=== PATIENT | male | born 1965 | race Caucasian/White ===

== ENCOUNTER 2017-02-11 07:54 | Inpatient (IN) | payer OTHER ==
[2017-02-11] VITALS (10 sets, daily range): BP systolic 112–165; BP diastolic 60–98; PULSE 94–133; RESP 18–38; TEMP 96.7–98.7; O2SAT 91–96
[~2017-02-11] VITALS: Ht 160 cm; Wt 66.0 kg
--- NOTE | 2017-02-11 08:07 | PD ---
HPI . shortness of breath at rest, fever, chills, body aches, Chief Complaint: Cold / Flu Symptoms Time Seen by Provider: 08:07 Travel History International Travel<30 days: No Contact w/Intl Traveler<30days: No Traveled to known affect area: No History of Present Illness HPI 51 yr old male with no significant PMH here with c/o shortness of breath at rest , fever, chills, body aches that started on Sunday of this past week. He has been trying to fight through the symptoms and not getting better. He tells me he has had difficulty breathing to where he is sitting up in a chair at home. He denies any chest pain, but admits to body aches mainly in his shoulder and ribs. He says that he thinks he may have had a fever because he was cold, but no one else was. He never checked his temperature. He says he has been feeling really "run down." He is accompanied by his family. PFSH Past Medical History Medical History: Denies Significant Hx Social History Tobacco Use: Yes Allergies-Medications (Allergen,Severity, Reaction): Coded Allergies: No Known Allergies (Unverified , 02/11/17) Reported Meds & Prescriptions Reported Meds & Active Scripts Active No Active Prescriptions or Reported Medications Review of Systems General / Constitutional: Positive: Fever, Chills Eyes: No: Visual changes HENT: No: Headaches Cardiovascular: No: Chest Pain or Discomfort Respiratory: Positive: Cough, Shortness of Breath Gastrointestinal: No: Abdominal Pain Genitourinary: No: Dysuria Musculoskeletal: No: Pain Skin: No Rash Neurologic: No: Weakness Psychiatric: No: Depression Endocrine: No: Polydipsia Hematologic/Lymphatic: No: Easy Bruising Physical Exam Narrative GENERAL: AAO x 3, no acute distress, Well-nourished, well-developed patient. SKIN: Warm and dry. No visible rashes or bruising. HEAD: Normocephalic and atraumatic. EYES: No scleral icterus. No injection or drainage. EOM intact, PERRLA ENT: No nasal drainage noted. Mucous membranes pink. Airway patent. mild posterior pharynx erythema NECK: Supple, trachea midline. No JVD. CARDIOVASCULAR: Regular rate and rhythm without murmurs, gallops, or rubs. RESPIRATORY: Breath sounds diminished R>L Short of breath while talking. No audible wheezing, rhonchi. GASTROINTESTINAL: Abdomen nondistended, some discomfort with deep palpation. EXTREMITIES: No cyanosis or edema. BACK: Nontender without obvious deformity. No CVA tenderness. PSYCH: AAO x 3, normal affect. Data Data Last Documented VS Vital Signs Date Time Temp Pulse Resp B/P Pulse Ox O2 Delivery O2 Flow Rate FiO2 02/11/17 09:51 114 28 135/71 93 Nasal Cannula 2 02/11/17 07:56 98.7 Orders Influenzae A/B Antigen (02/11/17 08:17) Complete Blood Count With Diff (02/11/17 08:19) Comprehensive Metabolic Panel (02/11/17 08:19) Sodium Chlor 0.9% 1000 Ml Inj (Ns 1000 M (02/11/17 08:30) Iv Access Insert/Monitor (02/11/17 08:20) Chest, Pa & Lat (02/11/17 08:17) Lactic Acid Sepsis Protocol (02/11/17 09:30) Blood Culture (02/11/17 09:30) Labs Laboratory Tests Test 02/11/17 02/11/17 08:45 08:50 Sodium Level 137 MEQ/L Potassium Level 4.4 MEQ/L Chloride Level 105 MEQ/L Carbon Dioxide Level 23.2 MEQ/L Anion Gap 9 MEQ/L Blood Urea Nitrogen 27 MG/DL Creatinine 1.29 MG/DL Estimat Glomerular Filtration 58 ML/MIN Rate Random Glucose 109 MG/DL Calcium Level 9.4 MG/DL Total Bilirubin 0.9 MG/DL Aspartate Amino Transf 15 U/L (AST/SGOT) Alanine Aminotransferase 27 U/L (ALT/SGPT) Alkaline Phosphatase 149 U/L Total Protein 7.4 GM/DL Albumin 2.5 GM/DL White Blood Count 21.9 TH/MM3 Red Blood Count 4.47 MIL/MM3 Hemoglobin 14.2 GM/DL Hematocrit 41.4 % Mean Corpuscular Volume 92.7 FL Mean Corpuscular Hemoglobin 31.7 PG Mean Corpuscular Hemoglobin 34.2 % Concent Red Cell Distribution Width 13.3 % Platelet Count 357 TH/MM3 Mean Platelet Volume 8.0 FL Neutrophils (%) (Auto) 80.6 % Lymphocytes (%) (Auto) 6.8 % Monocytes (%) (Auto) 12.1 % Eosinophils (%) (Auto) 0.2 % Basophils (%) (Auto) 0.3 % Neutrophils # (Auto) 17.6 TH/MM3 Lymphocytes # (Auto) 1.5 TH/MM3 Monocytes # (Auto) 2.6 TH/MM3 Eosinophils # (Auto) 0.0 TH/MM3 Basophils # (Auto) 0.1 TH/MM3 CBC Comment AUTO DIFF MDM Medical Decision Making Medical Screen Exam Complete: Yes Emergency Medical Condition: Yes Medical Record Reviewed: Yes Differential Diagnosis pneumonia, influenza, bronchitis, Narrative Course 51 yr old male with no significant PMH here with c/o shortness of breath at rest , fever, chills, body aches that started on Sunday of this past week. He has been trying to fight through the symptoms and not getting better. He tells me he has had difficulty breathing to where he is sitting up in a chair at home. He denies any chest pain, but admits to body aches mainly in his shoulder and ribs. He says that he thinks he may have had a fever because he was cold, but no one else was. He never checked his temperature. He says he has been feeling really "run down." He is accompanied by his family. Patient seen and examined. He does have some intermittent shortness of breath while talking to me and diminished breath sounds R>L. He is breathing normally. O2 sat is normal. His vital signs are stable. Workup initiated in [facility] pod with shortness of breath and diminished breath sounds , concerns for PNA. Laboratory Tests Test 02/11/17 02/11/17 08:45 08:50 Sodium Level 137 MEQ/L Potassium Level 4.4 MEQ/L Chloride Level 105 MEQ/L Carbon Dioxide Level 23.2 MEQ/L Anion Gap 9 MEQ/L Blood Urea Nitrogen 27 MG/DL Creatinine 1.29 MG/DL Estimat Glomerular Filtration 58 ML/MIN Rate Random Glucose 109 MG/DL Calcium Level 9.4 MG/DL Aspartate Amino Transf 15 U/L (AST/SGOT) Albumin 2.5 GM/DL White Blood Count 21.9 TH/MM3 Red Blood Count 4.47 MIL/MM3 Hemoglobin 14.2 GM/DL Hematocrit 41.4 % Mean Corpuscular Volume 92.7 FL Mean Corpuscular Hemoglobin 31.7 PG Mean Corpuscular Hemoglobin 34.2 % Concent Red Cell Distribution Width 13.3 % Platelet Count 357 TH/MM3 Mean Platelet Volume 8.0 FL Neutrophils (%) (Auto) 80.6 % Lymphocytes (%) (Auto) 6.8 % Monocytes (%) (Auto) 12.1 % Eosinophils (%) (Auto) 0.2 % Basophils (%) (Auto) 0.3 % Neutrophils # (Auto) 17.6 TH/MM3 Lymphocytes # (Auto) 1.5 TH/MM3 Monocytes # (Auto) 2.6 TH/MM3 Eosinophils # (Auto) 0.0 TH/MM3 Basophils # (Auto) 0.1 TH/MM3 CBC Comment AUTO DIFF Labs are back: Recommend transfer to medical bed. Discussed with Dr. Bower. He will determine patient's disposition. Scripts No Active Prescriptions or Reported Meds Condition: Ninfa Ingram Feb 11, 2017 08:07
[2017-02-11] MEDS ORDERED: SODIUM CHLOR 0.9% 1000 ML INJ 1,000 ML IV ONE (08:30)
[2017-02-11 09:17] LABS: AUTOMATED NEUTROPHIL # 17.6 TH/MM3 (1.8-7.7); BASOPHIL # 0.1 TH/MM3 (0-0.2); BASOPHIL % 0.3 % (0.0-2.0); EOSINOPHIL % 0.2 % (0.0-4.0); HEMATOCRIT 41.4 % (39.0-51.0); LYMPH % 6.8 % (9.0-44.0); LYMPHOCYTE # 1.5 TH/MM3 (1.0-4.8); MEAN CELL VOLUME 92.7 FL (80.0-100.0); MEAN CORPUSCULAR HEMOGLOBIN 31.7 PG (27.0-34.0); MEAN CORPUSCULAR HGB CONC 34.2 % (32.0-36.0); MONO % 12.1 % (0.0-8.0); NEUT % 80.6 % (16.0-70.0); PLATELET COUNT 357 TH/MM3 (150-450); RED BLOOD COUNT 4.47 MIL/MM3 (4.50-5.90); RED CELL DISTRIBUTION WIDTH 13.3 % (11.6-17.2); WHITE BLOOD COUNT 21.9 TH/MM3 (4.0-11.0)
[2017-02-11 09:21] LABS: HEMO FLAGS AUTO DIFF
[2017-02-11 09:34] LABS: ANION GAP 9 MEQ/L (5-15); AST (GOT) 15 U/L (15-37); BICARBONATE 23.2 MEQ/L (21.0-32.0); BLOOD UREA NITROGEN 27 MG/DL (7-18); CHLORIDE 105 MEQ/L (98-107); GLOMERULAR FILTRATION RATE 58 ML/MIN (>89); POTASSIUM 4.4 MEQ/L (3.5-5.1); SODIUM (NA) 137 MEQ/L (136-145)
[2017-02-11 09:37] LABS: ALKALINE PHOSPHATASE 149 U/L (45-117); ALT (GPT) 27 U/L (12-78); TOTAL BILIRUBIN ADULT 0.9 MG/DL (0.2-1.0)
--- NOTE | 2017-02-11 09:52 | RADRPT ---
EXAM DATE/TIME: 02/11/2017 09:04 [facility] COMPARISON: No previous studies available for comparison. INDICATIONS : Shortness of breath. MEDICAL HISTORY : None. SURGICAL HISTORY : None. ENCOUNTER: Initial ACUITY: 1 day PAIN SCORE: 0/10 LOCATION: Bilateral chest FINDINGS: PA and lateral views of the chest. Severe confluent opacity of the right lung with sparing of midlung parenchyma. Possible cavitation at the right lung base. Right pleural effusion with possible loculat ion at the upper lung zone. Left lung clear. No evidence of pneumothorax. Cardiomediastinal silhouett e grossly within normal limits. CONCLUSION: Extensive opacification of the right hemithorax likely representing a combination of parenchymal opac ity and pleural effusion. Possible cavitation at the right lung base. Possible loculation of pleural effusion. Cipriano Moore MD on February 11, 2017 at 9:48 Board Certified Radiologist. This report was verified electronically.
[2017-02-11 10:04] LABS: BANDS 23 % (0-6); NEUTROPHIL # MANUAL DIFF 18.4 TH/MM3 (1.8-7.7); PLATELET ESTIMATE SMEAR NORMAL (NORMAL); PLATELET MORPHOLOGY CLUMPED (NORMAL); POLYS (SEG NEUTROPHILS) 61 % (16-70); SCAN/DIFF FINAL DIFF MANUAL; WBC DIFF SAMPLE 100
[2017-02-11] MEDS ORDERED: NALOXONE HCL 0.4 MG/ML AMP IV PRN (11:15)
[2017-02-11] MEDS ORDERED: SODIUM CHLORIDE 0.9% FLUSH 10 ML FLUSH IV FLUSH PRN (11:15)
[2017-02-11] MEDS ORDERED: MAGNESIUM HYDROXIDE SUSP 30 ML CUP PO PRN (11:15)
[2017-02-11] MEDS ORDERED: PIPERACIL-TAZO 3.375 GM PREMIX 50 ML IV ONE (11:15)
[2017-02-11] MEDS ORDERED: ONDANSETRON HCL 4 MG/2 ML VIAL IVP PRN (11:15)
[2017-02-11] MEDS: NS + KCL 20 MEQ INJ 1,000 ML IV SCH ×2 (11:19→23:38)
[2017-02-11] MEDS: RESP: ALBUTEROL 2.5 MG/IPRATROPIUM 0.5 MG NEB (SCH) NEB ×2 (11:28→15:48)
--- NOTE | 2017-02-11 11:37 | PD ---
Data Data Last Documented VS Vital Signs Date Time Temp Pulse Resp B/P Pulse Ox O2 Delivery O2 Flow Rate FiO2 02/11/17 11:28 93 Nasal Cannula 2.00 02/11/17 10:15 97.9 111 20 134/60 Orders Influenzae A/B Antigen (02/11/17 08:17) Complete Blood Count With Diff (02/11/17 08:19) Comprehensive Metabolic Panel (02/11/17 08:19) Sodium Chlor 0.9% 1000 Ml Inj (Ns 1000 M (02/11/17 08:30) Iv Access Insert/Monitor (02/11/17 08:20) Chest, Pa & Lat (02/11/17 08:17) Lactic Acid Sepsis Protocol (02/11/17 09:30) Blood Culture (02/11/17 09:30) Admit To Inpatient (02/11/17 ) Code Status (02/11/17 11:03) Vital Signs (Adult) Q4H (02/11/17 11:03) Activity Oob With Assistance (02/11/17 11:03) Diet Regular Basic (02/11/17 Lunch) Sodium Chloride 0.9% Flush (Ns Flush) (02/11/17 11:15) Sodium Chloride 0.9% Flush (Ns Flush) (02/11/17 21:00) Acetaminophen (Tylenol) (02/11/17 11:15) Ondansetron Inj (Zofran Inj) (02/11/17 11:15) Magnesium Hydroxide Liq (Milk Of Magnesi (02/11/17 11:15) Temazepam (Restoril) (02/11/17 11:15) Basic Metabolic Panel (Bmp) (02/12/17 06:00) Complete Blood Count With Diff (02/12/17 06:00) Electrocardiogram (02/11/17 11:03) Resp Oxygen Henok C Titrat 1-4 L (02/11/17 ) Pt Request For Service (02/11/17 11:03) Scd Bilateral/Knee High MAXIMINO.BID (02/11/17 11:03) Naloxone Inj (Narcan Inj) (02/11/17 11:15) Inpatient Certification (02/11/17 ) Piperacil-Tazo 3.375 Gm Premix (Zosyn 3. (02/11/17 11:15) Sputum Culture And Gram Stain (02/11/17 11:05) Pneumococcal Urinary Antigen (02/11/17 11:05) Legionella Urinary Antigen (02/11/17 11:05) Vancomycin Inj (Vancomycin Inj) (02/11/17 13:00) Piperacil-Tazo 3.375 Gm Premix (Zosyn 3. (02/11/17 16:00) Magnesium (Mg) (02/12/17 06:00) Ns + Kcl 20 Meq Inj (Ns + Kcl 20 Meq Inj (02/11/17 11:15) Ct Thorax/ Chest W Iv Contrast (02/11/17 ) Albuterol-Ipratropium Neb (Duoneb Neb) (02/11/17 11:15) Albuterol-Ipratropium Neb (Duoneb Neb) (02/11/17 11:15) Consult Pulmonology (02/11/17 11:12) Admit Order (Ed Use Only) (02/11/17 11:31) Labs Laboratory Tests Test 02/11/17 02/11/17 02/11/17 08:45 08:50 09:45 Sodium Level 137 MEQ/L Potassium Level 4.4 MEQ/L Chloride Level 105 MEQ/L Carbon Dioxide Level 23.2 MEQ/L Anion Gap 9 MEQ/L Blood Urea Nitrogen 27 MG/DL Creatinine 1.29 MG/DL Estimat Glomerular Filtration 58 ML/MIN Rate Random Glucose 109 MG/DL Calcium Level 9.4 MG/DL Total Bilirubin 0.9 MG/DL Aspartate Amino Transf 15 U/L (AST/SGOT) Alanine Aminotransferase 27 U/L (ALT/SGPT) Alkaline Phosphatase 149 U/L Total Protein 7.4 GM/DL Albumin 2.5 GM/DL White Blood Count 21.9 TH/MM3 Red Blood Count 4.47 MIL/MM3 Hemoglobin 14.2 GM/DL Hematocrit 41.4 % Mean Corpuscular Volume 92.7 FL Mean Corpuscular Hemoglobin 31.7 PG Mean Corpuscular Hemoglobin 34.2 % Concent Red Cell Distribution Width 13.3 % Platelet Count 357 TH/MM3 Mean Platelet Volume 8.0 FL Neutrophils (%) (Auto) 80.6 % Lymphocytes (%) (Auto) 6.8 % Monocytes (%) (Auto) 12.1 % Eosinophils (%) (Auto) 0.2 % Basophils (%) (Auto) 0.3 % Neutrophils # (Auto) 17.6 TH/MM3 Lymphocytes # (Auto) 1.5 TH/MM3 Monocytes # (Auto) 2.6 TH/MM3 Eosinophils # (Auto) 0.0 TH/MM3 Basophils # (Auto) 0.1 TH/MM3 CBC Comment AUTO DIFF Differential Total Cells 100 Counted Neutrophils % (Manual) 61 % Band Neutrophils % 23 % Lymphocytes % 9 % Monocytes % 7 % Neutrophils # (Manual) 18.4 TH/MM3 Differential Comment FINAL DIFF MANUAL Platelet Estimate NORMAL Platelet Morphology Comment CLUMPED Red Cell Morphology Comment NORMAL Lactic Acid Level 1.5 mmol/L MDM Supervised Visit with CAMILO: No Narrative Course This patient was started in fast track and the PA there realizes patient was far too sick to be a faster patient was transferred to the medical pod where I took over care to provide disposition. I reviewed the entirety of the workup. 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 Valentin who will admit this patient He is consulted pulmonary and ordered chest CT Diagnosis Primary Impression: Pneumonia Qualified Code: J18.9 - Pneumonia of right lung due to infectious organism, unspecified part of lung Additional Impression: Pleural effusion associated with pulmonary infection Admitting Information Admitting Physician Requests: Admit Scripts No Active Prescriptions or Reported Meds Condition: Stable Gregg Bower MD Feb 11, 2017 11:37
[2017-02-11] MEDS ORDERED: IOHEXOL 350 MG/ML 10 ML VIAL (for RAD DIAG) IV ONE (11:49)
--- NOTE | 2017-02-11 12:47 | RADRPT ---
EXAM DATE/TIME: 02/11/2017 11:40 [facility] COMPARISON: No previous studies available for comparison. INDICATIONS : Shortness of breath for one week. IV CONTRAST: 100 cc Omnipaque 350 (iohexol) IV RADIATION DOSE: 5.2 CTDIvol (mGy) MEDICAL HISTORY : None SURGICAL HISTORY : None. ENCOUNTER: Initial ACUITY: 1 day PAIN SCALE: 4/10 LOCATION: Bilateral chest TECHNIQUE: Volumetric scanning of the chest was performed. Using automated exposure control and adjustment of t he mA and/or kV according to patient size, radiation dose was kept as low as reasonably achievable to obtain optimal diagnostic quality images. FINDINGS: LUNGS: Patchy areas of pulmonary consolidation with air bronchograms in the right middle lobe and right lowe r lobe. Mild atelectasis at the left lower lobe. Calcified granuloma in the medial left lower lobe. PLEURA: Multiloculated right pleural effusion. Multiple gas bubbles are identified within the components of t he pleural effusion at the level of the lower lung and midlung. Air-fluid level at the superior etta n of the lateral loculation of the pleural fluid collection at the level of the midlung. MEDIASTINUM: The heart and great vessels demonstrate no acute abnormality. There is no mediastinal or hilar lymph adenopathy. AXILLAE: Within normal limits. No lymphadenopathy. SKELETAL: Within normal limits for patient age. MISCELLANEOUS: The visualized upper abdominal organs demonstrate no acute abnormality. CONCLUSION: 1. Prominent multiloculated pleural effusion on the right containing multiple foci of gas. Difficult diagnosis includes bronchopleural fistula, infection with gas producing organisms, and iatrogenic if recent procedure has been performed. 2. Patchy right lung consolidation. Cipriano Moore MD on February 11, 2017 at 12:37 Board Certified Radiologist. This report was verified electronically.
[2017-02-11] MEDS: VANCOMYCIN INJ 1,000 MG in SODIUM CHLOR 0.9% 250 ML INJ 250 ML IV SCH (13:15)
[2017-02-11] MEDS: ACETAMINOPHEN 325 MG TAB PO PRN (15:19)
--- NOTE | 2017-02-11 15:47 | MB ---
cc: OmkarTEVINBINA DATE OF CONSULTATION 02/11/17 REASON FOR CONSULTATION Pneumonia and fever. PRESENT ILLNESS This is a 51-year-old white male who has been experiencing fever, chills pains in his shoulder and both sides of his chest and rib cage, came to the emergency room with malaise and shortness of breath. The patient apparently has been running temperatures of over 100 degrees. He was working at the [employer] facility but became his quite weak and unable to complete his job and thus was brought to the ER by his family. Upon arrival a chest CT was done which showed some atelectasis at the lung bases and loculated effusion with air and his white count was elevated to over 20,000. Influenza test was negative. The patient was placed on oxygen since his sats were low. He is now coughing but does not bring up much sputum. Denies any hemoptysis but still is febrile PAST HISTORY Past history is not significant for any have hypertension or diabetes or other illnesses. No surgery. HABITS The patient smokes under one-pack per day and has done so for 30+ years. No alcohol use since the past 14 years. FAMILY HISTORY There is a history of diabetes in the family, in his father. ALLERGIES None listed. REVIEW OF SYSTEMS The patient has lost weight. His appetite is down. He has hoarseness. He has chest and shoulder pains and back pain and he has some nausea. No urinary symptoms. No leg or calf muscle pains. He denies any skin rash. He has no anxiety. No depression. PHYSICAL EXAMINATION GENERAL: This averagely built middle-aged white male who is anxious, pale, is slightly dyspneic. VITAL SIGNS: Blood pressure 140/70, pulse is 112, respirations 28, temperature 99. HEENT: Head normocephalic. Pupils reactive. Throat is injected. Nasal mucosae masses. NEC: Supple. No bruits or thyroid enlargement or lymphadenopathy. CHEST: Equal movements with some tenderness of the chest wall bilaterally. Occasional wheezes in the upper chest with no crackles on either side. HEART: Heart sounds are regular, S1-S2. No murmur. No S3. ABDOMEN: Abdomen is soft, protuberant with tenderness in the upper abdomen. Bowel sounds are active. No organomegaly. EXTREMITIES: No lesions. No edema. No calf tenderness. Reflexes are 1+ with no gross motor deficits. NEURO: Cranial nerves grossly intact. SKIN: No lesions. IMPRESSION 1. Basal pneumonia with loculated Effusion . 2. Probable empyema 3. Probable underlying COPD. PLAN The patient was counseled about quitting cigarette smoking. We will continue broad-spectrum antibiotic coverage and I have also added Zithromax 500 milligrams p.o. daily for atypicals. Sputum was sent for Gram stain and culture. Urine sent for Legionella and pneumococcal antigens.Will need a thoracentesis and possible chest tube and Bronchoscopy later. Repeat chest x- ray in the a.m. and CBC and a PFT when he is clinically stable. Thank you Dr. Valentin for this consultation. Bina Sabillon MD JSOPHIA/KYMBERLY /3:05 PM /3:38 PM SUZY
[2017-02-11 16:26] LABS: BLOOD GAS BASE EXCESS -5.2 mmol/L (-2-2); BLOOD GAS CARBOXYHEMOGLOBIN 1.2 % (0-4); BLOOD GAS HCO3 18 mmol/L (22-26); BLOOD GAS METHEMOGLOBIN 0.9 % (0-2); BLOOD GAS O2 HGB SATURATION 89 % (90-100); BLOOD GAS PCO2 27 mmHg (38-42); BLOOD GAS PO2 58 mmHg (61-120); BLOOD GAS TOTAL HGB 14.4 G/DL (12.0-16.0); CRITICAL VALUE YES; LITER FLOW 2 L/M; OXYGEN DEVICE NASAL CANNULA; TEMP CORR TO 98.6
[2017-02-11 16:27] LABS: DRAW SITE LT BRACHIAL; NUMBER OF ARTERIAL PUNCTURES 1; STAT YES; ULNAR PULSE PRESENT
[2017-02-11] MEDS: PIPERACIL-TAZO 3.375 GM PREMIX 50 ML IV SCH ×2 (17:18→20:22)
[2017-02-11] MEDS ORDERED: ENALAPRILAT 1.25 MG/ML VIAL IV PRN (18:00)
[2017-02-11] MEDS ORDERED: cloNIDine HCL 0.2 MG TAB PO PRN (18:00)
[2017-02-11] MEDS ORDERED: DILTIAZEM HCL 30 MG TAB PO SCH (18:15)
--- NOTE | 2017-02-11 18:21 | HHI.HP ---
HPI Service [facility] Hospitalists Primary Care Physician Triston Ty MD Admission Diagnosis pneumonia,pleural effusion Chief Complaint: sob Travel History International Travel<30 Days: No Contact w/Intl Traveler <30 Da: No Traveled to Known Affected Are: No Sepsis Criteria SIRS Criteria (2 or more): Heart rate over 90 Sepsis Criteria (SIRS+source): Infect source susp/known Criteria Outcome: Meets SIRS criteria History of Present Illness Pt is a 51 y/o M with negative PMH who presented to the ER with c/o fever, chills, cough, and SOB. Pt states that these symptoms have worsened over the course of the last week. Pt c/o generalized muscle aches. Pt had to sit upright in a chair to sleep and could not lye down d/t SOB. 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 Pt states that some of his coworkers have c/o similar symptoms. Review of Systems Constitutional: COMPLAINS OF: Fever, Chills, DENIES: Diaphoretic episodes, Fatigue, Weight gain, Weight loss, Dizziness, Change in appetite, Night Sweats Endocrine: DENIES: Heat/cold intolerance, Polydipsia, Polyuria, Polyphagia Eyes: DENIES: Blurred vision, Diplopia, Eye inflammation, Eye pain, Vision loss , Photosensitivity, Double Vision Ears, nose, mouth, throat: DENIES: Tinnitus, Hearing loss, Vertigo, Nasal discharge, Oral lesions, Throat pain, Hoarseness, Ear Pain, Running Nose, Epistaxis, Sinus Pain, Toothache, Odynophagia Respiratory: COMPLAINS OF: Shortness of breath, DENIES: Apneas, Cough, Snoring , Wheezing, Hemoptysis, Sputum production Cardiovascular: DENIES: Chest pain, Palpitations, Syncope, Dyspnea on Exertion , PND, Lower Extremity Edema, Orthopnea, Claudication Gastrointestinal: DENIES: Abdominal pain, Black stools, Bloody stools, BRB per rectum, Constipation, Diarrhea, GERD, Nausea, Reflux, Vomiting, Difficulty Swallowing, Anorexia, See HPI Genitourinary: COMPLAINS OF: Testicular Pain, DENIES: Urinary frequency, Urinary incontinence, Urgency, Hematuria, Dysuria, Nocturia Musculoskeletal: DENIES: Joint pain, Muscle aches, Stiffness, Joint Swelling, Back pain, Neck pain Integumentary: DENIES: Abnormal pigmentation, Nail changes, Pruritus, Rash Hematologic/lymphatic: DENIES: Bruising, Lymphadenopathy Immunologic/allergic: DENIES: Eczema, Urticaria Neurologic: DENIES: Abnormal gait, Headache, Localized weakness, Paresthesias, Seizures, Speech Problems, Tremor, Poor Balance Psychiatric: DENIES: Anxiety, Confusion, Mood changes, Depression, Hallucinations, Agitation, Suicidal Ideation, Homicidal Ideation, Delusions, History of Bipolar, History of Schizophrenia Past Family Social History Past Medical History none Past Surgical History none Reported Medications Reported Meds & Active Scripts Active No Active Prescriptions or Reported Medications Allergies: Coded Allergies: No Known Allergies (Unverified , 02/11/17) Family History noncontributory Social History tobacco: 1ppd for last 30 years etoh: drinks daily NO illicit street drugs Physical Exam Vital Signs Vital Signs Date Time Temp Pulse Resp B/P Pulse Ox O2 Delivery O2 Flow Rate FiO2 02/11/17 16:39 93 Nasal Cannula 4.00 02/11/17 16:00 97.6 133 20 152/82 92 02/11/17 13:30 97.1 125 19 159/67 92 02/11/17 13:24 22 97 3 02/11/17 12:01 92 Nasal Cannula 4 02/11/17 11:28 93 Nasal Cannula 2.00 02/11/17 10:15 97.9 111 20 134/60 95 Nasal Cannula 2 02/11/17 09:51 114 28 135/71 93 Nasal Cannula 2 02/11/17 08:40 20 02/11/17 07:56 98.7 94 18 165/78 96 Physical Exam GENERAL: This is a well-nourished, well-developed patient, in no apparent distress. SKIN: No rashes, ecchymoses or lesions. Cool and dry. HEAD: Atraumatic. Normocephalic. No temporal or scalp tenderness. EYES: Pupils equal round and reactive. Extraocular motions intact. No scleral icterus. No injection or drainage. ENT: Nose without bleeding, purulent drainage or septal hematoma. Throat without erythema, tonsillar hypertrophy or exudate. Uvula midline. Airway patent. NECK: Trachea midline. No JVD or lymphadenopathy. Supple, nontender, no meningeal signs. CARDIOVASCULAR: Regular rate and rhythm without murmurs, gallops, or rubs. RESPIRATORY: Clear to auscultation. Breath sounds equal bilaterally. No wheezes , rales, or rhonchi. GASTROINTESTINAL: Abdomen soft, non-tender, nondistended. No hepato-splenomegaly , or palpable masses. No guarding. MUSCULOSKELETAL: Extremities without clubbing, cyanosis, or edema. No joint tenderness, effusion, or edema noted. No calf tenderness. Negative Homans sign bilaterally. NEUROLOGICAL: Awake and alert. Cranial nerves II through XII intact. Motor and sensory grossly within normal limits. Five out of 5 muscle strength in all muscle groups. Normal speech. Laboratory Laboratory Tests Test 02/11/17 02/11/17 02/11/17 02/11/17 08:45 08:50 09:45 16:11 Sodium Level 137 Potassium Level 4.4 Chloride Level 105 Carbon Dioxide Level 23.2 Anion Gap 9 Blood Urea Nitrogen 27 Creatinine 1.29 Estimat Glomerular Filtration 58 Rate Random Glucose 109 Calcium Level 9.4 Total Bilirubin 0.9 Aspartate Amino Transf 15 (AST/SGOT) Alanine Aminotransferase 27 (ALT/SGPT) Alkaline Phosphatase 149 Total Protein 7.4 Albumin 2.5 White Blood Count 21.9 Red Blood Count 4.47 Hemoglobin 14.2 Hematocrit 41.4 Mean Corpuscular Volume 92.7 Mean Corpuscular Hemoglobin 31.7 Mean Corpuscular Hemoglobin 34.2 Concent Red Cell Distribution Width 13.3 Platelet Count 357 Mean Platelet Volume 8.0 Neutrophils (%) (Auto) 80.6 Lymphocytes (%) (Auto) 6.8 Monocytes (%) (Auto) 12.1 Eosinophils (%) (Auto) 0.2 Basophils (%) (Auto) 0.3 Neutrophils # (Auto) 17.6 Lymphocytes # (Auto) 1.5 Monocytes # (Auto) 2.6 Eosinophils # (Auto) 0.0 Basophils # (Auto) 0.1 CBC Comment AUTO DIFF Differential Total Cells 100 Counted Neutrophils % (Manual) 61 Band Neutrophils % 23 Lymphocytes % 9 Monocytes % 7 Neutrophils # (Manual) 18.4 Differential Comment FINAL DIFF MANUAL Platelet Estimate NORMAL Platelet Morphology Comment CLUMPED Red Cell Morphology Comment NORMAL Lactic Acid Level 1.5 Blood Gas Puncture Site LT BRACHIAL Blood Gas Patient Temperature 98.6 Blood Gas HCO3 18 Blood Gas Base Excess -5.2 Blood Gas Oxygen Saturation 89 Arterial Blood pH 7.45 Arterial Blood Partial 27 Pressure CO2 Arterial Blood Partial 58 Pressure O2 Arterial Blood Oxygen Content 18.0 Arterial Blood 1.2 Carboxyhemoglobin Arterial Blood Methemoglobin 0.9 Blood Gas Hemoglobin 14.4 Oxygen Delivery Device NASAL CANNULA Blood Gas Liter Flow 2 Date/Time Procedure Status Source Growth 02/11/17 15:33 Gram Stain Received Sputum Expectorated Sputum Pending 02/11/17 15:33 Sputum Culture Received Sputum Expectorated Sputum Pending 02/11/17 09:50 Aerobic Blood Culture Received Blood Peripheral Pending 02/11/17 09:50 Anaerobic Blood Culture Received Blood Peripheral Pending 02/11/17 08:45 Influenza Types A,B Antigen (LUKAS) - Final Complete Nasal Washing NEGATIVE FOR FLU A AND B ANTIGEN.... Result Diagram: 02/11/17 0850 02/11/17 0845 Imaging Last Impressions Chest X-Ray 02/11/17 0817 Signed Impressions: Service Date/Time: Saturday, February 11, 2017 09:04 - CONCLUSION: Extensive opacification of the right hemithorax likely representing a combination of parenchymal opacity and pleural effusion. Possible cavitation at the right lung base. Possible loculation of pleural effusion. Cipriano Moore MD Chest CT 02/11/17 0000 Signed Impressions: Service Date/Time: Saturday, February 11, 2017 11:40 - CONCLUSION: 1. Prominent multiloculated pleural effusion on the right containing multiple foci of gas. Difficult diagnosis includes bronchopleural fistula, infection with gas producing organisms, and iatrogenic if recent procedure has been performed. 2. Patchy right lung consolidation. Cipriano Moore MD Septic Shock Reassessment Heart: Regular rate and rhythm Lungs: Clear Skin: Warm Peripheral Pulses: Bounding Right Radial Bounding Left Radial Bounding Right Popliteal Bounding Left Popliteal Bounding Right Dorsalis Pedis Bounding Left Dorsalis Pedis Bounding Right Posterior Tibial Bounding Left Posterior Tibial Capillary Refill: Brisk Assessment and Plan Problem List: (1) Pneumonia Status: Acute Plan: CT chest (02/11/17) 1. Prominent multiloculated pleural effusion on the right containing multiple foci of gas. Difficult diagnosis includes bronchopleural fistula, infection with gas producing organisms, and iatrogenic if recent procedure has been performed. 2. Patchy right lung consolidation - appreciate input from Pulm Med - Case d/w thoracic surgery, Dr. Hafsa Anderson. He will consult - sputum studies pending - blood culture pending - legionella antigen pending - pneumococcal antigen pending - influenza negative - Vancomycin, zosyn (2) Pleural effusion associated with pulmonary infection Status: Acute Plan: - see above Physician Certification 2 Midnight Certification Type: Admission for Inpatient Services Order for Inpatient Services The services are ordered in accordance with Medicare regulations or non- Medicare payer requirements, as applicable. In the case of services not specified as inpatient-only, they are appropriately provided as inpatient services in accordance with the 2-midnight benchmark. Estimated LOS (days): 3 3 days is the estimated time the patient will need to remain in the hospital, assuming treatment plan goals are met and no additional complications. Post-Hospital Plan: Home Problem Qualifiers (1) Pneumonia: Qualified Code: J18.9 - Pneumonia of right lung due to infectious organism, unspecified part of lung Juan Carlos Valentin DO Feb 11, 2017 18:21 unspecified part of lung Juan Carlos Valentin DO Feb 11, 2017 18:21
[2017-02-11] MEDS ORDERED: DILTIAZEM INJ 125 MG in SODIUM CHLORIDE 0.9% INJ 100 ML IV SCH (19:00)
[2017-02-11] MEDS: ACETAMINOPHEN/HYDROcodone 325 MG/5 MG TAB PO PRN (20:23)
[2017-02-11] MEDS: SODIUM CHLORIDE 0.9% FLUSH 10 ML FLUSH IV FLUSH SCH (20:23)
[2017-02-11] MEDS: MORPHINE SULFATE 4 MG/ML INJ IV PUSH PRN (23:38)
[2017-02-12] VITALS (18 sets, daily range): BP systolic 91–133; BP diastolic 58–77; PULSE 104–138; RESP 18–34; TEMP 98.2–100.5; O2SAT 93–100
[2017-02-12] MEDS: ALPRAZolam 1 MG TAB PO PRN (00:43)
[2017-02-12] MEDS: VANCOMYCIN INJ 1,000 MG in SODIUM CHLOR 0.9% 250 ML INJ 250 ML IV SCH ×2 (00:43→12:16)
[2017-02-12] MEDS ORDERED: MIDAZOLAM HCL 5 MG/ML VIAL (1 ML) ONE ×2 (01:28→16:51)
[2017-02-12] MEDS ORDERED: ROCURONIUM INJ 50 MG/5 ML VIAL ONE (01:29)
[2017-02-12] MEDS ORDERED: PROPOFOL 1000 MG/100 ML INJ 100 ML ONE (01:32)
[2017-02-12] MEDS ORDERED: CLINDAMYCIN INJ 900 MG in SODIUM CHLORIDE 0.9% INJ 100 ML IV ONE (02:45)
--- NOTE | 2017-02-12 02:50 | PD.CONS ---
HPI Service Note for 02/11/2017: Critical Care Medicine Consult Requested By CP Reason for Consult Deteriorating respiratory status. 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 He was moved by Dr. Valentin to the [facility] for worsening SOB, general decline. I reviewed Dr. Bey's consultation from earlier today and clearly this man has deteriorated since that time. His work of breathing has increased considerably and is not sustainable at this point. Further, he appears quite septic with flushed, clammy skin and sustained tachycardia. His pleuritic pain is so severe that he is incapable of breathing deeply and I sense he is getting confused. I spoke with the patient and his was informed. I felt intubation and ventilation was indicated by about midnight tonight, and drainage of the effusion was indicated to cement our diagnosis and guide therapy. A right chest tube placed above the diaphragm drained 1,100 mls of foul smelling, putrid, yellow material; sent for culture. Pleural fluid studies were also sent. As Dr. Bey predicted this is clearly an empyema. Review of Systems ROS Severe right side pleuritic pain. SOB at rest. Past Family Social History Allergies: Coded Allergies: No Known Allergies (Unverified , 02/11/17) Physical Exam Vital Signs Vital Signs Date Time Temp Pulse Resp B/P Pulse Ox O2 Delivery O2 Flow Rate FiO2 02/12/17 00:00 111 02/12/17 00:00 98.2 111 34 133/77 93 02/11/17 22:00 98.1 120 38 123/98 92 02/11/17 22:00 112 02/11/17 21:08 91 High Flow Nasal Cannula 4.00 02/11/17 20:00 96.7 115 24 112/75 94 02/11/17 19:00 Nasal Cannula 3.00 02/11/17 16:39 93 Nasal Cannula 4.00 02/11/17 16:00 97.6 133 20 152/82 92 02/11/17 13:30 97.1 125 19 159/67 92 02/11/17 13:24 22 97 3 02/11/17 12:01 92 Nasal Cannula 4 02/11/17 11:28 93 Nasal Cannula 2.00 02/11/17 10:15 97.9 111 20 134/60 95 Nasal Cannula 2 02/11/17 09:51 114 28 135/71 93 Nasal Cannula 2 02/11/17 08:40 20 02/11/17 07:56 98.7 94 18 165/78 96 Physical Exam Gen: Ill-appearing. Head: Normal. Neck: Supple, orally intubated. Lungs: Absent sounds right base, diminished left. Labored and tachypneic at 35. Heart: NL S1S2, tachycardia. No JVD, reg rhythm. Abdomen: Soft, no guarding. BS few. Extremities: Clammy, damp, well perfused. Neuro: Talking fast, somewhat confused but oriented to self and hospital. Moves 4 limbs spontaneously. Distressed. Laboratory Laboratory Tests Test 02/11/17 02/11/17 02/11/17 02/11/17 08:45 08:50 09:45 16:11 Sodium Level 137 Potassium Level 4.4 Chloride Level 105 Carbon Dioxide Level 23.2 Anion Gap 9 Blood Urea Nitrogen 27 Creatinine 1.29 Estimat Glomerular Filtration 58 Rate Random Glucose 109 Calcium Level 9.4 Total Bilirubin 0.9 Aspartate Amino Transf 15 (AST/SGOT) Alanine Aminotransferase 27 (ALT/SGPT) Alkaline Phosphatase 149 Total Protein 7.4 Albumin 2.5 White Blood Count 21.9 Red Blood Count 4.47 Hemoglobin 14.2 Hematocrit 41.4 Mean Corpuscular Volume 92.7 Mean Corpuscular Hemoglobin 31.7 Mean Corpuscular Hemoglobin 34.2 Concent Red Cell Distribution Width 13.3 Platelet Count 357 Mean Platelet Volume 8.0 Neutrophils (%) (Auto) 80.6 Lymphocytes (%) (Auto) 6.8 Monocytes (%) (Auto) 12.1 Eosinophils (%) (Auto) 0.2 Basophils (%) (Auto) 0.3 Neutrophils # (Auto) 17.6 Lymphocytes # (Auto) 1.5 Monocytes # (Auto) 2.6 Eosinophils # (Auto) 0.0 Basophils # (Auto) 0.1 CBC Comment AUTO DIFF Differential Total Cells 100 Counted Neutrophils % (Manual) 61 Band Neutrophils % 23 Lymphocytes % 9 Monocytes % 7 Neutrophils # (Manual) 18.4 Differential Comment FINAL DIFF MANUAL Platelet Estimate NORMAL Platelet Morphology Comment CLUMPED Red Cell Morphology Comment NORMAL Lactic Acid Level 1.5 Blood Gas Puncture Site LT BRACHIAL Blood Gas Patient Temperature 98.6 Blood Gas HCO3 18 Blood Gas Base Excess -5.2 Blood Gas Oxygen Saturation 89 Arterial Blood pH 7.45 Arterial Blood Partial 27 Pressure CO2 Arterial Blood Partial 58 Pressure O2 Arterial Blood Oxygen Content 18.0 Arterial Blood 1.2 Carboxyhemoglobin Arterial Blood Methemoglobin 0.9 Blood Gas Hemoglobin 14.4 Oxygen Delivery Device NASAL CANNULA Blood Gas Liter Flow 2 Date/Time Procedure Status Source Growth 02/11/17 15:33 Gram Stain Received Sputum Expectorated Sputum Pending 02/11/17 15:33 Sputum Culture Received Sputum Expectorated Sputum Pending 02/11/17 09:50 Aerobic Blood Culture Received Blood Peripheral Pending 02/11/17 09:50 Anaerobic Blood Culture Received Blood Peripheral Pending 02/11/17 08:45 Influenza Types A,B Antigen (LUKAS) - Final Complete Nasal Washing NEGATIVE FOR FLU A AND B ANTIGEN.... Result Diagram: 02/11/17 0850 02/11/17 0845 Assessment and Plan Assessment and Plan Assessment: 1. Right pneumonia and parapneumonic effusion. 2. Right empyema, bacterial suspected. 3. Hypoxemic respiratory failure. 4. Severe sepsis. Plan: 1. PRVC vent mode. 2. Discuss further therapy with Dr. Bey. 3. Add clindamycin for one dose. 4. Continue PIP/SILVIO, Vanc. 5. Sputum culture. 6. Pleural fluid studies. 7. Pleural fluid culture. 8. Start TFs. 9. IR drain loculation right upper lateral chest wall is does not drain dependently. 10. Protonix. 11. Chemical DVT Px. Overall impression: Patient is critically ill with severe sepsis from right pneumonia and empyema. He requires mechanical ventilation and will require additional drainage procedures. Critical care 50 mins aside from procedures. Dario Wheeler MD February 12, 2017 02:50
[2017-02-12 03:06] LABS: PLEURAL FLUID PH 7.5; PLEURAL FLUID SPECIFIC GRAVITY 1.029
[2017-02-12] MEDS ORDERED: POTASSIUM PHOSPHATE MONOBASIC 500 MG TAB PO/TUBE PRN (03:15)
[2017-02-12] MEDS ORDERED: MAGNESIUM SULFATE INJ 2 GM in SODIUM CHLORIDE 0.9% INJ 96 ML IV PRN (03:15)
[2017-02-12] MEDS ORDERED: SODIUM PHOSPHATE INJ 30 MMOL in SODIUM CHLOR 0.9% 250 ML INJ 240 ML IV PRN (03:15)
[2017-02-12] MEDS ORDERED: POTASSIUM CHLOR 40 MEQ PREMIX 100 ML IV PRN (03:15)
[2017-02-12] MEDS ORDERED: MAGNESIUM SULFATE INJ 4 GM in SODIUM CHLORIDE 0.9% INJ 92 ML IV PRN (03:15)
[2017-02-12] MEDS ORDERED: POTASSIUM CHLOR 20 MEQ PREMIX 100 ML IV PRN (03:15)
[2017-02-12] MEDS ORDERED: POTASSIUM PHOSPHATE MONOBASIC 500 MG TAB PO PRN (03:15)
[2017-02-12] MEDS ORDERED: POTASSIUM CHLORIDE 25 MEQ EFFERVESCENT TAB PO PRN (03:15)
[2017-02-12] MEDS ORDERED: MAGNESIUM OXIDE 400 MG TAB PO PRN (03:15)
--- NOTE | 2017-02-12 03:18 | RADRPT ---
EXAM DATE/TIME: 02/12/2017 02:29 [place] COMPARISON: CHEST PA & LAT, February 11, 2017, 9:04. CT THORAX W CONTRAST, February 11, 2017, 11:40. INDICATIONS : E-T tube and right sided chest tube placement. MEDICAL HISTORY : None. SURGICAL HISTORY : None. ENCOUNTER: Subsequent ACUITY: 2 days PAIN SCORE: Non-responsive. LOCATION: Bilateral chest FINDINGS: The cardiac silhouette is enlarged in transverse diameter. Support lines and tubes are in satisfactor y position. There is diffuse right-sided atelectasis versus pneumonia with right effusion. The left l alcides is free of acute parenchymal opacity. A right chest tube is in place. There is no evidence of pne umothorax. CONCLUSION: 1. Diffuse right-sided pneumonia. There is no evidence of pneumothorax. 2. Satisfactory position of endotracheal tube as above. 3. There has been no significant change when compared to the prior exam. Arthur Jane MD on February 12, 2017 at 3:15 Board Certified Radiologist. This report was verified electronically.
[2017-02-12] MEDS: fentaNYL DRIP 250 ML IV SCH (03:30)
[2017-02-12 03:31] LABS: PLEURAL FLUID LYMPHS 12 %
[2017-02-12] MEDS: PROPOFOL 1000 MG/100 ML INJ 100 ML IV SCH ×4 (03:31→17:05)
--- NOTE | 2017-02-12 03:32 | PD.PROCEDR ---
Procedure Note Procedure DX: Severe sepsis (A41.9), Hypoxemic Respiratory Failure (J96.01), Parapneumonic Effusion. OP: 1. Orotracheal Intubation (43626) 2. Insertion Right Chest Tube (31353) Procedure: Gentle bag assisted ventilation. Versed 10 mg and rocuronium 100 mg iv. Intubated orally with 8.0 tube. Position confirmed with CO2 detection , breath sounds, sats 100%. Right chest prepped and draped. A 2 cm horizontal incision was made on the anterior axillary line over the 7th rib. A tunnel was developed with blunt dissection over the top of the 7th rib and foul fluid was obtained. A 28 Fr chest tube was delivered through this space using a Crile clamp and immediate drainage of 1,000 mls of putrid, foul smelling fluid was drained. Cultures and studies sent. Chest tube sewn to skin with O-silk suture, dressing applied. CXR with tracheal and chest tubes in good position. Dario Wheeler MD February 12, 2017 03:32
[2017-02-12 03:45] LABS: TOTAL PROTEIN,PLEURAL FLUID 3.7 GM/DL
[2017-02-12] MEDS: RESP: ALBUTEROL 2.5 MG/IPRATROPIUM 0.5 MG NEB (SCH) NEB ×4 (04:30→19:37)
[2017-02-12 05:43] LABS: BLOOD GAS BASE EXCESS -5.9 mmol/L (-2-2); BLOOD GAS CARBOXYHEMOGLOBIN 0.5 % (0-4); BLOOD GAS HCO3 20 mmol/L (22-26); BLOOD GAS O2 HGB SATURATION 98 % (90-100); BLOOD GAS OXYGEN CONTENT 18.4 Vol % (12.0-20.0); BLOOD GAS PCO2 42 mmHg (38-42); BLOOD GAS PO2 308 mmHg (61-120); BLOOD GAS TOTAL HGB 12.8 G/DL (12.0-16.0); TEMP CORR TO 98.6
[2017-02-12] MEDS: METOCLOPRAMIDE HCL SYRUP 10 MG/10 ML UDC PO SCH ×4 (05:43→19:57)
[2017-02-12] MEDS: PIPERACIL-TAZO 3.375 GM PREMIX 50 ML IV SCH (05:43)
[2017-02-12 05:45] LABS: CRITICAL VALUE YES; DRAW SITE RT RADIAL; FIO2 100 %; NUMBER OF ARTERIAL PUNCTURES 1; OXYGEN DEVICE VENTILATOR; STAT NO; ULNAR PULSE PRESENT; VENT SETTINGS PRVC/AC
[2017-02-12] MEDS: PIPERACIL-TAZO 4.5 GM PREMIX 100 ML IV SCH ×3 (07:57→19:56)
[2017-02-12] MEDS: LEVOFLOXACIN 750 MG PREMIX INJ 150 ML IV SCH (08:00)
[2017-02-12] MEDS: SODIUM CHLORIDE 0.9% FLUSH 10 ML FLUSH IV FLUSH SCH ×2 (08:01→19:57)
[2017-02-12] MEDS: NS + KCL 20 MEQ INJ 1,000 ML IV SCH ×2 (08:02→13:52)
[2017-02-12] MEDS: CHLORHEXIDINE 0.12% (ORAL KIT) 15 ML CUP MT SCH ×2 (08:02→19:57)
[2017-02-12] MEDS: BENEPROTEIN POWDER 1 PACK G-TUBE SCH ×3 (08:05→15:39)
[2017-02-12] MEDS ORDERED: PNEUMOCOCCAL POLYVALENT INJ 25 MCG/0.5 ML SYR IM ONE (09:00)
[2017-02-12] MEDS ORDERED: AZITHROMYCIN 250 MG TAB PO SCH (09:00)
[2017-02-12 09:42] LABS: HEMATOCRIT 40.9 % (39.0-51.0); MEAN CELL VOLUME 94.3 FL (80.0-100.0); MEAN CORPUSCULAR HEMOGLOBIN 31.8 PG (27.0-34.0); MEAN CORPUSCULAR HGB CONC 33.7 % (32.0-36.0); PLATELET COUNT 347 TH/MM3 (150-450); RED BLOOD COUNT 4.34 MIL/MM3 (4.50-5.90); RED CELL DISTRIBUTION WIDTH 13.7 % (11.6-17.2); WHITE BLOOD COUNT 25.1 TH/MM3 (4.0-11.0)
[2017-02-12] MEDS ORDERED: INFLUENZA VIRUS VACCINE (QUADRIVALENT) 0.5 ML SYR IM ONE (10:00)
[2017-02-12 10:06] LABS: ALKALINE PHOSPHATASE 124 U/L (45-117); AST (GOT) 17 U/L (15-37); BLOOD UREA NITROGEN 19 MG/DL (7-18); GLOMERULAR FILTRATION RATE 73 ML/MIN (>89); MAGNESIUM 2.7 MG/DL (1.5-2.5)
[2017-02-12 10:07] LABS: ALT (GPT) 18 U/L (12-78); ANION GAP 11 MEQ/L (5-15); BICARBONATE 17.3 MEQ/L (21.0-32.0); CHLORIDE 109 MEQ/L (98-107); HEMO FLAGS AUTO DIFF; POTASSIUM 4.6 MEQ/L (3.5-5.1); SODIUM (NA) 137 MEQ/L (136-145); TOTAL BILIRUBIN ADULT 0.9 MG/DL (0.2-1.0)
[2017-02-12 10:09] LABS: BANDS 12 % (0-6); EOSINOPHILS 1 % (0-4); NEUTROPHIL # MANUAL DIFF 19.3 TH/MM3 (1.8-7.7); PLATELET ESTIMATE SMEAR NORMAL (NORMAL); PLATELET MORPHOLOGY NORMAL (NORMAL); POLYS (SEG NEUTROPHILS) 65 % (16-70); SCAN/DIFF FINAL DIFF MANUAL; WBC DIFF SAMPLE 100
[2017-02-12 10:10] LABS: DOHLE BODIES PRESENT (NONE SEEN)
[2017-02-12 10:11] LABS: TOXIC VACUOLATION PRESENT (NONE SEEN)
--- NOTE | 2017-02-12 10:50 | PD.ID.CON ---
History of Present Illness Service ID Consult Requested By / Reason for Consult Evaluation and Mment of Empyema Primary Care Physician Triston Ty MD Diagnoses: History of Present Illness Most of the history was obtained from review of medical records. is a 51 y/o CM with PMHx of Alcoholism. 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 He presented with acute onset of SOB, intermittent fevers, leukocytosis, and large right sided effusion with air concerning for aspiration or anaerobic infection. He was moved by Dr. Valentin to the [facility] for worsening SOB and general decline from earlier in the day. Patient was intubated as he appeared encephalopathic and had increased work of breathing due to severe pleuritic chest pain. A right side chest tube was placed with drainage of 1100 ml of foul smelling, putrid yellow fluid. Dr.Dsouza morales is following patient and CTS eval is pending at time of my evaluation. At the time of my evaluation, patient was seen in the ICU intubated, sedated, not on pressors, UO good. CT in place with yellow putrid fluid foul smelling. ID consulted for evaluation and Mment of empyema. Review of Systems ROS Limitations: Intubated Past Family Social History Allergies: Coded Allergies: No Known Allergies (Unverified , 02/11/17) Past Medical History Alcoholism. Rest none Past Surgical History None Reported Medications Reported Meds & Active Scripts Active No Active Prescriptions or Reported Medications Active Ordered Medications Current Medications Medications (Trade) Dose Ordered Sig/Devorah Route Start Time Stop Time Status Last Admin (Tylenol) 650 mg Q4H PRN PO 02/11/17 11:15 02/11/17 15:19 (Zofran Inj) 4 mg Q6H PRN IVP 02/11/17 11:15 (Milk Of Magnesia Liq) 30 ml Q12H PRN PO 02/11/17 11:15 (Restoril) 15 mg HS PRN PO 02/11/17 11:15 Naloxone HCl 0.4 mg 0.4 mg UNSCH PRN IV 02/11/17 11:15 (Vancomycin Inj/ NS 250 ml Inj) 250 ml @ 250 mls/hr Q12H IV 02/11/17 13:00 02/12/17 12:16 (Adams 5-325 Mg) 1 tab Q6H PRN PO 02/11/17 16:00 02/11/17 20:23 (Catapres) 0.2 mg Q6H PRN PO 02/11/17 18:00 (Vasotec Inj) 1.25 mg Q6H PRN IV 02/11/17 18:00 (Morphine Inj) 4 mg Q2H PRN IV PUSH 02/11/17 23:30 02/11/17 23:38 (Xanax) 1 mg Q8HR PRN PO 02/11/17 23:30 02/12/17 00:43 Chlorhexidine Gluconate 15 ml 15 ml BID@08,20 MT 02/12/17 08:00 02/12/17 08:02 Fentanyl Citrate 250 ml @ 0 mls/hr TITRATE IV 02/12/17 02:45 02/12/17 03:30 Propofol 100 ml @ 0 mls/hr TITRATE IV 02/12/17 02:45 02/12/17 17:05 Potassium Chloride 100 ml @ 50 mls/hr Q2H PRN IV 02/12/17 03:15 (KCl 20 Meq Premix Inj) 100 ml @ 50 mls/hr Q2H PRN IV 02/12/17 03:15 Potassium Bicarb/ Potassium Chloride 50 meq 50 meq UNSCH PRN PO 02/12/17 03:15 Potassium Chloride 100 ml @ 25 mls/hr UNSCH PRN IV 02/12/17 03:15 Potassium Chloride 100 ml @ 50 mls/hr Q2H PRN IV 02/12/17 03:15 (Magnesium Sulfate Inj/NS Inj) 100 ml @ 50 mls/hr UNSCH PRN IV 02/12/17 03:15 Magnesium Oxide 800 mg 800 mg UNSCH PRN PO 02/12/17 03:15 (Magnesium Sulfate Inj/NS Inj) 100 ml @ 50 mls/hr UNSCH PRN IV 02/12/17 03:15 Potassium Phosphate 2000 mg 2,000 mg Q4H PRN PO 02/12/17 03:15 (Sodium Phosphate Inj/NS 250 ml Inj) 250 ml @ 42 mls/hr UNSCH PRN IV 02/12/17 03:15 (K-Phos) 2,000 mg UNSCH PRN PO/TUBE 02/12/17 03:15 (Beneprotein Powder) 2 pack TID G-TUBE 02/12/17 09:00 02/12/17 15:39 Metoclopramide HCl 10 mg 10 mg Q6H PO 02/12/17 04:00 02/12/17 15:38 Levofloxacin/ Dextrose 150 ml @ 100 mls/hr Q24H IV 02/12/17 09:00 02/12/17 08:00 Piperacillin Sod/ Tazobactam Sod 100 ml @ 200 mls/hr Q6H IV 02/12/17 08:00 02/12/17 13:51 (Vancomycin Consult Pharmacy) 0 ml @ 0 mls/hr UNSCH OTHER 02/12/17 11:00 Miscellaneous Information SPECIFIC LAB TO BE DRAWN:VANCO TROUGH DATE... ONCE ONCE .XX 02/13/17 00:45 02/13/17 00:46 (NS 1000 ml Inj) 1,000 ml @ 125 mls/hr Q8H IV 02/12/17 14:00 02/12/17 12:30 (NS Flush) 2 ml BID IV FLUSH 02/12/17 21:00 (NS Flush) 2 ml UNSCH PRN IV FLUSH 02/12/17 15:00 Family History could not be obtained. Social History alcohol intake daily. smokes 1 ppd for 30 yrs No illicit drug use. Physical Exam Vital Signs Vital Signs Date Time Temp Pulse Resp B/P Pulse Ox O2 Delivery O2 Flow Rate FiO2 02/12/17 08:38 99 40 02/12/17 06:00 118 02/12/17 04:31 100 100 02/12/17 04:00 99.5 122 19 103/58 99 02/12/17 04:00 122 02/12/17 04:00 100 02/12/17 02:00 138 02/12/17 01:50 100 100 02/12/17 00:00 111 02/12/17 00:00 98.2 111 34 133/77 93 02/11/17 22:00 98.1 120 38 123/98 92 02/11/17 22:00 112 02/11/17 21:08 91 High Flow Nasal Cannula 4.00 02/11/17 20:00 96.7 115 24 112/75 94 02/11/17 19:00 Nasal Cannula 3.00 02/11/17 16:39 93 Nasal Cannula 4.00 02/11/17 16:00 97.6 133 20 152/82 92 02/11/17 13:30 97.1 125 19 159/67 92 02/11/17 13:24 22 97 3 02/11/17 12:01 92 Nasal Cannula 4 02/11/17 11:28 93 Nasal Cannula 2.00 Physical Exam GENERAL: This is a well-nourished, well-developed patient, in no apparent distress. SKIN: No rashes, ecchymoses or lesions. Cool and dry. HEAD: Atraumatic. Normocephalic. No temporal or scalp tenderness. EYES: Pupils equal round and reactive. Extraocular motions intact. No scleral icterus. No injection or drainage. ENT: Intubated. NECK: Trachea midline. Supple, nontender, no meningeal signs. CARDIOVASCULAR: RRR. No murmur appreciated. RESPIRATORY: AE decreased right side. CT with yellow thick fluid in CT. GASTROINTESTINAL: Abdomen soft, non-tender, nondistended. MUSCULOSKELETAL: Extremities without clubbing, cyanosis, or edema. NEUROLOGICAL: Sedated. Psych: could not be assessed. IV line sites with no e/o infection. Laboratory Laboratory Tests Test 02/11/17 02/11/17 02/12/17 02/12/17 16:11 22:10 02:15 05:30 Blood Gas Puncture Site LT BRACHIAL RT RADIAL Blood Gas Patient Temperature 98.6 98.6 Blood Gas HCO3 18 20 Blood Gas Base Excess -5.2 -5.9 Blood Gas Oxygen Saturation 89 98 Arterial Blood pH 7.45 7.29 Arterial Blood Partial 27 42 Pressure CO2 Arterial Blood Partial 58 308 Pressure O2 Arterial Blood Oxygen Content 18.0 18.4 Arterial Blood 1.2 0.5 Carboxyhemoglobin Arterial Blood Methemoglobin 0.9 1.0 Blood Gas Hemoglobin 14.4 12.8 Oxygen Delivery Device NASAL CANNULA VENTILATOR Blood Gas Liter Flow 2 Nasal Screen MRSA (PCR) MRSA NOT DETECTED Pleural Fluid pH 7.5 Pleural Fluid Specific [place] 1.029 Pleural Fluid WBC 11994 Pleural Fluid RBC 00847 Pleural Fluid Neutrophils 87 Pleural Fluid Lymphocytes 12 Pleural Fluid Eosinophils 1 Pleural Fluid Total Protein 3.7 Pleural Fluid Albumin 1.8 Pleural Fluid LDH 9819 Pleural Fluid Glucose 2 Pleural Fluid Lipase 109 Blood Gas Ventilator Setting PRVC/AC Blood Gas Inspired Oxygen 100 Test 02/12/17 09:07 White Blood Count 25.1 Red Blood Count 4.34 Hemoglobin 13.8 Hematocrit 40.9 Mean Corpuscular Volume 94.3 Mean Corpuscular Hemoglobin 31.8 Mean Corpuscular Hemoglobin 33.7 Concent Red Cell Distribution Width 13.7 Platelet Count 347 Mean Platelet Volume 8.1 Neutrophils (%) (Auto) Lymphocytes (%) (Auto) Monocytes (%) (Auto) Eosinophils (%) (Auto) Basophils (%) (Auto) Neutrophils # (Auto) Lymphocytes # (Auto) Monocytes # (Auto) Eosinophils # (Auto) Basophils # (Auto) CBC Comment AUTO DIFF Differential Total Cells 100 Counted Neutrophils % (Manual) 65 Band Neutrophils % 12 Lymphocytes % 15 Monocytes % 7 Eosinophils % 1 Neutrophils # (Manual) 19.3 Differential Comment FINAL DIFF MANUAL Toxic Vacuolation PRESENT Dohle Bodies PRESENT Platelet Estimate NORMAL Platelet Morphology Comment NORMAL Red Cell Morphology Comment NORMAL Sodium Level 137 Potassium Level 4.6 Chloride Level 109 Carbon Dioxide Level 17.3 Anion Gap 11 Blood Urea Nitrogen 19 Creatinine 1.06 Estimat Glomerular Filtration 73 Rate Random Glucose 94 Calcium Level 8.5 Phosphorus Level 3.9 Magnesium Level 2.7 Total Bilirubin 0.9 Aspartate Amino Transf 17 (AST/SGOT) Alanine Aminotransferase 18 (ALT/SGPT) Alkaline Phosphatase 124 Total Protein 6.4 Albumin 1.6 Date/Time Procedure Status Source Growth 02/12/17 04:23 Gram Stain - Final Resulted Sputum Endotracheal 02/12/17 04:23 Sputum Culture Resulted Sputum Endotracheal Pending 02/12/17 03:30 Legionella Antigen - Final Complete Urine Random Urine PRESUMPTIVE NEGATIVE FOR LEGIONELLA P... 02/12/17 03:30 Streptococcus pneumoniae Antigen (M - Final Complete Urine Random Urine PRESUMPTIVE NEGATIVE FOR STREPTOCOCCU... 02/11/17 09:50 Aerobic Blood Culture Received Blood Peripheral Pending 02/11/17 09:50 Anaerobic Blood Culture Received Blood Peripheral Pending 02/11/17 08:45 Influenza Types A,B Antigen (LUKAS) - Final Complete Nasal Washing NEGATIVE FOR FLU A AND B ANTIGEN.... Result Diagram: 02/12/17 0907 02/12/17 0907 Imaging Last Impressions Chest X-Ray 02/12/17 0000 Signed Impressions: Service Date/Time: Sunday, February 12, 2017 02:29 - CONCLUSION: 1. Diffuse right-sided pneumonia. There is no evidence of pneumothorax. 2. Satisfactory position of endotracheal tube as above. 3. There has been no significant change when compared to the prior exam. Arthur Jane MD Chest CT 02/11/17 0000 Signed Impressions: Service Date/Time: Saturday, February 11, 2017 11:40 - CONCLUSION: 1. Prominent multiloculated pleural effusion on the right containing multiple foci of gas. Difficult diagnosis includes bronchopleural fistula, infection with gas producing organisms, and iatrogenic if recent procedure has been performed. 2. Patchy right lung consolidation. Cipriano Moore MD Assessment and Plan Assessment and Plan Severe Sepsis Empyema: likely secondary to aspiration pneumonia secondary to alcoholism, ? atypical PNA, partially treated PNA. Rule out endocarditis. Acute metabolic encephalopathy: sepsis related, metabolic. Hypoalbuminemia: nutritional, alcoholism, r/o chronic infections like HIV, hepatitis. Recs: Continue Levaquin IV (for atypicals pending cultures, will likely stop at 5 days ) Continue Zosyn IV (aspiration PNA, if no PSAE will deescalate after reviewing intraop cultures) Continue Vanco IV (target 15-20 for possible MRSA or other resistant Pneumonia) d/w and : recommend bronchoscopy and VATS with all relevant cultures and path. I would recommend bronch to make sure no foreign body during aspiration as it will affect clinical response to treatment. Check Hepatitis panel. Check HIV antibody screen Check 2D ECHO r/o endocarditis related septic emboli and EF in general given SOB , orthopnea [employer] although likely from large volume empyema. d.w and RN. Neela Saxena MD February 12, 2017 10:50
[2017-02-12] MEDS ORDERED: Vancomycin Consult Pharmacy 1 EA OTHER SCH (11:00)
[2017-02-12] MEDS: SODIUM CHLOR 0.9% 1000 ML INJ 1,000 ML IV SCH (12:30)
--- NOTE | 2017-02-12 12:57 | HHI.PR ---
Subjective Remarks Intubated for progressive resp failure. Had chest tube placed Objective Vital Signs Date Time Temp Pulse Resp B/P Pulse Ox O2 Delivery O2 Flow Rate FiO2 02/12/17 11:36 98 40 02/12/17 10:00 113 02/12/17 08:38 99 40 02/12/17 08:00 40 02/12/17 08:00 98 Mechanical Ventilator 40 02/12/17 08:00 99.7 107 18 91/61 98 02/12/17 08:00 107 02/12/17 06:00 118 02/12/17 04:31 100 100 02/12/17 04:00 99.5 122 19 103/58 99 02/12/17 04:00 122 02/12/17 04:00 100 02/12/17 02:00 138 02/12/17 01:50 100 100 02/12/17 00:00 111 02/12/17 00:00 98.2 111 34 133/77 93 02/11/17 22:00 98.1 120 38 123/98 92 02/11/17 22:00 112 02/11/17 21:08 91 High Flow Nasal Cannula 4.00 02/11/17 20:00 96.7 115 24 112/75 94 02/11/17 19:00 Nasal Cannula 3.00 02/11/17 16:39 93 Nasal Cannula 4.00 02/11/17 16:00 97.6 133 20 152/82 92 02/11/17 13:30 97.1 125 19 159/67 92 02/11/17 13:24 22 97 3 I/O 02/11/17 02/11/17 02/11/17 02/12/17 02/12/17 02/12/17 07:00 15:00 23:00 07:00 15:00 23:00 Intake Total 308 ml 966 ml Output Total 200 ml 2000 ml 0 ml Balance 108 ml -1034 ml 0 ml Intake Oral 120 ml IV Total 188 ml 906 ml Other 60 ml Output Urine Total 200 ml 750 ml Tube Feeding Residual Discard 0 ml Chest Tube Drainage Total 1250 ml # Voids 1 # Bowel Movements 0 Result Diagram: 02/12/17 0907 02/12/17906 Objective Remarks GENERAL:Intubated and sedated . HEENT: Head normocephalic. Pupils reactive. Throat is injected. Nasal mucosae masses. NEC: Supple. No bruits or thyroid enlargement or lymphadenopathy. CHEST: Equal movements with some tenderness of the chest wall bilaterally. Occasional wheezes in the upper chest with Right basal crackles HEART: Heart sounds are regular, S1-S2. No murmur. No S3. ABDOMEN: Abdomen is soft, protuberant with tenderness in the upper abdomen. Bowel sounds are active. No organomegaly. EXTREMITIES: No lesions. No edema. No calf tenderness. Reflexes are 1+ with no gross motor deficits. NEURO: Sedated. SKIN: No lesions. Assessment and Plan Assessment and Plan IMPRESSION 1. Right lung Pneumonia with empyema. 2. Respiratory failure 3. Probable underlying COPD. Plan : 1. Antibiotic coverage as ordered. 2. Nebs qid , duoneb. 3. Vent support and wean FIO2 , 4. CXR in am 5. Chest tube to Drainage. 6. Await culture from trach and pleural fluid. Diana Sabillon MD February 12, 2017 12:57
[2017-02-12] MEDS ORDERED: PAPAVERINE INJ 60 MG, NITROGLYCERIN INJ 100 MCG, DILTIAZEM INJ 100 MG in SODIUM CHLORID... IRRIGATION SCH (15:00)
[2017-02-12] MEDS ORDERED: ceFAZolin 2 GM PREMIX 50 ML IV SCH (15:00)
[2017-02-12] MEDS ORDERED: CHLORHEXIDINE GLUCONATE 4% SOLN 120 ML BTL TOPICAL SCH (15:00)
[2017-02-12] MEDS ORDERED: CEFAZOLIN INJ 500 MG in SODIUM CHLORIDE 0.9% IRR BTL 500 ML IRRIGATION SCH (15:00)
[2017-02-12] MEDS ORDERED: SODIUM CHLORIDE 0.9% FLUSH 10 ML FLUSH IV FLUSH PRN (15:00)
[2017-02-12] MEDS ORDERED: MIDAZOLAM HCL 2 MG/2 ML VIAL IV PUSH ONE (18:00)
--- NOTE | 2017-02-12 23:03 | EKG ---
Date Performed: 02/11/2017 Time Performed: 16:29:01 PTAGE: 51 years EKG: SINUS TACHYCARDIA EARLY REPOLARIZATION ABNORMAL RHYTHM ECG NO PREVIOUS TRACING DOCTOR: Ranijt Mcdowell Interpretating Date/Time 02/12/2017 23:01:25
[2017-02-13] VITALS (19 sets, daily range): BP systolic 100–111; BP diastolic 58–66; PULSE 92–109; RESP 18; TEMP 99.2–100.5; O2SAT 93–98
[2017-02-13] MEDS ORDERED: PHARMACY ORDERED LAB ONE (00:45)
[2017-02-13] MEDS: PROPOFOL 1000 MG/100 ML INJ 100 ML IV SCH ×5 (01:07→20:02)
[2017-02-13] MEDS: VANCOMYCIN INJ 1,000 MG in SODIUM CHLOR 0.9% 250 ML INJ 250 ML IV SCH ×3 (01:07→18:11)
[2017-02-13] MEDS: SODIUM CHLOR 0.9% 1000 ML INJ 1,000 ML IV SCH ×4 (01:08→23:38)
[2017-02-13] MEDS: PIPERACIL-TAZO 4.5 GM PREMIX 100 ML IV SCH ×4 (02:46→21:21)
[2017-02-13] MEDS: fentaNYL DRIP 250 ML IV SCH (02:46)
[2017-02-13] MEDS: RESP: ALBUTEROL 2.5 MG/IPRATROPIUM 0.5 MG NEB (SCH) NEB ×4 (03:09→22:00)
[2017-02-13 03:51] LABS: PROTHROMBIN TIME - PATIENT 11.1 SEC (9.8-11.6)
[2017-02-13] MEDS: METOCLOPRAMIDE HCL SYRUP 10 MG/10 ML UDC PO SCH ×4 (05:25→21:21)
--- NOTE | 2017-02-13 07:28 | HHI.CCPN ---
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 He was moved by Dr. Valentin to the [facility] for worsening SOB, general decline. I reviewed Dr. Sabillon's consultation from earlier today and clearly this man has deteriorated since that time. His work of breathing has increased considerably and is not sustainable at this point. Further, he appears quite septic with flushed, clammy skin and sustained tachycardia. His pleuritic pain is so severe that he is incapable of breathing deeply and I sense he is getting confused. I spoke with the patient and his was informed. I felt intubation and ventilation was indicated by about midnight tonight, and drainage of the effusion was indicated to cement our diagnosis and guide therapy. A right chest tube placed above the diaphragm drained 1,100 mls of foul smelling, putrid, yellow material; sent for culture. Pleural fluid studies were also sent. As Dr. Sabillon predicted this is clearly an empyema. 02/13: Oxygenation improved. Cultures pending. Ventilator dependent. Suspect he' ll benefit from diagnostic bronch and decortication. Tentatively planned for tomorrow. Objective Vital Signs Date Time Temp Pulse Resp B/P Pulse Ox O2 Delivery O2 Flow Rate FiO2 02/13/17 06:00 96 02/13/17 04:00 100.3 18 101/60 95 02/13/17 04:00 40 02/12/17 08:00 Mechanical Ventilator 02/11/17 21:08 4.00 Intake and Output 02/12/17 02/12/17 02/13/17 08:00 16:00 00:00 Intake Total 966 ml 1363 ml 1949 ml Output Total 2000.0 ml 630 ml 800 ml Balance -1034.0 ml 733 ml 1149 ml Result Diagram: 02/12/17 0907 02/12/17 0907 Other Results Microbiology Date/Time Procedure Status Source Growth 02/11/17 08:45 Influenza Types A,B Antigen (LUKAS) - Final Complete Nasal Washing NEGATIVE FOR FLU A AND B ANTIGEN.... 02/12/17 03:30 Legionella Antigen - Final Complete Urine Random Urine PRESUMPTIVE NEGATIVE FOR LEGIONELLA P... 02/12/17 03:30 Streptococcus pneumoniae Antigen (M - Final Complete Urine Random Urine PRESUMPTIVE NEGATIVE FOR STREPTOCOCCU... Objective Remarks Gen: Ill-appearing. Head: Normal. Neck: Supple, orally intubated. Lungs: Improved sounds right base, present left. Heart: NL S1S2, tachycardia. No JVD, reg rhythm. Abdomen: Soft, no guarding. BS few. Extremities: Warm, well perfused. Neuro: Talking fast, somewhat confused but oriented to self and hospital. Moves 4 limbs spontaneously. A/P Assessment and Plan Assessment: 1. Right pneumonia and parapneumonic effusion. 2. Right empyema, bacterial suspected. 3. Hypoxemic respiratory failure. 4. Severe sepsis. Plan: 1. PRVC vent mode. 2. Discuss further therapy with Dr. Sabillon. 3. ID consulted. 4. Continue PIP/SILVIO, Vanc. 5. Sputum culture. 6. Pleural fluid studies. 7. Pleural fluid culture. 8. Start TFs. 9. IR drain loculation right upper lateral chest wall is does not drain dependently. 10. Protonix. 11. Chemical DVT Px. Overall impression: Patient remains critically ill with sepsis from right pneumonia and empyema. He requires mechanical ventilation and will require additional drainage procedures. Critical care 38 mins aside from procedures. Dario Wheeler MD February 13, 2017 07:27
[2017-02-13] MEDS: CHLORHEXIDINE 0.12% (ORAL KIT) 15 ML CUP MT SCH ×2 (08:00→21:22)
--- NOTE | 2017-02-13 08:03 | RADRPT ---
EXAM DATE/TIME: 02/13/2017 07:41 [place] COMPARISON: CHEST SINGLE AP, February 12, 2017, 2:29. INDICATIONS : Empyema. Hypoxemia. MEDICAL HISTORY : None. SURGICAL HISTORY : None. ENCOUNTER: Subsequent ACUITY: 2 days PAIN SCORE: Non-responsive. LOCATION: Bilateral chest FINDINGS: A single view of the chest demonstrates the lungs to be symmetrically aerated with persistent, extens rachel consolidation in the right hemithorax which appears to represent empyema on the prior CT. Large b ore chest tube is seen at the right lung base. Endotracheal and nasogastric tubes are unchanged in po sition. Left lung remains clear. Heart size is normal. Degenerative spurring of the dorsal spine. Oss eous structures are otherwise intact. CONCLUSION: 1. Stable appearance of the chest with predominantly peripheral consolidation in the right hemithorax which appears most characteristic of an empyema on the prior CT. 2. Stable position of life support tubes including a right-sided thoracostomy tube as detailed above. 3. Left lung remains clear. Jorge Boyer MD on February 13, 2017 at 7:59 Board Certified Radiologist. This report was verified electronically.
--- NOTE | 2017-02-13 08:38 | MB ---
cc: BRANDON CALZADA MD DATE OF CONSULTATION 02/12/2017 DATE OF 11/02/1955 HISTORY OF THE PRESENT ILLNESS A 51-year-old male, per the emergency note experiencing fevers, chills and pain in his right shoulder, both sides of his chest and running a fever over 100. Works at the [employer], became very weak. Was brought in to the emergency room by his family. They did a CT scan of the chest which showed some atelectasis of the lung bases but his white count was elevated over 20,000. Influenza test was negative. He was then transferred to the ICU for worsening shortness of breath, general decline. Was evaluated by Dr. Grossman. His pain was so severe he was incapable of taking a deep breath and was somewhat confused. The patient was then immediately intubated, placed on the ventilator. Also a #28-Khmer chest tube was placed draining about 1100 mL of foul-smelling yellowish drainage that was clearly noted as an empyema. We were consulted to evaluate for drainage of this empyema, right sided parapneumonic effusion. PAST MEDICAL HISTORY No past medical history. SURGERIES No surgery. ALLERGIES No known allergies. Some history of diabetes. SOCIAL HISTORY Positive for tobacco use one pack per day for the last 30 years. No alcohol. REVIEW OF SYSTEMS Unobtainable. PHYSICAL EXAMINATION VITAL SIGNS: Blood pressure 100/60, heart rate of 107, temperature max 99.2. FIO2 is 40% and saturation is running at 98% at this time. GENERAL: Somewhat ill appearing male. The patient was again intubated during the night. He is orally intubated, sedated on a ventilator. Somewhat ill appearing. HEENT: Head is normocephalic, atraumatic. Pupils approximately 2 mm midline. Sluggish. Orally intubated. NECK: Supple. CARDIOVASCULAR: Heart sounds S1-S2. No audible rubs, murmurs or gallops. LUNGS: With some coarse breath sounds mainly on the right. He has a right-sided chest tube to Pleur-Evac with approximately 1500 cc of very thick, tenacious drainage, yellowish in color. ABDOMEN: Soft, with an nasogastric tube in place. Slightly distended. Positive bowel sounds. EXTREMITIES: Reveal no cyanosis, clubbing or edema. No [place] lesions. LABORATORY FINDINGS Shows the last blood gas early this morning with a pH 7.29, CO2 42, pO2 of 308. Chemistry shows sodium 137, potassium 4.6, BUN 19, creatinine 1.06, lactic acid 1.5, mag level 2.7, AST 17, ALT 18. Pleural fluid showed greater than 30,000 wbc's. The pleural glucose was 2. Hepatitis B, HIV pending. Hepatitis C pending. Micro blood cultures showing no growth in 24 hours thus far. Urine negative for Legionella or Streptococcus. influenza A, B negative. Sputum is pending. IMAGING Chest x-ray this morning showed no evidence of pneumothorax, diffuse right-sided pneumonia, ET tube in proper position. IMPRESSION 1. This is a 51-year-old male with a right-sided pneumonia, parapneumonic effusion, probable empyema, suspect bacterial, status post chest tube placement with very thick, tenacious drainage. The patient has been evaluated by Dr. Brandon Calzada. Planning will be for right video-assisted thoracoscopy, possible thoracotomy and decortication on Sunday the . 2. Hypoxic respiratory failure with severe sepsis, followed by critical care. Currently on antibiotics to include Levaquin, Zosyn and vancomycin. Await further cultures. Further plan per Dr. Brandon Calzada. DICTATED BY: OLIVER Gates Brandon RICCIKK /3:13 PM /8:36 AM
[2017-02-13] MEDS ORDERED: VANCOMYCIN INJ 1,000 MG in SODIUM CHLOR 0.9% 250 ML INJ 250 ML IV SCH (09:00)
[2017-02-13 09:22] LABS: BICARBONATE 23.7 MEQ/L (21.0-32.0); POTASSIUM 3.6 MEQ/L (3.5-5.1)
[2017-02-13] MEDS: LEVOFLOXACIN 750 MG PREMIX INJ 150 ML IV SCH (09:46)
[2017-02-13] MEDS: SODIUM CHLORIDE 0.9% FLUSH 10 ML FLUSH IV FLUSH SCH ×2 (09:47→21:21)
[2017-02-13] MEDS: BENEPROTEIN POWDER 1 PACK G-TUBE SCH ×3 (09:47→18:00)
[2017-02-13 10:30] LABS: HEMATOCRIT 31.2 % (39.0-51.0); MEAN CELL VOLUME 92.5 FL (80.0-100.0); MEAN CORPUSCULAR HEMOGLOBIN 30.6 PG (27.0-34.0); MEAN CORPUSCULAR HGB CONC 33.1 % (32.0-36.0); PLATELET COUNT 285 TH/MM3 (150-450); RED BLOOD COUNT 3.38 MIL/MM3 (4.50-5.90); RED CELL DISTRIBUTION WIDTH 13.7 % (11.6-17.2); WHITE BLOOD COUNT 13.6 TH/MM3 (4.0-11.0)
[2017-02-13 10:31] LABS: REVIEW FLAG FINAL
--- NOTE | 2017-02-13 13:13 | HHI.PR ---
Subjective Remarks Intubated for progressive resp failure.On IV antibiotics . Had chest tube placed. Still febrile. Chest tube draining yellow fluid. Objective Vital Signs Date Time Temp Pulse Resp B/P Pulse Ox O2 Delivery O2 Flow Rate FiO2 02/13/17 12:00 100.2 93 18 100/61 93 02/13/17 12:00 92 02/13/17 12:00 40 02/13/17 11:20 97 40 02/13/17 10:00 95 02/13/17 08:03 97 40 02/13/17 08:00 95 02/13/17 08:00 40 02/13/17 08:00 100.0 95 18 111/66 97 02/13/17 06:00 96 02/13/17 04:00 100.3 100 18 101/60 95 02/13/17 04:00 100 02/13/17 04:00 40 02/13/17 03:11 95 40 02/13/17 02:00 100 02/13/17 00:03 96 40 02/13/17 00:00 102 02/13/17 00:00 100.5 102 18 105/64 96 02/13/17 00:00 40 02/12/17 22:00 104 02/12/17 20:00 40 02/12/17 20:00 111 02/12/17 20:00 100.5 112 18 115/75 98 02/12/17 19:52 95 40 02/12/17 18:00 111 02/12/17 16:00 112 02/12/17 16:00 98.4 112 18 115/72 94 02/12/17 16:00 40 02/12/17 15:45 97 40 02/12/17 14:00 111 I/O 02/12/17 02/12/17 02/12/17 02/13/17 02/13/17 02/13/17 07:00 15:00 23:00 07:00 15:00 23:00 Intake Total 966 ml 1363 ml 1949 ml 1361 ml Output Total 2000 ml 630 ml 800 ml 700 ml Balance -1034 ml 733 ml 1149 ml 661 ml IV Total 906 ml 1103 ml 1487 ml 1041 ml Tube Feeding 30 ml 302 ml 260 ml Other 60 ml 230 ml 160 ml 60 ml Output Urine Total 750 ml 380 ml 600 ml 450 ml Tube Feeding Residual Discard 0 ml Chest Tube Drainage Total 1250 ml 250 ml 200 ml 250 ml # Bowel Movements 0 0 0 0 Result Diagram: 02/13/17 1010 02/13/17 0742 Objective Remarks GENERAL:Intubated and sedated . HEENT: Head normocephalic. Pupils reactive. . Nasal mucosae clear. NEC: Supple. No bruits or thyroid enlargement or lymphadenopathy. CHEST: Equal movements with Occ crackles right base Occasional wheezes in the upper chest . HEART: Heart sounds are regular, S1-S2. No murmur. No S3. ABDOMEN: Abdomen is soft, protuberant with tenderness in the upper abdomen. Bowel sounds are active. No organomegaly. EXTREMITIES: No lesions. No edema. No calf tenderness. Reflexes are 1+ with no gross motor deficits. NEURO: Sedated. SKIN: No lesions. Assessment and Plan Assessment and Plan IMPRESSION 1. Right lung Pneumonia with empyema. 2. Respiratory failure 3. Probable underlying COPD. Plan : 1. Antibiotic coverage as ordered. 2. Nebs qid , duoneb. 3. Vent support and wean FIO2 , 4. Vats thoracotomy per Dr Anderson 5. Chest tube to Drainage. 6. CBC,BMP in am. Diana Sabillon MD February 13, 2017 13:13
--- NOTE | 2017-02-13 14:06 | PD.CAR.PN ---
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 He was moved by Dr. Valentin to the [facility] for worsening SOB, general decline. Pt deteriorated , and became tachycardic confused , , he was then intubated and placed on mechanical ventilation, a # 28 [address] lucian chest tube was on the right chest and 1100cc/ foul smelling yellow fluid was drained pleural fluid cultures are pending, BC neg to date, on gram positive and gram neg coverage , tentatively scheduled for Right VATS, possible thoracotomy , decortication in am, await consent from the Objective: GENERAL: orally intubated , awake follows commands SKIN: Warm and dry. HEAD: Normocephalic. EYES: No scleral icterus. No injection or drainage. NECK: Supple, trachea midline. No JVD or lymphadenopathy. CARDIOVASCULAR: Regular rate and rhythm without murmurs, gallops, or rubs. RESPIRATORY: orally intubated , on 40% Fi02 coarse and diminished breath sounds on right, chest tube to wall suction , draining yellowish color fluid / drained 450cc/ 12 hrs no air leak GASTROINTESTINAL: Abdomen soft, non-tender, mildly distended, on tube feeding MUSCULOSKELETAL: No cyanosis, or edema. BACK: Nontender without obvious deformity. No CVA tenderness. Vital Signs Date Time Temp Pulse Resp B/P Pulse Ox O2 Delivery O2 Flow Rate FiO2 02/13/17 12:00 100.2 93 18 100/61 93 02/13/17 12:00 92 02/13/17 12:00 40 02/13/17 11:20 97 40 02/13/17 10:00 95 02/13/17 08:03 97 40 02/13/17 08:00 95 02/13/17 08:00 40 02/13/17 08:00 100.0 95 18 111/66 97 02/13/17 06:00 96 02/13/17 04:00 100.3 100 18 101/60 95 02/13/17 04:00 100 02/13/17 04:00 40 02/13/17 03:11 95 40 02/13/17 02:00 100 02/13/17 00:03 96 40 02/13/17 00:00 102 02/13/17 00:00 100.5 102 18 105/64 96 02/13/17 00:00 40 02/12/17 22:00 104 02/12/17 20:00 40 02/12/17 20:00 111 02/12/17 20:00 100.5 112 18 115/75 98 02/12/17 19:52 95 40 02/12/17 18:00 111 02/12/17 16:00 112 02/12/17 16:00 98.4 112 18 115/72 94 02/12/17 16:00 40 02/12/17 15:45 97 40 02/12/17 14:00 111 Labs: Laboratory Tests Test 02/13/17 02/13/17 02/13/17 03:24 07:42 10:10 Prothrombin Time 11.1 SEC (9.8-11.6) Prothromb Time International 1.0 RATIO Ratio Blood Type AB POSITIVE Antibody Screen NEGATIVE Blood Bank Comment Sodium Level 144 MEQ/L (136-145) Potassium Level 3.6 MEQ/L (3.5-5.1) Chloride Level 109 MEQ/L (98-107) Carbon Dioxide Level 23.7 MEQ/L (21.0-32.0) Anion Gap 11 MEQ/L (5-15) Blood Urea Nitrogen 17 MG/DL (7-18) Creatinine 0.81 MG/DL (0.60-1.30) Estimat Glomerular Filtration 100 ML/MIN Rate (>89) Random Glucose 115 MG/DL (74-106) Calcium Level 7.9 MG/DL (8.5-10.1) White Blood Count 13.6 TH/MM3 (4.0-11.0) Red Blood Count 3.38 MIL/MM3 (4.50-5.90) Hemoglobin 10.3 GM/DL (13.0-17.0) Hematocrit 31.2 % (39.0-51.0) Mean Corpuscular Volume 92.5 FL (80.0-100.0) Mean Corpuscular Hemoglobin 30.6 PG (27.0-34.0) Mean Corpuscular Hemoglobin 33.1 % Concent (32.0-36.0) Red Cell Distribution Width 13.7 % (11.6-17.2) Platelet Count 285 TH/MM3 (150-450) Mean Platelet Volume 7.7 FL (7.0-11.0) Result Diagram: 5/2/17 1010 02/13/17 0742 Telemetry: NSR (1) Pleural effusion associated with pulmonary infection Plan: eval for right VATS , possible thoracotomy , decortication in am (2) Pneumonia (3) Atrial fibrillation with rapid ventricular response (4) ventilator dependent respiratory failure (5) Sepsis Problem Qualifiers (1) Pneumonia: Qualified Code: J18.9 - Pneumonia of right lung due to infectious organism, unspecified part of lung Evelin Reed February 13, 2017 14:06
--- NOTE | 2017-02-13 15:04 | HHI.IDPN ---
Subjective Subjective Remarks is a 51 y/o CM with PMHx of Alcoholism. 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 He presented with acute onset of SOB, intermittent fevers, leukocytosis, and large right sided effusion with air concerning for aspiration or anaerobic infection. He was moved by Dr. Valentin to the [facility] for worsening SOB and general decline from earlier in the day. Patient was intubated as he appeared encephalopathic and had increased work of breathing due to severe pleuritic chest pain. A right side chest tube was placed with drainage of 1100 ml of foul smelling, putrid yellow fluid. Dr.Dsouza morales is following patient and CTS eval is pending at time of my evaluation. ID following for evaluation and Mment of empyema. Overnight events reviewed. Persistent fevers WBC down trending. No rash No diarrhea CT with yellow fluid. Sedated but moves all 4 off sedation. UO ok. Antibiotics Zosyn IV Vanco IV Levaquin IV Lines Line sites with no e.o infection. Past Medical History reviewed. Allergies: Coded Allergies: No Known Allergies (Unverified , 02/11/17) Objective . Vital Signs Date Time Temp Pulse Resp B/P Pulse Ox O2 Delivery O2 Flow Rate FiO2 02/13/17 14:00 92 02/13/17 12:00 100.2 93 18 100/61 93 02/13/17 12:00 92 02/13/17 12:00 40 02/13/17 11:20 97 40 02/13/17 10:00 95 02/13/17 08:03 97 40 02/13/17 08:00 95 02/13/17 08:00 40 02/13/17 08:00 100.0 95 18 111/66 97 02/13/17 06:00 96 02/13/17 04:00 100.3 100 18 101/60 95 02/13/17 04:00 100 02/13/17 04:00 40 02/13/17 03:11 95 40 02/13/17 02:00 100 02/13/17 00:03 96 40 02/13/17 00:00 102 02/13/17 00:00 100.5 102 18 105/64 96 02/13/17 00:00 40 02/12/17 22:00 104 02/12/17 20:00 40 02/12/17 20:00 111 02/12/17 20:00 100.5 112 18 115/75 98 02/12/17 19:52 95 40 02/12/17 18:00 111 02/12/17 16:00 112 02/12/17 16:00 98.4 112 18 115/72 94 02/12/17 16:00 40 02/12/17 15:45 97 40 02/12/17 02/12/17 02/13/17 15:00 23:00 07:00 Intake Total 1363 ml 1949 ml 1361 ml Output Total 630 ml 800 ml 700 ml Balance 733 ml 1149 ml 661 ml IV Total 1103 ml 1487 ml 1041 ml Tube Feeding 30 ml 302 ml 260 ml Other 230 ml 160 ml 60 ml Output Urine Total 380 ml 600 ml 450 ml Tube Feeding Residual Discard 0 ml Chest Tube Drainage Total 250 ml 200 ml 250 ml # Bowel Movements 0 0 0 . Laboratory Tests Test 02/12/17 02/13/17 09:07 10:10 White Blood Count 25.1 TH/MM3 13.6 TH/MM3 Red Blood Count 4.34 MIL/MM3 3.38 MIL/MM3 Hemoglobin 13.8 GM/DL 10.3 GM/DL Hematocrit 40.9 % 31.2 % Mean Corpuscular Volume 94.3 FL 92.5 FL Mean Corpuscular Hemoglobin 31.8 PG 30.6 PG Mean Corpuscular Hemoglobin 33.7 % 33.1 % Concent Red Cell Distribution Width 13.7 % 13.7 % Platelet Count 347 TH/MM3 285 TH/MM3 Mean Platelet Volume 8.1 FL 7.7 FL Neutrophils (%) (Auto) % Lymphocytes (%) (Auto) % Monocytes (%) (Auto) % Eosinophils (%) (Auto) % Basophils (%) (Auto) % Neutrophils # (Auto) TH/MM3 Lymphocytes # (Auto) TH/MM3 Monocytes # (Auto) TH/MM3 Eosinophils # (Auto) TH/MM3 Basophils # (Auto) TH/MM3 CBC Comment AUTO DIFF Differential Total Cells 100 Counted Neutrophils % (Manual) 65 % Band Neutrophils % 12 % Lymphocytes % 15 % Monocytes % 7 % Eosinophils % 1 % Neutrophils # (Manual) 19.3 TH/MM3 Differential Comment FINAL DIFF MANUAL Toxic Vacuolation PRESENT Dohle Bodies PRESENT Platelet Estimate NORMAL Platelet Morphology Comment NORMAL Red Cell Morphology Comment NORMAL Laboratory Tests Test 02/12/17 02/13/17 09:07 07:42 Sodium Level 137 MEQ/L 144 MEQ/L Potassium Level 4.6 MEQ/L 3.6 MEQ/L Chloride Level 109 MEQ/L 109 MEQ/L Carbon Dioxide Level 17.3 MEQ/L 23.7 MEQ/L Anion Gap 11 MEQ/L 11 MEQ/L Blood Urea Nitrogen 19 MG/DL 17 MG/DL Creatinine 1.06 MG/DL 0.81 MG/DL Estimat Glomerular Filtration 73 ML/MIN 100 ML/MIN Rate Random Glucose 94 MG/DL 115 MG/DL Calcium Level 8.5 MG/DL 7.9 MG/DL Phosphorus Level 3.9 MG/DL Magnesium Level 2.7 MG/DL Total Bilirubin 0.9 MG/DL Aspartate Amino Transf 17 U/L (AST/SGOT) Alanine Aminotransferase 18 U/L (ALT/SGPT) Alkaline Phosphatase 124 U/L Total Protein 6.4 GM/DL Albumin 1.6 GM/DL Microbiology Date/Time Procedure Status Source Growth 02/11/17 08:45 Influenza Types A,B Antigen (LUKAS) - Final Complete Nasal Washing NEGATIVE FOR FLU A AND B ANTIGEN.... 02/11/17 09:45 Aerobic Blood Culture - Preliminary Resulted Blood Peripheral NO GROWTH IN 2 DAYS 02/11/17 09:45 Anaerobic Blood Culture - Preliminary Resulted Blood Peripheral NO GROWTH IN 2 DAYS 02/11/17 09:50 Aerobic Blood Culture - Preliminary Resulted Blood Peripheral NO GROWTH IN 2 DAYS 02/11/17 09:50 Anaerobic Blood Culture - Preliminary Resulted Blood Peripheral NO GROWTH IN 2 DAYS 02/11/17 15:33 Gram Stain - Final Complete Sputum Expectorated Sputum 02/11/17 15:33 Sputum Culture - Final Complete Sputum Expectorated Sputum HEAVY GROWTH NORMAL RESPIRATORY EVGENY 02/12/17 02:15 Gram Stain - Final Resulted Fluid Pleural Fluid 02/12/17 02:15 Body Fluid Culture - Preliminary Resulted Viridans Streptococcus Grp 02/12/17 03:30 Legionella Antigen - Final Complete Urine Random Urine PRESUMPTIVE NEGATIVE FOR LEGIONELLA P... 02/12/17 03:30 Streptococcus pneumoniae Antigen (M - Final Complete Urine Random Urine PRESUMPTIVE NEGATIVE FOR STREPTOCOCCU... 02/12/17 04:23 Gram Stain - Final Resulted Sputum Endotracheal 02/12/17 04:23 Sputum Culture - Preliminary Resulted Sputum Endotracheal NO GROWTH IN 24 HOURS. Imaging Last Impressions Chest X-Ray 02/13/17 0000 Signed Impressions: Service Date/Time: Monday, February 13, 2017 07:41 - CONCLUSION: 1. Stable appearance of the chest with predominantly peripheral consolidation in the right hemithorax which appears most characteristic of an empyema on the prior CT. 2. Stable position of life support tubes including a right-sided thoracostomy tube as detailed above. 3. Left lung remains clear. Jorge Boyer MD Chest CT 02/11/17 0000 Signed Impressions: Service Date/Time: Saturday, February 11, 2017 11:40 - CONCLUSION: 1. Prominent multiloculated pleural effusion on the right containing multiple foci of gas. Difficult diagnosis includes bronchopleural fistula, infection with gas producing organisms, and iatrogenic if recent procedure has been performed. 2. Patchy right lung consolidation. Cipriano Moore MD Physical Exam GENERAL: This is a well-nourished, well-developed patient, in no apparent distress. SKIN: No rashes, ecchymoses or lesions. Cool and dry. HEAD: Atraumatic. Normocephalic. No temporal or scalp tenderness. EYES: Pupils equal round and reactive. Extraocular motions intact. No scleral icterus. No injection or drainage. ENT: Intubated. NECK: Trachea midline. Supple, nontender, no meningeal signs. CARDIOVASCULAR: RRR. No murmur appreciated. RESPIRATORY: AE decreased right side. CT with yellow thick fluid in CT. GASTROINTESTINAL: Abdomen soft, non-tender, nondistended. MUSCULOSKELETAL: Extremities without clubbing, cyanosis, or edema. NEUROLOGICAL: Sedated. Psych: could not be assessed. IV line sites with no e/o infection. Assessment & Plan Remarks Severe Sepsis Strep Viridans empyema: likely secondary to chronic aspiration. Empyema: likely secondary to aspiration pneumonia secondary to alcoholism. Acute resp failure: empyema, sepsis. Acute metabolic encephalopathy: sepsis related, metabolic. Hypoalbuminemia: nutritional, alcoholism, r/o chronic infections like HIV, hepatitis. Recs: DC Levaquin IV (clinical picture fits into aspiration pneumonia due to chronic high intake alcoholism history) Continue Zosyn IV (aspiration PNA, if no PSAE will deescalate after reviewing intraop cultures) Continue Vanco IV (target 15-20 for possible resistant Strep) d/w and : recommend bronchoscopy and VATS with all relevant cultures and path. I would recommend bronch to make sure no foreign body during aspiration as it will affect clinical response to treatment. Negative Hepatitis panel. Negative HIV antibody screen Negative 2D ECHO. d.w and RN. Neela Saxena MD February 13, 2017 15:04
[2017-02-13] MEDS: LACTULOSE SYRUP 20 GM/30 ML CUP PO SCH ×2 (16:01→21:21)
[2017-02-13] MEDS: DOCUSATE SODIUM 100 MG CAP PO SCH ×2 (16:02→21:21)
--- NOTE | 2017-02-13 17:51 | EC ---
Study Study Date:02/13/2017 STUDY CONCLUSIONS SUMMARY - Procedure narrative: Image quality was fair. The study was technically limited due to poor acoustic window availability. - Left ventricle: The cavity size was normal. Systolic function was normal. The estimated ejection fraction was in the range of 55% to 60%. Although no diagnostic regional wall motion abnormality was identified, this possibility cannot be completely excluded on the basis of this study. The study is not technically sufficient to allow evaluation of LV diastolic function. Impressions: No evidence of endocarditis. If LV function is below 40, please consider prescribing an ACEI or ARB or document rationale for non-use. PROCEDURE DATA STUDY STATUS: Elective. Procedure: Transthoracic echocardiography. Image quality was fair. The study was technically limited due to poor acoustic window availability. Scanning was performed from the parasternal, apical, and subcostal acoustic windows. Study completion: The patient tolerated the procedure well. Transthoracic echocardiography. M-mode, complete 2D, complete spectral Doppler, and color Doppler. Height: Height: 63in. Weight: Weight: 159.7lb. Body mass index: BMI: 28.3kg/m^2. Body surface area: BSA: 1.76m^2. Patient status: Inpatient. CARDIAC ANATOMY LEFT VENTRICLE: The cavity size was normal. Systolic function was normal. The estimated ejection fraction was in the range of 55% to 60%. Although no diagnostic regional wall motion abnormality was identified, this possibility cannot be completely excluded on the basis of this study. The study is not technically sufficient to allow evaluation of LV diastolic function. AORTIC VALVE: The valve appears to be grossly normal. Doppler: There was no stenosis. No significant regurgitation. Peak gradient: 14mm Hg (S). MITRAL VALVE: The valve appears to be grossly normal. Doppler: There was no evidence for stenosis. Trace regurgitation. Valve area by pressure half-time: 6.47cm^2. Indexed valve area by pressure half-time: 3.68cm^2/m^2. Peak gradient: 5mm Hg (D). RIGHT VENTRICLE: The cavity size was normal. PULMONIC VALVE: Not well visualized. Doppler: There was no evidence for stenosis. No significant regurgitation. TRICUSPID VALVE: The valve appears to be grossly normal. Doppler: There was no evidence for stenosis. Trace regurgitation. Peak gradient: 11mm Hg (D). PERICARDIUM: There was no pericardial effusion. Patient weight: 159.7lb _Ejection fraction:_ 65-75% _Fractional shortening:_ 32% up to 5Kg 5-11.5Kg 11.6-22.9Kg 23-45Kg 45-57Kg Aortic Root 7-13 <17 13-22 17-27 17-27 LA diam 6-13 <23 24-38 33-47 37-40 RVID 10-17 7-15 7-15 7-18 8-17 LVIDd 12-22 <32 24-38 33-47 37-40 LVPW 2-4 3-6 5-7 6-8 7-8 IVS 2-4 3-6 5-7 6-8 7-8 BASIC MEASUREMENTS ADULT NORMAL Left ventricle LV internal dimension, ED, chordal *40.5 mm 43-52 level, PLAX LV internal dimension, ES, chordal 27.2 mm 23-38 level, PLAX Fractional shortening, chordal level, 33 % >29 PLAX LV posterior wall thickness, ED 10.2 mm IVS/LVPW ratio, ED 1.01 <1.3 Ventricular septum Septal thickness, ED 10.3 mm Aortic valve Leaflet separation 15 mm 15-26 BASIC MEASUREMENTS ADULT NORMAL Aortic valve Leaflet separation 15 mm 15-26 Aorta Root diameter, ED 24 mm 20-37 DOPPLER MEASUREMENTS ADULT NORMAL Aortic valve Peak velocity, S 188 cm/s Peak gradient, S 14 mm Hg Mitral valve Peak E-wave velocity 112 cm/s Peak A-wave velocity 78 cm/s Pressure half-time 34 ms Peak gradient, D 5 mm Hg Peak E/A ratio 1.4 Valve area, pressure half-time 6.47 cm^2 Valve area index, pressure half-time 3.68 cm^2/m^2 Tricuspid valve Peak gradient, D 11 mm Hg Maximal inflow velocity 163 cm/s Systemic veins Estimated CVP 10 mm Hg Pulmonic valve Peak velocity, S 114 cm/s LEGEND: Mean values are shown as u=mean value. Asterisk (*) nascimento values outside specified normal range. Prepared and signed by Armaan Healy [id number]
[2017-02-14] VITALS (15 sets, daily range): BP systolic 102–131; BP diastolic 56–80; PULSE 88–112; RESP 18–22; TEMP 98.2–100.1; O2SAT 93–98
[2017-02-14] MEDS: PROPOFOL 1000 MG/100 ML INJ 100 ML IV SCH ×3 (00:25→13:37)
[2017-02-14] MEDS: PIPERACIL-TAZO 4.5 GM PREMIX 100 ML IV SCH ×4 (00:25→20:34)
[2017-02-14] MEDS: VANCOMYCIN INJ 1,000 MG in SODIUM CHLOR 0.9% 250 ML INJ 250 ML IV SCH ×2 (02:29→09:17)
[2017-02-14] MEDS: RESP: ALBUTEROL 2.5 MG/IPRATROPIUM 0.5 MG NEB (SCH) NEB ×4 (03:05→21:20)
[2017-02-14] MEDS: METOCLOPRAMIDE HCL SYRUP 10 MG/10 ML UDC PO SCH ×4 (04:03→22:47)
[2017-02-14] MEDS: fentaNYL DRIP 250 ML IV SCH ×2 (04:03→17:26)
[2017-02-14 04:37] LABS: AUTOMATED NEUTROPHIL # 12.4 TH/MM3 (1.8-7.7); BASOPHIL # 0.1 TH/MM3 (0-0.2); BASOPHIL % 0.3 % (0.0-2.0); EOSINOPHIL # 0.3 TH/MM3 (0-0.4); EOSINOPHIL % 1.5 % (0.0-4.0); HEMATOCRIT 35.5 % (39.0-51.0); LYMPH % 13.1 % (9.0-44.0); LYMPHOCYTE # 2.3 TH/MM3 (1.0-4.8); MEAN CELL VOLUME 92.3 FL (80.0-100.0); MEAN CORPUSCULAR HEMOGLOBIN 31.2 PG (27.0-34.0); MEAN CORPUSCULAR HGB CONC 33.8 % (32.0-36.0); MONO % 13.5 % (0.0-8.0); NEUT % 71.6 % (16.0-70.0); PLATELET COUNT 317 TH/MM3 (150-450); RED BLOOD COUNT 3.84 MIL/MM3 (4.50-5.90); RED CELL DISTRIBUTION WIDTH 13.8 % (11.6-17.2); WHITE BLOOD COUNT 17.4 TH/MM3 (4.0-11.0)
[2017-02-14 04:38] LABS: HEMO FLAGS AUTO DIFF
[2017-02-14 04:50] LABS: BICARBONATE 23.5 MEQ/L (21.0-32.0)
[2017-02-14 05:25] LABS: BANDS 14 % (0-6); BASOPHILS 1 % (0-2); METAMYELOCYTES 3 % (0-1); NEUTROPHIL # MANUAL DIFF 12.5 TH/MM3 (1.8-7.7); PLATELET ESTIMATE SMEAR NORMAL (NORMAL); PLATELET MORPHOLOGY NORMAL (NORMAL); POLYS (SEG NEUTROPHILS) 55 % (16-70); SCAN/DIFF FINAL DIFF MANUAL; WBC DIFF SAMPLE 100
[2017-02-14 05:26] LABS: DOHLE BODIES PRESENT (NONE SEEN)
[2017-02-14] MEDS: SODIUM CHLOR 0.9% 1000 ML INJ 1,000 ML IV SCH ×3 (06:28→22:48)
--- NOTE | 2017-02-14 07:27 | HHI.CCPN ---
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 He was moved by Dr. Valentin to the [facility] for worsening SOB, general decline. I reviewed Dr. Sabillon's consultation from earlier today and clearly this man has deteriorated since that time. His work of breathing has increased considerably and is not sustainable at this point. Further, he appears quite septic with flushed, clammy skin and sustained tachycardia. His pleuritic pain is so severe that he is incapable of breathing deeply and I sense he is getting confused. I spoke with the patient and his was informed. I felt intubation and ventilation was indicated by about midnight tonight, and drainage of the effusion was indicated to cement our diagnosis and guide therapy. A right chest tube placed above the diaphragm drained 1,100 mls of foul smelling, putrid, yellow material; sent for culture. Pleural fluid studies were also sent. As Dr. Sabillon predicted this is clearly an empyema. 02/13: Oxygenation improved. Cultures pending. Ventilator dependent. Suspect he' ll benefit from diagnostic bronch and decortication. Tentatively planned for tomorrow. 02/14: Organism identified, coverage should be adequate. Agree with formal decortication. Objective Vital Signs Date Time Temp Pulse Resp B/P Pulse Ox O2 Delivery O2 Flow Rate FiO2 02/14/17 06:00 99 02/14/17 04:00 40 02/14/17 04:00 100.1 18 131/80 95 02/12/17 08:00 Mechanical Ventilator 02/11/17 21:08 4.00 Intake and Output 02/13/17 02/13/17 02/14/17 08:00 16:00 00:00 Intake Total 1361 ml 1885 ml 1207 ml Output Total 700 ml 545 ml 150 ml Balance 661 ml 1340 ml 1057 ml Result Diagram: 02/14/17 0402 02/14/17 0402 Other Results Microbiology Date/Time Procedure Status Source Growth 02/11/17 08:45 Influenza Types A,B Antigen (LUKAS) - Final Complete Nasal Washing NEGATIVE FOR FLU A AND B ANTIGEN.... 02/11/17 15:33 Gram Stain - Final Complete Sputum Expectorated Sputum 02/11/17 15:33 Sputum Culture - Final Complete Sputum Expectorated Sputum HEAVY GROWTH NORMAL RESPIRATORY EVGENY 02/12/17 03:30 Legionella Antigen - Final Complete Urine Random Urine PRESUMPTIVE NEGATIVE FOR LEGIONELLA P... 02/12/17 03:30 Streptococcus pneumoniae Antigen (M - Final Complete Urine Random Urine PRESUMPTIVE NEGATIVE FOR STREPTOCOCCU... Objective Remarks Gen: Ill-appearing. Head: Normal. Neck: Supple, orally intubated. Lungs: Improved sounds right base, present left. Scattered rhonchi. Heart: NL S1S2, tachycardia. No JVD, reg rhythm. Abdomen: Soft, no guarding. BS few. Extremities: Warm, well perfused. Neuro: Sedated. Moves 4 limbs to stimulation. A/P Assessment and Plan Assessment: 1. Right pneumonia and parapneumonic effusion. 2. Right empyema, bacterial suspected. 3. Hypoxemic respiratory failure. 4. Severe sepsis. Plan: 1. PRVC vent mode. 2. Discuss further therapy with Dr. Sabillon. 3. ID consulted. 4. Continue PIP/SILVIO, Vanc. 5. Sputum culture. 6. Pleural fluid studies. 7. Pleural fluid culture. 8. Start TFs. 9. Formal decortication. 10. Protonix. 11. Chemical DVT Px. Overall impression: Patient remains critically ill with sepsis from right pneumonia and empyema. He requires mechanical ventilation and will require a formal additional drainage procedures. Critical care 34 mins aside from procedures. Dario Wheeler MD February 14, 2017 07:27
[2017-02-14] MEDS: CHLORHEXIDINE 0.12% (ORAL KIT) 15 ML CUP MT SCH ×2 (08:00→20:43)
[2017-02-14] MEDS: DOCUSATE SODIUM 100 MG CAP PO SCH ×2 (08:59→20:43)
[2017-02-14] MEDS: LACTULOSE SYRUP 20 GM/30 ML CUP PO SCH ×2 (08:59→20:44)
[2017-02-14] MEDS: SODIUM CHLORIDE 0.9% FLUSH 10 ML FLUSH IV FLUSH SCH ×2 (09:00→20:43)
[2017-02-14] MEDS: BENEPROTEIN POWDER 1 PACK G-TUBE SCH ×3 (09:00→17:50)
[2017-02-14] MEDS ORDERED: PHARMACY ORDERED LAB ONE (09:45)
--- NOTE | 2017-02-14 11:59 | HHI.IDPN ---
Subjective Subjective Remarks is a 51 y/o CM with PMHx of Alcoholism. 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 He presented with acute onset of SOB, intermittent fevers, leukocytosis, and large right sided effusion with air concerning for aspiration or anaerobic infection. He was moved by Dr. Valentin to the [facility] for worsening SOB and general decline from earlier in the day. Patient was intubated as he appeared encephalopathic and had increased work of breathing due to severe pleuritic chest pain. A right side chest tube was placed with drainage of 1100 ml of foul smelling, putrid yellow fluid. Dr.Dsouza morales is following patient and CTS eval is pending at time of my evaluation. ID following for evaluation and Mment of empyema. Overnight events reviewed. Persistent fevers WBC down trending. No rash No diarrhea CT with yellow fluid. Sedated but moves all 4 off sedation. UO ok. Antibiotics Zosyn IV Vanco IV Levaquin IV Lines Line sites with no e.o infection. Past Medical History reviewed. Allergies: Coded Allergies: No Known Allergies (Unverified , 02/11/17) Objective . Vital Signs Date Time Temp Pulse Resp B/P Pulse Ox O2 Delivery O2 Flow Rate FiO2 02/14/17 11:30 94 40 02/14/17 10:00 97 02/14/17 08:24 96 40 02/14/17 08:00 93 02/14/17 08:00 40 02/14/17 08:00 99.6 93 18 107/66 96 02/14/17 06:00 99 02/14/17 04:00 105 02/14/17 04:00 40 02/14/17 04:00 100.1 105 18 131/80 95 02/14/17 03:07 97 40 02/14/17 02:00 88 02/14/17 00:00 100.0 95 18 109/67 98 02/14/17 00:00 95 02/14/17 00:00 40 02/13/17 23:52 98 40 02/13/17 22:00 102 02/13/17 20:12 98 40 02/13/17 20:00 102 02/13/17 20:00 99.2 94 18 105/62 98 02/13/17 20:00 40 02/13/17 18:00 109 02/13/17 16:32 95 40 02/13/17 16:00 96 02/13/17 16:00 40 02/13/17 16:00 99.9 96 18 105/58 96 02/13/17 14:00 92 02/13/17 12:00 100.2 93 18 100/61 93 02/13/17 12:00 92 02/13/17 12:00 40 02/13/17 02/13/17 02/14/17 15:00 23:00 07:00 Intake Total 1885 ml 1207 ml 1804 ml Output Total 545 ml 150 ml 500 ml Balance 1340 ml 1057 ml 1304 ml IV Total 1508 ml 943 ml 1611 ml Tube Feeding 317 ml 204 ml 93 ml Other 60 ml 60 ml 100 ml Output Urine Total 425 ml 400 ml Chest Tube Drainage Total 120 ml 150 ml 100 ml # Bowel Movements 0 0 . Laboratory Tests Test 02/13/17 02/14/17 10:10 04:02 White Blood Count 13.6 TH/MM3 17.4 TH/MM3 Red Blood Count 3.38 MIL/MM3 3.84 MIL/MM3 Hemoglobin 10.3 GM/DL 12.0 GM/DL Hematocrit 31.2 % 35.5 % Mean Corpuscular Volume 92.5 FL 92.3 FL Mean Corpuscular Hemoglobin 30.6 PG 31.2 PG Mean Corpuscular Hemoglobin 33.1 % 33.8 % Concent Red Cell Distribution Width 13.7 % 13.8 % Platelet Count 285 TH/MM3 317 TH/MM3 Mean Platelet Volume 7.7 FL 8.1 FL Neutrophils (%) (Auto) 71.6 % Lymphocytes (%) (Auto) 13.1 % Monocytes (%) (Auto) 13.5 % Eosinophils (%) (Auto) 1.5 % Basophils (%) (Auto) 0.3 % Neutrophils # (Auto) 12.4 TH/MM3 Lymphocytes # (Auto) 2.3 TH/MM3 Monocytes # (Auto) 2.4 TH/MM3 Eosinophils # (Auto) 0.3 TH/MM3 Basophils # (Auto) 0.1 TH/MM3 CBC Comment AUTO DIFF Differential Total Cells 100 Counted Neutrophils % (Manual) 55 % Band Neutrophils % 14 % Lymphocytes % 21 % Monocytes % 6 % Basophils % 1 % Neutrophils # (Manual) 12.5 TH/MM3 Metamyelocytes 3 % Differential Comment FINAL DIFF MANUAL Dohle Bodies PRESENT Platelet Estimate NORMAL Platelet Morphology Comment NORMAL Hematology Comments Laboratory Tests Test 02/13/17 02/14/17 07:42 04:02 Sodium Level 144 MEQ/L 143 MEQ/L Potassium Level 3.6 MEQ/L 4.0 MEQ/L Chloride Level 109 MEQ/L 110 MEQ/L Carbon Dioxide Level 23.7 MEQ/L 23.5 MEQ/L Anion Gap 11 MEQ/L 10 MEQ/L Blood Urea Nitrogen 17 MG/DL 14 MG/DL Creatinine 0.81 MG/DL 0.83 MG/DL Estimat Glomerular Filtration 100 ML/MIN 97 ML/MIN Rate Random Glucose 115 MG/DL 114 MG/DL Calcium Level 7.9 MG/DL 8.0 MG/DL Microbiology Date/Time Procedure Status Source Growth 02/11/17 15:33 Gram Stain - Final Complete Sputum Expectorated Sputum 02/11/17 15:33 Sputum Culture - Final Complete Sputum Expectorated Sputum HEAVY GROWTH NORMAL RESPIRATORY EVGENY 02/12/17 02:15 Gram Stain - Final Resulted Fluid Pleural Fluid 02/12/17 02:15 Body Fluid Culture - Preliminary Resulted Viridans Streptococcus Grp Mixed Anaerobes Gram Negative Miguel Angel Fusobacterium Species 02/12/17 03:30 Legionella Antigen - Final Complete Urine Random Urine PRESUMPTIVE NEGATIVE FOR LEGIONELLA P... 02/12/17 03:30 Streptococcus pneumoniae Antigen (M - Final Complete Urine Random Urine PRESUMPTIVE NEGATIVE FOR STREPTOCOCCU... 02/12/17 04:23 Gram Stain - Final Complete Sputum Endotracheal 02/12/17 04:23 Sputum Culture - Final Complete Sputum Endotracheal NO GROWTH IN 48 HOURS. Imaging Last Impressions Chest X-Ray 02/13/17 0000 Signed Impressions: Service Date/Time: Monday, February 13, 2017 07:41 - CONCLUSION: 1. Stable appearance of the chest with predominantly peripheral consolidation in the right hemithorax which appears most characteristic of an empyema on the prior CT. 2. Stable position of life support tubes including a right-sided thoracostomy tube as detailed above. 3. Left lung remains clear. Jorge Boyer MD Chest CT 02/11/17 0000 Signed Impressions: Service Date/Time: Saturday, February 11, 2017 11:40 - CONCLUSION: 1. Prominent multiloculated pleural effusion on the right containing multiple foci of gas. Difficult diagnosis includes bronchopleural fistula, infection with gas producing organisms, and iatrogenic if recent procedure has been performed. 2. Patchy right lung consolidation. Cipriano Moore MD Physical Exam GENERAL: This is a well-nourished, well-developed patient, in no apparent distress. SKIN: No rashes, ecchymoses or lesions. Cool and dry. HEAD: Atraumatic. Normocephalic. No temporal or scalp tenderness. EYES: Pupils equal round and reactive. Extraocular motions intact. No scleral icterus. No injection or drainage. ENT: Intubated. NECK: Trachea midline. Supple, nontender, no meningeal signs. CARDIOVASCULAR: RRR. No murmur appreciated. RESPIRATORY: AE decreased right side. CT with yellow thick fluid in CT. GASTROINTESTINAL: Abdomen soft, non-tender, nondistended. MUSCULOSKELETAL: Extremities without clubbing, cyanosis, or edema. NEUROLOGICAL: Sedated. Psych: could not be assessed. IV line sites with no e/o infection. 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 Empyema: likely secondary to aspiration pneumonia secondary to alcoholism. Acute resp failure: empyema, sepsis. Acute metabolic encephalopathy: sepsis related, metabolic. Hypoalbuminemia: nutritional, alcoholism, r/o chronic infections like HIV, hepatitis. Recs: Continue Zosyn IV (aspiration PNA, if no PSAE will deescalate after reviewing intraop cultures) Continue Vanco IV (target 15-20 for possible resistant Strep) d/w and : recommend bronchoscopy and VATS with all relevant cultures and path. I would recommend bronch to make sure no foreign body during aspiration as it will affect clinical response to treatment. d/w Micro: cannot speciate anaerobes. Negative 2D ECHO. d.w and RN. Neela Saxena MD February 14, 2017 11:59
[2017-02-14] MEDS ORDERED: ceFAZolin 2 GM PREMIX 50 ML ONE (14:08)
[2017-02-14] MEDS ORDERED: BUPIVACAINE/EPINEPHRINE 0.5% 50 ML VIAL ONE (14:08)
[2017-02-14] MEDS ORDERED: LACTATED RINGER'S 1000 ML INJ 1,000 ML IV ONE (14:23)
[2017-02-14] MEDS ORDERED: PROPOFOL 200 MG/20 ML AMP IV ONE (14:23)
[2017-02-14] MEDS ORDERED: RESP: ALBUTEROL 2.5 MG/3 ML NEB (SCH) ONE (15:00)
[2017-02-14] MEDS ORDERED: RESP: ALBUTEROL 2.5 MG/3 ML NEB (PRN) ONE (15:00)
[2017-02-14] MEDS ORDERED: methylPREDNISolone SOD SUCC 125 MG/2 ML VIAL ONE (15:12)
[2017-02-14] MEDS ORDERED: MAGNESIUM SULFATE 1 GM PREMIX 100 ML ONE (15:55)
[2017-02-14] MEDS ORDERED: fentaNYL CITRATE 250 MCG/5 ML AMP ONE ×2 (16:02→16:03)
[2017-02-14] MEDS ORDERED: MIDAZOLAM HCL 2 MG/2 ML VIAL ONE (16:02)
[2017-02-14] MEDS: RESP: ALBUTEROL 2.5 MG/IPRATROPIUM 0.5 MG NEB (PRN) NEB ×3 (16:06→16:42)
[2017-02-14] MEDS ORDERED: hydrALAZINE HCL 20 MG/ML VIAL ONE (16:19)
[2017-02-14] MEDS ORDERED: LABETALOL HCL 100 MG/20 ML VIAL ONE (16:29)
[2017-02-14] MEDS ORDERED: hydrALAZINE HCL 20 MG/ML VIAL IV PUSH PRN (16:45)
--- NOTE | 2017-02-14 16:48 | PD.OP ---
Operative Report Date of Surgery: February 14, 2017 Preoperative Diagnosis: Postoperative Diagnosis: Procedure: 1. Fiberoptic Bronchoscopy 2. Bronchoalveolar Lavage . Surgeon: Hafsa Anderson Stone Breaker(s): None Operation and Findings: PREOPERATIVE DIAGNOSES 1. Right Loculated Pleural Effusion. 2. Empyema s/p CT Placement 3. Bronchospasm 4. Severe Pulmonary Insufficiency POSTOPERATIVE DIAGNOSES Same SURGICAL PROCEDURE 1. Fiberoptic Bronchoscopy 2. Bronchoalveolar Lavage SURGEON Hafsa Anderson MD BED MACHINE OPERATOR None ANESTHESIA General double lumen endotracheal. MATH INSTRUCTOR YESENIA Castillo MD Alex Greene, MD PREPARATION None COUNTS Needle, sponge, and instrument counts are correct. DRAINS None COMPLICATIONS None. INDICATIONS The patient is a 51 YO gentleman status post previous right CT placement for multi-loculated pleural effusion and empyema. The patient is being brought to the operating room for drainage procedure. DESCRIPTION OF PROCEDURE The patient was brought to the operating room and placed supine on the OR table. Following the induction of adequate general double lumen endotracheal anesthesia and placement of appropriate monitoring devices, it was noted that the patient was persistently hpoxic with both lungs ventilated. Attempt to isolate the right lung resulted in further hypoxia and intolerance on the patient's part. Dr. Kaur was consulted intraoperatively. Anti-bronchospastic therapy was initiated with some improvement in the oxygenation, however, he was not stable enough to tolerate a surgical procedure. At this point, it was decided to switch him back to a single lumen ETT and perform a bronchoscopy with BAL. The ETT was changed over a exchanger. Fiberoptic bronchoscopy revealed copious mucinous secretions in the entire tracheobronchial tree with significant swelling of the right sided airway. BAL was performed and specimen sent for cultures. The patient was then transferred back to the ICU in stable condition. Hafsa Anderson MD February 14, 2017 16:48
[2017-02-14] MEDS ORDERED: LABETALOL HCL 100 MG/20 ML VIAL IV PUSH PRN (17:00)
--- NOTE | 2017-02-14 17:12 | RADRPT ---
EXAM DATE/TIME: 02/14/2017 16:41 [facility] COMPARISON: CHEST SINGLE AP, February 13, 2017, 7:41. INDICATIONS : Evaluate for pneumothorax. MEDICAL HISTORY : None. SURGICAL HISTORY : None. ENCOUNTER: Subsequent ACUITY: 4 - 6 days PAIN SCORE: Non-responsive. LOCATION: chest FINDINGS: Endotracheal tube is present with tip just above the ke. Right base thoracostomy tube is again no paramjit. There is complete opacification of right hemithorax. Diffuse parenchymal opacity in the contrala teral left lung. CONCLUSION: Complete collapse of the right lung. No pneumothorax. Worsening parenchymal opacity in the left lung. Keagan Martins MD on February 14, 2017 at 17:09 Board Certified Radiologist. This report was verified electronically.
[2017-02-14] MEDS: VANCOMYCIN INJ 1,250 MG in SODIUM CHLOR 0.9% 250 ML INJ 250 ML IV SCH (17:18)
[2017-02-14 18:03] LABS: BLOOD GAS BASE EXCESS -3.3 mmol/L (-2-2); BLOOD GAS CARBOXYHEMOGLOBIN 0.8 % (0-4); BLOOD GAS HCO3 22 mmol/L (22-26); BLOOD GAS METHEMOGLOBIN 1.1 % (0-2); BLOOD GAS O2 HGB SATURATION 97 % (90-100); BLOOD GAS OXYGEN CONTENT 15.8 Vol % (12.0-20.0); BLOOD GAS PCO2 41 mmHg (38-42); BLOOD GAS PO2 141 mmHg (61-120); BLOOD GAS TOTAL HGB 11.5 G/DL (12.0-16.0); CRITICAL VALUE NO; OXYGEN DEVICE VENTILATOR; TEMP CORR TO 98.6
[2017-02-14 18:04] LABS: DRAW SITE ART LINE; FIO2 100 %; STAT YES
--- NOTE | 2017-02-14 18:10 | HHI.PR ---
Subjective Remarks Awake and on vent support. FIO2 at 40 %.On IV antibiotics . Had chest tube placed. Still febrile. Chest tube draining yellow fluid. Will go for thoracotomy and decortication. Objective Vital Signs Date Time Temp Pulse Resp B/P Pulse Ox O2 Delivery O2 Flow Rate FiO2 02/14/17 16:00 100 02/14/17 16:00 98.2 103 18 108/56 94 02/14/17 16:00 102 02/14/17 14:00 100 02/14/17 12:00 40 02/14/17 12:00 92 02/14/17 12:00 99.8 92 18 102/67 96 02/14/17 11:30 94 40 02/14/17 10:00 97 02/14/17 08:24 96 40 02/14/17 08:00 93 02/14/17 08:00 40 02/14/17 08:00 99.6 93 18 107/66 96 02/14/17 06:00 99 02/14/17 04:00 105 02/14/17 04:00 40 02/14/17 04:00 100.1 105 18 131/80 95 02/14/17 03:07 97 40 02/14/17 02:00 88 02/14/17 00:00 100.0 95 18 109/67 98 02/14/17 00:00 95 02/14/17 00:00 40 02/13/17 23:52 98 40 02/13/17 22:00 102 02/13/17 20:12 98 40 02/13/17 20:00 102 02/13/17 20:00 99.2 94 18 105/62 98 02/13/17 20:00 40 I/O 02/13/17 02/13/17 02/13/17 02/14/17 02/14/17 02/14/17 07:00 15:00 23:00 07:00 15:00 23:00 Intake Total 1361 ml 1885 ml 1207 ml 1804 ml 1362 ml Output Total 700 ml 545 ml 150 ml 500 ml 350 ml Balance 661 ml 1340 ml 1057 ml 1304 ml 1012 ml IV Total 1041 ml 1508 ml 943 ml 1611 ml 1302 ml Tube Feeding 260 ml 317 ml 204 ml 93 ml 60 ml Other 60 ml 60 ml 60 ml 100 ml Output Urine Total 450 ml 425 ml 400 ml 300 ml Chest Tube Drainage Total 250 ml 120 ml 150 ml 100 ml 50 ml # Bowel Movements 0 0 0 0 Result Diagram: 02/14/1740102/14/17401 Objective Remarks GENERAL:Intubated and sedated . HEENT: Head normocephalic. Pupils reactive. . Nasal mucosae clear. NEC: Supple. No bruits or thyroid enlargement or lymphadenopathy. CHEST: Equal movements with crackles right base and Occasional wheezes in the upper chest . HEART: Heart sounds are regular, S1-S2. No murmur. No S3. ABDOMEN: Abdomen is soft, protuberant with tenderness in the upper abdomen. Bowel sounds are active. No organomegaly. EXTREMITIES: No lesions. No edema. No calf tenderness. Reflexes are 1+ with no gross motor deficits. NEURO: Sedated. SKIN: No lesions. Assessment and Plan Assessment and Plan IMPRESSION 1. Right lung Pneumonia with empyema. 2. Respiratory failure 3. Probable underlying COPD. Plan : 1. Antibiotic coverage as ordered. 2. Nebs qid , duoneb. 3. Vent support and wean FIO2 , 4. Vats thoracotomy , Decortication per Dr Anderson 5. Chest tube to Drainage. 6. CBC,BMP, CXR in am. Diana Sabillon MD February 14, 2017 18:10
[2017-02-14 18:14] LABS: BLOOD GAS HCO3 22 mmol/L (22-26); BLOOD GAS METHEMOGLOBIN 1.3 % (0-2); BLOOD GAS O2 HGB SATURATION 89 % (90-100); BLOOD GAS OXYGEN CONTENT 14.2 Vol % (12.0-20.0); BLOOD GAS PCO2 42 mmHg (38-42); BLOOD GAS PO2 61 mmHg (61-120); BLOOD GAS TOTAL HGB 11.3 G/DL (12.0-16.0); TEMP CORR TO 98.6
[2017-02-14 18:15] LABS: CRITICAL VALUE YES; DRAW SITE ART LINE; FIO2 80 %; NUMBER OF ARTERIAL PUNCTURES 0; OXYGEN DEVICE VENTILATOR; STAT YES; ULNAR PULSE PRESENT; VENT SETTINGS AC18/500/PEEP8
[2017-02-14] MEDS ORDERED: niCARdipine 25 MG/250 ML IVPB IV SCH ×2 (18:30)
[2017-02-14] MEDS ORDERED: NOREPINEPHRINE-DEXTROSE DRIP 250 ML IV ONE (22:57)
[2017-02-14] MEDS ORDERED: TERBUTALINE INJ 1 MG/ML AMP SQ PRN (23:30)
[2017-02-15] VITALS (18 sets, daily range): BP systolic 98–123; BP diastolic 55–68; PULSE 64–101; RESP 18; TEMP 97.9–99.1; O2SAT 93–99
[2017-02-15] MEDS: VANCOMYCIN INJ 1,250 MG in SODIUM CHLOR 0.9% 250 ML INJ 250 ML IV SCH ×3 (01:32→18:37)
[2017-02-15] MEDS: fentaNYL DRIP 250 ML IV SCH ×2 (01:33→15:56)
[2017-02-15] MEDS: NOREPINEPHRINE 4 MG/D5W 250 ML IV SCH (01:33)
[2017-02-15] MEDS: PIPERACIL-TAZO 4.5 GM PREMIX 100 ML IV SCH ×4 (02:46→20:48)
[2017-02-15] MEDS: METOCLOPRAMIDE HCL SYRUP 10 MG/10 ML UDC PO SCH ×4 (04:00→22:26)
[2017-02-15] MEDS: RESP: ALBUTEROL 2.5 MG/IPRATROPIUM 0.5 MG NEB (SCH) NEB ×4 (04:26→21:23)
[2017-02-15 04:31] LABS: AUTOMATED NEUTROPHIL # 21.7 TH/MM3 (1.8-7.7); BASOPHIL # 0.1 TH/MM3 (0-0.2); BASOPHIL % 0.3 % (0.0-2.0); HEMATOCRIT 30.5 % (39.0-51.0); LYMPH % 6.1 % (9.0-44.0); LYMPHOCYTE # 1.5 TH/MM3 (1.0-4.8); MEAN CELL VOLUME 92.3 FL (80.0-100.0); MEAN CORPUSCULAR HEMOGLOBIN 30.5 PG (27.0-34.0); MONO % 3.6 % (0.0-8.0); PLATELET COUNT 342 TH/MM3 (150-450); RED BLOOD COUNT 3.31 MIL/MM3 (4.50-5.90); RED CELL DISTRIBUTION WIDTH 13.6 % (11.6-17.2); WHITE BLOOD COUNT 24.1 TH/MM3 (4.0-11.0)
[2017-02-15 04:41] LABS: HEMO FLAGS AUTO DIFF
[2017-02-15 04:49] LABS: POTASSIUM 3.9 MEQ/L (3.5-5.1)
--- NOTE | 2017-02-15 05:05 | RADRPT ---
EXAM DATE/TIME: 02/15/2017 04:08 [facility] COMPARISON: CHEST SINGLE AP, February 14, 2017, 16:41. INDICATIONS : Short of breath. MEDICAL HISTORY : None. SURGICAL HISTORY : None. ENCOUNTER: Subsequent ACUITY: 4 - 6 days PAIN SCORE: Non-responsive. LOCATION: Bilateral chest FINDINGS: The cardiac silhouette is enlarged in transverse diameter. Endotracheal tube is at the ke and cou ld be pulled back 2 cm. There is patchy alveolar disease on the right compatible with edema or pneumo osvaldo. The left lung is free of acute parenchymal opacity. There is improving aeration the right lung w hen compared with the prior study. CONCLUSION: 1. Improving aeration in the right lung. 2. Endotracheal tube at the ke. This could be pulled back 2 cm. Arthur Jane MD on February 15, 2017 at 5:02 Board Certified Radiologist. This report was verified electronically.
[2017-02-15] MEDS: SODIUM CHLOR 0.9% 1000 ML INJ 1,000 ML IV SCH ×3 (05:25→22:26)
[2017-02-15 06:53] LABS: BLOOD GAS BASE EXCESS -0.9 mmol/L (-2-2); BLOOD GAS CARBOXYHEMOGLOBIN 0.8 % (0-4); BLOOD GAS HCO3 23 mmol/L (22-26); BLOOD GAS METHEMOGLOBIN 0.9 % (0-2); BLOOD GAS O2 HGB SATURATION 97 % (90-100); BLOOD GAS OXYGEN CONTENT 14.1 Vol % (12.0-20.0); BLOOD GAS PCO2 39 mmHg (38-42); BLOOD GAS PO2 169 mmHg (61-120); CRITICAL VALUE NO; OXYGEN DEVICE VENTILATOR; TEMP CORR TO 98.6
[2017-02-15 06:54] LABS: DRAW SITE ART LINE; FIO2 80 %; STAT NO; VENT SETTINGS PRVC/AC
--- NOTE | 2017-02-15 06:56 | HHI.CCPN ---
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 He was moved by Dr. Valentin to the [facility] for worsening SOB, general decline. I reviewed Dr. Sabillon's consultation from earlier today and clearly this man has deteriorated since that time. His work of breathing has increased considerably and is not sustainable at this point. Further, he appears quite septic with flushed, clammy skin and sustained tachycardia. His pleuritic pain is so severe that he is incapable of breathing deeply and I sense he is getting confused. I spoke with the patient and his was informed. I felt intubation and ventilation was indicated by about midnight tonight, and drainage of the effusion was indicated to cement our diagnosis and guide therapy. A right chest tube placed above the diaphragm drained 1,100 mls of foul smelling, putrid, yellow material; sent for culture. Pleural fluid studies were also sent. As Dr. Sabillon predicted this is clearly an empyema. 02/13: Oxygenation improved. Cultures pending. Ventilator dependent. Suspect he' ll benefit from diagnostic bronch and decortication. Tentatively planned for tomorrow. 02/14: Organism identified, coverage should be adequate. Agree with formal decortication. 02/15: Decortication cancelled after severe bronchospasm in OR. Requiring 80% FiO2 this morning. Objective Vital Signs Date Time Temp Pulse Resp B/P Pulse Ox O2 Delivery O2 Flow Rate FiO2 02/15/17 06:00 85 02/15/17 04:26 98 80 02/15/17 04:00 98.1 18 117/68 02/12/17 08:00 Mechanical Ventilator 02/11/17 21:08 4.00 Intake and Output 02/14/17 02/14/17 02/15/17 08:00 16:00 00:00 Intake Total 1804 ml 1362 ml 1056 ml Output Total 500 ml 350 ml 825 ml Balance 1304 ml 1012 ml 231 ml Result Diagram: 02/15/17 0340 02/15/17 0333 Other Results Laboratory Tests Test 02/14/17 02/14/17 16:20 17:51 Blood Gas Puncture Site ART LINE ART LINE Blood Gas Patient Temperature 98.6 98.6 Blood Gas HCO3 22 mmol/L 22 mmol/L (22-26) (22-26) Blood Gas Base Excess -3.0 mmol/L -3.3 mmol/L (-2-2) (-2-2) Blood Gas Oxygen Saturation 89 % (90-100) 97 % (90-100) Arterial Blood pH 7.34 7.34 (7.380-7.420) (7.380-7.420) Arterial Blood Partial 42 mmHg (38-42) 41 mmHg (38-42) Pressure CO2 Arterial Blood Partial 61 mmHg 141 mmHg Pressure O2 (61-120) (61-120) Arterial Blood Oxygen Content 14.2 Vol % 15.8 Vol % (12.0-20.0) (12.0-20.0) Arterial Blood 1.0 % (0-4) 0.8 % (0-4) Carboxyhemoglobin Arterial Blood Methemoglobin 1.3 % (0-2) 1.1 % (0-2) Blood Gas Hemoglobin 11.3 G/DL 11.5 G/DL (12.0-16.0) (12.0-16.0) Oxygen Delivery Device VENTILATOR VENTILATOR Blood Gas Ventilator Setting AC18/500/PEEP8 Blood Gas Inspired Oxygen 80 % 100 % Objective Remarks Gen: Ill-appearing. Head: Normal. Neck: Supple, orally intubated. Lungs: Marginal sounds right base, present left. Scattered rhonchi. Heart: NL S1S2, tachycardia. No JVD, reg rhythm. Abdomen: Soft, no guarding. BS few. Extremities: Warm, well perfused. Neuro: Sedated. Moves 4 limbs to stimulation. A/P Assessment and Plan Assessment: 1. Right pneumonia and parapneumonic effusion. 2. Right empyema, bacterial, mixed organisms. 3. Hypoxemic respiratory failure. 4. Severe sepsis. 5. Bronchospasm. Plan: 1. PRVC vent mode. PEEP 8. 2. Discuss ongoing therapy with Dr. Sabillon. 3. ID consulted. 4. Continue PIP/SILVIO, Vanc. Adjust per ID. 5. Sputum culture. 6. Pleural fluid studies. 7. Pleural fluid culture. 8. Start TFs. 9. Formal decortication. 10. Protonix. 11. Chemical DVT Px. Overall impression: Patient remains critically ill with sepsis from right pneumonia and empyema. Oxygenation worse and he requires mechanical ventilation. Critical care 37 mins aside from procedures. Dario Wheeler MD February 15, 2017 06:56
[2017-02-15 07:04] LABS: BANDS 17 % (0-6); METAMYELOCYTES 1 % (0-1); NEUTROPHIL # MANUAL DIFF 22.9 TH/MM3 (1.8-7.7); PLATELET ESTIMATE SMEAR NORMAL (NORMAL); PLATELET MORPHOLOGY NORMAL (NORMAL); POLYS (SEG NEUTROPHILS) 77 % (16-70); SCAN/DIFF FINAL DIFF MANUAL; WBC DIFF SAMPLE 100
[2017-02-15] MEDS: CHLORHEXIDINE 0.12% (ORAL KIT) 15 ML CUP MT SCH ×2 (08:00→20:48)
[2017-02-15] MEDS: BENEPROTEIN POWDER 1 PACK G-TUBE SCH ×3 (08:32→18:00)
[2017-02-15] MEDS: DOCUSATE SODIUM 100 MG CAP PO SCH ×2 (08:32→21:00)
[2017-02-15] MEDS: LACTULOSE SYRUP 20 GM/30 ML CUP PO SCH ×2 (08:32→21:00)
[2017-02-15] MEDS: SODIUM CHLORIDE 0.9% FLUSH 10 ML FLUSH IV FLUSH SCH ×2 (09:00→21:00)
[2017-02-15] MEDS ORDERED: AMIODARONE INJ 150 MG in DEXTROSE 5% IN WATER 100ML INJ 97 ML IV ONE ×2 (10:15)
[2017-02-15] MEDS: AMIODARONE INJ 450 MG in DEXTROSE 5% IN WATE(EXCEL) INJ 250 ML IV SCH ×2 (10:42)
--- NOTE | 2017-02-15 13:10 | HHI.PR ---
Subjective Remarks Remains on vent support. FIO2 at 40 %.On IV antibiotics . Still febrile. Chest tube draining yellow fluid. Decortication cancelled Objective Vital Signs Date Time Temp Pulse Resp B/P Pulse Ox O2 Delivery O2 Flow Rate FiO2 02/15/17 12:00 99.1 64 18 98/57 97 02/15/17 11:37 97 60 02/15/17 10:00 101 02/15/17 08:34 97 70 02/15/17 08:00 98.1 88 18 123/59 96 02/15/17 08:00 88 02/15/17 08:00 70 02/15/17 06:50 99 70 02/15/17 06:00 85 02/15/17 04:26 98 80 02/15/17 04:00 98.1 83 18 117/68 98 02/15/17 04:00 83 02/15/17 04:00 100 02/15/17 02:00 77 02/15/17 01:40 98 90 02/15/17 00:00 98.2 86 18 107/55 93 02/15/17 00:00 100 02/15/17 00:00 86 02/14/17 22:00 100 02/14/17 20:00 104 02/14/17 20:00 100 02/14/17 20:00 98.2 104 22 120/59 93 02/14/17 20:00 95 100 02/14/17 18:00 112 02/14/17 16:00 100 02/14/17 16:00 98.2 103 18 108/56 94 02/14/17 16:00 102 02/14/17 14:00 100 I/O 02/14/17 02/14/17 02/14/17 02/15/17 02/15/17 02/15/17 07:00 15:00 23:00 07:00 15:00 23:00 Intake Total 1804 ml 1362 ml 1056 ml 771 ml Output Total 500 ml 350 ml 825 ml 350 ml Balance 1304 ml 1012 ml 231 ml 421 ml IV Total 1611 ml 1302 ml 1056 ml 771 ml Tube Feeding 93 ml 60 ml Other 100 ml Output Urine Total 400 ml 300 ml 675 ml 350 ml Chest Tube Drainage Total 100 ml 50 ml 150 ml # Bowel Movements 0 0 1 3 Result Diagram: 02/15/17 0340 02/15/17 0333 Objective Remarks GENERAL:Intubated and sedated . HEENT: Head normocephalic. Pupils reactive. . Nasal mucosae clear. NEC: Supple. No bruits or thyroid enlargement or lymphadenopathy. CHEST: Equal movements with Occasional wheezes in the upper chest . Decreased breath sounds at bases HEART: Heart sounds are regular, S1-S2. No murmur. No S3. ABDOMEN: Abdomen is soft, protuberant with tenderness in the upper abdomen. Bowel sounds are active. No organomegaly. EXTREMITIES: No lesions. No edema. No calf tenderness. Reflexes are 1+ . NEURO: Sedated. SKIN: No lesions. Assessment and Plan Assessment and Plan IMPRESSION 1. Right lung Pneumonia with empyema. 2. Respiratory failure 3. Probable underlying COPD. Plan : 1. Antibiotic coverage as ordered. 2. Nebs qid , duoneb. 3. Cont Vent support and wean FIO2 , 4. Vats thoracotomy , Decortication per Dr Anderson 5. Chest tube to Drainage. 6. CBC,BMP, CXR in am. 7. Reduce sedation Diana Sabillon MD February 15, 2017 13:10
[2017-02-15] MEDS: PROPOFOL 1000 MG/100 ML INJ 100 ML IV SCH ×3 (13:40→23:00)
--- NOTE | 2017-02-15 14:18 | EKG ---
Date Performed: 02/15/2017 Time Performed: 09:53:38 PTAGE: 51 years EKG: Atrial fibrillation with rapid ventricular response Extensive ST-T changes may be due to my ocardial ischemia Compared to the previous tracing atrial fibrillation has replaced sinus tachycardia Abnormal ECG PREVIOUS TRACING : 02/11/2017 16.29 DOCTOR: Arthur Rutherford Interpretating Date/Time 02/15/2017 14:18:00
[2017-02-15] MEDS ORDERED: PHARMACY ORDERED LAB ONE (16:45)
--- NOTE | 2017-02-15 16:55 | HHI.IDPN ---
Subjective Subjective Remarks is a 51 y/o CM with PMHx of Alcoholism. 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 He presented with acute onset of SOB, intermittent fevers, leukocytosis, and large right sided effusion with air concerning for aspiration or anaerobic infection. He was moved by Dr. Valentin to the [facility] for worsening SOB and general decline from earlier in the day. Patient was intubated as he appeared encephalopathic and had increased work of breathing due to severe pleuritic chest pain. A right side chest tube was placed with drainage of 1100 ml of foul smelling, putrid yellow fluid. Dr.Dsouza morales is following patient and CTS eval is pending at time of my evaluation. ID following for evaluation and Mment of empyema. Overnight events reviewed: pt had bronchospasm in OR. Underwent bronch but VATS postponed. Afebrile WBC increased No rash No diarrhea CT with yellow fluid. Sedated. UO ok. Antibiotics Zosyn IV Vanco IV Lines Line sites with no e.o infection. Past Medical History reviewed. Allergies: Coded Allergies: No Known Allergies (Unverified , 02/11/17) Objective . Vital Signs Date Time Temp Pulse Resp B/P Pulse Ox O2 Delivery O2 Flow Rate FiO2 02/15/17 16:33 99 60 02/15/17 16:00 76 02/15/17 16:00 97.9 76 18 101/64 97 02/15/17 14:00 84 02/15/17 12:00 81 02/15/17 12:00 99.1 64 18 98/57 97 02/15/17 11:37 60 02/15/17 11:37 97 60 02/15/17 10:00 101 02/15/17 08:34 97 70 02/15/17 08:00 98.1 88 18 123/59 96 02/15/17 08:00 88 02/15/17 08:00 70 02/15/17 06:50 99 70 02/15/17 06:00 85 02/15/17 04:26 98 80 02/15/17 04:00 98.1 83 18 117/68 98 02/15/17 04:00 83 02/15/17 04:00 100 02/15/17 02:00 77 02/15/17 01:40 98 90 02/15/17 00:00 98.2 86 18 107/55 93 02/15/17 00:00 100 02/15/17 00:00 86 02/14/17 22:00 100 02/14/17 20:00 104 02/14/17 20:00 100 02/14/17 20:00 98.2 104 22 120/59 93 02/14/17 20:00 95 100 02/14/17 18:00 112 02/14/17 02/14/17 02/15/17 15:00 23:00 07:00 Intake Total 1362 ml 1056 ml 771 ml Output Total 350 ml 825 ml 350 ml Balance 1012 ml 231 ml 421 ml IV Total 1302 ml 1056 ml 771 ml Tube Feeding 60 ml Output Urine Total 300 ml 675 ml 350 ml Chest Tube Drainage Total 50 ml 150 ml # Bowel Movements 0 1 3 . Laboratory Tests Test 02/14/17 02/15/17 04:02 03:40 White Blood Count 17.4 TH/MM3 24.1 TH/MM3 Red Blood Count 3.84 MIL/MM3 3.31 MIL/MM3 Hemoglobin 12.0 GM/DL 10.1 GM/DL Hematocrit 35.5 % 30.5 % Mean Corpuscular Volume 92.3 FL 92.3 FL Mean Corpuscular Hemoglobin 31.2 PG 30.5 PG Mean Corpuscular Hemoglobin 33.8 % 33.0 % Concent Red Cell Distribution Width 13.8 % 13.6 % Platelet Count 317 TH/MM3 342 TH/MM3 Mean Platelet Volume 8.1 FL 7.8 FL Neutrophils (%) (Auto) 71.6 % 90.0 % Lymphocytes (%) (Auto) 13.1 % 6.1 % Monocytes (%) (Auto) 13.5 % 3.6 % Eosinophils (%) (Auto) 1.5 % 0.0 % Basophils (%) (Auto) 0.3 % 0.3 % Neutrophils # (Auto) 12.4 TH/MM3 21.7 TH/MM3 Lymphocytes # (Auto) 2.3 TH/MM3 1.5 TH/MM3 Monocytes # (Auto) 2.4 TH/MM3 0.9 TH/MM3 Eosinophils # (Auto) 0.3 TH/MM3 0.0 TH/MM3 Basophils # (Auto) 0.1 TH/MM3 0.1 TH/MM3 CBC Comment AUTO DIFF AUTO DIFF Differential Total Cells 100 100 Counted Neutrophils % (Manual) 55 % 77 % Band Neutrophils % 14 % 17 % Lymphocytes % 21 % 1 % Monocytes % 6 % 4 % Basophils % 1 % Neutrophils # (Manual) 12.5 TH/MM3 22.9 TH/MM3 Metamyelocytes 3 % 1 % Differential Comment FINAL DIFF FINAL DIFF MANUAL MANUAL Dohle Bodies PRESENT Platelet Estimate NORMAL NORMAL Platelet Morphology Comment NORMAL NORMAL Hematology Comments Laboratory Tests Test 02/14/17 02/15/17 04:02 03:33 Sodium Level 143 MEQ/L 143 MEQ/L Potassium Level 4.0 MEQ/L 3.9 MEQ/L Chloride Level 110 MEQ/L 110 MEQ/L Carbon Dioxide Level 23.5 MEQ/L 24.0 MEQ/L Anion Gap 10 MEQ/L 9 MEQ/L Blood Urea Nitrogen 14 MG/DL 19 MG/DL Creatinine 0.83 MG/DL 0.71 MG/DL Estimat Glomerular Filtration 97 ML/MIN 117 ML/MIN Rate Random Glucose 114 MG/DL 147 MG/DL Calcium Level 8.0 MG/DL 7.9 MG/DL Microbiology Date/Time Procedure Status Source Growth 02/14/17 15:30 Gram Stain - Final Resulted Bronchial Washings Other 02/14/17 15:30 Bronchial Culture - Preliminary Resulted Bronchial Washings Other NO GROWTH IN 24 HOURS. 02/14/17 15:30 Acid Fast Stain Received Bronchial Washings Other Pending 02/14/17 15:30 Mycobacterial Culture Received Bronchial Washings Other Pending 02/14/17 15:30 Fungal Smear - Final Resulted Bronchial Washings Other NO FUNGAL ELEMENTS SEEN. 02/14/17 15:30 Fungal Culture Resulted Bronchial Washings Other Pending Imaging Last Impressions Chest X-Ray 02/13/17 0000 Signed Impressions: Service Date/Time: Monday, February 13, 2017 07:41 - CONCLUSION: 1. Stable appearance of the chest with predominantly peripheral consolidation in the right hemithorax which appears most characteristic of an empyema on the prior CT. 2. Stable position of life support tubes including a right-sided thoracostomy tube as detailed above. 3. Left lung remains clear. Jorge Boyer MD Chest CT 02/11/17 0000 Signed Impressions: Service Date/Time: Saturday, February 11, 2017 11:40 - CONCLUSION: 1. Prominent multiloculated pleural effusion on the right containing multiple foci of gas. Difficult diagnosis includes bronchopleural fistula, infection with gas producing organisms, and iatrogenic if recent procedure has been performed. 2. Patchy right lung consolidation. Cipriano Moore MD Physical Exam GENERAL: This is a well-nourished, well-developed patient, in no apparent distress. SKIN: No rashes, ecchymoses or lesions. Cool and dry. HEAD: Atraumatic. Normocephalic. No temporal or scalp tenderness. EYES: Pupils equal round and reactive. Extraocular motions intact. No scleral icterus. No injection or drainage. ENT: Intubated. NECK: Trachea midline. Supple, nontender, no meningeal signs. CARDIOVASCULAR: RRR. No murmur appreciated. RESPIRATORY: AE decreased right side. CT with yellow thick fluid in CT. GASTROINTESTINAL: Abdomen soft, non-tender, nondistended. MUSCULOSKELETAL: Extremities without clubbing, cyanosis, or edema. NEUROLOGICAL: Sedated. Psych: could not be assessed. IV line sites with no e/o infection. 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 Empyema: likely secondary to aspiration pneumonia secondary to alcoholism. Acute resp failure: empyema, sepsis. Acute metabolic encephalopathy: sepsis related, metabolic. Hypoalbuminemia: nutritional, alcoholism, r/o chronic infections like HIV, hepatitis. Recs: Continue Zosyn IV (aspiration PNA, if no PSAE will deescalate after reviewing intraop cultures) Continue Vanco IV (target 15-20 for possible resistant Strep await susceptibilities) d/w Micro: cannot speciate anaerobes. Negative 2D ECHO. d.w and RN. Neela Saxena MD February 15, 2017 16:55
[2017-02-16] VITALS (18 sets, daily range): BP systolic 106–141; BP diastolic 54–68; PULSE 7–90; RESP 18–19; TEMP 98.1–101.2; O2SAT 91–97
[2017-02-16] MEDS: VANCOMYCIN INJ 1,250 MG in SODIUM CHLOR 0.9% 250 ML INJ 250 ML IV SCH ×3 (00:25→15:46)
[2017-02-16] MEDS: PROPOFOL 1000 MG/100 ML INJ 100 ML IV SCH ×5 (00:28→16:47)
--- NOTE | 2017-02-16 00:45 | RADRPT ---
EXAM DATE/TIME: 02/16/2017 00:25 [facility] COMPARISON: CHEST SINGLE AP, February 15, 2017, 4:08. INDICATIONS : Evaluate for central line placement. MEDICAL HISTORY : None. SURGICAL HISTORY : None. ENCOUNTER: Subsequent ACUITY: 1 day PAIN SCORE: Non-responsive. LOCATION: chest FINDINGS: A single view of the chest demonstrates right pleural-parenchymal density. Endotracheal tube seen wit h tip 5 cm above the ke. Right subclavian central line with tip in the right atrium. No pneumotho rax.. Osseous structures are intact. CONCLUSION: Stable chest. Adequate placement of right subclavian central line. Erick Bruner MD on February 16, 2017 at 0:42 Board Certified Radiologist. This report was verified electronically.
[2017-02-16] MEDS: fentaNYL DRIP 250 ML IV SCH ×2 (02:04→11:51)
[2017-02-16] MEDS: PIPERACIL-TAZO 4.5 GM PREMIX 100 ML IV SCH ×4 (02:04→21:04)
[2017-02-16] MEDS: RESP: ALBUTEROL 2.5 MG/IPRATROPIUM 0.5 MG NEB (SCH) NEB ×4 (03:44→20:53)
--- NOTE | 2017-02-16 04:04 | PD.PROCEDR ---
Procedure Note Procedure Right subclavian central line placement A time-out was completed verifying correct patient, procedure, site, positioning , and special equipment if applicable. The patient was placed in a dependent position appropriate for central line placement based on the vein to be cannulated. The patients right shoulder was prepped and draped in sterile fashion. 1% Lidocaine was used to anesthetize the surrounding skin area. A triple lumen 9-Greek Cordis catheter was introduced into the the right subclavian vein using the Seldinger technique. The catheter was threaded smoothly over the guide wire and appropriate blood return was obtained. Each lumen of the catheter was evacuated of air and flushed with sterile saline. The catheter was then sutured in place to the skin and a sterile dressing applied. Perfusion to the extremity distal to the point of catheter insertion was checked and found to be adequate. Estimated Blood Loss: 1ml The patient tolerated the procedure well and there were no complications. Anurag Lujan MD February 16, 2017 04:04
[2017-02-16 04:40] LABS: AUTOMATED NEUTROPHIL # 15.8 TH/MM3 (1.8-7.7); BASOPHIL # 0.1 TH/MM3 (0-0.2); BASOPHIL % 0.3 % (0.0-2.0); EOSINOPHIL % 0.1 % (0.0-4.0); HEMATOCRIT 28.5 % (39.0-51.0); LYMPH % 12.5 % (9.0-44.0); LYMPHOCYTE # 2.4 TH/MM3 (1.0-4.8); MEAN CELL VOLUME 91.9 FL (80.0-100.0); MEAN CORPUSCULAR HEMOGLOBIN 30.9 PG (27.0-34.0); MEAN CORPUSCULAR HGB CONC 33.6 % (32.0-36.0); MONO % 5.5 % (0.0-8.0); NEUT % 81.6 % (16.0-70.0); PLATELET COUNT 404 TH/MM3 (150-450); RED CELL DISTRIBUTION WIDTH 13.7 % (11.6-17.2); WHITE BLOOD COUNT 19.4 TH/MM3 (4.0-11.0)
[2017-02-16 04:43] LABS: HEMO FLAGS AUTO DIFF
[2017-02-16 04:55] LABS: ALT (GPT) 169 U/L (12-78); ANION GAP 7 MEQ/L (5-15); AST (GOT) 279 U/L (15-37); BICARBONATE 25.8 MEQ/L (21.0-32.0); BLOOD UREA NITROGEN 21 MG/DL (7-18); CHLORIDE 112 MEQ/L (98-107); GLOMERULAR FILTRATION RATE 139 ML/MIN (>89); POTASSIUM 3.6 MEQ/L (3.5-5.1); SODIUM (NA) 145 MEQ/L (136-145)
[2017-02-16 04:57] LABS: ALKALINE PHOSPHATASE 255 U/L (45-117); TOTAL BILIRUBIN ADULT 1.5 MG/DL (0.2-1.0)
[2017-02-16] MEDS: METOCLOPRAMIDE HCL SYRUP 10 MG/10 ML UDC PO SCH ×4 (05:51→21:04)
[2017-02-16] MEDS: NOREPINEPHRINE 4 MG/D5W 250 ML IV SCH (05:51)
[2017-02-16] MEDS: SODIUM CHLOR 0.9% 1000 ML INJ 1,000 ML IV SCH ×2 (05:52→09:15)
[2017-02-16 06:45] LABS: EOSINOPHILS 1 % (0-4); MYELOCYTES 1 % (0-0); NEUTROPHIL # MANUAL DIFF 17.1 TH/MM3 (1.8-7.7); PLATELET ESTIMATE SMEAR NORMAL (NORMAL); POLYS (SEG NEUTROPHILS) 87 % (16-70); WBC DIFF SAMPLE 100
[2017-02-16 06:46] LABS: PLATELET MORPHOLOGY NORMAL (NORMAL); SCAN/DIFF FINAL DIFF MANUAL
[2017-02-16] MEDS: BENEPROTEIN POWDER 1 PACK G-TUBE SCH ×3 (09:00→17:20)
[2017-02-16] MEDS: SODIUM CHLORIDE 0.9% FLUSH 10 ML FLUSH IV FLUSH SCH ×2 (09:05→21:04)
[2017-02-16] MEDS: CHLORHEXIDINE 0.12% (ORAL KIT) 15 ML CUP MT SCH ×2 (09:05→20:17)
[2017-02-16] MEDS: LACTULOSE SYRUP 20 GM/30 ML CUP PO SCH ×2 (09:05→21:04)
[2017-02-16] MEDS: DOCUSATE SODIUM 100 MG CAP PO SCH ×2 (09:05→21:04)
--- NOTE | 2017-02-16 10:03 | HHI.CCPN ---
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 He was moved by Dr. Valentin to the [facility] for worsening SOB, general decline. I reviewed Dr. Sabillon's consultation from earlier today and clearly this man has deteriorated since that time. His work of breathing has increased considerably and is not sustainable at this point. Further, he appears quite septic with flushed, clammy skin and sustained tachycardia. His pleuritic pain is so severe that he is incapable of breathing deeply and I sense he is getting confused. I spoke with the patient and his was informed. I felt intubation and ventilation was indicated by about midnight tonight, and drainage of the effusion was indicated to cement our diagnosis and guide therapy. A right chest tube placed above the diaphragm drained 1,100 mls of foul smelling, putrid, yellow material; sent for culture. Pleural fluid studies were also sent. As Dr. Sabillon predicted this is clearly an empyema. 02/13: Oxygenation improved. Cultures pending. Ventilator dependent. Suspect he' ll benefit from diagnostic bronch and decortication. Tentatively planned for tomorrow. 02/14: Organism identified, coverage should be adequate. Agree with formal decortication. 02/15: Decortication cancelled after severe bronchospasm in OR. Requiring 80% FiO2 this morning. 02/16: Large amount of recurrent right effusion withe lung volume loss. Will need second chest tube or decortication. In viww of recent problems I may try to place a second tube. Objective Vital Signs Date Time Temp Pulse Resp B/P Pulse Ox O2 Delivery O2 Flow Rate FiO2 02/16/17 09:45 91 50 02/16/17 06:00 64 02/16/17 04:00 98.1 18 109/67 02/12/17 08:00 Mechanical Ventilator Intake and Output 02/15/17 02/15/17 02/16/17 08:00 16:00 00:00 Intake Total 771 ml 584 ml 2715 ml Output Total 350 ml 510 ml 410 ml Balance 421 ml 74 ml 2305 ml Result Diagram: 02/16/17 0415 02/16/17 0415 Objective Remarks Gen: Ill-appearing. Head: Normal. Neck: Supple, orally intubated. Lungs: Marginal sounds right base, present left. Scattered rhonchi. Heart: NL S1S2, tachycardia. No JVD, reg rhythm. Abdomen: Soft, no guarding. BS few. Extremities: Warm, well perfused. Neuro: Sedated. Moves 4 limbs to stimulation. A/P Assessment and Plan Assessment: 1. Right pneumonia and parapneumonic effusion. 2. Right empyema, bacterial, mixed organisms. 3. Hypoxemic respiratory failure. 4. Severe sepsis. 5. Bronchospasm. Plan: 1. PRVC vent mode. PEEP 8. 2. Discuss ongoing therapy with Dr. Sabillon. 3. ID consulted. 4. Continue PIP/SILVIO, Vanc. Adjust per ID. 5. Sputum culture. 6. Pleural fluid studies. 7. Pleural fluid culture. 8. Start TFs. 9. Formal decortication. 10. Protonix. 11. Chemical DVT Px. 12. CT scan chest. Overall impression: Patient remains critically ill with sepsis from right pneumonia and empyema. Oxygenation worse and he requires mechanical ventilation. Attempt chest CT. Critical care 38 mins aside from procedures. Dario Wheeler MD February 16, 2017 10:03
[2017-02-16] MEDS ORDERED: IOHEXOL 350 MG/ML 10 ML VIAL (for RAD DIAG) IV ONE (11:21)
--- NOTE | 2017-02-16 11:36 | RADRPT ---
EXAM DATE/TIME: 02/16/2017 11:15 [facility] COMPARISON: CT THORAX W CONTRAST, February 11, 2017, 11:40. INDICATIONS : Pneumonia, Pleural effusion IV CONTRAST: 75 cc Omnipaque 350 (iohexol) IV RADIATION DOSE: 9.43 CTDIvol (mGy) MEDICAL HISTORY : Empyema SURGICAL HISTORY : None. ENCOUNTER: Subsequent ACUITY: 3 days PAIN SCALE: Non-responsive LOCATION: chest TECHNIQUE: Volumetric scanning of the chest was performed. Using automated exposure control and adjustment of t he mA and/or kV according to patient size, radiation dose was kept as low as reasonably achievable to obtain optimal diagnostic quality images. FINDINGS: The examination demonstrates a large bore chest tube at the right lung base. This has drained the eff usion and around the right lower chest. There is however still a considerable amount of fluid which i s loculated in the right upper chest. There are patchy areas of infiltrate and atelectasis throughout both lungs. The right lung is relativ robson stable compared to prior. The patchy areas of infiltrate seen on the left are new. There is a sma ll left basilar effusion as well. The heart is normal in size. No significant hilar or mediastinal adenopathy is seen. The ET tube and nasogastric tube are in good position. The visualized bony structures demonstrate degenerative changes but are otherwise intact. CONCLUSION: 1. Chest tube at the right lung base has drained the empyematous appearing fluid within the right mau g base. There is however an area of loculated effusion seen in the right upper chest. 2. Interval development of a small area of atelectasis and a small effusion at the left base with pat harshad areas of infiltrate now seen on the left. 3. ET tube, central line and gastric tube all appear in satisfactory position. Jacky Hawthorne MD on February 16, 2017 at 11:31 Board Certified Radiologist. This report was verified electronically.
[2017-02-16] MEDS: AMIODARONE INJ 450 MG in DEXTROSE 5% IN WATE(EXCEL) INJ 250 ML IV SCH ×2 (11:52)
[2017-02-16] MEDS: ACETAMINOPHEN 325 MG TAB PO PRN (15:47)
[2017-02-16] MEDS ORDERED: MIDAZOLAM HCL 5 MG/ML VIAL (1 ML) ONE (15:50)
[2017-02-16] MEDS ORDERED: MIDAZOLAM HCL 10 MG/10 ML VIAL IV ONE (16:45)
--- NOTE | 2017-02-16 17:42 | RADRPT ---
EXAM DATE/TIME: 02/16/2017 16:57 [facility] COMPARISON: CHEST SINGLE AP, February 16, 2017, 0:25. INDICATIONS : Chest tube placement. MEDICAL HISTORY : None. SURGICAL HISTORY : None. ENCOUNTER: Initial ACUITY: 1 day PAIN SCORE: Non-responsive. LOCATION: Bilateral chest FINDINGS: There is a second chest tube placed in the right upper lung field. There has been removal of a consid erable portion of the fluid at the right apex. There is still a small amount of fluid which remains. There are consolidative changes throughout the right lung. There is some increased inflation of the r ight lung with removal of the fluid. The heart is enlarged. There are patchy areas of infiltrate seen within the left lung. The ET tube and gastric tube are in good position. CONCLUSION: 1. New right upper chest tube placed. There has been reduction in the amount of loculated fluid in th e right apex. 2. The ET tube right basilar chest tube and gastric tube are in good position. Right central lines in good position. 3. No pneumothorax. 4. Patchy areas of infiltrate in the left lung stable compared to previous timed at 2521 hours. Jacky Hawthorne MD on February 16, 2017 at 17:38 Board Certified Radiologist. This report was verified electronically.
--- NOTE | 2017-02-16 17:46 | HHI.PR ---
Subjective Remarks Remains on vent support. FIO2 at 60 %.On IV antibiotics . Still febrile. Chest tube draining yellow fluid. Decortication cancelled due to severe hypoxia, and Bronchospasm. Objective Vital Signs Date Time Temp Pulse Resp B/P Pulse Ox O2 Delivery O2 Flow Rate FiO2 02/16/17 16:58 94 60 02/16/17 14:00 83 02/16/17 12:00 82 02/16/17 12:00 99.0 82 18 141/68 93 02/16/17 12:00 60 02/16/17 11:00 97 100 02/16/17 10:00 78 02/16/17 09:45 91 50 02/16/17 08:00 100 02/16/17 08:00 98.8 66 19 107/55 94 02/16/17 08:00 66 02/16/17 06:00 64 02/16/17 04:00 100 02/16/17 04:00 98.1 74 18 109/67 96 02/16/17 04:00 74 02/16/17 03:45 95 40 02/16/17 02:00 76 02/16/17 01:15 97 40 02/16/17 00:00 100 02/16/17 00:00 98.2 76 18 117/67 96 02/16/17 00:00 76 02/15/17 22:00 75 02/15/17 21:17 99 40 02/15/17 20:00 100 02/15/17 20:00 73 02/15/17 20:00 98.2 78 18 106/65 97 I/O 02/15/17 02/15/17 02/15/17 02/16/17 02/16/17 02/16/17 07:00 15:00 23:00 07:00 15:00 23:00 Intake Total 771 ml 584 ml 2715 ml 1732 ml 1943 ml Output Total 350 ml 510 ml 410 ml 475 ml 560 ml Balance 421 ml 74 ml 2305 ml 1257 ml 1383 ml IV Total 771 ml 584 ml 2715 ml 1732 ml 1843 ml Other 100 ml Output Urine Total 350 ml 450 ml 400 ml 475 ml 450 ml Gastric Drainage Total 0 ml 0 ml Chest Tube Drainage Total 60 ml 10 ml 0 ml 110 ml # Bowel Movements 3 0 0 0 0 Result Diagram: 02/16/17 0415 02/16/17 0415 Objective Remarks GENERAL:Intubated and sedated . HEENT: Head normocephalic. Pupils reactive. Nasal mucosae clear. NEC: Supple. No bruits or thyroid enlargement or lymphadenopathy. CHEST: Equal movements with Occasional wheezes in the upper chest . Decreased breath sounds at bases. Chest tubes in. HEART: Heart sounds are regular, S1-S2. No murmur. No S3. ABDOMEN: Abdomen is soft, protuberant with tenderness in the upper abdomen. Bowel sounds are active. No organomegaly. EXTREMITIES: No lesions. No edema. Reflexes are 1 + . NEURO: Sedated. SKIN: No lesions. Assessment and Plan Assessment and Plan IMPRESSION 1. Right lung Pneumonia with empyema. 2. Respiratory failure 3. Probable underlying COPD. Plan : 1. Antibiotic coverage as ordered. 2. Nebs qid , duoneb. 3. Cont Vent support and wean FIO2 , 4. second chest tube for pleural fluid pocket 5. Chest tube to Drainage. 6. CBC,BMP, CXR in am. 7. Tube feeds at 60 CC Diana Sabillon MD February 16, 2017 17:46
[2017-02-16] MEDS: METOPROLOL TARTRATE 25 MG TAB PO SCH (18:19)
[2017-02-17] VITALS (18 sets, daily range): BP systolic 112–155; BP diastolic 51–70; PULSE 79–94; RESP 18–24; TEMP 98.8–99.6; O2SAT 93–96
[2017-02-17] MEDS: VANCOMYCIN INJ 1,250 MG in SODIUM CHLOR 0.9% 250 ML INJ 250 ML IV SCH ×2 (00:34→09:22)
[2017-02-17] MEDS: PROPOFOL 1000 MG/100 ML INJ 100 ML IV SCH ×4 (00:34→16:52)
[2017-02-17] MEDS: SODIUM CHLOR 0.9% 1000 ML INJ 1,000 ML IV SCH ×2 (01:02→13:47)
[2017-02-17] MEDS: AMIODARONE INJ 450 MG in DEXTROSE 5% IN WATE(EXCEL) INJ 250 ML IV SCH ×4 (02:43→14:10)
[2017-02-17] MEDS: fentaNYL DRIP 250 ML IV SCH ×2 (02:43→18:03)
[2017-02-17] MEDS: PIPERACIL-TAZO 4.5 GM PREMIX 100 ML IV SCH ×4 (02:43→20:00)
[2017-02-17] MEDS: RESP: ALBUTEROL 2.5 MG/IPRATROPIUM 0.5 MG NEB (SCH) NEB ×2 (03:44→15:32)
[2017-02-17 04:30] LABS: HEMATOCRIT 28.7 % (39.0-51.0); MEAN CELL VOLUME 91.6 FL (80.0-100.0); MEAN CORPUSCULAR HEMOGLOBIN 31.3 PG (27.0-34.0); MEAN CORPUSCULAR HGB CONC 34.2 % (32.0-36.0); PLATELET COUNT 484 TH/MM3 (150-450); RED BLOOD COUNT 3.13 MIL/MM3 (4.50-5.90); RED CELL DISTRIBUTION WIDTH 13.8 % (11.6-17.2); REVIEW FLAG FINAL
[2017-02-17] MEDS: METOPROLOL TARTRATE 25 MG TAB PO SCH ×4 (04:31→18:03)
[2017-02-17] MEDS: METOCLOPRAMIDE HCL SYRUP 10 MG/10 ML UDC PO SCH ×4 (04:31→22:00)
--- NOTE | 2017-02-17 07:11 | HHI.CCPN ---
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 He was moved by Dr. Valentin to the [facility] for worsening SOB, general decline. I reviewed Dr. Sabillon's consultation from earlier today and clearly this man has deteriorated since that time. His work of breathing has increased considerably and is not sustainable at this point. Further, he appears quite septic with flushed, clammy skin and sustained tachycardia. His pleuritic pain is so severe that he is incapable of breathing deeply and I sense he is getting confused. I spoke with the patient and his was informed. I felt intubation and ventilation was indicated by about midnight tonight, and drainage of the effusion was indicated to cement our diagnosis and guide therapy. A right chest tube placed above the diaphragm drained 1,100 mls of foul smelling, putrid, yellow material; sent for culture. Pleural fluid studies were also sent. As Dr. Sabillon predicted this is clearly an empyema. 02/13: Oxygenation improved. Cultures pending. Ventilator dependent. Suspect he' ll benefit from diagnostic bronch and decortication. Tentatively planned for tomorrow. 02/14: Organism identified, coverage should be adequate. Agree with formal decortication. 02/15: Decortication cancelled after severe bronchospasm in OR. Requiring 80% FiO2 this morning. 02/16: Large amount of recurrent right effusion withe lung volume loss. Will need second chest tube or decortication. In viww of recent problems I may try to place a second tube. 02/16: Second chest tube placed in loculation upper thorax right side. Purulent material drained but CXR reveals a thick residual empyema rim. He will definitely need a formal decortication. We can pretreat him with steroids and bronchodilators, hopefully preventing bronchospasm for procedure. Objective Vital Signs Date Time Temp Pulse Resp B/P Pulse Ox O2 Delivery O2 Flow Rate FiO2 02/17/17 06:00 79 02/17/17 04:00 55 02/17/17 04:00 99.4 20 124/55 94 Intake and Output 02/16/17 02/16/17 02/17/17 08:00 16:00 00:00 Intake Total 1732 ml 1943 ml 1477 ml Output Total 475 ml 560 ml 1030 ml Balance 1257 ml 1383 ml 447 ml Result Diagram: 02/17/1740402/17/17404 Objective Remarks Gen: Sedated. Head: Normal. Neck: Supple, orally intubated. Lungs: Marginal sounds right side, present left. Scattered rhonchi persist Heart: NL S1S2, tachycardia. No JVD, reg rhythm. Abdomen: Soft, no guarding. BS present. Extremities: Warm, well perfused. Trace edema. Neuro: Sedated. Moves 4 limbs to stimulation. A/P Assessment and Plan Assessment: 1. Right pneumonia and parapneumonic effusion. 2. Right empyema, bacterial, mixed organisms. 3. Hypoxemic respiratory failure. 4. Severe sepsis. 5. Bronchospasm. Plan: 1. PRVC vent mode. PEEP 8. 2. Discuss ongoing therapy with Dr. Sabillon. 3. ID consulted, advising. 4. Continue PIP/SILVIO, Vanc. Adjust per ID. 5. Sputum culture. 6. Pleural fluid studies. 7. Pleural fluid culture. 8. Start TFs. 9. Formal decortication. 10. Protonix. 11. Chemical DVT Px. 12. CT scan chest this weekend. Overall impression: Patient remains critically ill with sepsis from right pneumonia and empyema. Oxygenation impaired and he requires mechanical ventilation. Second chest tube placed and large residual peel observed. This is a chronic process and he will need a formal decortication. The procedure will be difficult, tedious, bloody. I recommend pre-treatment with steroids and bronchodilators. I welcome recommendations from Dr. Sabillon about how to prevent recurrent bronchospasm during the operation. Critical care 42 mins aside from procedures. Dario Wheeler MD February 17, 2017 07:11
[2017-02-17] MEDS: CHLORHEXIDINE 0.12% (ORAL KIT) 15 ML CUP MT SCH ×2 (07:45→20:00)
[2017-02-17] MEDS: BENEPROTEIN POWDER 1 PACK G-TUBE SCH ×3 (07:54→16:52)
[2017-02-17] MEDS: DOCUSATE SODIUM 100 MG CAP PO SCH ×2 (07:54→21:00)
[2017-02-17] MEDS: LACTULOSE SYRUP 20 GM/30 ML CUP PO SCH ×2 (07:55→21:00)
[2017-02-17] MEDS: SODIUM CHLORIDE 0.9% FLUSH 10 ML FLUSH IV FLUSH SCH ×2 (07:55→21:00)
[2017-02-17] MEDS ORDERED: PHARMACY ORDERED LAB ONE (08:45)
[2017-02-17] MEDS ORDERED: VANCOMYCIN 1,000 MG/NS 250 ML IV SCH ×2 (09:00)
--- NOTE | 2017-02-17 12:24 | PD.PROCEDR ---
Procedure Note Procedure Note for 02/16/2017 DX: Empyema Right Chest OP: Insertion Right Chest Tube Upper Thorax ([id number]) Procedure: While supine in ICU bed on mechanical ventilation the right lateral chest wall was prepped and draped. Skin overlying the 3rd rib was infiltrated with 1% xylocaine. 2 cm horizontal incision made over the 3rd rib and carried over the top of the rib in the mid-axillary line. The chest was tap with a 20 gauge needle and purulent material was aspirated. Using digital dissection a thick capsule was encountered contiguous with the parietal pleural. I entered this capsule and drained about 200 mls of cesar put. Cultures sent. A 28 Fr chest tube was inserted into the cavity and placed to suction. A formal decortication will be required probably when the patient is more stable. Dario Wheeler MD February 17, 2017 12:24
--- NOTE | 2017-02-17 13:49 | HHI.PR ---
Subjective Remarks 5/6 No acute events overnight. Sedated with Diprivan and Fentanyl infusion. On PCV and Amio drip. Objective Vital Signs Vital Signs Date Time Temp Pulse Resp B/P Pulse Ox O2 Delivery O2 Flow Rate FiO2 02/17/17 12:04 95 55 02/17/17 10:00 85 02/17/17 08:54 93 55 02/17/17 08:00 99.0 82 24 155/66 95 132/64 02/17/17 08:00 82 02/17/17 08:00 55 02/17/17 06:00 79 02/17/17 04:00 55 02/17/17 04:00 99.4 90 20 124/55 94 02/17/17 04:00 80 02/17/17 03:41 94 55 02/17/17 02:00 89 02/17/17 01:03 94 55 02/17/17 00:00 99.6 92 21 132/58 94 02/17/17 00:00 55 02/17/17 00:00 92 02/16/17 22:00 90 02/16/17 20:51 94 55 02/16/17 20:00 55 02/16/17 20:00 99.7 85 19 126/59 95 Automatic Cuff 02/16/17 20:00 85 02/16/17 18:00 88 02/16/17 16:58 94 60 02/16/17 16:00 101.2 88 18 106/54 94 02/16/17 16:00 88 02/16/17 16:00 60 02/16/17 14:00 83 I/O 02/16/17 02/16/17 02/16/17 02/17/17 02/17/17 02/17/17 07:00 15:00 23:00 07:00 15:00 23:00 Intake Total 1732 ml 1943 ml 1477 ml 1080 ml Output Total 475 ml 560 ml 1030 ml 740 ml Balance 1257 ml 1383 ml 447 ml 340 ml IV Total 1732 ml 1843 ml 1348 ml 826 ml Tube Feeding 129 ml 254 ml Other 100 ml Output Urine Total 475 ml 450 ml 550 ml 650 ml Chest Tube Drainage Total 0 ml 110 ml 480 ml 90 ml # Bowel Movements 0 0 0 0 Result Diagram: 5/6/17 0405 5/6/17 0405 Other Results Last Impressions Chest X-Ray 02/16/17 0000 Signed Impressions: Service Date/Time: Thursday, February 16, 2017 16:57 - CONCLUSION: 1. New right upper chest tube placed. There has been reduction in the amount of loculated fluid in the right apex. 2. The ET tube right basilar chest tube and gastric tube are in good position. Right central lines in good position. 3. No pneumothorax. 4. Patchy areas of infiltrate in the left lung stable compared to previous timed at 2521 hours. Jacky Hawthorne MD Chest CT 02/16/17 0000 Signed Impressions: Service Date/Time: Thursday, February 16, 2017 11:15 - CONCLUSION: 1. Chest tube at the right lung base has drained the empyematous appearing fluid within the right lung base. There is however an area of loculated effusion seen in the right upper chest. 2. Interval development of a small area of atelectasis and a small effusion at the left base with patchy areas of infiltrate now seen on the left. 3. ET tube, central line and gastric tube all appear in satisfactory position. Jacky Hawthorne MD Laboratory Tests Test 02/17/17 02/17/17 04:05 08:00 White Blood Count 19.0 TH/MM3 Red Blood Count 3.13 MIL/MM3 Hemoglobin 9.8 GM/DL Hematocrit 28.7 % Mean Corpuscular Volume 91.6 FL Mean Corpuscular Hemoglobin 31.3 PG Mean Corpuscular Hemoglobin 34.2 % Concent Red Cell Distribution Width 13.8 % Platelet Count 484 TH/MM3 Mean Platelet Volume 7.9 FL Creatinine 0.67 MG/DL Estimat Glomerular Filtration 125 ML/MIN Rate Vancomycin Level Trough 19.5 MCG/ML Objective Remarks GENERAL: Patient is 51yo critically ill intubated and sedated. SKIN: Warm and dry. HEAD: Normocephalic. EYES: No scleral icterus. No injection or drainage. NECK: Supple, trachea midline. No JVD or lymphadenopathy. CARDIOVASCULAR: Regular rate and rhythm without murmurs, gallops, or rubs. RESPIRATORY: Breath sounds equal bilaterally. No accessory muscle use. GASTROINTESTINAL: Abdomen soft, non-tender, nondistended. MUSCULOSKELETAL: No cyanosis, or edema. Neuro: sedated, intubated A/P Assessment and Plan 1)VDRF 2)Right lung Pneumonia with empyema. 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 3)Probable underlying COPD. 4)Leukocytosis 5)Anemia 6)Elevated LFT's Plan : Continue with vent support keep sat >92% On PCV with PEEP:8 and FIO2 55%. Decrease FIO2 45% as [place] CT chest from 02/16 reviewed-Reduction in the amount of loculated fluid in the right apex. Patchy areas of infiltrate in the left lung stable. Monitor CT drainage. Check CXR in am Continue with abx per ID ( Vanco, Zosyn) monitor for signs of infections ( Fever , WBC) Monitor HR and BP on Amio drip and Lopressor 25mg Q6 d/c IVF Continue with tube feeds. GI/DVT prophylaxis Continue treatment plan. Cassie Miranda MD February 17, 2017 13:49
--- NOTE | 2017-02-17 14:31 | HHI.IDPN ---
Subjective Subjective Remarks is a 51 y/o CM with PMHx of Alcoholism. 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 He presented with acute onset of SOB, intermittent fevers, leukocytosis, and large right sided effusion with air concerning for aspiration or anaerobic infection. He was moved by Dr. Valentin to the [facility] for worsening SOB and general decline from earlier in the day. Patient was intubated as he appeared encephalopathic and had increased work of breathing due to severe pleuritic chest pain. A right side chest tube was placed with drainage of 1100 ml of foul smelling, putrid yellow fluid. Dr.Dsouza morales is following patient and CTS eval is pending at time of my evaluation. ID following for evaluation and Mment of empyema. Overnight events reviewed: pt had bronchospasm in OR. Underwent placement of 2nd CT with yellow purulent looking discharge. Tmax 101.2 F WBC trending down but still elevated. No rash No diarrhea Sedated. UO ok. Antibiotics Zosyn IV Vanco IV Lines Line sites with no e.o infection. Past Medical History reviewed. Allergies: Coded Allergies: No Known Allergies (Unverified , 02/11/17) Objective . Vital Signs Date Time Temp Pulse Resp B/P Pulse Ox O2 Delivery O2 Flow Rate FiO2 02/17/17 12:04 95 55 02/17/17 10:00 85 02/17/17 08:54 93 55 02/17/17 08:00 99.0 82 24 155/66 95 132/64 02/17/17 08:00 82 02/17/17 08:00 55 02/17/17 06:00 79 02/17/17 04:00 55 02/17/17 04:00 99.4 90 20 124/55 94 02/17/17 04:00 80 02/17/17 03:41 94 55 02/17/17 02:00 89 02/17/17 01:03 94 55 02/17/17 00:00 99.6 92 21 132/58 94 02/17/17 00:00 55 02/17/17 00:00 92 02/16/17 22:00 90 02/16/17 20:51 94 55 02/16/17 20:00 55 02/16/17 20:00 99.7 85 19 126/59 95 Automatic Cuff 02/16/17 20:00 85 02/16/17 18:00 88 02/16/17 16:58 94 60 02/16/17 16:00 101.2 88 18 106/54 94 02/16/17 16:00 88 02/16/17 16:00 60 02/16/17 02/16/17 02/17/17 15:00 23:00 07:00 Intake Total 1943 ml 1477 ml 1080 ml Output Total 560 ml 1030 ml 740 ml Balance 1383 ml 447 ml 340 ml IV Total 1843 ml 1348 ml 826 ml Tube Feeding 129 ml 254 ml Other 100 ml Output Urine Total 450 ml 550 ml 650 ml Chest Tube Drainage Total 110 ml 480 ml 90 ml # Bowel Movements 0 0 0 . Laboratory Tests Test 02/16/17 02/17/17 04:15 04:05 White Blood Count 19.4 TH/MM3 19.0 TH/MM3 Red Blood Count 3.10 MIL/MM3 3.13 MIL/MM3 Hemoglobin 9.6 GM/DL 9.8 GM/DL Hematocrit 28.5 % 28.7 % Mean Corpuscular Volume 91.9 FL 91.6 FL Mean Corpuscular Hemoglobin 30.9 PG 31.3 PG Mean Corpuscular Hemoglobin 33.6 % 34.2 % Concent Red Cell Distribution Width 13.7 % 13.8 % Platelet Count 404 TH/MM3 484 TH/MM3 Mean Platelet Volume 8.0 FL 7.9 FL Neutrophils (%) (Auto) 81.6 % Lymphocytes (%) (Auto) 12.5 % Monocytes (%) (Auto) 5.5 % Eosinophils (%) (Auto) 0.1 % Basophils (%) (Auto) 0.3 % Neutrophils # (Auto) 15.8 TH/MM3 Lymphocytes # (Auto) 2.4 TH/MM3 Monocytes # (Auto) 1.1 TH/MM3 Eosinophils # (Auto) 0.0 TH/MM3 Basophils # (Auto) 0.1 TH/MM3 CBC Comment AUTO DIFF Differential Total Cells 100 Counted Neutrophils % (Manual) 87 % Lymphocytes % 7 % Monocytes % 4 % Eosinophils % 1 % Neutrophils # (Manual) 17.1 TH/MM3 Myelocytes 1 % Differential Comment FINAL DIFF MANUAL Platelet Estimate NORMAL Platelet Morphology Comment NORMAL Red Cell Morphology Comment NORMAL Laboratory Tests Test 02/16/17 02/17/17 04:15 04:05 Sodium Level 145 MEQ/L Potassium Level 3.6 MEQ/L Chloride Level 112 MEQ/L Carbon Dioxide Level 25.8 MEQ/L Anion Gap 7 MEQ/L Blood Urea Nitrogen 21 MG/DL Creatinine 0.61 MG/DL 0.67 MG/DL Estimat Glomerular Filtration 139 ML/MIN 125 ML/MIN Rate Random Glucose 124 MG/DL Calcium Level 7.9 MG/DL Total Bilirubin 1.5 MG/DL Aspartate Amino Transf 279 U/L (AST/SGOT) Alanine Aminotransferase 169 U/L (ALT/SGPT) Alkaline Phosphatase 255 U/L Total Protein 5.3 GM/DL Albumin 1.2 GM/DL Microbiology Date/Time Procedure Status Source Growth 02/14/17 15:30 Gram Stain - Final Complete Bronchial Washings Other 02/14/17 15:30 Bronchial Culture - Final Complete Bronchial Washings Other LIGHT GROWTH NORMAL RESPIRATORY EVGENY 02/14/17 15:30 Acid Fast Stain - Final Resulted Bronchial Washings Other NO ACID FAST BACILLI SEEN 02/14/17 15:30 Mycobacterial Culture Resulted Bronchial Washings Other Pending 02/14/17 15:30 Fungal Smear - Final Resulted Bronchial Washings Other NO FUNGAL ELEMENTS SEEN. 02/14/17 15:30 Fungal Culture Resulted Bronchial Washings Other Pending 02/16/17 16:30 Gram Stain - Final Resulted Fluid Pleural Fluid 02/16/17 16:30 Body Fluid Culture - Preliminary Resulted Fluid Pleural Fluid NO GROWTH IN 24 HOURS. 02/16/17 16:30 Cancelled Abscess Chest Imaging Last Impressions Chest X-Ray 02/13/17 0000 Signed Impressions: Service Date/Time: Monday, February 13, 2017 07:41 - CONCLUSION: 1. Stable appearance of the chest with predominantly peripheral consolidation in the right hemithorax which appears most characteristic of an empyema on the prior CT. 2. Stable position of life support tubes including a right-sided thoracostomy tube as detailed above. 3. Left lung remains clear. Jorge Boyer MD Chest CT 02/11/17 0000 Signed Impressions: Service Date/Time: Saturday, February 11, 2017 11:40 - CONCLUSION: 1. Prominent multiloculated pleural effusion on the right containing multiple foci of gas. Difficult diagnosis includes bronchopleural fistula, infection with gas producing organisms, and iatrogenic if recent procedure has been performed. 2. Patchy right lung consolidation. Cipriano Moore MD Physical Exam GENERAL: This is a well-nourished, well-developed patient, in no apparent distress. SKIN: No rashes, ecchymoses or lesions. Cool and dry. HEAD: Atraumatic. Normocephalic. No temporal or scalp tenderness. EYES: Pupils equal round and reactive. Extraocular motions intact. No scleral icterus. No injection or drainage. ENT: Intubated. NECK: Trachea midline. Supple, nontender, no meningeal signs. CARDIOVASCULAR: RRR. No murmur appreciated. RESPIRATORY: AE decreased right side. CT with yellow thick fluid in CT. GASTROINTESTINAL: Abdomen soft, non-tender, nondistended. MUSCULOSKELETAL: Extremities without clubbing, cyanosis, or edema. NEUROLOGICAL: Sedated. Psych: could not be assessed. IV line sites with no e/o infection. 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 Empyema: likely secondary to aspiration pneumonia secondary to alcoholism. Acute resp failure: empyema, sepsis. Acute metabolic encephalopathy: sepsis related, metabolic. Hypoalbuminemia: nutritional, alcoholism, r/o chronic infections like HIV, hepatitis. Acute transaminitis: ? medication induced (Vanco IV or Zosyn IV or Amiodarone) Recs: Continue Zosyn IV (aspiration PNA, if no PSAE will deescalate after reviewing intraop cultures) DC Vanco IV (d/w Micro: Strep could not be plated further for susceptibilities) Follow LFTs: if continues to up trend will change Zosyn IV. D.w CCM and get GI involved. d/w Micro: cannot speciate anaerobes. Negative 2D ECHO. d.w and RN. Neela Saxena MD February 17, 2017 14:31
[2017-02-17] MEDS: RESP: ALBUTEROL 2.5 MG/IPRATROPIUM 0.5 MG NEB (PRN) NEB (22:27)
[2017-02-18] VITALS (17 sets, daily range): BP systolic 106–152; BP diastolic 50–72; PULSE 58–88; RESP 18–27; TEMP 97–100.9; O2SAT 94–98
[2017-02-18] MEDS: PIPERACIL-TAZO 4.5 GM PREMIX 100 ML IV SCH ×4 (02:00→20:53)
[2017-02-18] MEDS: METOCLOPRAMIDE HCL SYRUP 10 MG/10 ML UDC PO SCH ×4 (04:00→21:35)
[2017-02-18] MEDS: METOPROLOL TARTRATE 25 MG TAB PO SCH ×4 (06:00→16:39)
--- NOTE | 2017-02-18 06:02 | RADRPT ---
EXAM DATE/TIME: 02/18/2017 04:57 [place] COMPARISON: CHEST SINGLE AP, February 16, 2017, 16:57. INDICATIONS : Pneumonia. Pleural effusion. MEDICAL HISTORY : None. SURGICAL HISTORY : None. ENCOUNTER: Subsequent ACUITY: 3 days PAIN SCORE: Non-responsive. LOCATION: Bilateral chest FINDINGS: A single view of the chest demonstrates pleural-parenchymal density throughout the right lung. Patchy densities remain throughout the left lung. 2 right-sided chest tubes. No pneumothorax. Heart enlarge d. There is some interstitial edema. Endotracheal tube, nasogastric tube and right subclavian central line are stable position.. Osseous structures are intact. CONCLUSION: 1. 2 right-sided chest tubes without pneumothorax. 2. Stable pleural-parenchymal density throughout the right hemithorax. 3. Patchy densities throughout the left lung. 4. Cardiomegaly. Erick Bruner MD on February 18, 2017 at 5:58 Board Certified Radiologist. This report was verified electronically.
[2017-02-18 06:06] LABS: AUTOMATED NEUTROPHIL # 15.7 TH/MM3 (1.8-7.7); BASOPHIL # 0.1 TH/MM3 (0-0.2); BASOPHIL % 0.7 % (0.0-2.0); EOSINOPHIL # 0.5 TH/MM3 (0-0.4); EOSINOPHIL % 2.7 % (0.0-4.0); HEMATOCRIT 27.1 % (39.0-51.0); HEMO FLAGS DIFF FINAL; LYMPH % 12.5 % (9.0-44.0); LYMPHOCYTE # 2.5 TH/MM3 (1.0-4.8); MEAN CELL VOLUME 92.3 FL (80.0-100.0); MEAN CORPUSCULAR HEMOGLOBIN 30.7 PG (27.0-34.0); MEAN CORPUSCULAR HGB CONC 33.3 % (32.0-36.0); MONO % 5.9 % (0.0-8.0); NEUT % 78.2 % (16.0-70.0); PLATELET COUNT 496 TH/MM3 (150-450); RED BLOOD COUNT 2.93 MIL/MM3 (4.50-5.90); WHITE BLOOD COUNT 20.1 TH/MM3 (4.0-11.0)
[2017-02-18 06:13] LABS: BLOOD GAS BASE EXCESS 2.2 mmol/L (-2-2); BLOOD GAS CARBOXYHEMOGLOBIN 1.2 % (0-4); BLOOD GAS HCO3 27 mmol/L (22-26); BLOOD GAS O2 HGB SATURATION 96 % (90-100); BLOOD GAS OXYGEN CONTENT 12.6 Vol % (12.0-20.0); BLOOD GAS PCO2 44 mmHg (38-42); BLOOD GAS PO2 113 mmHg (61-120); BLOOD GAS TOTAL HGB 9.2 G/DL (12.0-16.0); CRITICAL VALUE NO; FIO2 55 %; OXYGEN DEVICE VENTILATOR; TEMP CORR TO 98.6
[2017-02-18 06:14] LABS: DRAW SITE ART LINE; STAT NO; VENT SETTINGS PRVC
[2017-02-18 06:36] LABS: ALKALINE PHOSPHATASE 309 U/L (45-117); ALT (GPT) 120 U/L (12-78); ANION GAP 8 MEQ/L (5-15); AST (GOT) 86 U/L (15-37); BICARBONATE 29.1 MEQ/L (21.0-32.0); BLOOD UREA NITROGEN 18 MG/DL (7-18); CHLORIDE 108 MEQ/L (98-107); GLOMERULAR FILTRATION RATE 122 ML/MIN (>89); MAGNESIUM 2.5 MG/DL (1.5-2.5); POTASSIUM 3.3 MEQ/L (3.5-5.1); SODIUM (NA) 145 MEQ/L (136-145); TOTAL BILIRUBIN ADULT 1.6 MG/DL (0.2-1.0)
[2017-02-18] MEDS: CHLORHEXIDINE 0.12% (ORAL KIT) 15 ML CUP MT SCH ×2 (07:58→20:53)
[2017-02-18] MEDS: LACTULOSE SYRUP 20 GM/30 ML CUP PO SCH ×2 (07:59→20:53)
[2017-02-18] MEDS: DOCUSATE SODIUM 100 MG CAP PO SCH ×2 (07:59→20:53)
[2017-02-18] MEDS: AMIODARONE INJ 450 MG in DEXTROSE 5% IN WATE(EXCEL) INJ 250 ML IV SCH ×2 (08:14)
[2017-02-18] MEDS: SODIUM CHLORIDE 0.9% FLUSH 10 ML FLUSH IV FLUSH SCH ×2 (08:15→20:54)
[2017-02-18] MEDS: BENEPROTEIN POWDER 1 PACK G-TUBE SCH ×3 (08:15→16:31)
[2017-02-18] MEDS ORDERED: PHARMACY ORDERED LAB ONE (08:45)
[2017-02-18] MEDS: PROPOFOL 1000 MG/100 ML INJ 100 ML IV SCH ×4 (09:37→23:37)
--- NOTE | 2017-02-18 09:39 | PD.CAR.PN ---
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 He was moved by Dr. Valentin to the [facility] for worsening SOB, general decline. Pt deteriorated , and became tachycardic confused , , he was then intubated and placed on mechanical ventilation, a # 28 egyptian chest tube was on the right chest and 1100cc/ foul smelling yellow fluid was drained pleural fluid cultures are pending, BC neg to date, on gram positive and gram neg coverage , tentatively scheduled for Right VATS, possible thoracotomy , decortication in am, await consent from the 02/18 Clinically stable Remains intubated and mechanically ventilated Will reattempt right thoracotomy with decortication tomorrow Continue antibiotics Objective: Vital Signs Date Time Temp Pulse Resp B/P Pulse Ox O2 Delivery O2 Flow Rate FiO2 02/18/17 08:51 95 55 02/18/17 06:00 58 02/18/17 04:10 96 55 02/18/17 04:00 97.0 70 18 138/50 97 02/18/17 04:00 55 02/18/17 04:00 77 02/18/17 02:00 77 02/18/17 00:10 95 55 02/18/17 00:00 55 02/18/17 00:00 99.2 77 18 106/53 97 02/18/17 00:00 77 02/17/17 22:15 95 55 02/17/17 22:00 85 02/17/17 20:00 85 02/17/17 20:00 55 02/17/17 20:00 99.4 85 18 120/56 96 02/17/17 18:00 89 02/17/17 16:00 81 02/17/17 16:00 99.5 81 22 120/63 95 112/51 02/17/17 16:00 55 02/17/17 15:26 96 55 02/17/17 14:00 87 02/17/17 12:04 95 55 02/17/17 12:00 98.8 94 19 150/70 94 142/59 02/17/17 12:00 55 02/17/17 12:00 94 02/17/17 10:00 85 Labs: Laboratory Tests Test 02/18/17 02/18/17 05:45 05:59 White Blood Count 20.1 TH/MM3 (4.0-11.0) Red Blood Count 2.93 MIL/MM3 (4.50-5.90) Hemoglobin 9.0 GM/DL (13.0-17.0) Hematocrit 27.1 % (39.0-51.0) Mean Corpuscular Volume 92.3 FL (80.0-100.0) Mean Corpuscular Hemoglobin 30.7 PG (27.0-34.0) Mean Corpuscular Hemoglobin 33.3 % Concent (32.0-36.0) Red Cell Distribution Width 14.0 % (11.6-17.2) Platelet Count 496 TH/MM3 (150-450) Mean Platelet Volume 8.1 FL (7.0-11.0) Neutrophils (%) (Auto) 78.2 % (16.0-70.0) Lymphocytes (%) (Auto) 12.5 % (9.0-44.0) Monocytes (%) (Auto) 5.9 % (0.0-8.0) Eosinophils (%) (Auto) 2.7 % (0.0-4.0) Basophils (%) (Auto) 0.7 % (0.0-2.0) Neutrophils # (Auto) 15.7 TH/MM3 (1.8-7.7) Lymphocytes # (Auto) 2.5 TH/MM3 (1.0-4.8) Monocytes # (Auto) 1.2 TH/MM3 (0-0.9) Eosinophils # (Auto) 0.5 TH/MM3 (0-0.4) Basophils # (Auto) 0.1 TH/MM3 (0-0.2) CBC Comment DIFF FINAL Differential Comment Sodium Level 145 MEQ/L (136-145) Potassium Level 3.3 MEQ/L (3.5-5.1) Chloride Level 108 MEQ/L (98-107) Carbon Dioxide Level 29.1 MEQ/L (21.0-32.0) Anion Gap 8 MEQ/L (5-15) Blood Urea Nitrogen 18 MG/DL (7-18) Creatinine 0.68 MG/DL (0.60-1.30) Estimat Glomerular Filtration 122 ML/MIN Rate (>89) Random Glucose 115 MG/DL (74-106) Calcium Level 7.9 MG/DL (8.5-10.1) Phosphorus Level 3.4 MG/DL (2.5-4.9) Magnesium Level 2.5 MG/DL (1.5-2.5) Total Bilirubin 1.6 MG/DL (0.2-1.0) Aspartate Amino Transf 86 U/L (15-37) (AST/SGOT) Alanine Aminotransferase 120 U/L (12-78) (ALT/SGPT) Alkaline Phosphatase 309 U/L (45-117) Total Protein 5.1 GM/DL (6.4-8.2) Albumin 1.1 GM/DL (3.4-5.0) Blood Gas Puncture Site ART LINE Blood Gas Patient Temperature 98.6 Blood Gas HCO3 27 mmol/L (22-26) Blood Gas Base Excess 2.2 mmol/L (-2-2) Blood Gas Oxygen Saturation 96 % (90-100) Arterial Blood pH 7.40 (7.380-7.420) Arterial Blood Partial 44 mmHg (38-42) Pressure CO2 Arterial Blood Partial 113 mmHg Pressure O2 (61-120) Arterial Blood Oxygen Content 12.6 Vol % (12.0-20.0) Arterial Blood 1.2 % (0-4) Carboxyhemoglobin Arterial Blood Methemoglobin 1.0 % (0-2) Blood Gas Hemoglobin 9.2 G/DL (12.0-16.0) Oxygen Delivery Device VENTILATOR Blood Gas Ventilator Setting PRVC Blood Gas Inspired Oxygen 55 % Result Diagram: 02/18/17 0545 02/18/17 0545 (1) Pleural effusion associated with pulmonary infection Plan: eval for right VATS , possible thoracotomy , decortication in am (2) Pneumonia (3) Atrial fibrillation with rapid ventricular response (4) ventilator dependent respiratory failure (5) Sepsis Problem Qualifiers (1) Pneumonia: Qualified Code: J18.9 - Pneumonia of right lung due to infectious organism, unspecified part of lung Hafsa Anderson MD February 18, 2017 09:39
[2017-02-18] MEDS: fentaNYL DRIP 250 ML IV SCH (09:58)
[2017-02-18] MEDS: ACETAMINOPHEN 325 MG TAB PO PRN (11:54)
--- NOTE | 2017-02-18 12:51 | HHI.PR ---
Subjective Remarks 5/6 No acute events overnight. Sedated with Diprivan, Fentanyl and intubated. On PCV and Amio drip. For possible right thoracotomy and decortication tomorrow. Objective Vital Signs Vital Signs Date Time Temp Pulse Resp B/P Pulse Ox O2 Delivery O2 Flow Rate FiO2 02/18/17 08:51 95 55 02/18/17 06:00 58 02/18/17 04:10 96 55 02/18/17 04:00 97.0 70 18 138/50 97 02/18/17 04:00 55 02/18/17 04:00 77 02/18/17 02:00 77 02/18/17 00:10 95 55 02/18/17 00:00 55 02/18/17 00:00 99.2 77 18 106/53 97 02/18/17 00:00 77 02/17/17 22:15 95 55 02/17/17 22:00 85 02/17/17 20:00 85 02/17/17 20:00 55 02/17/17 20:00 99.4 85 18 120/56 96 02/17/17 18:00 89 02/17/17 16:00 81 02/17/17 16:00 99.5 81 22 120/63 95 112/51 02/17/17 16:00 55 02/17/17 15:26 96 55 02/17/17 14:00 87 I/O 02/17/17 02/17/17 02/17/17 02/18/17 02/18/17 02/18/17 07:00 15:00 23:00 07:00 15:00 23:00 Intake Total 1080 ml 1380 ml 1216 ml 804 ml Output Total 740 ml 695 ml 490 ml 330 ml Balance 340 ml 685 ml 726 ml 474 ml IV Total 826 ml 877 ml 517 ml 364 ml Tube Feeding 254 ml 303 ml 272 ml 178 ml Lipid 177 ml 142 ml Other 200 ml 250 ml 120 ml Output Urine Total 650 ml 675 ml 400 ml 300 ml Chest Tube Drainage Total 90 ml 20 ml 90 ml 30 ml # Bowel Movements 0 0 0 1 Result Diagram: 02/18/17 0545 02/18/17 0545 Other Results Last Impressions Chest X-Ray 02/18/17 0400 Signed Impressions: Service Date/Time: Saturday, February 18, 2017 04:57 - CONCLUSION: 1. 2 right-sided chest tubes without pneumothorax. 2. Stable pleural-parenchymal density throughout the right hemithorax. 3. Patchy densities throughout the left lung. 4. Cardiomegaly. Erick Bruner MD Chest CT 02/16/17 0000 Signed Impressions: Service Date/Time: Thursday, February 16, 2017 11:15 - CONCLUSION: 1. Chest tube at the right lung base has drained the empyematous appearing fluid within the right lung base. There is however an area of loculated effusion seen in the right upper chest. 2. Interval development of a small area of atelectasis and a small effusion at the left base with patchy areas of infiltrate now seen on the left. 3. ET tube, central line and gastric tube all appear in satisfactory position. Jacky Hawthorne MD Laboratory Tests Test 02/18/17 02/18/17 05:45 05:59 White Blood Count 20.1 TH/MM3 Red Blood Count 2.93 MIL/MM3 Hemoglobin 9.0 GM/DL Hematocrit 27.1 % Mean Corpuscular Volume 92.3 FL Mean Corpuscular Hemoglobin 30.7 PG Mean Corpuscular Hemoglobin 33.3 % Concent Red Cell Distribution Width 14.0 % Platelet Count 496 TH/MM3 Mean Platelet Volume 8.1 FL Neutrophils (%) (Auto) 78.2 % Lymphocytes (%) (Auto) 12.5 % Monocytes (%) (Auto) 5.9 % Eosinophils (%) (Auto) 2.7 % Basophils (%) (Auto) 0.7 % Neutrophils # (Auto) 15.7 TH/MM3 Lymphocytes # (Auto) 2.5 TH/MM3 Monocytes # (Auto) 1.2 TH/MM3 Eosinophils # (Auto) 0.5 TH/MM3 Basophils # (Auto) 0.1 TH/MM3 CBC Comment DIFF FINAL Differential Comment Sodium Level 145 MEQ/L Potassium Level 3.3 MEQ/L Chloride Level 108 MEQ/L Carbon Dioxide Level 29.1 MEQ/L Anion Gap 8 MEQ/L Blood Urea Nitrogen 18 MG/DL Creatinine 0.68 MG/DL Estimat Glomerular Filtration 122 ML/MIN Rate Random Glucose 115 MG/DL Calcium Level 7.9 MG/DL Phosphorus Level 3.4 MG/DL Magnesium Level 2.5 MG/DL Total Bilirubin 1.6 MG/DL Aspartate Amino Transf 86 U/L (AST/SGOT) Alanine Aminotransferase 120 U/L (ALT/SGPT) Alkaline Phosphatase 309 U/L Total Protein 5.1 GM/DL Albumin 1.1 GM/DL Blood Gas Puncture Site ART LINE Blood Gas Patient Temperature 98.6 Blood Gas HCO3 27 mmol/L Blood Gas Base Excess 2.2 mmol/L Blood Gas Oxygen Saturation 96 % Arterial Blood pH 7.40 Arterial Blood Partial 44 mmHg Pressure CO2 Arterial Blood Partial 113 mmHg Pressure O2 Arterial Blood Oxygen Content 12.6 Vol % Arterial Blood 1.2 % Carboxyhemoglobin Arterial Blood Methemoglobin 1.0 % Blood Gas Hemoglobin 9.2 G/DL Oxygen Delivery Device VENTILATOR Blood Gas Ventilator Setting PRVC Blood Gas Inspired Oxygen 55 % Objective Remarks GENERAL: Patient is 51yo critically ill intubated and sedated. SKIN: Warm and dry. HEAD: Normocephalic. EYES: No scleral icterus. No injection or drainage. NECK: Supple, trachea midline. No JVD or lymphadenopathy. CARDIOVASCULAR: Regular rate and rhythm without murmurs, gallops, or rubs. RESPIRATORY: Breath sounds equal bilaterally. No accessory muscle use. GASTROINTESTINAL: Abdomen soft, non-tender, nondistended. MUSCULOSKELETAL: No cyanosis, or edema. Neuro: sedated, intubated A/P Assessment and Plan 1)VDRF 2)Right lung Pneumonia with empyema. 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 3)Probable underlying COPD. 4)Leukocytosis 5)Anemia 6)Elevated LFT's Plan : Continue with vent support keep sat >92% On PCV with PEEP:8 and FIO2 55%. Decrease FIO2 45% as [place] For possible right thoracotomy and decortication tomorrow. CXR [id number] chest tubes without pneumothorax. Stable pleural- parenchymal density throughout the right hemithorax. Patchy densities throughout the left lung. CT chest from 02/16 reviewed-Reduction in the amount of loculated fluid in the right apex. Patchy areas of infiltrate in the left lung stable. Monitor CT drainage. Continue with abx per ID (Zosyn) monitor for signs of infections ( Fever, WBC) Monitor HR and BP on Amio drip and Lopressor 25mg Q6 Continue with tube feeds. GI/DVT prophylaxis Continue treatment plan. Cassie Miranda MD February 18, 2017 12:51
--- NOTE | 2017-02-18 14:16 | HHI.CCPN ---
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 He was moved by Dr. Valentin to the [facility] for worsening SOB, general decline. I reviewed Dr. Sabillon's consultation from earlier today and clearly this man has deteriorated since that time. His work of breathing has increased considerably and is not sustainable at this point. Further, he appears quite septic with flushed, clammy skin and sustained tachycardia. His pleuritic pain is so severe that he is incapable of breathing deeply and I sense he is getting confused. I spoke with the patient and his was informed. I felt intubation and ventilation was indicated by about midnight tonight, and drainage of the effusion was indicated to cement our diagnosis and guide therapy. A right chest tube placed above the diaphragm drained 1,100 mls of foul smelling, putrid, yellow material; sent for culture. Pleural fluid studies were also sent. As Dr. Sabillon predicted this is clearly an empyema. 02/13: Oxygenation improved. Cultures pending. Ventilator dependent. Suspect he' ll benefit from diagnostic bronch and decortication. Tentatively planned for tomorrow. 02/14: Organism identified, coverage should be adequate. Agree with formal decortication. 02/15: Decortication cancelled after severe bronchospasm in OR. Requiring 80% FiO2 this morning. 02/16: Large amount of recurrent right effusion with lung volume loss. Will need second chest tube or decortication. In viww of recent problems I may try to place a second tube. 02/17: Second chest tube placed in loculation upper thorax right side. Purulent material drained but CXR reveals a thick residual empyema rim. He will definitely need a formal decortication. We can pretreat him with steroids and bronchodilators, hopefully preventing bronchospasm for procedure. 02/18: Plan for decort in a.m. CXR today demonstrates large rind which will benefit from decortication. Will pretreat with solumedrol. Objective Vital Signs Date Time Temp Pulse Resp B/P Pulse Ox O2 Delivery O2 Flow Rate FiO2 02/18/17 08:51 95 55 02/18/17 06:00 58 02/18/17 04:00 97.0 18 138/50 Intake and Output 02/17/17 02/17/17 02/18/17 08:00 16:00 00:00 Intake Total 1080 ml 1380 ml 1216 ml Output Total 740 ml 695 ml 490 ml Balance 340 ml 685 ml 726 ml Result Diagram: 02/18/17 0545 02/18/17 0545 Other Results Laboratory Tests Test 02/18/17 05:59 Blood Gas Puncture Site ART LINE Blood Gas Patient Temperature 98.6 Blood Gas HCO3 27 mmol/L (22-26) Blood Gas Base Excess 2.2 mmol/L (-2-2) Blood Gas Oxygen Saturation 96 % (90-100) Arterial Blood pH 7.40 (7.380-7.420) Arterial Blood Partial 44 mmHg (38-42) Pressure CO2 Arterial Blood Partial 113 mmHg Pressure O2 (61-120) Arterial Blood Oxygen Content 12.6 Vol % (12.0-20.0) Arterial Blood 1.2 % (0-4) Carboxyhemoglobin Arterial Blood Methemoglobin 1.0 % (0-2) Blood Gas Hemoglobin 9.2 G/DL (12.0-16.0) Oxygen Delivery Device VENTILATOR Blood Gas Ventilator Setting PRVC Blood Gas Inspired Oxygen 55 % Objective Remarks Gen: Sedated. Head: Normal. Neck: Supple, orally intubated. Lungs: Marginal sounds right side, present left. Scattered rhonchi persist. Heart: NL S1S2, tachycardia. No JVD, reg rhythm. Abdomen: Soft, no guarding. BS present. Extremities: Warm, well perfused. Trace edema. Neuro: Sedated. Moves 4 limbs to stimulation. A/P Assessment and Plan Assessment: 1. Right pneumonia and parapneumonic effusion. 2. Right empyema, bacterial, mixed organisms. 3. Hypoxemic respiratory failure. 4. Severe sepsis. 5. Bronchospasm. Plan: 1. PRVC vent mode. PEEP 8. 2. Discuss ongoing therapy with Dr. Sabillon. 3. ID consulted, advising. 4. Continue PIP/SILVIO, Vanc. Adjust per ID. 5. Sputum culture. 6. Pleural fluid studies. 7. Pleural fluid culture. 8. Start TFs. 9. Formal decortication. 10. Protonix. 11. Chemical DVT Px. 12. CT scan chest this weekend. Overall impression: Patient remains critically ill with sepsis from right pneumonia and empyema. Oxygenation impaired and he requires mechanical ventilation. Second chest tube placed and large residual peel observed. This is a chronic process and he will need a formal decortication. The procedure will be difficult, tedious, bloody. I recommend pre-treatment with steroids and bronchodilators. I welcome recommendations from Dr. Sabillon about how to prevent recurrent bronchospasm during the operation. Will pretreat with steroids for tomorrows procedure - hopefully avoid bronchospasm. Critical care 38 mins aside from procedures. Dario Wheeler MD February 18, 2017 14:16
--- NOTE | 2017-02-18 14:43 | HHI.IDPN ---
Subjective Subjective Remarks is a 51 y/o CM with PMHx of Alcoholism. 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 He presented with acute onset of SOB, intermittent fevers, leukocytosis, and large right sided effusion with air concerning for aspiration or anaerobic infection. He was moved by Dr. Valentin to the [facility] for worsening SOB and general decline from earlier in the day. Patient was intubated as he appeared encephalopathic and had increased work of breathing due to severe pleuritic chest pain. A right side chest tube was placed with drainage of 1100 ml of foul smelling, putrid yellow fluid. Dr.Dsouza morales is following patient and CTS eval is pending at time of my evaluation. ID following for evaluation and Mment of empyema. Overnight events reviewed. Fevers defervesced. WBC persistently elevated. Needs source control. No rash No diarrhea Sedated. UO ok. 1 CT not putting out much. 2 CT with serosang murky fluid. Plan to OR in am. Being pretreated with steroids to prevent bronchospasm like last OR visit. D/w patients : She reports she is pretty certain patient does not drink alcohol and that he quit 14 plus yrs back. On further questioning, patients reports he has had dry heaves lately and has been consuming lot of tums. No h/o seizures, JEN or sleep medication use as other causes for aspiration PNA risk. The other major risk factor is esophageal hernia, or other GI pathology that could have lead to aspiration PNA/Empyema picture. I d.w her to search her home and financial records to see if she can find any evidence of secretive alcohol use. She will get back with me about this info in next 24 hours. Antibiotics Zosyn IV Vanco IV Lines Line sites with no e.o infection. Past Medical History reviewed. Allergies: Coded Allergies: No Known Allergies (Unverified , 02/11/17) Objective . Vital Signs Date Time Temp Pulse Resp B/P Pulse Ox O2 Delivery O2 Flow Rate FiO2 02/18/17 08:51 95 55 02/18/17 06:00 58 02/18/17 04:10 96 55 02/18/17 04:00 97.0 70 18 138/50 97 02/18/17 04:00 55 02/18/17 04:00 77 02/18/17 02:00 77 02/18/17 00:10 95 55 02/18/17 00:00 55 02/18/17 00:00 99.2 77 18 106/53 97 02/18/17 00:00 77 02/17/17 22:15 95 55 02/17/17 22:00 85 02/17/17 20:00 85 02/17/17 20:00 55 02/17/17 20:00 99.4 85 18 120/56 96 02/17/17 18:00 89 02/17/17 16:00 81 02/17/17 16:00 99.5 81 22 120/63 95 112/51 02/17/17 16:00 55 02/17/17 15:26 96 55 02/17/17 02/17/17 02/18/17 15:00 23:00 07:00 Intake Total 1380 ml 1216 ml 804 ml Output Total 695 ml 490 ml 330 ml Balance 685 ml 726 ml 474 ml IV Total 877 ml 517 ml 364 ml Tube Feeding 303 ml 272 ml 178 ml Lipid 177 ml 142 ml Other 200 ml 250 ml 120 ml Output Urine Total 675 ml 400 ml 300 ml Chest Tube Drainage Total 20 ml 90 ml 30 ml # Bowel Movements 0 0 1 . Laboratory Tests Test 02/17/17 02/18/17 04:05 05:45 White Blood Count 19.0 TH/MM3 20.1 TH/MM3 Red Blood Count 3.13 MIL/MM3 2.93 MIL/MM3 Hemoglobin 9.8 GM/DL 9.0 GM/DL Hematocrit 28.7 % 27.1 % Mean Corpuscular Volume 91.6 FL 92.3 FL Mean Corpuscular Hemoglobin 31.3 PG 30.7 PG Mean Corpuscular Hemoglobin 34.2 % 33.3 % Concent Red Cell Distribution Width 13.8 % 14.0 % Platelet Count 484 TH/MM3 496 TH/MM3 Mean Platelet Volume 7.9 FL 8.1 FL Neutrophils (%) (Auto) 78.2 % Lymphocytes (%) (Auto) 12.5 % Monocytes (%) (Auto) 5.9 % Eosinophils (%) (Auto) 2.7 % Basophils (%) (Auto) 0.7 % Neutrophils # (Auto) 15.7 TH/MM3 Lymphocytes # (Auto) 2.5 TH/MM3 Monocytes # (Auto) 1.2 TH/MM3 Eosinophils # (Auto) 0.5 TH/MM3 Basophils # (Auto) 0.1 TH/MM3 CBC Comment DIFF FINAL Differential Comment Laboratory Tests Test 02/17/17 02/18/17 04:05 05:45 Creatinine 0.67 MG/DL 0.68 MG/DL Estimat Glomerular Filtration 125 ML/MIN 122 ML/MIN Rate Sodium Level 145 MEQ/L Potassium Level 3.3 MEQ/L Chloride Level 108 MEQ/L Carbon Dioxide Level 29.1 MEQ/L Anion Gap 8 MEQ/L Blood Urea Nitrogen 18 MG/DL Random Glucose 115 MG/DL Calcium Level 7.9 MG/DL Phosphorus Level 3.4 MG/DL Magnesium Level 2.5 MG/DL Total Bilirubin 1.6 MG/DL Aspartate Amino Transf 86 U/L (AST/SGOT) Alanine Aminotransferase 120 U/L (ALT/SGPT) Alkaline Phosphatase 309 U/L Total Protein 5.1 GM/DL Albumin 1.1 GM/DL Microbiology Date/Time Procedure Status Source Growth 02/16/17 16:30 Gram Stain - Final Resulted Fluid Pleural Fluid 02/16/17 16:30 Body Fluid Culture - Preliminary Resulted Fluid Pleural Fluid NO GROWTH IN 48 HOURS. 02/16/17 16:30 Cancelled Abscess Chest Imaging Last Impressions Chest X-Ray 02/13/17 0000 Signed Impressions: Service Date/Time: Monday, February 13, 2017 07:41 - CONCLUSION: 1. Stable appearance of the chest with predominantly peripheral consolidation in the right hemithorax which appears most characteristic of an empyema on the prior CT. 2. Stable position of life support tubes including a right-sided thoracostomy tube as detailed above. 3. Left lung remains clear. Jorge Boyer MD Chest CT 02/11/17 0000 Signed Impressions: Service Date/Time: Saturday, February 11, 2017 11:40 - CONCLUSION: 1. Prominent multiloculated pleural effusion on the right containing multiple foci of gas. Difficult diagnosis includes bronchopleural fistula, infection with gas producing organisms, and iatrogenic if recent procedure has been performed. 2. Patchy right lung consolidation. Cipriano Moore MD Physical Exam GENERAL: This is a well-nourished, well-developed patient, in no apparent distress. SKIN: No rashes, ecchymoses or lesions. Cool and dry. HEAD: Atraumatic. Normocephalic. No temporal or scalp tenderness. EYES: Pupils equal round and reactive. Extraocular motions intact. No scleral icterus. No injection or drainage. ENT: Intubated. NECK: Trachea midline. Supple, nontender, no meningeal signs. CARDIOVASCULAR: RRR. No murmur appreciated. RESPIRATORY: AE decreased right side. 2 CT with murky sanguinous drainage. GASTROINTESTINAL: Abdomen soft, non-tender, nondistended. MUSCULOSKELETAL: Extremities without clubbing, cyanosis, or edema. NEUROLOGICAL: Sedated. Psych: could not be assessed. IV line sites with no e/o infection. 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 Empyema: likely secondary to aspiration pneumonia secondary to alcoholism. ? GI pathology as cause for aspiration PNA. Acute resp failure: empyema, sepsis. Acute metabolic encephalopathy: sepsis related, metabolic. Hypoalbuminemia: nutritional, alcoholism, r/o chronic infections like HIV, hepatitis. Acute transaminitis: ? medication induced (Vanco IV or Zosyn IV or Amiodarone) Recs: Continue Zosyn IV (aspiration PNA, if no PSAE will deescalate after reviewing intraop cultures) Persistent fevers and WBC are likely because source control could not be achieved. Hopefully after surgery today this will help. See my documentation in todays note about GI symptoms prior to presentation. GI consult to r/o underlying GI pathology to prevent recurrence. GI consult: please discuss with CCM about optimal timing for any procedures. Patient has h/o bronchospasm during anaesthesia. Negative 2D ECHO. d.w and RN. Neela Saxena MD February 18, 2017 14:43
[2017-02-18] MEDS: PANTOPRAZOLE SODIUM 40 MG VIAL IV PUSH SCH (14:46)
[2017-02-18] MEDS: FUROSEMIDE 40 MG/4 ML VIAL IV PUSH SCH (14:46)
--- NOTE | 2017-02-18 16:17 | PD.CONS ---
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 Per RN (from ) pt has distant hx drinking, 14 y ago. He had been having dry heaves and eating alot of tums prior to hospitalization. .He is s/p 2 x chest tubes and pending thoracotomy with decortication tomorrow. Pt on vent, unable to contribute further. (Hailee Moreno) PFSH Past Medical History unable to obtain Past Surgical History unable to obtain (Hailee Moreno) Coded Allergies: No Known Allergies (Unverified , 02/11/17) Medications Current Medications Medications (Trade) Dose Ordered Sig/Devorah Route PRN Reason Start Time Stop Time Status Last Admin Dose Admin Acetaminophen (Tylenol) 650 mg Q4H PRN PO TEMP > 100.4 02/11/17 11:15 02/18/17 11:54 Ondansetron HCl (Zofran Inj) 4 mg Q6H PRN IVP NAUSEA OR VOMITING 02/11/17 11:15 Magnesium Hydroxide (Milk Of Thefuture.fm [employer]Propriet[employer]Direto) 30 ml Q12H PRN PO CONSTIPATION 02/11/17 11:15 Temazepam (Restoril) 15 mg HS PRN PO INSOMNIA 02/11/17 11:15 Naloxone HCl (Narcan Inj) 0.4 mg UNSCH PRN IV SEE LABEL COMMENTS 02/11/17 11:15 Acetaminophen/ Hydrocodone Bitart ([place] 5-325 Mg) 1 tab Q6H PRN PO pain 1-10 02/11/17 16:00 02/11/17 20:23 Clonidine (Catapres) 0.2 mg Q6H PRN PO SBP above 160 02/11/17 18:00 Enalaprilat (Vasotec Inj) 1.25 mg Q6H PRN IV sbp above 160 02/11/17 18:00 Morphine Sulfate (Morphine Inj) 4 mg Q2H PRN IV PUSH Pain 6-10 02/11/17 23:30 02/11/17 23:38 Alprazolam (Xanax) 1 mg Q8HR PRN PO any anxiety 02/11/17 23:30 02/12/17 00:43 Chlorhexidine Gluconate 15 ml 15 ml BID@08,20 MT 02/12/17 08:00 02/18/17 07:58 Fentanyl Citrate 250 ml @ 0 mls/hr TITRATE IV 02/12/17 02:45 02/18/17 09:58 Propofol 100 ml @ 0 mls/hr TITRATE IV 02/12/17 02:45 02/18/17 12:50 Potassium Chloride 100 ml @ 50 mls/hr Q2H PRN IV For Potassium 2.8 - 3.2 mEq/L 02/12/17 03:15 Potassium Chloride (KCl 20 Meq Premix Inj) 100 ml @ 50 mls/hr Q2H PRN IV For Potassium 2.8 - 3.2 mEq/L 02/12/17 03:15 Potassium Bicarb/ Potassium Chloride 50 meq 50 meq UNSCH PRN PO For Potassium 3.3 - 3.5 mEq/L 02/12/17 03:15 02/18/17 12:26 Potassium Chloride 100 ml @ 25 mls/hr UNSCH PRN IV For Potassium 3.3 - 3.5 mEq/L 02/12/17 03:15 Potassium Chloride 100 ml @ 50 mls/hr Q2H PRN IV For Potassium 3.3 - 3.5 mEq/L 02/12/17 03:15 Magnesium Sulfate/ Sodium Chloride (Magnesium Sulfate Inj/NS Inj) 100 ml @ 50 mls/hr UNSCH PRN IV For Magnesium 0.9 - 1.1 mg/dL 02/12/17 03:15 Magnesium Oxide 800 mg 800 mg UNSCH PRN PO For Magnesium 1.2 - 1.6 mg/dL 02/12/17 03:15 Magnesium Sulfate/ Sodium Chloride (Magnesium Sulfate Inj/NS Inj) 100 ml @ 50 mls/hr UNSCH PRN IV For Magnesium 1.2 - 1.6 mg/dL 02/12/17 03:15 Potassium Phosphate 2000 mg 2,000 mg Q4H PRN PO For Phosphorus < 2.5 mg/dL 02/12/17 03:15 Sodium Phosphate/ Sodium Chloride (Sodium Phosphate Inj/NS 250 ml Inj) 250 ml @ 42 mls/hr UNSCH PRN IV For Phosphorus < 2.5 mg/dL 02/12/17 03:15 Potassium Phosphate (K-Phos) 2,000 mg UNSCH PRN PO/TUBE SEE LABEL COMMENTS 02/12/17 03:15 Protein (Beneprotein Powder) 2 pack TID G-TUBE 02/12/17 09:00 02/18/17 11:33 Metoclopramide HCl 10 mg 10 mg Q6H PO 02/12/17 04:00 02/18/17 04:00 Piperacillin Sod/ Tazobactam Sod (Zosyn 4.5 Gm Premix) 100 ml @ 200 mls/hr Q6H IV 02/12/17 08:00 02/18/17 13:35 Sodium Chloride (NS Flush) 2 ml BID IV FLUSH 02/12/17 21:00 02/18/17 08:15 Sodium Chloride (NS Flush) 2 ml UNSCH PRN IV FLUSH FLUSH AFTER USING IV ACCESS 02/12/17 15:00 Lactulose (Lactulose Liq) 30 ml Q12HR PO 02/13/17 16:00 02/17/17 21:00 Docusate Sodium (Colace) 100 mg BID PO 02/13/17 16:00 02/17/17 21:00 Hydralazine HCl (Apresoline Inj) 10 mg Q2H PRN IV PUSH SYSTOLIC BP GREATER THAN 160 02/14/17 16:45 Labetalol HCl 10 mg 10 mg Q2H PRN IV PUSH SYSTOLIC BP GREATER THAN 160 02/14/17 17:00 02/14/17 18:40 Nicardipine HCl 25 mg/Sodium Chloride 250 ml @ 0 mls/hr TITRATE IV 02/14/17 18:30 02/14/17 20:34 Norepinephrine Bitartrate (Levophed-Dextrose Drip) 250 ml @ 0 mls/hr TITRATE IV 02/14/17 23:15 02/16/17 05:51 Terbutaline Sulfate 1 mg 1 mg UNSCH PRN SQ FOR EXTRAVASATION 02/14/17 23:30 Amiodarone HCl/ Dextrose (Cordarone Inj/ D5W ([place]) Inj) 259 ml @ 0 mls/hr CONTINUOUS IV 02/15/17 10:30 02/18/17 08:14 Metoprolol Tartrate (Lopressor) 25 mg Q6H PO 02/16/17 18:00 02/18/17 11:37 Pantoprazole Sodium (Protonix Inj) 40 mg Q24H IV PUSH 02/18/17 15:00 02/18/17 14:46 Furosemide (Lasix Inj) 40 mg DAILY IV PUSH 5/7/17 15:00 02/18/17 14:46 Methylprednisolone Sodium Succinate (SoluMEDROL INJ) 125 mg Q6H IV PUSH 02/19/17 06:00 02/20/17 06:00 Family History unable to obtain Social History unable to obtain per EMR smokes 1ppd (Hailee Moreno) Review of Systems ROS unable to obtain (Hailee Moreno) GI Exam Vitals I&O Vital Signs Date Time Temp Pulse Resp B/P Pulse Ox O2 Delivery O2 Flow Rate FiO2 02/18/17 14:00 85 02/18/17 12:00 88 02/18/17 12:00 55 02/18/17 12:00 100.5 88 27 133/62 95 139/62 02/18/17 10:00 81 02/18/17 08:51 95 55 02/18/17 08:00 75 02/18/17 08:00 55 02/18/17 08:00 98.6 75 19 106/56 96 108/55 02/18/17 06:00 58 02/18/17 04:10 96 55 02/18/17 04:00 97.0 70 18 138/50 97 02/18/17 04:00 55 02/18/17 04:00 77 02/18/17 02:00 77 02/18/17 00:10 95 55 02/18/17 00:00 55 02/18/17 00:00 99.2 77 18 106/53 97 02/18/17 00:00 77 02/17/17 22:15 95 55 02/17/17 22:00 85 02/17/17 20:00 85 02/17/17 20:00 55 02/17/17 20:00 99.4 85 18 120/56 96 02/17/17 18:00 89 I/O 02/17/17 02/17/17 02/17/17 02/18/17 02/18/17 02/18/17 07:00 15:00 23:00 07:00 15:00 23:00 Intake Total 1080 ml 1380 ml 1216 ml 804 ml 1049 ml Output Total 740 ml 695 ml 490 ml 330 ml 480 ml Balance 340 ml 685 ml 726 ml 474 ml 569 ml IV Total 826 ml 877 ml 517 ml 364 ml 454 ml Tube Feeding 254 ml 303 ml 272 ml 178 ml 195 ml Lipid 177 ml 142 ml Other 200 ml 250 ml 120 ml 400 ml Output Urine Total 650 ml 675 ml 400 ml 300 ml 400 ml Tube Feeding Residual Discard 0 ml Chest Tube Drainage Total 90 ml 20 ml 90 ml 30 ml 80 ml # Bowel Movements 0 0 0 1 2 Imaging Last Impressions Chest X-Ray 02/18/17 0400 Signed Impressions: Service Date/Time: Saturday, February 18, 2017 04:57 - CONCLUSION: 1. 2 right-sided chest tubes without pneumothorax. 2. Stable pleural-parenchymal density throughout the right hemithorax. 3. Patchy densities throughout the left lung. 4. Cardiomegaly. Erick Bruner MD Chest CT 02/16/17 0000 Signed Impressions: Service Date/Time: Thursday, February 16, 2017 11:15 - CONCLUSION: 1. Chest tube at the right lung base has drained the empyematous appearing fluid within the right lung base. There is however an area of loculated effusion seen in the right upper chest. 2. Interval development of a small area of atelectasis and a small effusion at the left base with patchy areas of infiltrate now seen on the left. 3. ET tube, central line and gastric tube all appear in satisfactory position. Jacky Hawthorne MD Laboratory Test 02/18/17 02/18/17 02/18/17 02/18/17 05:45 05:59 10:48 10:55 White Blood Count 20.1 TH/MM3 Red Blood Count 2.93 MIL/MM3 Hemoglobin 9.0 GM/DL Hematocrit 27.1 % Mean Corpuscular Volume 92.3 FL Mean Corpuscular Hemoglobin 30.7 PG Mean Corpuscular Hemoglobin 33.3 % Concent Red Cell Distribution Width 14.0 % Platelet Count 496 TH/MM3 Mean Platelet Volume 8.1 FL Neutrophils (%) (Auto) 78.2 % Lymphocytes (%) (Auto) 12.5 % Monocytes (%) (Auto) 5.9 % Eosinophils (%) (Auto) 2.7 % Basophils (%) (Auto) 0.7 % Neutrophils # (Auto) 15.7 TH/MM3 Lymphocytes # (Auto) 2.5 TH/MM3 Monocytes # (Auto) 1.2 TH/MM3 Eosinophils # (Auto) 0.5 TH/MM3 Basophils # (Auto) 0.1 TH/MM3 CBC Comment DIFF FINAL Differential Comment Sodium Level 145 MEQ/L Potassium Level 3.3 MEQ/L Chloride Level 108 MEQ/L Carbon Dioxide Level 29.1 MEQ/L Anion Gap 8 MEQ/L Blood Urea Nitrogen 18 MG/DL Creatinine 0.68 MG/DL Estimat Glomerular Filtration 122 ML/MIN Rate Random Glucose 115 MG/DL Calcium Level 7.9 MG/DL Phosphorus Level 3.4 MG/DL Magnesium Level 2.5 MG/DL Total Bilirubin 1.6 MG/DL Aspartate Amino Transf 86 U/L (AST/SGOT) Alanine Aminotransferase 120 U/L (ALT/SGPT) Alkaline Phosphatase 309 U/L Total Protein 5.1 GM/DL Albumin 1.1 GM/DL Blood Gas Puncture Site ART LINE Blood Gas Patient Temperature 98.6 Blood Gas HCO3 27 mmol/L Blood Gas Base Excess 2.2 mmol/L Blood Gas Oxygen Saturation 96 % Arterial Blood pH 7.40 Arterial Blood Partial 44 mmHg Pressure CO2 Arterial Blood Partial 113 mmHg Pressure O2 Arterial Blood Oxygen Content 12.6 Vol % Arterial Blood 1.2 % Carboxyhemoglobin Arterial Blood Methemoglobin 1.0 % Blood Gas Hemoglobin 9.2 G/DL Oxygen Delivery Device VENTILATOR Blood Gas Ventilator Setting PRVC Blood Gas Inspired Oxygen 55 % Blood Type AB POSITIVE Antibody Screen NEGATIVE Crossmatch Leukocyte-Reduced Red Blood Cells Blood Bank Comment Date/Time Procedure Status Source Growth 02/16/17 16:30 Gram Stain - Final Resulted Fluid Pleural Fluid 02/16/17 16:30 Body Fluid Culture - Preliminary Resulted Fluid Pleural Fluid NO GROWTH IN 48 HOURS. 02/16/17 16:30 Cancelled Abscess Chest 02/14/17 15:30 Fungal Smear - Final Resulted Bronchial Washings Other NO FUNGAL ELEMENTS SEEN. 02/14/17 15:30 Fungal Culture Resulted Bronchial Washings Other Pending 02/14/17 15:30 Acid Fast Stain - Final Resulted Bronchial Washings Other NO ACID FAST BACILLI SEEN 02/14/17 15:30 Mycobacterial Culture Resulted Bronchial Washings Other Pending Physical Examination HEENT: sedated on vent CHEST: coarse sounds CARDIAC: radial pulses +2 ABDOMEN: Soft, protuberant, somewhat firm; no hepatosplenomegaly; bowel sounds are present in all four quadrants. EXTREMITIES: No clubbing, cyanosis, or edema. SKIN: Normal; no rash; no jaundice. MICROGRAPHICS SERVICES SUPERVISOR: on vent (Hailee Moreno PRIMARY HEALTH CARE NURSE) Assessment and Plan Plan ASSESSMENT - PNA with empyema likely secondary to aspiration PNA. - question of alcoholism as contributing factor, GI consulted to r/o GI pathology as cause for aspiration PNA. Prior to hospitalization pt reportedly with dry heaves and increased use of TUMs. Pt to have thoracotomy with decortication tomorrow. has h/o bronchospasms so timing of procedures is a consideration. PLAN - EGD next week tentatively, possibly Sunday. - obtain consents This pt seen by myself and DR Lofton and this note is written on his behalf. (Hailee Moreno) Physician Comments Seen and examined with PRIMARY HEALTH CARE NURSE, sedate dand intubated. Repeat decortication planned for tomorrow. WIll discuss with Flour Mixer regarding timing of egd. Dr. Garcia will follow. Thank you (Zandra Lofton MD) Hailee Moreno February 18, 2017 16:17 Zandra Lofton MD February 18, 2017 16:47
[2017-02-18] MEDS: AMIODARONE 200 MG TAB PO SCH (20:52)
[2017-02-18] MEDS: NOREPINEPHRINE 4 MG/D5W 250 ML IV SCH (23:37)
[2017-02-19] VITALS (15 sets, daily range): BP systolic 96–140; BP diastolic 47–59; PULSE 55–72; RESP 18–20; TEMP 97.5–99.7; O2SAT 96–100
[2017-02-19] MEDS: PROPOFOL 1000 MG/100 ML INJ 100 ML IV SCH ×4 (02:52→20:04)
[2017-02-19] MEDS: PIPERACIL-TAZO 4.5 GM PREMIX 100 ML IV SCH ×5 (02:52→20:03)
[2017-02-19 03:47] LABS: AUTOMATED NEUTROPHIL # 14.9 TH/MM3 (1.8-7.7); BASOPHIL # 0.1 TH/MM3 (0-0.2); BASOPHIL % 0.5 % (0.0-2.0); EOSINOPHIL # 0.8 TH/MM3 (0-0.4); HEMATOCRIT 25.1 % (39.0-51.0); LYMPH % 13.6 % (9.0-44.0); LYMPHOCYTE # 2.8 TH/MM3 (1.0-4.8); MEAN CELL VOLUME 92.1 FL (80.0-100.0); MEAN CORPUSCULAR HEMOGLOBIN 30.8 PG (27.0-34.0); MEAN CORPUSCULAR HGB CONC 33.4 % (32.0-36.0); MONO % 8.9 % (0.0-8.0); PLATELET COUNT 544 TH/MM3 (150-450); RED BLOOD COUNT 2.73 MIL/MM3 (4.50-5.90); RED CELL DISTRIBUTION WIDTH 13.3 % (11.6-17.2); WHITE BLOOD COUNT 20.4 TH/MM3 (4.0-11.0)
[2017-02-19 03:59] LABS: HEMO FLAGS AUTO DIFF
[2017-02-19 04:13] LABS: BICARBONATE 31.8 MEQ/L (21.0-32.0); MAGNESIUM 2.3 MG/DL (1.5-2.5); POTASSIUM 3.1 MEQ/L (3.5-5.1)
[2017-02-19 05:11] LABS: BANDS 1 % (0-6); BLASTS 1 % (0-0); EOSINOPHILS 3 % (0-4); MYELOCYTES 1 % (0-0); NEUTROPHIL # MANUAL DIFF 16.3 TH/MM3 (1.8-7.7); POLYS (SEG NEUTROPHILS) 78 % (16-70); WBC DIFF SAMPLE 100
[2017-02-19 05:12] LABS: PLATELET ESTIMATE SMEAR HIGH (NORMAL); PLATELET MORPHOLOGY NORMAL (NORMAL); SCAN/DIFF FINAL DIFF MANUAL; STOMATOCYTES 1+ (NORMAL)
[2017-02-19] MEDS: methylPREDNISolone SOD SUCC 125 MG/2 ML VIAL IV PUSH SCH ×3 (05:29→17:14)
[2017-02-19] MEDS: METOCLOPRAMIDE HCL SYRUP 10 MG/10 ML UDC PO SCH ×4 (05:29→22:14)
[2017-02-19] MEDS: METOPROLOL TARTRATE 25 MG TAB PO SCH ×4 (05:29→17:14)
[2017-02-19] MEDS: fentaNYL DRIP 250 ML IV SCH ×2 (06:01→14:36)
[2017-02-19] MEDS: POTASSIUM CHLOR 40 MEQ PREMIX 100 ML IV PRN ×2 (07:08→11:49)
[2017-02-19] MEDS ORDERED: MORPHINE ONE (07:30)
[2017-02-19] MEDS ORDERED: BUPIVACAINE LIPOSO 1.3% ONE (07:30)
[2017-02-19] MEDS ORDERED: DEXAMETHASONE ONE (07:30)
[2017-02-19] MEDS ORDERED: [UNRECOGNIZED DRUG - OTHER] ONE (07:30)
[2017-02-19] MEDS ORDERED: ceFAZolin 2 GM PREMIX 50 ML ONE (07:55)
[2017-02-19] MEDS: CHLORHEXIDINE 0.12% (ORAL KIT) 15 ML CUP MT SCH ×2 (08:00→20:00)
[2017-02-19] MEDS: BENEPROTEIN POWDER 1 PACK G-TUBE SCH ×3 (09:00→17:14)
[2017-02-19] MEDS ORDERED: Post-op Orders (for Pharmacy) MISC OTHER ONE (10:41)
[2017-02-19] MEDS ORDERED: fentaNYL CITRATE 250 MCG/5 ML AMP ONE (11:02)
[2017-02-19] MEDS: LACTULOSE SYRUP 20 GM/30 ML CUP PO SCH ×2 (11:50→21:00)
[2017-02-19] MEDS: AMIODARONE 200 MG TAB PO SCH ×2 (11:51→20:03)
[2017-02-19] MEDS: SODIUM CHLORIDE 0.9% FLUSH 10 ML FLUSH IV FLUSH SCH ×2 (11:51→21:00)
[2017-02-19] MEDS: DOCUSATE SODIUM 100 MG CAP PO SCH ×2 (11:51→21:00)
[2017-02-19] MEDS: FUROSEMIDE 40 MG/4 ML VIAL IV PUSH SCH (11:51)
--- NOTE | 2017-02-19 12:00 | RADRPT ---
EXAM DATE/TIME: 02/19/2017 11:40 [facility] COMPARISON: CHEST SINGLE AP, February 18, 2017, 4:57. INDICATIONS : Post thoracotomy. MEDICAL HISTORY : None. SURGICAL HISTORY : None. ENCOUNTER: Initial ACUITY: 1 day PAIN SCORE: Non-responsive. LOCATION: Bilateral chest FINDINGS: Two chest tubes are in place on the right. ET tube and nasogastric tube are in good position. Centra l line is in good position. Left lung is clear. Heart and pulmonary vascularity is normal. CONCLUSION: 1. Two chest tubes in place on the right following thoracotomy. 2. There is good re-expansion of the right lung. Hugh Hawthorne MD FACR on February 19, 2017 at 11:56 Board Certified Radiologist. This report was verified electronically.
--- NOTE | 2017-02-19 12:09 | HHI.PR ---
Subjective Remarks Remains on vent support. FIO2 at 55 %.On IV antibiotics . Chest tube draining little. Decortication done today. Objective Vital Signs Date Time Temp Pulse Resp B/P Pulse Ox O2 Delivery O2 Flow Rate FiO2 02/19/17 11:04 98 55 02/19/17 06:00 66 02/19/17 04:00 98.1 62 18 98 140/58 02/19/17 04:00 62 02/19/17 04:00 55 02/19/17 02:00 65 02/19/17 00:00 99.7 72 20 98 128/53 02/19/17 00:00 72 02/19/17 00:00 55 02/18/17 22:00 84 02/18/17 21:20 98 55 02/18/17 20:00 86 02/18/17 20:00 100.9 86 20 96 112/56 02/18/17 20:00 55 02/18/17 18:00 84 02/18/17 16:50 94 55 02/18/17 16:00 87 02/18/17 16:00 100.7 87 19 128/61 97 152/72 02/18/17 16:00 55 02/18/17 14:00 85 I/O 02/18/17 02/18/17 02/18/17 02/19/17 02/19/17 02/19/17 06:59 14:59 22:59 06:59 14:59 22:59 Intake Total 804 ml 1049 ml 1131 ml 667 ml Output Total 330 ml 480 ml 1940.0 ml 440 ml Balance 474 ml 569 ml -809.0 ml 227 ml IV Total 364 ml 454 ml 720 ml 590 ml Tube Feeding 178 ml 195 ml 311 ml 77 ml Lipid 142 ml Other 120 ml 400 ml 100 ml Output Urine Total 300 ml 400 ml 1900 ml 400 ml Tube Feeding Residual Discard 0 ml 0 ml Chest Tube Drainage Total 30 ml 80 ml 40 ml 40 ml # Bowel Movements 1 2 1 Result Diagram: 02/19/17 03402/19/17 0340 Objective Remarks GENERAL:Intubated and sedated . HEENT: Head normocephalic. Pupils reactive. Nasal mucosae clear. NEC: Supple. No bruits or thyroid enlargement or lymphadenopathy. CHEST: Equal movements with Occasional basal crackles. . Decreased breath sounds at bases. Chest tubes in. HEART: Heart sounds are regular, S1-S2. No murmur. No S3. ABDOMEN: Abdomen is soft, protuberant with tenderness in the upper abdomen. Bowel sounds are active. No organomegaly. EXTREMITIES: No lesions. No edema. NEURO: Sedated. SKIN: No lesions. Assessment and Plan Assessment and Plan IMPRESSION 1. Right lung Pneumonia with empyema. 2. Respiratory failure 3. Probable underlying COPD. Plan : 1. Antibiotic coverage as ordered. 2. Nebs qid , duoneb. 3. Cont Vent support and wean FIO2 , 4. Reduce sedation 5. Chest tube to Drainage. 6. CBC,BMP, CXR in am. 7. Tube feeds at 60 CC 8. CPAP trial in am. Diana Sabillon MD February 19, 2017 12:09
[2017-02-19] MEDS: RESP: ALBUTEROL 2.5 MG/IPRATROPIUM 0.5 MG NEB (SCH) NEB (12:16)
[2017-02-19] MEDS: KETOROLAC TROMETHAMINE 30 MG/ML (IVP) VIAL IV PUSH SCH ×2 (12:37→18:43)
[2017-02-19] MEDS: ACETAMINOPHEN 1000 MG/100 ML VIAL IV SCH ×2 (12:38→17:14)
[2017-02-19] MEDS ORDERED: diphenhydrAMINE HCL 50 MG/ML VIAL IV PUSH ONE (13:15)
--- NOTE | 2017-02-19 13:48 | PD.OP ---
cc: Diana Sabillon MD; Hafsa Anderson MD Operative Report Date of Surgery: February 19, 2017 Preoperative Diagnosis: Postoperative Diagnosis: Procedure: 1. Right Posterolateral Muscle Sparing Thoracotomy 2. Decortication 3. Intercostal Nerve Block . Surgeon: Hafsa Anderson Police Investigator(s): Carmencita esparza . Operation and Findings: PREOPERATIVE DIAGNOSIS 1. Right Organized Empyema 2. Loculated Abscess Cavities 3. Pneumonia 4. Respiratory Failure POSTOPERATIVE DIAGNOSIS same PROCEDURES 1. Right Posterolateral Muscle Sparing Thoracotomy 2. Decortication 3. Intercostal Nerve Block SURGEON Hafsa Anderson MD MACHINE BUFFER KACY Valenzuela CSFDelfin ANESTHESIA General endotracheal. EMS EDUCATOR YESENIA Higuera MD OPERATIVE TIME Please see record. COMPLICATIONS None. INDICATION FOR PROCEDURE The patient is a 51 yo gentleman with respiratory failure and right empyema presenting for surgical correction of above pathology. DESCRIPTION OF PROCEDURE The patient was brought to the operating suite and placed in supine position. Following satisfactory induction of general single-lumen endotracheal anesthesia , the patient was placed in the left lateral decubitus position. The right chest and surrounding area was then prepped and draped in the usual sterile fashion. A standard muscle-sparing posterolateral thoracotomy was performed and the serratus anterior muscle spared. The pleural space was entered. Exploration of the chest revealed a stage IV Empyema with a thick peel encasing the lung as well as the parietal pleura. The peel was very densely adherent to the visceral pleura and the underlying lung was very consolidated. Given his underlying pulmonary insufficiency and inability to tolerate single-lung ventilation, the procedure was performed with the right lung ventilated. All loculations and fluid pockets were evacuated. Circumferential decortication was performed and specimen sent for microbiological analysis. The pleural space was copiously irrigated with antibiotic solution. At this point the closure was undertaken. Two 32-Danish chest tubes were placed. Intercostal nerve block was performed at the level of the incision and 3 rib spaces above and below using Exparel with Decadron solution. The pericostal space was approximated with interrupted #1 Vicryl sutures in a pericostal fashion. The serratus fascia and Latissimus dorsi were closed with running 0-Vicryl and the remaining wounds closed with 3-0 , and 4-0 Monocryl. The patient tolerated the procedure well and postoperatively went to the PACU in stable condition. Hafsa Anderson MD February 19, 2017 13:48
[2017-02-19] MEDS ORDERED: PROPOFOL 200 MG/20 ML AMP IV ONE (14:32)
[2017-02-19] MEDS: NOREPINEPHRINE 4 MG/D5W 250 ML IV SCH (14:35)
--- NOTE | 2017-02-19 15:24 | HHI.CCPN ---
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 He was moved by Dr. Valentin to the [facility] for worsening SOB, general decline. I reviewed Dr. Sabillon's consultation from earlier today and clearly this man has deteriorated since that time. His work of breathing has increased considerably and is not sustainable at this point. Further, he appears quite septic with flushed, clammy skin and sustained tachycardia. His pleuritic pain is so severe that he is incapable of breathing deeply and I sense he is getting confused. I spoke with the patient and his was informed. I felt intubation and ventilation was indicated by about midnight tonight, and drainage of the effusion was indicated to cement our diagnosis and guide therapy. A right chest tube placed above the diaphragm drained 1,100 mls of foul smelling, putrid, yellow material; sent for culture. Pleural fluid studies were also sent. As Dr. Sabillon predicted this is clearly an empyema. 02/13: Oxygenation improved. Cultures pending. Ventilator dependent. Suspect he' ll benefit from diagnostic bronch and decortication. Tentatively planned for tomorrow. 02/14: Organism identified, coverage should be adequate. Agree with formal decortication. 02/15: Decortication cancelled after severe bronchospasm in OR. Requiring 80% FiO2 this morning. 02/16: Large amount of recurrent right effusion with lung volume loss. Will need second chest tube or decortication. In view of recent problems I may try to place a second tube. 02/17: Second chest tube placed in loculation upper thorax right side. Purulent material drained but CXR reveals a thick residual empyema rim. He will definitely need a formal decortication. We can pretreat him with steroids and bronchodilators, hopefully preventing bronchospasm for procedure. 02/18: Plan for decort in a.m. CXR today demonstrates large rind which will benefit from decortication. Will pretreat with solumedrol. 02/19: s/p decortication today by Dr. Anderson. Heavily sedated from residual anesthesia. New two R chest tubes in place Objective Vital Signs Date Time Temp Pulse Resp B/P Pulse Ox O2 Delivery O2 Flow Rate FiO2 02/19/17 12:50 96 50 02/19/17 12:00 66 02/19/17 12:00 97.5 18 107/53 Intake and Output 02/18/17 02/18/17 02/19/17 08:00 16:00 00:00 Intake Total 804 ml 1049 ml 1131 ml Output Total 330.0 ml 480.0 ml 1940.0 ml Balance 474.0 ml 569.0 ml -809.0 ml Result Diagram: 02/19/17 03402/19/17339 Objective Remarks Gen: Sedated. Head: Normal. Neck: Supple, orally intubated. Lungs: Marginal sounds right side, present left. Scattered rhonchi persist. R chest tubes x2 Heart: NL S1S2, tachycardia. No JVD, reg rhythm. Abdomen: Soft, no guarding. BS present. Extremities: Warm, well perfused. Trace edema. Neuro: Heavily sedated from OR anesthesia. Previously Moves 4 limbs to stimulation. A/P Assessment and Plan Assessment: 1. Right pneumonia and parapneumonic effusion. 2. Right empyema, bacterial, mixed organisms. 3. Hypoxemic respiratory failure. 4. Severe sepsis. 5. Bronchospasm. Plan: 1. PRVC vent mode. PEEP 8. 2. Pulmonary Dr. Sabillon. s/p Decortication 02/[address] Anderson 3. ID following Dr. Saxena 4. Continue PIP/SILVIO 5. Sputum culture. 6. Pleural fluid studies. 7. Pleural fluid culture. 8. Gi consulted for chronic aspiration work up, severe GERD per history 9. Protonix. 10. Chemical DVT Px. Overall impression: Patient remains critically ill with sepsis from right pneumonia and empyema. Oxygenation impaired and he requires mechanical ventilation. s/p formal decortication. Pre-treatment with steroids and bronchodilators. I welcome recommendations from Dr. Sabillon about how to prevent recurrent bronchospasm during the operation. Critical care 35 mins aside from procedures. Nicho Boogie MD February 19, 2017 15:24
[2017-02-19] MEDS: PANTOPRAZOLE SODIUM 40 MG VIAL IV PUSH SCH (15:34)
--- NOTE | 2017-02-19 15:42 | HHI.GIFU ---
Subjective Remarks Resting in bed. S/P Right Posterolateral Muscle Sparing Thoracotomy, Decortication, Intercostal Nerve Block today with CVT. Sedated on ventilator. (Monie Orozco) Objective Vitals I&O Vital Signs Date Time Temp Pulse Resp B/P Pulse Ox O2 Delivery O2 Flow Rate FiO2 02/19/17 12:50 96 50 02/19/17 12:00 66 02/19/17 12:00 55 02/19/17 12:00 97.5 66 18 99 107/53 02/19/17 11:04 98 55 02/19/17 06:00 66 02/19/17 04:00 98.1 62 18 98 140/58 02/19/17 04:00 62 02/19/17 04:00 55 02/19/17 02:00 65 02/19/17 00:00 99.7 72 20 98 128/53 02/19/17 00:00 72 02/19/17 00:00 55 02/18/17 22:00 84 02/18/17 21:20 98 55 02/18/17 20:00 86 02/18/17 20:00 100.9 86 20 96 112/56 02/18/17 20:00 55 02/18/17 18:00 84 02/18/17 16:50 94 55 02/18/17 16:00 87 02/18/17 16:00 100.7 87 19 128/61 97 152/72 02/18/17 16:00 55 I/O 02/18/17 02/18/17 02/18/17 02/19/17 02/19/17 02/19/17 07:00 15:00 23:00 07:00 15:00 23:00 Intake Total 804 ml 1049 ml 1131 ml 667 ml Output Total 330 ml 480 ml 1940.0 ml 440 ml Balance 474 ml 569 ml -809.0 ml 227 ml IV Total 364 ml 454 ml 720 ml 590 ml Tube Feeding 178 ml 195 ml 311 ml 77 ml Lipid 142 ml Other 120 ml 400 ml 100 ml Output Urine Total 300 ml 400 ml 1900 ml 400 ml Tube Feeding Residual Discard 0 ml 0 ml Chest Tube Drainage Total 30 ml 80 ml 40 ml 40 ml # Bowel Movements 1 2 1 Laboratory Laboratory Tests Test 02/19/17 03:40 White Blood Count 20.4 Red Blood Count 2.73 Hemoglobin 8.4 Hematocrit 25.1 Mean Corpuscular Volume 92.1 Mean Corpuscular Hemoglobin 30.8 Mean Corpuscular Hemoglobin 33.4 Concent Red Cell Distribution Width 13.3 Platelet Count 544 Mean Platelet Volume 7.9 Neutrophils (%) (Auto) 73.0 Lymphocytes (%) (Auto) 13.6 Monocytes (%) (Auto) 8.9 Eosinophils (%) (Auto) 4.0 Basophils (%) (Auto) 0.5 Neutrophils # (Auto) 14.9 Lymphocytes # (Auto) 2.8 Monocytes # (Auto) 1.8 Eosinophils # (Auto) 0.8 Basophils # (Auto) 0.1 CBC Comment AUTO DIFF Differential Total Cells 100 Counted Neutrophils % (Manual) 78 Band Neutrophils % 1 Lymphocytes % 9 Monocytes % 7 Eosinophils % 3 Neutrophils # (Manual) 16.3 Myelocytes 1 Differential Comment FINAL DIFF MANUAL Blastocytes 1 Platelet Estimate HIGH Platelet Morphology Comment NORMAL Stomatocytes 1+ Sodium Level 144 Potassium Level 3.1 Chloride Level 105 Carbon Dioxide Level 31.8 Anion Gap 7 Blood Urea Nitrogen 17 Creatinine 0.61 Estimat Glomerular Filtration 139 Rate Random Glucose 114 Calcium Level 8.3 Phosphorus Level 2.7 Magnesium Level 2.3 Date/Time Procedure Status Source Growth 02/19/17 09:30 Gram Stain Received Wound Other Pending 02/19/17 09:30 Wound Culture Received Wound Other Pending 02/19/17 09:30 Fungal Smear Received Wound Other Pending 02/19/17 09:30 Fungal Culture Received Wound Other Pending 02/19/17 09:30 Acid Fast Stain Received Wound Other Pending 02/19/17 09:30 Mycobacterial Culture Received Wound Other Pending 02/16/17 16:30 Gram Stain - Final Resulted Fluid Pleural Fluid 02/16/17 16:30 Body Fluid Culture - Preliminary Resulted Streptococcus Species 02/16/17 16:30 Cancelled Abscess Chest Imaging Last Impressions Chest X-Ray 02/19/17 0000 Signed Impressions: Service Date/Time: Sunday, February 19, 2017 11:40 - CONCLUSION: 1. Two chest tubes in place on the right following thoracotomy. 2. There is good re-expansion of the right lung. Hugh Hawthorne MD FACR Chest CT 02/16/17 0000 Signed Impressions: Service Date/Time: Thursday, February 16, 2017 11:15 - CONCLUSION: 1. Chest tube at the right lung base has drained the empyematous appearing fluid within the right lung base. There is however an area of loculated effusion seen in the right upper chest. 2. Interval development of a small area of atelectasis and a small effusion at the left base with patchy areas of infiltrate now seen on the left. 3. ET tube, central line and gastric tube all appear in satisfactory position. Jacky Hawthorne MD Physical Exam HEENT: Normocephalic; atraumatic CHEST: OETT to vent. Course breath sounds. CARDIAC: RRR ABDOMEN: Soft, mildly bloated, no hepatosplenomegaly; bowel sounds are present in all four quadrants. EXTREMITIES: Generalized edema. BEAN PICKER: Sedated on vent. (Monie Orozco) Assessment and Plan Plan ASSESSMENT - PNA with parapneumonic effusion and right empyema. Significant other reports that patient has been having significant GERD symptoms, taking TUMS frequently and there is some question if there is any aspiration/GI component and therefore GI was consulted for further evaluation with EGD. Pt went for right posterolateral muscle sparing thoracotomy, decortication, intercostal nerve block today (02/19/17). Will plan for EGD later in week when more stable. Abx per ID. PLAN - Will plan for egd later in week (towards end of week) - Cont. Abx - Cont. PPI - Supportive care - Pt seen and examined by Dr. Garcia and myself and this note is written on her behalf (Monie Orozco) Physician Comments seen, examined agree with above (Florina Garcia MD) Monie Orozco February 19, 2017 15:42 Florina Garcia MD February 19, 2017 21:14
--- NOTE | 2017-02-19 16:45 | HHI.IDPN ---
Subjective Subjective Remarks is a 51 y/o CM with PMHx of Alcoholism. 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 He presented with acute onset of SOB, intermittent fevers, leukocytosis, and large right sided effusion with air concerning for aspiration or anaerobic infection. He was moved by Dr. Valentin to the [facility] for worsening SOB and general decline from earlier in the day. Patient was intubated as he appeared encephalopathic and had increased work of breathing due to severe pleuritic chest pain. A right side chest tube was placed with drainage of 1100 ml of foul smelling, putrid yellow fluid. Dr.Dsouza morales is following patient and CTS eval is pending at time of my evaluation. ID following for evaluation and Mment of empyema. Overnight events reviewed. Fevers defervesced. WBC persistently elevated. Needs source control. No rash No diarrhea Sedated. UO ok. S/P Right Posterolateral Muscle Sparing Thoracotomy, Decortication, Intercostal Nerve Block seen by GI appreciate recs. Antibiotics Zosyn IV Vanco IV Lines Line sites with no e.o infection. Past Medical History reviewed. Allergies: Coded Allergies: Latex (Verified Allergy, Mild, Rash, 02/19/17) Objective . Vital Signs Date Time Temp Pulse Resp B/P Pulse Ox O2 Delivery O2 Flow Rate FiO2 02/19/17 12:50 96 50 02/19/17 12:00 66 02/19/17 12:00 55 02/19/17 12:00 97.5 66 18 99 107/53 02/19/17 11:04 98 55 02/19/17 06:00 66 02/19/17 04:00 98.1 62 18 98 140/58 02/19/17 04:00 62 02/19/17 04:00 55 02/19/17 02:00 65 02/19/17 00:00 99.7 72 20 98 128/53 02/19/17 00:00 72 02/19/17 00:00 55 02/18/17 22:00 84 02/18/17 21:20 98 55 02/18/17 20:00 86 02/18/17 20:00 100.9 86 20 96 112/56 02/18/17 20:00 55 02/18/17 18:00 84 02/18/17 16:50 94 55 02/18/17 02/18/17 02/19/17 14:59 22:59 06:59 Intake Total 1049 ml 1131 ml 667 ml Output Total 480 ml 1940.0 ml 440 ml Balance 569 ml -809.0 ml 227 ml IV Total 454 ml 720 ml 590 ml Tube Feeding 195 ml 311 ml 77 ml Other 400 ml 100 ml Output Urine Total 400 ml 1900 ml 400 ml Tube Feeding Residual Discard 0 ml 0 ml Chest Tube Drainage Total 80 ml 40 ml 40 ml # Bowel Movements 2 1 . Laboratory Tests Test 02/18/17 02/19/17 05:45 03:40 White Blood Count 20.1 TH/MM3 20.4 TH/MM3 Red Blood Count 2.93 MIL/MM3 2.73 MIL/MM3 Hemoglobin 9.0 GM/DL 8.4 GM/DL Hematocrit 27.1 % 25.1 % Mean Corpuscular Volume 92.3 FL 92.1 FL Mean Corpuscular Hemoglobin 30.7 PG 30.8 PG Mean Corpuscular Hemoglobin 33.3 % 33.4 % Concent Red Cell Distribution Width 14.0 % 13.3 % Platelet Count 496 TH/MM3 544 TH/MM3 Mean Platelet Volume 8.1 FL 7.9 FL Neutrophils (%) (Auto) 78.2 % 73.0 % Lymphocytes (%) (Auto) 12.5 % 13.6 % Monocytes (%) (Auto) 5.9 % 8.9 % Eosinophils (%) (Auto) 2.7 % 4.0 % Basophils (%) (Auto) 0.7 % 0.5 % Neutrophils # (Auto) 15.7 TH/MM3 14.9 TH/MM3 Lymphocytes # (Auto) 2.5 TH/MM3 2.8 TH/MM3 Monocytes # (Auto) 1.2 TH/MM3 1.8 TH/MM3 Eosinophils # (Auto) 0.5 TH/MM3 0.8 TH/MM3 Basophils # (Auto) 0.1 TH/MM3 0.1 TH/MM3 CBC Comment DIFF FINAL AUTO DIFF Differential Comment FINAL DIFF MANUAL Differential Total Cells 100 Counted Neutrophils % (Manual) 78 % Band Neutrophils % 1 % Lymphocytes % 9 % Monocytes % 7 % Eosinophils % 3 % Neutrophils # (Manual) 16.3 TH/MM3 Myelocytes 1 % Blastocytes 1 % Platelet Estimate HIGH Platelet Morphology Comment NORMAL Stomatocytes 1+ Laboratory Tests Test 02/18/17 02/19/17 05:45 03:40 Sodium Level 145 MEQ/L 144 MEQ/L Potassium Level 3.3 MEQ/L 3.1 MEQ/L Chloride Level 108 MEQ/L 105 MEQ/L Carbon Dioxide Level 29.1 MEQ/L 31.8 MEQ/L Anion Gap 8 MEQ/L 7 MEQ/L Blood Urea Nitrogen 18 MG/DL 17 MG/DL Creatinine 0.68 MG/DL 0.61 MG/DL Estimat Glomerular Filtration 122 ML/MIN 139 ML/MIN Rate Random Glucose 115 MG/DL 114 MG/DL Calcium Level 7.9 MG/DL 8.3 MG/DL Phosphorus Level 3.4 MG/DL 2.7 MG/DL Magnesium Level 2.5 MG/DL 2.3 MG/DL Total Bilirubin 1.6 MG/DL Aspartate Amino Transf 86 U/L (AST/SGOT) Alanine Aminotransferase 120 U/L (ALT/SGPT) Alkaline Phosphatase 309 U/L Total Protein 5.1 GM/DL Albumin 1.1 GM/DL Microbiology Date/Time Procedure Status Source Growth 02/19/17 09:30 Gram Stain - Final Resulted Fluid Other 02/19/17 09:30 Body Fluid Culture Resulted Fluid Other Pending 02/19/17 09:30 Acid Fast Stain Received Fluid Other Pending 02/19/17 09:30 Mycobacterial Culture Received Fluid Other Pending 02/19/17 09:30 Fungal Smear - Final Resulted Fluid Other NO FUNGAL ELEMENTS SEEN. 02/19/17 09:30 Fungal Culture Resulted Fluid Other Pending 02/19/17 09:30 Gram Stain - Final Resulted Wound Other 02/19/17 09:30 Wound Culture Resulted Wound Other Pending 02/19/17 09:30 Acid Fast Stain Received Wound Other Pending 02/19/17 09:30 Mycobacterial Culture Received Wound Other Pending 02/19/17 09:30 Fungal Smear - Final Resulted Wound Other NO FUNGAL ELEMENTS SEEN. 02/19/17 09:30 Fungal Culture Resulted Wound Other Pending 02/19/17 09:30 Gram Stain - Final Resulted Wound Other 02/19/17 09:30 Wound Culture Resulted Wound Other Pending 02/19/17 09:30 Acid Fast Stain Received Wound Other Pending 02/19/17 09:30 Mycobacterial Culture Received Wound Other Pending 02/19/17 09:30 Fungal Smear - Final Resulted Wound Other NO FUNGAL ELEMENTS SEEN. 02/19/17 09:30 Fungal Culture Resulted Wound Other Pending Imaging Last Impressions Chest X-Ray 02/13/17 0000 Signed Impressions: Service Date/Time: Monday, February 13, 2017 07:41 - CONCLUSION: 1. Stable appearance of the chest with predominantly peripheral consolidation in the right hemithorax which appears most characteristic of an empyema on the prior CT. 2. Stable position of life support tubes including a right-sided thoracostomy tube as detailed above. 3. Left lung remains clear. Jorge Boyer MD Chest CT 02/11/17 0000 Signed Impressions: Service Date/Time: Saturday, February 11, 2017 11:40 - CONCLUSION: 1. Prominent multiloculated pleural effusion on the right containing multiple foci of gas. Difficult diagnosis includes bronchopleural fistula, infection with gas producing organisms, and iatrogenic if recent procedure has been performed. 2. Patchy right lung consolidation. Cipriano Moore MD Physical Exam GENERAL: This is a well-nourished, well-developed patient, in no apparent distress. SKIN: No rashes, ecchymoses or lesions. Cool and dry. HEAD: Atraumatic. Normocephalic. No temporal or scalp tenderness. EYES: Pupils equal round and reactive. Extraocular motions intact. No scleral icterus. No injection or drainage. ENT: Intubated. NECK: Trachea midline. Supple, nontender, no meningeal signs. CARDIOVASCULAR: RRR. No murmur appreciated. RESPIRATORY: AE decreased right side. CT. GASTROINTESTINAL: Abdomen soft, non-tender, nondistended. MUSCULOSKELETAL: Extremities without clubbing, cyanosis, or edema. NEUROLOGICAL: Sedated. Psych: could not be assessed. IV line sites with no e/o infection. 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 Empyema: likely secondary to aspiration pneumonia secondary to alcoholism. ? GI pathology as cause for aspiration PNA. Acute resp failure: empyema, sepsis. Acute metabolic encephalopathy: sepsis related, metabolic. Hypoalbuminemia: nutritional, alcoholism, r/o chronic infections like HIV, hepatitis. Acute transaminitis: ? medication induced (Vanco IV or Zosyn IV or Amiodarone) Recs: Continue Zosyn IV (aspiration PNA, if no PSAE will deescalate after reviewing intraop cultures) Yeast in Bronchoscopy expected but does not need treatment but if patient grows yeast in empyema intraop cultures will treat. Persistent fevers and WBC are likely because source control could not be achieved earlier. Hopefully will down trend post op. Negative 2D ECHO. [email or web address] and PREMA. Neela Saxena MD February 19, 2017 16:45 Persistent fevers and WBC are likely because source control could not be achieved. Hopefully after surgery today this will help. See my documentation in todays note about GI symptoms prior to presentation. GI consult to r/o underlying GI pathology to prevent recurrence. GI consult: please discuss with CCM about optimal timing for any procedures. Patient has h/o bronchospasm during anaesthesia. Negative 2D ECHO. sushilw and PREMA. Neela Saxena MD February 19, 2017 16:45
[2017-02-19] MEDS: RESP: ALBUTEROL 2.5 MG/IPRATROPIUM 0.5 MG NEB (PRN) NEB (17:15)
[2017-02-20] VITALS (19 sets, daily range): BP systolic 108–144; BP diastolic 49–64; PULSE 55–102; RESP 18–25; TEMP 97.6–98.9; O2SAT 92–99
[2017-02-20] MEDS: RESP: ALBUTEROL 2.5 MG/IPRATROPIUM 0.5 MG NEB (SCH) NEB ×7 (00:05→23:21)
[2017-02-20] MEDS: methylPREDNISolone SOD SUCC 125 MG/2 ML VIAL IV PUSH SCH ×2 (00:08→05:37)
[2017-02-20] MEDS: KETOROLAC TROMETHAMINE 30 MG/ML (IVP) VIAL IV PUSH SCH ×2 (00:08→06:39)
[2017-02-20] MEDS: ACETAMINOPHEN 1000 MG/100 ML VIAL IV SCH ×2 (00:09→05:37)
[2017-02-20] MEDS: PROPOFOL 1000 MG/100 ML INJ 100 ML IV SCH ×2 (01:18→05:37)
[2017-02-20] MEDS: PIPERACIL-TAZO 4.5 GM PREMIX 100 ML IV SCH ×4 (01:25→19:48)
[2017-02-20 04:27] LABS: AUTOMATED NEUTROPHIL # 15.2 TH/MM3 (1.8-7.7); BASOPHIL # 0.1 TH/MM3 (0-0.2); BASOPHIL % 0.6 % (0.0-2.0); EOSINOPHIL % 0.1 % (0.0-4.0); HEMATOCRIT 23.7 % (39.0-51.0); HEMO FLAGS DIFF FINAL; LYMPH % 8.4 % (9.0-44.0); LYMPHOCYTE # 1.5 TH/MM3 (1.0-4.8); MEAN CELL VOLUME 91.9 FL (80.0-100.0); MEAN CORPUSCULAR HEMOGLOBIN 30.6 PG (27.0-34.0); MEAN CORPUSCULAR HGB CONC 33.3 % (32.0-36.0); MONO % 4.6 % (0.0-8.0); NEUT % 86.3 % (16.0-70.0); PLATELET COUNT 650 TH/MM3 (150-450); RED BLOOD COUNT 2.58 MIL/MM3 (4.50-5.90); RED CELL DISTRIBUTION WIDTH 13.6 % (11.6-17.2); WHITE BLOOD COUNT 17.6 TH/MM3 (4.0-11.0)
[2017-02-20 04:55] LABS: BICARBONATE 31.2 MEQ/L (21.0-32.0); POTASSIUM 4.1 MEQ/L (3.5-5.1)
[2017-02-20] MEDS: METOCLOPRAMIDE HCL SYRUP 10 MG/10 ML UDC PO SCH ×4 (05:19→22:00)
[2017-02-20] MEDS: METOPROLOL TARTRATE 25 MG TAB PO SCH ×5 (06:00→17:33)
--- NOTE | 2017-02-20 06:10 | RADRPT ---
EXAM DATE/TIME: 02/20/2017 04:57 [facility] COMPARISON: CHEST SINGLE AP, February 19, 2017, 11:40. INDICATIONS : Shortness of breath. MEDICAL HISTORY : None. SURGICAL HISTORY : Thoracotomy. ENCOUNTER: Initial ACUITY: 1 week PAIN SCORE: Non-responsive. LOCATION: Bilateral chest FINDINGS: 2 portable frontal views of the chest show 2 thoracostomy tubes on the right. Endotracheal tube with the tip 6 cm proximal to the ke. Nasogastric tube with the tip coursing off the inferior margin o f the film. Right subclavian central line. No pneumothoraces. Bilateral pulmonary consolidations are worse when compared to prior study. They are most pronounced within the bases. Small right effusions. Heart is mildly enlarged. CONCLUSION: 1. Worsening bilateral pulmonary infiltrates and small effusions. Khanh Dover Jr., MD on February 20, 2017 at 6:07 Board Certified Radiologist. This report was verified electronically.
[2017-02-20] MEDS: CHLORHEXIDINE 0.12% (ORAL KIT) 15 ML CUP MT SCH ×2 (08:00→20:00)
[2017-02-20] MEDS: fentaNYL DRIP 250 ML IV SCH (08:11)
[2017-02-20] MEDS: LACTULOSE SYRUP 20 GM/30 ML CUP PO SCH ×2 (08:13→21:00)
[2017-02-20] MEDS: FUROSEMIDE 40 MG/4 ML VIAL IV PUSH SCH (08:14)
[2017-02-20] MEDS: DOCUSATE SODIUM 100 MG CAP PO SCH ×2 (08:14→21:00)
[2017-02-20] MEDS: SODIUM CHLORIDE 0.9% FLUSH 10 ML FLUSH IV FLUSH SCH ×2 (08:15→21:10)
[2017-02-20] MEDS: BENEPROTEIN POWDER 1 PACK G-TUBE SCH ×3 (08:15→17:33)
[2017-02-20] MEDS: AMIODARONE 200 MG TAB PO SCH ×2 (08:15→19:47)
--- NOTE | 2017-02-20 10:37 | HHI.GIFU ---
Subjective Remarks Pt resting in bed, sedated on vent. No distress. Tolerating TF (Monie Orozco) Objective Vitals I&O Vital Signs Date Time Temp Pulse Resp B/P Pulse Ox O2 Delivery O2 Flow Rate FiO2 02/20/17 10:00 68 02/20/17 08:26 96 40 02/20/17 08:00 97.6 79 18 134/58 98 02/20/17 08:00 55 02/20/17 08:00 79 02/20/17 06:00 60 02/20/17 04:15 99 50 02/20/17 04:00 56 02/20/17 04:00 55 02/20/17 04:00 98.2 56 18 99 129/52 02/20/17 02:00 56 02/20/17 01:13 98 50 02/20/17 00:00 55 02/20/17 00:00 55 02/20/17 00:00 98.7 55 18 97 117/50 02/19/17 22:17 99 50 02/19/17 22:00 55 02/19/17 20:00 98.2 60 18 100 131/59 02/19/17 20:00 60 02/19/17 20:00 55 02/19/17 19:23 99 50 02/19/17 18:00 57 02/19/17 17:15 99 50 02/19/17 16:00 55 02/19/17 16:00 65 02/19/17 16:00 97.9 65 18 100 96/47 02/19/17 14:00 63 02/19/17 12:50 96 50 02/19/17 12:00 66 02/19/17 12:00 55 02/19/17 12:00 97.5 66 18 99 107/53 02/19/17 11:04 98 55 I/O 02/19/17 02/19/17 02/19/17 02/20/17 02/20/17 02/20/17 07:00 15:00 23:00 07:00 15:00 23:00 Intake Total 667 ml 685 ml 829 ml 776 ml Output Total 440 ml 1200 ml 715 ml 525 ml Balance 227 ml -515 ml 114 ml 251 ml IV Total 590 ml 685 ml 829 ml 776 ml Tube Feeding 77 ml 0 ml 0 ml Output Urine Total 400 ml 1200 ml 600 ml 450 ml Chest Tube Drainage Total 40 ml 115 ml 75 ml # Bowel Movements 1 0 1 2 Laboratory Laboratory Tests Test 02/20/17 04:15 White Blood Count 17.6 Red Blood Count 2.58 Hemoglobin 7.9 Hematocrit 23.7 Mean Corpuscular Volume 91.9 Mean Corpuscular Hemoglobin 30.6 Mean Corpuscular Hemoglobin 33.3 Concent Red Cell Distribution Width 13.6 Platelet Count 650 Mean Platelet Volume 8.4 Neutrophils (%) (Auto) 86.3 Lymphocytes (%) (Auto) 8.4 Monocytes (%) (Auto) 4.6 Eosinophils (%) (Auto) 0.1 Basophils (%) (Auto) 0.6 Neutrophils # (Auto) 15.2 Lymphocytes # (Auto) 1.5 Monocytes # (Auto) 0.8 Eosinophils # (Auto) 0.0 Basophils # (Auto) 0.1 CBC Comment DIFF FINAL Differential Comment Sodium Level 142 Potassium Level 4.1 Chloride Level 104 Carbon Dioxide Level 31.2 Anion Gap 7 Blood Urea Nitrogen 23 Creatinine 0.66 Estimat Glomerular Filtration 127 Rate Random Glucose 168 Calcium Level 7.8 Date/Time Procedure Status Source Growth 02/19/17 09:30 Gram Stain - Final Resulted Wound Other 02/19/17 09:30 Wound Culture Resulted Wound Other Pending 02/19/17 09:30 Fungal Smear - Final Resulted Wound Other NO FUNGAL ELEMENTS SEEN. 02/19/17 09:30 Fungal Culture Resulted Wound Other Pending 02/19/17 09:30 Acid Fast Stain - Final Resulted Wound Other NO ACID FAST BACILLI SEEN 02/19/17 09:30 Mycobacterial Culture Resulted Wound Other Pending 02/16/17 16:30 Cancelled Abscess Chest Imaging Last Impressions Chest X-Ray 02/20/17 0500 Signed Impressions: Service Date/Time: Monday, February 20, 2017 04:57 - CONCLUSION: 1. Worsening bilateral pulmonary infiltrates and small effusions. Khanh Dover Jr., MD Chest CT 02/16/17 0000 Signed Impressions: Service Date/Time: Thursday, February 16, 2017 11:15 - CONCLUSION: 1. Chest tube at the right lung base has drained the empyematous appearing fluid within the right lung base. There is however an area of loculated effusion seen in the right upper chest. 2. Interval development of a small area of atelectasis and a small effusion at the left base with patchy areas of infiltrate now seen on the left. 3. ET tube, central line and gastric tube all appear in satisfactory position. Jacky Hawthorne MD Physical Exam HEENT: Normocephalic; atraumatic CHEST: OETT to vent. Course breath sounds. CT right, right sided chest drsg d /i CARDIAC: RRR ABDOMEN: Soft, mildly bloated, no hepatosplenomegaly; bowel sounds are present in all four quadrants. EXTREMITIES: Generalized edema. 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 (Monie Orozco) Assessment and Plan Plan ASSESSMENT - PNA with parapneumonic effusion and right empyema. Significant other reports that patient has been having significant GERD symptoms, taking TUMS frequently and there is some question if there is any aspiration/GI component and therefore GI was consulted for further evaluation with EGD. Pt went for right posterolateral muscle sparing thoracotomy, decortication, intercostal nerve block today (02/19/17). Will plan for EGD later in week when more stable. Abx per ID. - Elevated LFTs. T. Bili 1.6, AST 86, ALT 120, Alk Phosph 309. Will get US, liver workup. Possibly related to infections/medications. They seem to be improving at this point. Hepatitis profile negative. - Acute respiratory failure, Severe bronchospasm, OETT to vent. Per CCM - Leukocytosis, sepsis. WBC 17.6. Zosyn. PLAN - Will plan for egd later in week (towards end of week) - RUQ US - AFP level - TACO, ASMA, AMA - Iron Saturation, Ferritin - Ceruloplasmin, Alpha 1 Antitrypsin - Cont. Abx - Cont. PPI - Supportive care - Pt seen and examined by Dr. Garcia and myself and this note is written on her behalf ADDENDUM- D/W Dr. Saxena, plan is for possible extubation today. ? Timing of EGD. Pt has been receiving TF today. Will plan for egd in am. Pt does have hx of bronchospasms, but CCM will be available if needed during/after procedure.D/W CCM (Monie Orozco) Physician Comments agree (Florina Garcia MD) Monie Orozco February 20, 2017 10:37 Florina Garcia MD February 20, 2017 19:29
[2017-02-20] MEDS: PANTOPRAZOLE SODIUM 40 MG VIAL IV PUSH SCH (13:08)
--- NOTE | 2017-02-20 13:35 | HHI.CCPN ---
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 He was moved by Dr. Valentin to the [facility] for worsening SOB, general decline. I reviewed Dr. Sabillon's consultation from earlier today and clearly this man has deteriorated since that time. His work of breathing has increased considerably and is not sustainable at this point. Further, he appears quite septic with flushed, clammy skin and sustained tachycardia. His pleuritic pain is so severe that he is incapable of breathing deeply and I sense he is getting confused. I spoke with the patient and his was informed. I felt intubation and ventilation was indicated by about midnight tonight, and drainage of the effusion was indicated to cement our diagnosis and guide therapy. A right chest tube placed above the diaphragm drained 1,100 mls of foul smelling, putrid, yellow material; sent for culture. Pleural fluid studies were also sent. As Dr. Sabillon predicted this is clearly an empyema. 02/13: Oxygenation improved. Cultures pending. Ventilator dependent. Suspect he' ll benefit from diagnostic bronch and decortication. Tentatively planned for tomorrow. 02/14: Organism identified, coverage should be adequate. Agree with formal decortication. 02/15: Decortication cancelled after severe bronchospasm in OR. Requiring 80% FiO2 this morning. 02/16: Large amount of recurrent right effusion with lung volume loss. Will need second chest tube or decortication. In view of recent problems I may try to place a second tube. 02/17: Second chest tube placed in loculation upper thorax right side. Purulent material drained but CXR reveals a thick residual empyema rim. He will definitely need a formal decortication. We can pretreat him with steroids and bronchodilators, hopefully preventing bronchospasm for procedure. 02/18: Plan for decort in a.m. CXR today demonstrates large rind which will benefit from decortication. Will pretreat with solumedrol. 02/19: s/p decortication today by Dr. Anderson. Heavily sedated from residual anesthesia. New two R chest tubes in place 02/20: Tolerating vent weaning well. Awake alert and follows commands. WBC 17.6. CXR stable on my review. R chest tube 190 ml in 24 hours Objective Vital Signs Date Time Temp Pulse Resp B/P Pulse Ox O2 Delivery O2 Flow Rate FiO2 02/20/17 12:30 55 02/20/17 12:25 97 02/20/17 12:00 98.9 70 18 108/49 Intake and Output 02/19/17 02/19/17 02/20/17 08:00 16:00 00:00 Intake Total 667 ml 685 ml 829 ml Output Total 440 ml 1200 ml 715 ml Balance 227 ml -515 ml 114 ml Result Diagram: 02/20/17 0415 02/20/17 0415 Objective Remarks Gen: Sedated lightly. Head: Normal. Neck: Supple, orally intubated. Lungs: Diminished breath sounds right side, present left. Scattered rhonchi persist. R chest tubes x2 190 ml in 24 hours Heart: NL S1S2. No JVD, reg rhythm. Abdomen: Soft, no guarding. BS present. Extremities: Warm, well perfused. Trace edema. Neuro: Awake on vent, following commands A/P Assessment and Plan Assessment: 1. Right pneumonia and parapneumonic effusion. 2. Right empyema, bacterial, mixed organisms s/p decortication 02/19 3. Hypoxemic respiratory failure. 4. Severe sepsis. 5. Bronchospasm. Plan: -PRVC vent mode. PEEP 8. SBT with possible extubation today -Pulmonary Dr. Sabillon. -s/p Decortication 02/[address] Anderson -ID following Dr. Saxena -Continue PIP/SILVIO -Pl fluid culture strep milligrams, mixed anaerobes, GNR, Fusobacterium -Gi consulted for chronic aspiration work up, severe GERD per history -Protonix. -Chemical DVT Px. Overall impression: Patient remains critically ill with sepsis from right pneumonia and empyema, slowly improving clinically. Continue steroids and bronchodilators, and ABX. D/W Dr. Sabillon and Dr. Saxena Critical care 30 mins aside from procedures. Nicho Boogie MD February 20, 2017 13:35
--- NOTE | 2017-02-20 15:17 | HHI.IDPN ---
Subjective Subjective Remarks is a 51 y/o CM with PMHx of Alcoholism. 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 He presented with acute onset of SOB, intermittent fevers, leukocytosis, and large right sided effusion with air concerning for aspiration or anaerobic infection. He was moved by Dr. Valentin to the [facility] for worsening SOB and general decline from earlier in the day. Patient was intubated as he appeared encephalopathic and had increased work of breathing due to severe pleuritic chest pain. A right side chest tube was placed with drainage of 1100 ml of foul smelling, putrid yellow fluid. Dr.Dsouza morales is following patient and CTS eval is pending at time of my evaluation. ID following for evaluation and Mment of empyema. Overnight events reviewed. Fevers defervesced. WBC persistently elevated. Needs source control. No rash No diarrhea Sedated. UO ok. S/P Right Posterolateral Muscle Sparing Thoracotomy, Decortication, Intercostal Nerve Block seen by GI appreciate recs. Antibiotics Zosyn IV Vanco IV Lines Line sites with no e.o infection. Past Medical History reviewed. Allergies: Coded Allergies: Latex (Verified Allergy, Mild, Rash, 02/19/17) Objective . Vital Signs Date Time Temp Pulse Resp B/P Pulse Ox O2 Delivery O2 Flow Rate FiO2 02/20/17 14:38 95 Partial Non-Rebreather 15.00 02/20/17 14:20 92 Partial Rebreather 13 02/20/17 14:00 102 02/20/17 12:30 55 02/20/17 12:25 97 40 02/20/17 12:00 98.9 70 18 108/49 96 02/20/17 12:00 55 02/20/17 12:00 70 02/20/17 10:00 68 02/20/17 08:26 96 40 02/20/17 08:00 97.6 79 18 134/58 98 02/20/17 08:00 55 02/20/17 08:00 79 02/20/17 06:00 60 02/20/17 04:15 99 50 02/20/17 04:00 56 02/20/17 04:00 55 02/20/17 04:00 98.2 56 18 99 129/52 02/20/17 02:00 56 02/20/17 01:13 98 50 02/20/17 00:00 55 02/20/17 00:00 55 02/20/17 00:00 98.7 55 18 97 117/50 02/19/17 22:17 99 50 02/19/17 22:00 55 02/19/17 20:00 98.2 60 18 100 131/59 02/19/17 20:00 60 02/19/17 20:00 55 02/19/17 19:23 99 50 02/19/17 18:00 57 02/19/17 17:15 99 50 02/19/17 16:00 55 02/19/17 16:00 65 02/19/17 16:00 97.9 65 18 100 96/47 02/19/17 02/19/17 02/20/17 15:00 23:00 07:00 Intake Total 685 ml 829 ml 776 ml Output Total 1200 ml 715 ml 525 ml Balance -515 ml 114 ml 251 ml IV Total 685 ml 829 ml 776 ml Tube Feeding 0 ml 0 ml Output Urine Total 1200 ml 600 ml 450 ml Chest Tube Drainage Total 115 ml 75 ml # Bowel Movements 0 1 2 . Laboratory Tests Test 02/19/17 02/20/17 03:40 04:15 White Blood Count 20.4 TH/MM3 17.6 TH/MM3 Red Blood Count 2.73 MIL/MM3 2.58 MIL/MM3 Hemoglobin 8.4 GM/DL 7.9 GM/DL Hematocrit 25.1 % 23.7 % Mean Corpuscular Volume 92.1 FL 91.9 FL Mean Corpuscular Hemoglobin 30.8 PG 30.6 PG Mean Corpuscular Hemoglobin 33.4 % 33.3 % Concent Red Cell Distribution Width 13.3 % 13.6 % Platelet Count 544 TH/MM3 650 TH/MM3 Mean Platelet Volume 7.9 FL 8.4 FL Neutrophils (%) (Auto) 73.0 % 86.3 % Lymphocytes (%) (Auto) 13.6 % 8.4 % Monocytes (%) (Auto) 8.9 % 4.6 % Eosinophils (%) (Auto) 4.0 % 0.1 % Basophils (%) (Auto) 0.5 % 0.6 % Neutrophils # (Auto) 14.9 TH/MM3 15.2 TH/MM3 Lymphocytes # (Auto) 2.8 TH/MM3 1.5 TH/MM3 Monocytes # (Auto) 1.8 TH/MM3 0.8 TH/MM3 Eosinophils # (Auto) 0.8 TH/MM3 0.0 TH/MM3 Basophils # (Auto) 0.1 TH/MM3 0.1 TH/MM3 CBC Comment AUTO DIFF DIFF FINAL Differential Total Cells 100 Counted Neutrophils % (Manual) 78 % Band Neutrophils % 1 % Lymphocytes % 9 % Monocytes % 7 % Eosinophils % 3 % Neutrophils # (Manual) 16.3 TH/MM3 Myelocytes 1 % Differential Comment FINAL DIFF MANUAL Blastocytes 1 % Platelet Estimate HIGH Platelet Morphology Comment NORMAL Stomatocytes 1+ Laboratory Tests Test 02/19/17 02/20/17 03:40 04:15 Sodium Level 144 MEQ/L 142 MEQ/L Potassium Level 3.1 MEQ/L 4.1 MEQ/L Chloride Level 105 MEQ/L 104 MEQ/L Carbon Dioxide Level 31.8 MEQ/L 31.2 MEQ/L Anion Gap 7 MEQ/L 7 MEQ/L Blood Urea Nitrogen 17 MG/DL 23 MG/DL Creatinine 0.61 MG/DL 0.66 MG/DL Estimat Glomerular Filtration 139 ML/MIN 127 ML/MIN Rate Random Glucose 114 MG/DL 168 MG/DL Calcium Level 8.3 MG/DL 7.8 MG/DL Phosphorus Level 2.7 MG/DL Magnesium Level 2.3 MG/DL Microbiology Date/Time Procedure Status Source Growth 02/19/17 09:30 Gram Stain - Final Resulted Fluid Other 02/19/17 09:30 Body Fluid Culture - Preliminary Resulted Fluid Other NO GROWTH IN 24 HOURS. 02/19/17 09:30 Acid Fast Stain - Final Resulted Fluid Other NO ACID FAST BACILLI SEEN 02/19/17 09:30 Mycobacterial Culture Resulted Fluid Other Pending 02/19/17 09:30 Fungal Smear - Final Resulted Fluid Other NO FUNGAL ELEMENTS SEEN. 02/19/17 09:30 Fungal Culture Resulted Fluid Other Pending 02/19/17 09:30 Gram Stain - Final Resulted Wound Other 02/19/17 09:30 Wound Culture - Preliminary Resulted Wound Other NO GROWTH IN 24 HOURS. 02/19/17 09:30 Acid Fast Stain - Final Resulted Wound Other NO ACID FAST BACILLI SEEN 02/19/17 09:30 Mycobacterial Culture Resulted Wound Other Pending 02/19/17 09:30 Fungal Smear - Final Resulted Wound Other NO FUNGAL ELEMENTS SEEN. 02/19/17 09:30 Fungal Culture Resulted Wound Other Pending 02/19/17 09:30 Gram Stain - Final Resulted Wound Other 02/19/17 09:30 Wound Culture - Preliminary Resulted Wound Other NO GROWTH IN 24 HOURS. 02/19/17 09:30 Acid Fast Stain - Final Resulted Wound Other NO ACID FAST BACILLI SEEN 02/19/17 09:30 Mycobacterial Culture Resulted Wound Other Pending 02/19/17 09:30 Fungal Smear - Final Resulted Wound Other NO FUNGAL ELEMENTS SEEN. 02/19/17 09:30 Fungal Culture Resulted Wound Other Pending Imaging Last Impressions Chest X-Ray 02/13/17 0000 Signed Impressions: Service Date/Time: Monday, February 13, 2017 07:41 - CONCLUSION: 1. Stable appearance of the chest with predominantly peripheral consolidation in the right hemithorax which appears most characteristic of an empyema on the prior CT. 2. Stable position of life support tubes including a right-sided thoracostomy tube as detailed above. 3. Left lung remains clear. Jorge Boyer MD Chest CT 02/11/17 0000 Signed Impressions: Service Date/Time: Saturday, February 11, 2017 11:40 - CONCLUSION: 1. Prominent multiloculated pleural effusion on the right containing multiple foci of gas. Difficult diagnosis includes bronchopleural fistula, infection with gas producing organisms, and iatrogenic if recent procedure has been performed. 2. Patchy right lung consolidation. Cipriano Moore MD Physical Exam GENERAL: This is a well-nourished, well-developed patient, in no apparent distress. SKIN: No rashes, ecchymoses or lesions. Cool and dry. HEAD: Atraumatic. Normocephalic. No temporal or scalp tenderness. EYES: Pupils equal round and reactive. Extraocular motions intact. No scleral icterus. No injection or drainage. ENT: Intubated. NECK: Trachea midline. Supple, nontender, no meningeal signs. CARDIOVASCULAR: RRR. No murmur appreciated. RESPIRATORY: AE decreased right side. CT. GASTROINTESTINAL: Abdomen soft, non-tender, nondistended. MUSCULOSKELETAL: Extremities without clubbing, cyanosis, or edema. NEUROLOGICAL: Sedated. Psych: could not be assessed. IV line sites with no e/o infection. 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 Empyema: likely secondary to aspiration pneumonia secondary to alcoholism. ? GI pathology as cause for aspiration PNA. Acute resp failure: empyema, sepsis. Acute metabolic encephalopathy: sepsis related, metabolic. Hypoalbuminemia: nutritional, alcoholism, r/o chronic infections like HIV, hepatitis. Acute transaminitis: ? medication induced (Vanco IV or Zosyn IV or Amiodarone) Recs: Continue Zosyn IV (aspiration PNA, if no PSAE will deescalate after reviewing intraop cultures) Yeast in Bronchoscopy expected but does not need treatment but if patient grows yeast in empyema intraop cultures will treat. Persistent fevers and WBC are likely because source control could not be achieved earlier. Hopefully will down trend post op. Negative 2D ECHO. d.w and RN. Neela Saxena MD February 20, 2017 15:17
[2017-02-20 16:21] LABS: TRANSFERRIN IRON PROFILE 142 MG/DL (200-360)
[2017-02-20 16:24] LABS: FERRITIN 1612 NG/ML (26-388)
--- NOTE | 2017-02-20 17:38 | HHI.PR ---
Subjective Remarks Remains on vent support.and now on CPAP , FIO2 at 45 %.On IV antibiotics . Chest tube draining little. Decortication done and CXR is improving. Objective Vital Signs Date Time Temp Pulse Resp B/P Pulse Ox O2 Delivery O2 Flow Rate FiO2 02/20/17 16:00 102 02/20/17 15:58 92 Venturi Mask 50 02/20/17 14:38 95 Partial Non-Rebreather 15.00 02/20/17 14:20 92 Partial Rebreather 13 02/20/17 14:00 102 02/20/17 12:30 55 02/20/17 12:25 97 40 02/20/17 12:00 98.9 70 18 108/49 96 02/20/17 12:00 55 02/20/17 12:00 70 02/20/17 10:00 68 02/20/17 08:26 96 40 02/20/17 08:00 97.6 79 18 134/58 98 02/20/17 08:00 55 02/20/17 08:00 79 02/20/17 06:00 60 02/20/17 04:15 99 50 02/20/17 04:00 56 02/20/17 04:00 55 02/20/17 04:00 98.2 56 18 99 129/52 02/20/17 02:00 56 02/20/17 01:13 98 50 02/20/17 00:00 55 02/20/17 00:00 55 02/20/17 00:00 98.7 55 18 97 117/50 02/19/17 22:17 99 50 02/19/17 22:00 55 02/19/17 20:00 98.2 60 18 100 131/59 02/19/17 20:00 60 02/19/17 20:00 55 02/19/17 19:23 99 50 02/19/17 18:00 57 I/O 02/19/17 02/19/17 02/19/17 02/20/17 02/20/17 02/20/17 07:00 15:00 23:00 07:00 15:00 23:00 Intake Total 667 ml 685 ml 829 ml 776 ml 1317 ml Output Total 440 ml 1200 ml 715 ml 525 ml 860 ml Balance 227 ml -515 ml 114 ml 251 ml 457 ml IV Total 590 ml 685 ml 829 ml 776 ml 922 ml Tube Feeding 77 ml 0 ml 0 ml 195 ml Other 200 ml Output Urine Total 400 ml 1200 ml 600 ml 450 ml 800 ml Chest Tube Drainage Total 40 ml 115 ml 75 ml 60 ml # Bowel Movements 1 0 1 2 0 Result Diagram: 02/20/1741402/20/17414 Objective Remarks GENERAL:Intubated and awake HEENT: Head normocephalic. Pupils reactive. Nasal mucosae clear. NEC: Supple. No bruits or thyroid enlargement or lymphadenopathy. CHEST: Equal movements with Occasional basal crackles. Decreased breath sounds at bases. HEART: Heart sounds are regular, S1-S2. No murmur. No S3. ABDOMEN: Abdomen is soft, protuberant with tenderness in the upper abdomen. Bowel sounds are active. No organomegaly. EXTREMITIES: No lesions. No edema. NEURO: Sedated. SKIN: No lesions. Assessment and Plan Assessment and Plan IMPRESSION 1. Right lung Pneumonia with empyema. 2. Respiratory failure 3. Probable underlying COPD. Plan : 1. Antibiotic coverage as ordered. 2. Nebs qid , duoneb. 3. Wean to CPAP and extubate. 4. Reduce sedation 5. Chest tube to Drainage. 6. CBC,BMP, CXR in am. 7. Tube feeds at 60 CC 8. PT evaluation Diana Sabillon MD February 20, 2017 17:38
[2017-02-20] MEDS: METOPROLOL TARTRATE 5 MG/5 ML VIAL IV PUSH SCH ×2 (18:37→23:52)
[2017-02-20] MEDS: MORPHINE SULFATE 4 MG/ML INJ IV PUSH PRN ×2 (19:47→23:52)
--- NOTE | 2017-02-20 22:10 | RADRPT ---
EXAM DATE/TIME: 02/20/2017 17:49 [facility] COMPARISON: No previous studies available for comparison. INDICATIONS : Abnormal labs. MEDICAL HISTORY : Head trauma. Dyspnea. A.FIB. Respiratory failure. Sepsis. GERD. Ventilated. Right pleural effusion. SURGICAL HISTORY : EGD. Chest tube. Right thoractomy. ENCOUNTER: Initial ACUITY: 1 day PAIN SCORE: 3/10 LOCATION: Bilateral upper quadrant MEASUREMENTS: LIVER: 17.9 cm length COMMON DUCT: 6 mm RIGHT KIDNEY: 12.2 x 6.1 x 4.8 cm SPLEEN: 9.5 cm length FINDINGS: LIVER: Normal echotexture without focal lesion or ductal dilatation. COMMON DUCT: No intraluminal mass or stone visualized. GALLBLADDER: Contains no stones, demonstrates no wall thickening or pericholecystic fluid. PANCREAS: The visualized portions are within normal limits. RIGHT KIDNEY: No hydronephrosis, stone or mass. SPLEEN: No focal lesion. CONCLUSION: Normal examination. Keagan Martins MD on February 20, 2017 at 22:07 Board Certified Radiologist. This report was verified electronically.
[2017-02-21] VITALS (18 sets, daily range): BP systolic 104–136; BP diastolic 50–57; PULSE 75–104; RESP 19–36; TEMP 98.1–98.8; O2SAT 90–98
[2017-02-21] MEDS: PIPERACIL-TAZO 4.5 GM PREMIX 100 ML IV SCH ×4 (02:19→20:29)
[2017-02-21] MEDS: METOCLOPRAMIDE HCL SYRUP 10 MG/10 ML UDC PO SCH ×4 (04:00→22:00)
--- NOTE | 2017-02-21 04:08 | RADRPT ---
EXAM DATE/TIME: 02/21/2017 03:02 [facility] COMPARISON: CHEST SINGLE AP, February 20, 2017, 4:57. INDICATIONS : Shortness of breath. MEDICAL HISTORY : None. SURGICAL HISTORY : Thoracotomy. ENCOUNTER: Subsequent ACUITY: 1 week PAIN SCORE: Non-responsive. LOCATION: Bilateral chest FINDINGS: A single portable frontal view the chest shows 2 thoracostomy tubes on the right without pneumothorax . Diffuse bilateral pulmonary infiltrates are unchanged. Heart remains mildly enlarged. Small left pl eural effusion suspected. Apical density on the right either relates to loculated effusion or pleural thickening. This is stable. CONCLUSION: Unchanged exam with diffuse bilateral pulmonary infiltrates. Khanh Dover Jr., MD on February 21, 2017 at 4:06 Board Certified Radiologist. This report was verified electronically.
[2017-02-21] MEDS: RESP: ALBUTEROL 2.5 MG/IPRATROPIUM 0.5 MG NEB (SCH) NEB ×5 (04:25→20:14)
[2017-02-21 04:49] LABS: AUTOMATED NEUTROPHIL # 14.8 TH/MM3 (1.8-7.7); BASOPHIL # 0.1 TH/MM3 (0-0.2); BASOPHIL % 0.4 % (0.0-2.0); HEMATOCRIT 22.6 % (39.0-51.0); HEMO FLAGS DIFF FINAL; LYMPH % 15.8 % (9.0-44.0); LYMPHOCYTE # 3.1 TH/MM3 (1.0-4.8); MEAN CELL VOLUME 92.2 FL (80.0-100.0); MEAN CORPUSCULAR HGB CONC 33.6 % (32.0-36.0); MONO % 8.7 % (0.0-8.0); NEUT % 75.1 % (16.0-70.0); PLATELET COUNT 713 TH/MM3 (150-450); RED BLOOD COUNT 2.45 MIL/MM3 (4.50-5.90); RED CELL DISTRIBUTION WIDTH 13.3 % (11.6-17.2); WHITE BLOOD COUNT 19.7 TH/MM3 (4.0-11.0)
[2017-02-21 05:16] LABS: INDIRECT BILIRUBIN 0.4 MG/DL (0.0-0.8); TOTAL BILIRUBIN ADULT 1.3 MG/DL (0.2-1.0)
[2017-02-21] MEDS: METOPROLOL TARTRATE 5 MG/5 ML VIAL IV PUSH SCH ×3 (06:34→18:20)
[2017-02-21] MEDS: CHLORHEXIDINE 0.12% (ORAL KIT) 15 ML CUP MT SCH ×2 (08:00→20:30)
[2017-02-21] MEDS: AMIODARONE 200 MG TAB PO SCH ×3 (08:21→21:00)
[2017-02-21] MEDS: SODIUM CHLORIDE 0.9% FLUSH 10 ML FLUSH IV FLUSH SCH ×2 (08:22→20:30)
[2017-02-21] MEDS: FUROSEMIDE 40 MG/4 ML VIAL IV PUSH SCH ×2 (08:25→20:29)
[2017-02-21] MEDS: DOCUSATE SODIUM 100 MG CAP PO SCH ×2 (09:00→20:29)
[2017-02-21] MEDS: LACTULOSE SYRUP 20 GM/30 ML CUP PO SCH ×2 (09:00→20:30)
[2017-02-21] MEDS: BENEPROTEIN POWDER 1 PACK G-TUBE SCH ×3 (09:00→18:00)
--- NOTE | 2017-02-21 11:08 | HHI.CCPN ---
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 He was moved by Dr. Valentin to the [facility] for worsening SOB, general decline. I reviewed Dr. Sabillon's consultation from earlier today and clearly this man has deteriorated since that time. His work of breathing has increased considerably and is not sustainable at this point. Further, he appears quite septic with flushed, clammy skin and sustained tachycardia. His pleuritic pain is so severe that he is incapable of breathing deeply and I sense he is getting confused. I spoke with the patient and his was informed. I felt intubation and ventilation was indicated by about midnight tonight, and drainage of the effusion was indicated to cement our diagnosis and guide therapy. A right chest tube placed above the diaphragm drained 1,100 mls of foul smelling, putrid, yellow material; sent for culture. Pleural fluid studies were also sent. As Dr. Sabillon predicted this is clearly an empyema. 02/13: Oxygenation improved. Cultures pending. Ventilator dependent. Suspect he' ll benefit from diagnostic bronch and decortication. Tentatively planned for tomorrow. 02/14: Organism identified, coverage should be adequate. Agree with formal decortication. 02/15: Decortication cancelled after severe bronchospasm in OR. Requiring 80% FiO2 this morning. 02/16: Large amount of recurrent right effusion with lung volume loss. Will need second chest tube or decortication. In view of recent problems I may try to place a second tube. 02/17: Second chest tube placed in loculation upper thorax right side. Purulent material drained but CXR reveals a thick residual empyema rim. He will definitely need a formal decortication. We can pretreat him with steroids and bronchodilators, hopefully preventing bronchospasm for procedure. 02/18: Plan for decort in a.m. CXR today demonstrates large rind which will benefit from decortication. Will pretreat with solumedrol. 02/19: s/p decortication today by Dr. Anderson. Heavily sedated from residual anesthesia. New two R chest tubes in place 02/20: Tolerating vent weaning well. Awake alert and follows commands. WBC 17.6. CXR stable on my review. R chest tube 190 ml in 24 hours 02/21: Extubated yesterday and tolerating well. Was on BiPAP overnight-wean to Ventimask. Chest x-ray shows bilateral interstitial infiltrates. Will increase Lasix to 40 every 12, 40 mg additional dose. Objective Vital Signs Date Time Temp Pulse Resp B/P Pulse Ox O2 Delivery O2 Flow Rate FiO2 02/21/17 10:00 95 02/21/17 09:45 Nasal Cannula 5.00 02/21/17 09:13 93 35 02/21/17 08:00 98.7 30 136/56 Intake and Output 02/20/17 02/20/17 02/20/17 07:59 15:59 23:59 Intake Total 776 ml 1317 ml 114 ml Output Total 525 ml 860 ml 600 ml Balance 251 ml 457 ml -486 ml Result Diagram: 02/21/17 0403 02/20/17 0415 Objective Remarks Gen: Alert awake oriented currently on BiPAP Head: Normal. Neck: Supple, orally intubated. Lungs: Diminished breath sounds right side, present left. Scattered rhonchi persist. R chest tubes x2 360 ml in 24 hours Heart: NL S1S2. No JVD, reg rhythm. Abdomen: Soft, no guarding. BS present. Extremities: Warm, well perfused. Trace edema. Neuro: Awake alert, following commands A/P Assessment and Plan Assessment: 1. Right pneumonia and parapneumonic effusion. 2. Right empyema, bacterial, mixed organisms s/p decortication 02/19 3. Hypoxemic respiratory failure. 4. Severe sepsis. 5. Bronchospasm. Plan: -Extubated 02/20/17 tolerating well -DuoNeb every 4 hours. Start EzPAP, Acapella every 4 hours -IS q 1 hour while awake -Pulmonary Dr. Sabillon. -s/p Decortication 02/[address] Anderson -ID following Dr. Saxena -Continue PIP/SILVIO -Pl fluid culture strep milligrams, mixed anaerobes, GNR, Fusobacterium -Gi consulted for chronic aspiration work up, severe GERD per history. EGD once stable resp pabon -Protonix. -Chemical DVT Px. Overall impression: Patient remains critically ill with sepsis from right pneumonia and empyema, slowly improving clinically. Continue steroids and bronchodilators, and ABX. D/W Dr. Sabillon and Dr. Saxena Critical care 30 mins aside from procedures. Nicho Boogie MD February 21, 2017 11:08
[2017-02-21] MEDS ORDERED: FUROSEMIDE 40 MG/4 ML VIAL IV PUSH ONE (11:15)
--- NOTE | 2017-02-21 13:57 | HHI.GIFU ---
Subjective Remarks Up in chair. Denies any heartburn, reflux, odynophagia, dyspepsia, nausea, vomiting, or abdominal pain. EGD on hold until later in week because of respiratory status. (Monie Orozco) Objective Vitals I&O Vital Signs Date Time Temp Pulse Resp B/P Pulse Ox O2 Delivery O2 Flow Rate FiO2 02/21/17 12:00 94 02/21/17 12:00 98.6 94 19 104/55 95 Arterial Line 02/21/17 10:00 95 02/21/17 09:45 Nasal Cannula 5.00 02/21/17 09:13 93 35 02/21/17 08:00 98.7 93 30 136/56 93 02/21/17 08:00 90 02/21/17 07:00 98 Bi-Pap 50 02/21/17 06:00 89 02/21/17 04:25 98 50 02/21/17 04:00 88 02/21/17 04:00 98.2 88 32 120/50 97 02/21/17 02:00 90 02/21/17 01:28 94 50 02/21/17 00:00 98.3 96 28 129/55 97 02/21/17 00:00 96 02/20/17 23:23 95 50 02/20/17 22:00 93 02/20/17 20:00 93 02/20/17 20:00 98.2 93 25 144/62 92 02/20/17 19:55 95 50 02/20/17 19:55 95 BiPAP 50 02/20/17 19:00 95 Bi-Pap 50 02/20/17 16:00 102 02/20/17 16:00 98.9 83 19 137/64 92 02/20/17 15:58 92 Venturi Mask 50 02/20/17 14:38 95 Partial Non-Rebreather 15.00 02/20/17 14:20 92 Partial Rebreather 13 02/20/17 14:00 102 I/O 02/20/17 02/20/17 02/20/17 02/21/17 02/21/17 02/21/17 07:00 15:00 23:00 07:00 15:00 23:00 Intake Total 776 ml 1317 ml 114 ml 143 ml Output Total 525 ml 860 ml 600 ml 600 ml Balance 251 ml 457 ml -486 ml -457 ml IV Total 776 ml 922 ml 114 ml 143 ml Tube Feeding 195 ml Other 200 ml Output Urine Total 450 ml 800 ml 450 ml 450 ml Chest Tube Drainage Total 75 ml 60 ml 150 ml 150 ml # Bowel Movements 2 0 0 2 Laboratory Laboratory Tests Test 02/20/17 02/21/17 15:30 04:03 Iron Level 59 Total Iron Binding Capacity 199 Percent Iron Saturation 29.7 Ferritin 1612 Tumor Marker Alpha Fetoprotein 2.8 Anti-Smooth Muscle Antibody Negative White Blood Count 19.7 Red Blood Count 2.45 Hemoglobin 7.6 Hematocrit 22.6 Mean Corpuscular Volume 92.2 Mean Corpuscular Hemoglobin 31.0 Mean Corpuscular Hemoglobin 33.6 Concent Red Cell Distribution Width 13.3 Platelet Count 713 Mean Platelet Volume 8.4 Neutrophils (%) (Auto) 75.1 Lymphocytes (%) (Auto) 15.8 Monocytes (%) (Auto) 8.7 Eosinophils (%) (Auto) 0.0 Basophils (%) (Auto) 0.4 Neutrophils # (Auto) 14.8 Lymphocytes # (Auto) 3.1 Monocytes # (Auto) 1.7 Eosinophils # (Auto) 0.0 Basophils # (Auto) 0.1 CBC Comment DIFF FINAL Differential Comment Total Bilirubin 1.3 Direct Bilirubin 0.9 Indirect Bilirubin 0.4 Aspartate Amino Transf 51 (AST/SGOT) Alanine Aminotransferase 48 (ALT/SGPT) Alkaline Phosphatase 209 Total Protein 5.4 Albumin 1.3 Date/Time Procedure Status Source Growth 02/19/17 09:30 Gram Stain - Final Resulted Wound Other 02/19/17 09:30 Wound Culture - Preliminary Resulted Wound Other NO GROWTH IN 48 HOURS. 02/19/17 09:30 Fungal Smear - Final Resulted Wound Other NO FUNGAL ELEMENTS SEEN. 02/19/17 09:30 Fungal Culture Resulted Wound Other Pending 02/19/17 09:30 Acid Fast Stain - Final Resulted Wound Other NO ACID FAST BACILLI SEEN 02/19/17 09:30 Mycobacterial Culture Resulted Wound Other Pending 02/16/17 16:30 Cancelled Abscess Chest Imaging Last Impressions Chest X-Ray 02/21/17 0500 Signed Impressions: Service Date/Time: Tuesday, February 21, 2017 03:02 - CONCLUSION: Unchanged exam with diffuse bilateral pulmonary infiltrates. Khanh Dover Jr., MD Liver Ultrasound 02/20/17 0000 Signed Impressions: Service Date/Time: Monday, February 20, 2017 17:49 - CONCLUSION: Normal examination. Keagan Martins MD Chest CT 02/16/17 0000 Signed Impressions: Service Date/Time: Thursday, February 16, 2017 11:15 - CONCLUSION: 1. Chest tube at the right lung base has drained the empyematous appearing fluid within the right lung base. There is however an area of loculated effusion seen in the right upper chest. 2. Interval development of a small area of atelectasis and a small effusion at the left base with patchy areas of infiltrate now seen on the left. 3. ET tube, central line and gastric tube all appear in satisfactory position. Jacky Hawthorne MD Physical Exam HEENT: Normocephalic; atraumatic CHEST: Getting aerosol tx. Course breath sounds. CT right, right sided chest drsg d/i CARDIAC: RRR ABDOMEN: Soft, mildly bloated, no hepatosplenomegaly; bowel sounds are present in all four quadrants. EXTREMITIES: Generalized edema. CEMENT BREAKER: Sedated on vent. (Monie Orozco) Assessment and Plan Plan ASSESSMENT - PNA with parapneumonic effusion and right empyema. Significant other reports that patient has been having significant GERD symptoms, taking TUMS frequently and there is some question if there is any aspiration/GI component and therefore GI was consulted for further evaluation with EGD. Pt went for right posterolateral muscle sparing thoracotomy, decortication, intercostal nerve block (02/19/17). Plan was for EGD today, but postponed until later in week when his respiratory condition improves. Will tentatively for Sunday. Of note, the patient denies any heartburn, reflux, odynophagia, nausea , vomiting, abdominal pain. Speech therapy in, no signs of aspiration, recommends mechanical soft diet with thin liquids. Abx per primary. - Elevated LFTs. Liver Ultrasound (02/20/17)----> Normal examination. Hepatitis panel negative, TACO pending, AMA pending, ASMA negative. AFP 2.8, Alpha 1 Antitrypsin pending, ceruloplasmin pending. Iron saturation 29.7, Ferritin 1612. Pt denies any etoh use. Possibly related to infections/medications. LFTs improving at this point T. Bili 1.3, Direct 0.9, Indirect 0.4, AST 51, ALT 48, Alk Phosph 209. - Acute respiratory failure, Severe bronchospasm, S/P extubation Per [facility] - Leukocytosis, sepsis. WBC 19.7. Zosyn. - Anemia. 7.6/22.6. PLAN - Will plan for egd later in week, possibly Sunday - Speech evaluation- recommends no signs of aspiration . Okay with for mechanical soft - Await TACO, ASMA, AMA, Ceruloplasmin, Alpha 1 Antitrypsin - Cont. Abx - Cont. PPI - Supportive care - Pt seen and examined by Dr. Garcia and myself and this note is written on her behalf (Monie Orozco) Physician Comments agree with above (Florina Garcia MD) Monie Orozco February 21, 2017 13:57 Florina Garcia MD February 21, 2017 19:39
--- NOTE | 2017-02-21 14:35 | PD.CAR.PN ---
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 He was moved by Dr. Valentin to the [facility] for worsening SOB, general decline. Pt deteriorated , and became tachycardic confused , , he was then intubated and placed on mechanical ventilation, a # 28 ethiopian chest tube was on the right chest and 1100cc/ foul smelling yellow fluid was drained pleural fluid cultures are pending, BC neg to date, on gram positive and gram neg coverage , tentatively scheduled for Right VATS, possible thoracotomy , decortication in am, await consent from the 02/18 Clinically stable Remains intubated and mechanically ventilated Will reattempt right thoracotomy with decortication tomorrow Continue antibiotics 02/19 PROCEDURES 1. Right Posterolateral Muscle Sparing Thoracotomy 2. Decortication 3. Intercostal Nerve Block 02/21 Doing well Extubated Maintain CT to drainage for now Objective: Vital Signs Date Time Temp Pulse Resp B/P Pulse Ox O2 Delivery O2 Flow Rate FiO2 02/21/17 12:00 94 02/21/17 12:00 98.6 94 19 104/55 95 Arterial Line 02/21/17 10:00 95 02/21/17 09:45 Nasal Cannula 5.00 02/21/17 09:13 93 35 02/21/17 08:00 98.7 93 30 136/56 93 02/21/17 08:00 90 02/21/17 07:00 98 Bi-Pap 50 02/21/17 06:00 89 02/21/17 04:25 98 50 02/21/17 04:00 88 02/21/17 04:00 98.2 88 32 120/50 97 02/21/17 02:00 90 02/21/17 01:28 94 50 02/21/17 00:00 98.3 96 28 129/55 97 02/21/17 00:00 96 02/20/17 23:23 95 50 02/20/17 22:00 93 02/20/17 20:00 93 02/20/17 20:00 98.2 93 25 144/62 92 02/20/17 19:55 95 50 02/20/17 19:55 95 BiPAP 50 02/20/17 19:00 95 Bi-Pap 50 02/20/17 16:00 102 02/20/17 16:00 98.9 83 19 137/64 92 02/20/17 15:58 92 Venturi Mask 50 02/20/17 14:38 95 Partial Non-Rebreather 15.00 Labs: Laboratory Tests Test 02/21/17 04:03 White Blood Count 19.7 TH/MM3 (4.0-11.0) Red Blood Count 2.45 MIL/MM3 (4.50-5.90) Hemoglobin 7.6 GM/DL (13.0-17.0) Hematocrit 22.6 % (39.0-51.0) Mean Corpuscular Volume 92.2 FL (80.0-100.0) Mean Corpuscular Hemoglobin 31.0 PG (27.0-34.0) Mean Corpuscular Hemoglobin 33.6 % Concent (32.0-36.0) Red Cell Distribution Width 13.3 % (11.6-17.2) Platelet Count 713 TH/MM3 (150-450) Mean Platelet Volume 8.4 FL (7.0-11.0) Neutrophils (%) (Auto) 75.1 % (16.0-70.0) Lymphocytes (%) (Auto) 15.8 % (9.0-44.0) Monocytes (%) (Auto) 8.7 % (0.0-8.0) Eosinophils (%) (Auto) 0.0 % (0.0-4.0) Basophils (%) (Auto) 0.4 % (0.0-2.0) Neutrophils # (Auto) 14.8 TH/MM3 (1.8-7.7) Lymphocytes # (Auto) 3.1 TH/MM3 (1.0-4.8) Monocytes # (Auto) 1.7 TH/MM3 (0-0.9) Eosinophils # (Auto) 0.0 TH/MM3 (0-0.4) Basophils # (Auto) 0.1 TH/MM3 (0-0.2) CBC Comment DIFF FINAL Differential Comment Total Bilirubin 1.3 MG/DL (0.2-1.0) Direct Bilirubin 0.9 MG/DL (0.0-0.2) Indirect Bilirubin 0.4 MG/DL (0.0-0.8) Aspartate Amino Transf 51 U/L (15-37) (AST/SGOT) Alanine Aminotransferase 48 U/L (12-78) (ALT/SGPT) Alkaline Phosphatase 209 U/L (45-117) Total Protein 5.4 GM/DL (6.4-8.2) Albumin 1.3 GM/DL (3.4-5.0) Result Diagram: 02/21/17 0403 02/20/17 0415 (1) Pleural effusion associated with pulmonary infection Plan: eval for right VATS , possible thoracotomy , decortication in am (2) Pneumonia (3) Atrial fibrillation with rapid ventricular response (4) ventilator dependent respiratory failure (5) Sepsis Problem Qualifiers (1) Pneumonia: Qualified Code: J18.9 - Pneumonia of right lung due to infectious organism, unspecified part of lung Hafsa Anderson MD February 21, 2017 14:35
[2017-02-21] MEDS: PANTOPRAZOLE SODIUM 40 MG VIAL IV PUSH SCH (14:41)
--- NOTE | 2017-02-21 16:13 | HHI.IDPN ---
Subjective Subjective Remarks is a 51 y/o CM with PMHx of Alcoholism. 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 He presented with acute onset of SOB, intermittent fevers, leukocytosis, and large right sided effusion with air concerning for aspiration or anaerobic infection. He was moved by Dr. Valentin to the [facility] for worsening SOB and general decline from earlier in the day. Patient was intubated as he appeared encephalopathic and had increased work of breathing due to severe pleuritic chest pain. A right side chest tube was placed with drainage of 1100 ml of foul smelling, putrid yellow fluid. Dr.Dsouza morales is following patient and CTS eval is pending at time of my evaluation. ID following for evaluation and Mment of empyema. Overnight events reviewed. No fevers No rash No diarrhea Sitting in chair. UO ok. S/P Right Posterolateral Muscle Sparing Thoracotomy, Decortication, Intercostal Nerve Block seen by GI kourtney recdami. Antibiotics Zosyn IV Vanco IV Lines Line sites with no e.o infection. Past Medical History reviewed. Allergies: Coded Allergies: Latex (Verified Allergy, Mild, Rash, 02/19/17) Objective . Vital Signs Date Time Temp Pulse Resp B/P Pulse Ox O2 Delivery O2 Flow Rate FiO2 02/21/17 14:00 86 02/21/17 12:00 94 02/21/17 12:00 98.6 94 19 104/55 95 Arterial Line 02/21/17 10:00 95 02/21/17 09:45 Nasal Cannula 5.00 02/21/17 09:13 93 35 02/21/17 08:00 98.7 93 30 136/56 93 02/21/17 08:00 90 02/21/17 07:00 98 Bi-Pap 50 02/21/17 06:00 89 02/21/17 04:25 98 50 02/21/17 04:00 88 02/21/17 04:00 98.2 88 32 120/50 97 02/21/17 02:00 90 02/21/17 01:28 94 50 02/21/17 00:00 98.3 96 28 129/55 97 02/21/17 00:00 96 02/20/17 23:23 95 50 02/20/17 22:00 93 02/20/17 20:00 93 02/20/17 20:00 98.2 93 25 144/62 92 02/20/17 19:55 95 50 02/20/17 19:55 95 BiPAP 50 02/20/17 19:00 95 Bi-Pap 50 02/20/17 02/20/17 02/21/17 15:00 23:00 07:00 Intake Total 1317 ml 114 ml 143 ml Output Total 860 ml 600 ml 600 ml Balance 457 ml -486 ml -457 ml IV Total 922 ml 114 ml 143 ml Tube Feeding 195 ml Other 200 ml Output Urine Total 800 ml 450 ml 450 ml Chest Tube Drainage Total 60 ml 150 ml 150 ml # Bowel Movements 0 0 2 . Laboratory Tests Test 02/20/17 02/21/17 04:15 04:03 White Blood Count 17.6 TH/MM3 19.7 TH/MM3 Red Blood Count 2.58 MIL/MM3 2.45 MIL/MM3 Hemoglobin 7.9 GM/DL 7.6 GM/DL Hematocrit 23.7 % 22.6 % Mean Corpuscular Volume 91.9 FL 92.2 FL Mean Corpuscular Hemoglobin 30.6 PG 31.0 PG Mean Corpuscular Hemoglobin 33.3 % 33.6 % Concent Red Cell Distribution Width 13.6 % 13.3 % Platelet Count 650 TH/MM3 713 TH/MM3 Mean Platelet Volume 8.4 FL 8.4 FL Neutrophils (%) (Auto) 86.3 % 75.1 % Lymphocytes (%) (Auto) 8.4 % 15.8 % Monocytes (%) (Auto) 4.6 % 8.7 % Eosinophils (%) (Auto) 0.1 % 0.0 % Basophils (%) (Auto) 0.6 % 0.4 % Neutrophils # (Auto) 15.2 TH/MM3 14.8 TH/MM3 Lymphocytes # (Auto) 1.5 TH/MM3 3.1 TH/MM3 Monocytes # (Auto) 0.8 TH/MM3 1.7 TH/MM3 Eosinophils # (Auto) 0.0 TH/MM3 0.0 TH/MM3 Basophils # (Auto) 0.1 TH/MM3 0.1 TH/MM3 CBC Comment DIFF FINAL DIFF FINAL Differential Comment Laboratory Tests Test 02/20/17 02/20/17 02/21/17 04:15 15:30 04:03 Sodium Level 142 MEQ/L Potassium Level 4.1 MEQ/L Chloride Level 104 MEQ/L Carbon Dioxide Level 31.2 MEQ/L Anion Gap 7 MEQ/L Blood Urea Nitrogen 23 MG/DL Creatinine 0.66 MG/DL Estimat Glomerular Filtration 127 ML/MIN Rate Random Glucose 168 MG/DL Calcium Level 7.8 MG/DL Iron Level 59 MCG/DL Total Iron Binding Capacity 199 MCG/DL Percent Iron Saturation 29.7 % Ferritin 1612 NG/ML Tumor Marker Alpha Fetoprotein 2.8 NG/ML Total Bilirubin 1.3 MG/DL Direct Bilirubin 0.9 MG/DL Indirect Bilirubin 0.4 MG/DL Aspartate Amino Transf 51 U/L (AST/SGOT) Alanine Aminotransferase 48 U/L (ALT/SGPT) Alkaline Phosphatase 209 U/L Total Protein 5.4 GM/DL Albumin 1.3 GM/DL Microbiology Date/Time Procedure Status Source Growth 02/19/17 09:30 Gram Stain - Final Resulted Fluid Other 02/19/17 09:30 Body Fluid Culture - Preliminary Resulted Fluid Other NO GROWTH IN 48 HOURS. 02/19/17 09:30 Acid Fast Stain - Final Resulted Fluid Other NO ACID FAST BACILLI SEEN 02/19/17 09:30 Mycobacterial Culture Resulted Fluid Other Pending 02/19/17 09:30 Fungal Smear - Final Resulted Fluid Other NO FUNGAL ELEMENTS SEEN. 02/19/17 09:30 Fungal Culture Resulted Fluid Other Pending 02/19/17 09:30 Gram Stain - Final Resulted Wound Other 02/19/17 09:30 Wound Culture - Preliminary Resulted Wound Other NO GROWTH IN 48 HOURS. 02/19/17 09:30 Acid Fast Stain - Final Resulted Wound Other NO ACID FAST BACILLI SEEN 02/19/17 09:30 Mycobacterial Culture Resulted Wound Other Pending 02/19/17 09:30 Fungal Smear - Final Resulted Wound Other NO FUNGAL ELEMENTS SEEN. 02/19/17 09:30 Fungal Culture Resulted Wound Other Pending 02/19/17 09:30 Gram Stain - Final Resulted Wound Other 02/19/17 09:30 Wound Culture - Preliminary Resulted Wound Other NO GROWTH IN 48 HOURS. 02/19/17 09:30 Acid Fast Stain - Final Resulted Wound Other NO ACID FAST BACILLI SEEN 02/19/17 09:30 Mycobacterial Culture Resulted Wound Other Pending 02/19/17 09:30 Fungal Smear - Final Resulted Wound Other NO FUNGAL ELEMENTS SEEN. 02/19/17 09:30 Fungal Culture Resulted Wound Other Pending Imaging Last Impressions Chest X-Ray 02/13/17 0000 Signed Impressions: Service Date/Time: Monday, February 13, 2017 07:41 - CONCLUSION: 1. Stable appearance of the chest with predominantly peripheral consolidation in the right hemithorax which appears most characteristic of an empyema on the prior CT. 2. Stable position of life support tubes including a right-sided thoracostomy tube as detailed above. 3. Left lung remains clear. Jorge Boyer MD Chest CT 02/11/17 0000 Signed Impressions: Service Date/Time: Saturday, February 11, 2017 11:40 - CONCLUSION: 1. Prominent multiloculated pleural effusion on the right containing multiple foci of gas. Difficult diagnosis includes bronchopleural fistula, infection with gas producing organisms, and iatrogenic if recent procedure has been performed. 2. Patchy right lung consolidation. Cipriano Moore MD Physical Exam GENERAL: This is a well-nourished, well-developed patient, in no apparent distress. SKIN: No rashes, ecchymoses or lesions. Cool and dry. HEAD: Atraumatic. Normocephalic. No temporal or scalp tenderness. EYES: Pupils equal round and reactive. Extraocular motions intact. No scleral icterus. No injection or drainage. ENT: grossly normal. NECK: Trachea midline. Supple, nontender, no meningeal signs. CARDIOVASCULAR: RRR. No murmur appreciated. RESPIRATORY: AE decreased right side. CT. GASTROINTESTINAL: Abdomen soft, non-tender, nondistended. MUSCULOSKELETAL: Extremities without clubbing, cyanosis, or edema. NEUROLOGICAL: AAOx3 non focal. Psych: could not be assessed. IV line sites with no e/o infection. 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 Empyema: likely secondary to aspiration pneumonia secondary to alcoholism. ? GI pathology as cause for aspiration PNA. Acute resp failure: empyema, sepsis. Acute metabolic encephalopathy: sepsis related, metabolic. Hypoalbuminemia: nutritional, alcoholism, r/o chronic infections like HIV, hepatitis. Acute transaminitis: ? medication induced (Vanco IV or Zosyn IV or Amiodarone) Recs: Continue Zosyn IV (aspiration PNA, if no PSAE will deescalate after reviewing intraop cultures) Yeast in Bronchoscopy expected but does not need treatment but if patient grows yeast in empyema intraop cultures will treat. Persistent fevers and WBC are likely because source control could not be achieved earlier. Hopefully will down trend post op. Negative 2D ECHO. d.w and RN. Neela Saxena MD February 21, 2017 16:13
--- NOTE | 2017-02-21 20:16 | HHI.PR ---
Subjective Remarks Extubated and now on O2 5L. Was on Bipap last PM. CXR shows mild infiltrates. Good output Objective Vital Signs Date Time Temp Pulse Resp B/P Pulse Ox O2 Delivery O2 Flow Rate FiO2 02/21/17 19:00 93 Nasal Cannula 02/21/17 18:00 75 02/21/17 16:00 98.5 88 36 113/55 94 02/21/17 16:00 88 02/21/17 14:00 86 02/21/17 12:00 94 02/21/17 12:00 98.6 94 19 104/55 95 Arterial Line 02/21/17 10:00 95 02/21/17 09:45 Nasal Cannula 5.00 02/21/17 09:13 93 35 02/21/17 08:00 98.7 93 30 136/56 93 02/21/17 08:00 90 02/21/17 07:00 98 Bi-Pap 50 02/21/17 06:00 89 02/21/17 04:25 98 50 02/21/17 04:00 88 02/21/17 04:00 98.2 88 32 120/50 97 02/21/17 02:00 90 02/21/17 01:28 94 50 02/21/17 00:00 98.3 96 28 129/55 97 02/21/17 00:00 96 02/20/17 23:23 95 50 02/20/17 22:00 93 I/O 02/20/17 02/20/17 02/20/17 02/21/17 02/21/17 02/21/17 07:00 15:00 23:00 07:00 15:00 23:00 Intake Total 776 ml 1317 ml 114 ml 143 ml 166 ml Output Total 525 ml 860 ml 600 ml 600 ml 2000 ml Balance 251 ml 457 ml -486 ml -457 ml -1834 ml IV Total 776 ml 922 ml 114 ml 143 ml 166 ml Tube Feeding 195 ml 0 ml Other 200 ml 0 ml Output Urine Total 450 ml 800 ml 450 ml 450 ml 2000 ml Chest Tube Drainage Total 75 ml 60 ml 150 ml 150 ml # Bowel Movements 2 0 0 2 2 Result Diagram: 02/21/17 0403 02/20/17 0415 Objective Remarks GENERAL:Extubated and awake HEENT: Head normocephalic. Pupils reactive. Nasal mucosae clear. NEC: Supple. No bruits or thyroid enlargement or lymphadenopathy. CHEST: Equal movements with fine basal crackles. Decreased breath sounds at bases.Occ wheeze HEART: Heart sounds are regular, S1-S2. No murmur. No S3. ABDOMEN: Abdomen is soft, protuberant with tenderness in the upper abdomen. Bowel sounds are active. No organomegaly. EXTREMITIES: No lesions. No edema. NEURO: Alert and oriented. 1+ reflexes SKIN: No lesions. Assessment and Plan Assessment and Plan IMPRESSION 1. Right lung Pneumonia with empyema. 2. Respiratory failure 3. Probable underlying COPD. Plan : 1. Antibiotic coverage as ordered. 2. Nebs qid , duoneb. 3. Wean O2 to 3 L 4. IS at Bedside q2h 5. Chest tube to Drainage. 6. CBC,BMP, CXR in am. 7. PO Diet as tolerated 8. PT evaluation Diana Sabillon MD February 21, 2017 20:16
[2017-02-22] VITALS (15 sets, daily range): BP systolic 105–115; BP diastolic 57–65; PULSE 76–104; RESP 19–31; TEMP 98.1–98.8; O2SAT 90–99
[2017-02-22] MEDS: METOPROLOL TARTRATE 5 MG/5 ML VIAL IV PUSH SCH ×3 (00:52→11:21)
[2017-02-22] MEDS: RESP: ALBUTEROL 2.5 MG/IPRATROPIUM 0.5 MG NEB (SCH) NEB ×5 (01:05→22:52)
[2017-02-22] MEDS: PIPERACIL-TAZO 4.5 GM PREMIX 100 ML IV SCH ×4 (01:29→20:00)
[2017-02-22] MEDS: METOCLOPRAMIDE HCL SYRUP 10 MG/10 ML UDC PO SCH ×4 (04:00→21:15)
[2017-02-22] MEDS: MORPHINE SULFATE 4 MG/ML INJ IV PUSH PRN ×3 (04:41→21:18)
--- NOTE | 2017-02-22 06:09 | RADRPT ---
EXAM DATE/TIME: 02/22/2017 05:12 [place] COMPARISON: CHEST SINGLE AP, February 21, 2017, 3:02. INDICATIONS : Post thoracotomy. MEDICAL HISTORY : A-fib. SURGICAL HISTORY : Thoracotomy. ENCOUNTER: Subsequent ACUITY: 1 week PAIN SCORE: Non-responsive. LOCATION: Bilateral chest FINDINGS: A single portable frontal view of the chest shows 2 thoracostomy tubes on the right. No pneumothorax. Bilateral pulmonary infiltrates have shown some improvement. No discrete effusions. Mild cardiomegal y. CONCLUSION: Some improvement in the bilateral infiltrates. No pneumothorax. Khanh Dover Jr., MD on February 22, 2017 at 6:06 Board Certified Radiologist. This report was verified electronically.
[2017-02-22] MEDS: CHLORHEXIDINE 0.12% (ORAL KIT) 15 ML CUP MT SCH ×2 (08:00→20:00)
[2017-02-22] MEDS: BENEPROTEIN POWDER 1 PACK G-TUBE SCH ×3 (09:00→18:00)
[2017-02-22] MEDS: FUROSEMIDE 40 MG/4 ML VIAL IV PUSH SCH ×2 (11:21→21:16)
[2017-02-22] MEDS: DOCUSATE SODIUM 100 MG CAP PO SCH ×2 (11:21→21:15)
[2017-02-22] MEDS: AMIODARONE 200 MG TAB PO SCH (11:22)
[2017-02-22] MEDS: LACTULOSE SYRUP 20 GM/30 ML CUP PO SCH ×2 (11:22→21:15)
[2017-02-22] MEDS: SODIUM CHLORIDE 0.9% FLUSH 10 ML FLUSH IV FLUSH SCH ×2 (11:23→21:00)
--- NOTE | 2017-02-22 11:41 | PD.CAR.PN ---
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 He was moved by Dr. Valentin to the [facility] for worsening SOB, general decline. Pt deteriorated , and became tachycardic confused , , he was then intubated and placed on mechanical ventilation, a # 28 canadian chest tube was on the right chest and 1100cc/ foul smelling yellow fluid was drained pleural fluid cultures are pending, BC neg to date, on gram positive and gram neg coverage , tentatively scheduled for Right VATS, possible thoracotomy , decortication in am, await consent from the 02/18 Clinically stable Remains intubated and mechanically ventilated Will reattempt right thoracotomy with decortication tomorrow Continue antibiotics 02/19 PROCEDURES 1. Right Posterolateral Muscle Sparing Thoracotomy 2. Decortication 3. Intercostal Nerve Block 02/21 Doing well Extubated Maintain CT to drainage for now 02/22 D/C Posterior CT. Maintain anterior to drainage Outputs declining Objective: Vital Signs Date Time Temp Pulse Resp B/P Pulse Ox O2 Delivery O2 Flow Rate FiO2 02/22/17 08:52 96 Nasal Cannula 4.00 02/22/17 06:00 76 02/22/17 04:35 98 35 02/22/17 04:00 98.3 76 31 109/59 97 02/22/17 04:00 76 02/22/17 02:00 81 02/22/17 01:10 97 35 02/22/17 00:00 98.2 85 28 112/58 99 02/22/17 00:00 85 02/21/17 22:00 82 02/21/17 20:16 96 Nasal Cannula 5.00 02/21/17 20:00 81 02/21/17 20:00 98.8 81 29 113/56 93 02/21/17 19:00 93 Nasal Cannula 02/21/17 18:00 75 02/21/17 16:00 98.5 88 36 113/55 94 02/21/17 16:00 88 02/21/17 14:00 86 02/21/17 12:00 94 02/21/17 12:00 98.6 94 19 104/55 95 Arterial Line Result Diagram: 02/21/17 0403 02/20/17 0415 (1) Pleural effusion associated with pulmonary infection Plan: eval for right VATS , possible thoracotomy , decortication in am (2) Pneumonia (3) Atrial fibrillation with rapid ventricular response (4) ventilator dependent respiratory failure (5) Sepsis Problem Qualifiers (1) Pneumonia: Qualified Code: J18.9 - Pneumonia of right lung due to infectious organism, unspecified part of lung Hafsa Anderson MD February 22, 2017 11:41
--- NOTE | 2017-02-22 11:58 | HHI.PR ---
Subjective Remarks Up in a chair and now on O2 4 L. Taking a diet. Still weak and needs PT. Objective Vital Signs Date Time Temp Pulse Resp B/P Pulse Ox O2 Delivery O2 Flow Rate FiO2 02/22/17 08:52 96 Nasal Cannula 4.00 02/22/17 06:00 76 02/22/17 04:35 98 35 02/22/17 04:00 98.3 76 31 109/59 97 02/22/17 04:00 76 02/22/17 02:00 81 02/22/17 01:10 97 35 02/22/17 00:00 98.2 85 28 112/58 99 02/22/17 00:00 85 02/21/17 22:00 82 02/21/17 20:16 96 Nasal Cannula 5.00 02/21/17 20:00 81 02/21/17 20:00 98.8 81 29 113/56 93 02/21/17 19:00 93 Nasal Cannula 02/21/17 18:00 75 02/21/17 16:00 98.5 88 36 113/55 94 02/21/17 16:00 88 02/21/17 14:00 86 02/21/17 12:00 94 02/21/17 12:00 98.6 94 19 104/55 95 Arterial Line I/O 02/21/17 02/21/17 02/21/17 02/22/17 02/22/17 02/22/17 07:00 15:00 23:00 07:00 15:00 23:00 Intake Total 143 ml 166 ml 356 ml 362 ml Output Total 600 ml 2000 ml 1071 ml 1050 ml Balance -457 ml -1834 ml -715 ml -688 ml Intake Oral 120 ml 180 ml IV Total 143 ml 166 ml 236 ml 182 ml Tube Feeding 0 ml Other 0 ml Output Urine Total 450 ml 2000 ml 1050 ml 1000 ml Stool Total 1 ml Chest Tube Drainage Total 150 ml 20 ml 50 ml # Bowel Movements 2 2 Result Diagram: 02/21/17 0403 02/20/17 0415 Objective Remarks GENERAL:Intubated and awake HEENT: Head normocephalic. Pupils reactive. Nasal mucosae clear. NEC: Supple. No bruits or thyroid enlargement or lymphadenopathy. CHEST: Equal movements with fine basal crackles. Decreased breath sounds at bases.Occ right base crackles. HEART: Heart sounds are regular, S1-S2. No murmur. No S3. ABDOMEN: Abdomen is soft, protuberant with tenderness in the upper abdomen. Bowel sounds are active. No organomegaly. EXTREMITIES: No lesions. No edema. NEURO: alert moves limbs well. 1 + reflexes. SKIN: No lesions. Assessment and Plan Assessment and Plan IMPRESSION 1. Right lung Pneumonia with empyema. 2. Respiratory failure 3. Probable underlying COPD. 4. S/P decortication right chest Plan : 1. Antibiotic coverage as ordered. 2. Nebs qid , duoneb. 3. Wean O2 to 3 L 4. IS at Bedside q2h 5. Chest tube to Drainage. 6. CBC,BMP, in am. 7. PO Diet as tolerated 8. PT evaluation and transfer to Rehab. Diana Sabillon MD February 22, 2017 11:58
--- NOTE | 2017-02-22 12:20 | PD.TRANSFR ---
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 He was moved by Dr. Valentin to the [facility] for worsening SOB, general decline. I reviewed Dr. Sabillon's consultation from earlier today and clearly this man has deteriorated since that time. His work of breathing has increased considerably and is not sustainable at this point. Further, he appears quite septic with flushed, clammy skin and sustained tachycardia. His pleuritic pain is so severe that he is incapable of breathing deeply and I sense he is getting confused. I spoke with the patient and his was informed. I felt intubation and ventilation was indicated by about midnight tonight, and drainage of the effusion was indicated to cement our diagnosis and guide therapy. A right chest tube placed above the diaphragm drained 1,100 mls of foul smelling, putrid, yellow material; sent for culture. Pleural fluid studies were also sent. As Dr. Sabillon predicted this is clearly an empyema. 02/13: Oxygenation improved. Cultures pending. Ventilator dependent. Suspect he' ll benefit from diagnostic bronch and decortication. Tentatively planned for tomorrow. 02/14: Organism identified, coverage should be adequate. Agree with formal decortication. 02/15: Decortication cancelled after severe bronchospasm in OR. Requiring 80% FiO2 this morning. 02/16: Large amount of recurrent right effusion with lung volume loss. Will need second chest tube or decortication. In view of recent problems I may try to place a second tube. 02/17: Second chest tube placed in loculation upper thorax right side. Purulent material drained but CXR reveals a thick residual empyema rim. He will definitely need a formal decortication. We can pretreat him with steroids and bronchodilators, hopefully preventing bronchospasm for procedure. 02/18: Plan for decort in a.m. CXR today demonstrates large rind which will benefit from decortication. Will pretreat with solumedrol. 02/19: s/p decortication today by Dr. Anderson. Heavily sedated from residual anesthesia. New two R chest tubes in place 02/20: Tolerating vent weaning well. Awake alert and follows commands. WBC 17.6. CXR stable on my review. R chest tube 190 ml in 24 hours 02/21: Extubated yesterday and tolerating well. Was on BiPAP overnight-wean to Ventimask. Chest x-ray shows bilateral interstitial infiltrates. Will increase Lasix to 40 every 12, 40 mg additional dose. 02/22: On NC canula breathing comfortably. labs pending today. UO 4L with increased Lasix dose. CXR shows interval improvement. Objective Vital Signs Date Time Temp Pulse Resp B/P Pulse Ox O2 Delivery O2 Flow Rate FiO2 02/22/17 08:52 96 Nasal Cannula 4.00 02/22/17 06:00 76 02/22/17 04:35 35 02/22/17 04:00 98.3 31 109/59 Intake and Output 02/21/17 02/21/17 02/22/17 08:00 16:00 00:00 Intake Total 143 ml 166 ml 356 ml Output Total 600 ml 2000 ml 1071 ml Balance -457 ml -1834 ml -715 ml Result Diagram: 02/21/17 0403 02/20/17 0415 Objective Remarks Gen: Alert awake oriented currently on NC Head: Normal. Neck: Supple, orally intubated. Lungs: Diminished breath sounds right side, present left. Scattered rhonchi persist. R chest tubes x2 Heart: NL S1S2. No JVD, reg rhythm. Abdomen: Soft, no guarding. BS present. Extremities: Warm, well perfused. Trace edema. Neuro: Awake alert, following commands. No focal deficits A/P Assessment and Plan Assessment: 1. Right pneumonia and parapneumonic effusion. 2. Right empyema, bacterial, mixed organisms s/p decortication 02/19 3. Hypoxemic respiratory failure-extubate 4. Severe sepsis. 5. Bronchospasm. Plan: -Extubated 02/20/17 tolerating well -DuoNeb every 4 hours. EzPAP, Acapella every 4 hours -IS q 1 hour while awake -Pulmonary Dr. Sabillon. -s/p Decortication 02/[address] Anderson -ID following Dr. Saxena -Continue PIP/SILVIO -Pl fluid culture strep milligrams, mixed anaerobes, GNR, Fusobacterium -GI consulted for chronic aspiration work up, severe GERD per history. EGD once stable resp pabon -Protonix. -Chemical DVT Px. Patient remains in sepsis from right empyema, slowly improving clinically. Continue steroids and bronchodilators, and ABX. D/W Dr. Sabillon and Dr. Saxena. Transfer to . Consult hospitalist to assume care in Nicho Boogie MD February 22, 2017 12:20
[2017-02-22 14:04] LABS: AUTOMATED NEUTROPHIL # 10.7 TH/MM3 (1.8-7.7); BASOPHIL # 0.1 TH/MM3 (0-0.2); BASOPHIL % 0.7 % (0.0-2.0); EOSINOPHIL # 0.1 TH/MM3 (0-0.4); EOSINOPHIL % 0.5 % (0.0-4.0); LYMPH % 19.4 % (9.0-44.0); MEAN CELL VOLUME 91.6 FL (80.0-100.0); MEAN CORPUSCULAR HEMOGLOBIN 30.9 PG (27.0-34.0); MEAN CORPUSCULAR HGB CONC 33.7 % (32.0-36.0); MONO % 10.7 % (0.0-8.0); NEUT % 68.7 % (16.0-70.0); PLATELET COUNT 715 TH/MM3 (150-450); RED BLOOD COUNT 2.62 MIL/MM3 (4.50-5.90); RED CELL DISTRIBUTION WIDTH 13.2 % (11.6-17.2); WHITE BLOOD COUNT 15.5 TH/MM3 (4.0-11.0)
[2017-02-22 14:07] LABS: HEMO FLAGS AUTO DIFF
[2017-02-22 14:35] LABS: ALKALINE PHOSPHATASE 274 U/L (45-117); ALT (GPT) 112 U/L (12-78); ANION GAP 7 MEQ/L (5-15); AST (GOT) 95 U/L (15-37); BICARBONATE 31.9 MEQ/L (21.0-32.0); BLOOD UREA NITROGEN 19 MG/DL (7-18); CHLORIDE 101 MEQ/L (98-107); GLOMERULAR FILTRATION RATE 131 ML/MIN (>89); MAGNESIUM 2.5 MG/DL (1.5-2.5); SODIUM (NA) 140 MEQ/L (136-145); TOTAL BILIRUBIN ADULT 1.2 MG/DL (0.2-1.0)
[2017-02-22 14:37] LABS: BANDS 1 % (0-6); BASOPHILS 1 % (0-2); NEUTROPHIL # MANUAL DIFF 10.7 TH/MM3 (1.8-7.7); POLYS (SEG NEUTROPHILS) 68 % (16-70); WBC DIFF SAMPLE 100
[2017-02-22 14:38] LABS: PLATELET ESTIMATE SMEAR HIGH (NORMAL); PLATELET MORPHOLOGY NORMAL (NORMAL); POTASSIUM 2.8 MEQ/L (3.5-5.1); SCAN/DIFF FINAL DIFF MANUAL
--- NOTE | 2017-02-22 15:24 | HHI.IDPN ---
Subjective Subjective Remarks is a 51 y/o CM with PMHx of Alcoholism. 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 He presented with acute onset of SOB, intermittent fevers, leukocytosis, and large right sided effusion with air concerning for aspiration or anaerobic infection. He was moved by Dr. Valentin to the [facility] for worsening SOB and general decline from earlier in the day. Patient was intubated as he appeared encephalopathic and had increased work of breathing due to severe pleuritic chest pain. A right side chest tube was placed with drainage of 1100 ml of foul smelling, putrid yellow fluid. Dr.Dsouza morales is following patient and CTS eval is pending at time of my evaluation. ID following for evaluation and Mment of empyema. Overnight events reviewed. No fevers No rash No diarrhea Sitting in chair. UO ok. S/P Right Posterolateral Muscle Sparing Thoracotomy, Decortication, Intercostal Nerve Block seen by GI kourtney recdami. Antibiotics Zosyn IV Vanco IV Lines Line sites with no e.o infection. Past Medical History reviewed. Allergies: Coded Allergies: Latex (Verified Allergy, Mild, Rash, 02/19/17) Objective . Vital Signs Date Time Temp Pulse Resp B/P Pulse Ox O2 Delivery O2 Flow Rate FiO2 02/22/17 14:00 88 02/22/17 12:00 98.5 80 22 114/62 95 02/22/17 12:00 80 02/22/17 10:00 87 02/22/17 08:52 96 Nasal Cannula 4.00 02/22/17 08:00 104 02/22/17 08:00 98.1 104 24 115/57 90 02/22/17 07:00 90 Nasal Cannula 1.50 02/22/17 06:00 76 02/22/17 04:35 98 35 02/22/17 04:00 98.3 76 31 109/59 97 02/22/17 04:00 76 02/22/17 02:00 81 02/22/17 01:10 97 35 02/22/17 00:00 98.2 85 28 112/58 99 02/22/17 00:00 85 02/21/17 22:00 82 02/21/17 20:16 96 Nasal Cannula 5.00 02/21/17 20:00 81 02/21/17 20:00 98.8 81 29 113/56 93 02/21/17 19:00 93 Nasal Cannula 02/21/17 18:00 75 02/21/17 16:00 98.5 88 36 113/55 94 02/21/17 16:00 88 02/21/17 02/21/17 02/22/17 15:00 23:00 07:00 Intake Total 166 ml 356 ml 362 ml Output Total 2000 ml 1071 ml 1050 ml Balance -1834 ml -715 ml -688 ml Intake Oral 120 ml 180 ml IV Total 166 ml 236 ml 182 ml Tube Feeding 0 ml Other 0 ml Output Urine Total 2000 ml 1050 ml 1000 ml Stool Total 1 ml Chest Tube Drainage Total 20 ml 50 ml # Bowel Movements 2 . Laboratory Tests Test 02/21/17 02/22/17 04:03 13:53 White Blood Count 19.7 TH/MM3 15.5 TH/MM3 Red Blood Count 2.45 MIL/MM3 2.62 MIL/MM3 Hemoglobin 7.6 GM/DL 8.1 GM/DL Hematocrit 22.6 % 24.0 % Mean Corpuscular Volume 92.2 FL 91.6 FL Mean Corpuscular Hemoglobin 31.0 PG 30.9 PG Mean Corpuscular Hemoglobin 33.6 % 33.7 % Concent Red Cell Distribution Width 13.3 % 13.2 % Platelet Count 713 TH/MM3 715 TH/MM3 Mean Platelet Volume 8.4 FL 7.9 FL Neutrophils (%) (Auto) 75.1 % 68.7 % Lymphocytes (%) (Auto) 15.8 % 19.4 % Monocytes (%) (Auto) 8.7 % 10.7 % Eosinophils (%) (Auto) 0.0 % 0.5 % Basophils (%) (Auto) 0.4 % 0.7 % Neutrophils # (Auto) 14.8 TH/MM3 10.7 TH/MM3 Lymphocytes # (Auto) 3.1 TH/MM3 3.0 TH/MM3 Monocytes # (Auto) 1.7 TH/MM3 1.7 TH/MM3 Eosinophils # (Auto) 0.0 TH/MM3 0.1 TH/MM3 Basophils # (Auto) 0.1 TH/MM3 0.1 TH/MM3 CBC Comment DIFF FINAL AUTO DIFF Differential Comment FINAL DIFF MANUAL Differential Total Cells 100 Counted Neutrophils % (Manual) 68 % Band Neutrophils % 1 % Lymphocytes % 20 % Monocytes % 10 % Basophils % 1 % Neutrophils # (Manual) 10.7 TH/MM3 Platelet Estimate HIGH Platelet Morphology Comment NORMAL Laboratory Tests Test 02/20/17 02/21/17 02/22/17 15:30 04:03 13:53 Iron Level 59 MCG/DL Total Iron Binding Capacity 199 MCG/DL Percent Iron Saturation 29.7 % Ferritin 1612 NG/ML Tumor Marker Alpha Fetoprotein 2.8 NG/ML [id number] 422 mg/dL Total Bilirubin 1.3 MG/DL 1.2 MG/DL Direct Bilirubin 0.9 MG/DL Indirect Bilirubin 0.4 MG/DL Aspartate Amino Transf 51 U/L 95 U/L (AST/SGOT) Alanine Aminotransferase 48 U/L 112 U/L (ALT/SGPT) Alkaline Phosphatase 209 U/L 274 U/L Total Protein 5.4 GM/DL 5.8 GM/DL Albumin 1.3 GM/DL 1.6 GM/DL Sodium Level 140 MEQ/L Potassium Level 2.8 MEQ/L Chloride Level 101 MEQ/L Carbon Dioxide Level 31.9 MEQ/L Anion Gap 7 MEQ/L Blood Urea Nitrogen 19 MG/DL Creatinine 0.64 MG/DL Estimat Glomerular Filtration 131 ML/MIN Rate Random Glucose 139 MG/DL Calcium Level 8.1 MG/DL Magnesium Level 2.5 MG/DL Imaging Last Impressions Chest X-Ray 02/13/17 0000 Signed Impressions: Service Date/Time: Monday, February 13, 2017 07:41 - CONCLUSION: 1. Stable appearance of the chest with predominantly peripheral consolidation in the right hemithorax which appears most characteristic of an empyema on the prior CT. 2. Stable position of life support tubes including a right-sided thoracostomy tube as detailed above. 3. Left lung remains clear. Jorge Boyer MD Chest CT 02/11/17 0000 Signed Impressions: Service Date/Time: Saturday, February 11, 2017 11:40 - CONCLUSION: 1. Prominent multiloculated pleural effusion on the right containing multiple foci of gas. Difficult diagnosis includes bronchopleural fistula, infection with gas producing organisms, and iatrogenic if recent procedure has been performed. 2. Patchy right lung consolidation. Cipriano Moore MD Physical Exam GENERAL: This is a well-nourished, well-developed patient, in no apparent distress. SKIN: No rashes, ecchymoses or lesions. Cool and dry. HEAD: Atraumatic. Normocephalic. No temporal or scalp tenderness. EYES: Pupils equal round and reactive. Extraocular motions intact. No scleral icterus. No injection or drainage. ENT: grossly normal. NECK: Trachea midline. Supple, nontender, no meningeal signs. CARDIOVASCULAR: RRR. No murmur appreciated. RESPIRATORY: AE decreased right side. CT. GASTROINTESTINAL: Abdomen soft, non-tender, nondistended. MUSCULOSKELETAL: Extremities without clubbing, cyanosis, or edema. NEUROLOGICAL: AAOx3 non focal. Psych: could not be assessed. IV line sites with no e/o infection. 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 Empyema: likely secondary to aspiration pneumonia secondary to alcoholism. ? GI pathology as cause for aspiration PNA. Acute resp failure: empyema, sepsis. Acute metabolic encephalopathy: sepsis related, metabolic. Hypoalbuminemia: nutritional, alcoholism, r/o chronic infections like HIV, hepatitis. Acute transaminitis: ? medication induced (Vanco IV or Zosyn IV or Amiodarone) Recs: Continue Zosyn IV (aspiration PNA, if no PSAE will deescalate after reviewing intraop cultures) Yeast in Bronchoscopy expected but does not need treatment but if patient grows yeast in empyema intraop cultures will treat. Persistent fevers and WBC are likely because source control could not be achieved earlier. Hopefully will down trend post op. Negative 2D ECHO. d.w and RN. Neela Saxena MD February 22, 2017 15:24
--- NOTE | 2017-02-22 16:53 | HHI.GIFU ---
Subjective Remarks Tx to floor. Resting in bed, no distress. Denies reflux, heartburn, nausea, vomiting, abdominal pain. D/W patient further evaluation with EGD in OR tomorrow- procedure, risks, benefits explained. He would like to proceed. ( Monie Orozco) Objective Vitals I&O Vital Signs Date Time Temp Pulse Resp B/P Pulse Ox O2 Delivery O2 Flow Rate FiO2 02/22/17 14:00 88 02/22/17 12:00 98.5 80 22 114/62 95 02/22/17 12:00 80 02/22/17 10:00 87 02/22/17 08:52 96 Nasal Cannula 4.00 02/22/17 08:00 104 02/22/17 08:00 98.1 104 24 115/57 90 02/22/17 07:00 90 Nasal Cannula 1.50 02/22/17 06:00 76 02/22/17 04:35 98 35 02/22/17 04:00 98.3 76 31 109/59 97 02/22/17 04:00 76 02/22/17 02:00 81 02/22/17 01:10 97 35 02/22/17 00:00 98.2 85 28 112/58 99 02/22/17 00:00 85 02/21/17 22:00 82 02/21/17 20:16 96 Nasal Cannula 5.00 02/21/17 20:00 81 02/21/17 20:00 98.8 81 29 113/56 93 02/21/17 19:00 93 Nasal Cannula 02/21/17 18:00 75 I/O 02/21/17 02/21/17 02/21/17 02/22/17 02/22/17 02/22/17 07:00 15:00 23:00 07:00 15:00 23:00 Intake Total 143 ml 166 ml 356 ml 362 ml 354 ml Output Total 600 ml 2000 ml 1071 ml 1050 ml 1530 ml Balance -457 ml -1834 ml -715 ml -688 ml -1176 ml Intake Oral 120 ml 180 ml 200 ml IV Total 143 ml 166 ml 236 ml 182 ml 154 ml Tube Feeding 0 ml Other 0 ml Output Urine Total 450 ml 2000 ml 1050 ml 1000 ml 1500 ml Stool Total 1 ml Chest Tube Drainage Total 150 ml 20 ml 50 ml 30 ml # Bowel Movements 2 2 0 Laboratory Laboratory Tests Test 02/22/17 13:53 White Blood Count 15.5 Red Blood Count 2.62 Hemoglobin 8.1 Hematocrit 24.0 Mean Corpuscular Volume 91.6 Mean Corpuscular Hemoglobin 30.9 Mean Corpuscular Hemoglobin 33.7 Concent Red Cell Distribution Width 13.2 Platelet Count 715 Mean Platelet Volume 7.9 Neutrophils (%) (Auto) 68.7 Lymphocytes (%) (Auto) 19.4 Monocytes (%) (Auto) 10.7 Eosinophils (%) (Auto) 0.5 Basophils (%) (Auto) 0.7 Neutrophils # (Auto) 10.7 Lymphocytes # (Auto) 3.0 Monocytes # (Auto) 1.7 Eosinophils # (Auto) 0.1 Basophils # (Auto) 0.1 CBC Comment AUTO DIFF Differential Total Cells 100 Counted Neutrophils % (Manual) 68 Band Neutrophils % 1 Lymphocytes % 20 Monocytes % 10 Basophils % 1 Neutrophils # (Manual) 10.7 Differential Comment FINAL DIFF MANUAL Platelet Estimate HIGH Platelet Morphology Comment NORMAL Sodium Level 140 Potassium Level 2.8 Chloride Level 101 Carbon Dioxide Level 31.9 Anion Gap 7 Blood Urea Nitrogen 19 Creatinine 0.64 Estimat Glomerular Filtration 131 Rate Random Glucose 139 Calcium Level 8.1 Magnesium Level 2.5 Total Bilirubin 1.2 Aspartate Amino Transf 95 (AST/SGOT) Alanine Aminotransferase 112 (ALT/SGPT) Alkaline Phosphatase 274 Total Protein 5.8 Albumin 1.6 Date/Time Procedure Status Source Growth 02/19/17 09:30 Gram Stain - Final Complete Wound Other 02/19/17 09:30 Wound Culture - Final Complete Wound Other NO GROWTH IN 72 HRS.--AEROBICALLY OR ... 02/19/17 09:30 Fungal Smear - Final Resulted Wound Other NO FUNGAL ELEMENTS SEEN. 02/19/17 09:30 Fungal Culture Resulted Wound Other Pending 02/19/17 09:30 Acid Fast Stain - Final Resulted Wound Other NO ACID FAST BACILLI SEEN 02/19/17 09:30 Mycobacterial Culture Resulted Wound Other Pending Imaging Last Impressions Chest X-Ray 02/22/17 0500 Signed Impressions: Service Date/Time: February 05:12 - CONCLUSION: Some improvement in the bilateral infiltrates. No pneumothorax. Khanh Dover Jr., MD Liver Ultrasound 02/20/17 0000 Signed Impressions: Service Date/Time: Monday, February 20, 2017 17:49 - CONCLUSION: Normal examination. Keagan Martins MD Chest CT 02/16/17 0000 Signed Impressions: Service Date/Time: Thursday, February 16, 2017 11:15 - CONCLUSION: 1. Chest tube at the right lung base has drained the empyematous appearing fluid within the right lung base. There is however an area of loculated effusion seen in the right upper chest. 2. Interval development of a small area of atelectasis and a small effusion at the left base with patchy areas of infiltrate now seen on the left. 3. ET tube, central line and gastric tube all appear in satisfactory position. Jacky Hawthorne MD Physical Exam HEENT: Normocephalic; atraumatic CHEST: Resp. even/unlabored. Course breath sounds. CT right, right sided chest drsg d/i CARDIAC: RRR ABDOMEN: Soft, mildly bloated, no hepatosplenomegaly; bowel sounds are present in all four quadrants. EXTREMITIES: Generalized edema. OPERATIONS ADVISOR: lethargic, oriented x 3 (Monie Orozco) Assessment and Plan Plan ASSESSMENT - PNA with parapneumonic effusion and right empyema. Significant other reports that patient has been having significant GERD symptoms, taking TUMS frequently and there is some question if there is any aspiration/GI component and therefore GI was consulted for further evaluation with EGD. Pt went for right posterolateral muscle sparing thoracotomy, decortication, intercostal nerve block (02/19/17). Of note, the patient denies any heartburn, reflux, odynophagia, nausea, vomiting, abdominal pain. Speech therapy in, no signs of aspiration , recommends mechanical soft diet with thin liquids. Abx per primary. Will plan for EGD in OR tomorrow. - Elevated LFTs. Liver Ultrasound (02/20/17)----> Normal examination. Hepatitis panel negative, TACO negative, AMA pending, ASMA negative. AFP 2.8, Alpha 1 Antitrypsin 422, ceruloplasmin pending. Iron saturation 29.7, Ferritin 1612. Pt denies any etoh use. Possibly related to infections/medications. LFTs improving at this point T. Bili 1.2, AST 95, ALT 112, Alk Phosph 274. - Acute respiratory failure, Severe bronchospasm, S/P extubation. No on r/a. Improved, resp even/unlabored. - Leukocytosis, sepsis. WBC 15.5. Zosyn. - Anemia. 8.1/24.0. PLAN - Will plan for egd in OR tomorrow - Obtain consents - Mechanical soft and nontender - NPO after MN - Await AMA, Ceruloplasmin - Cont. Abx - Cont. PPI - Supportive care - Further recommendations to follow based on results of above - Pt seen and examined by Dr. Garcia and myself and this note is written on her behalf (Monie Orozco) Monie Orozco February 22, 2017 16:53 Florina Garcia MD February 22, 2017 18:57
[2017-02-22] MEDS ORDERED: POTASSIUM CHLORIDE 25 MEQ EFFERVESCENT TAB PO ONE ×2 (17:00)
[2017-02-22] MEDS: PANTOPRAZOLE SODIUM 40 MG VIAL IV PUSH SCH (17:42)
[2017-02-22] MEDS: METOPROLOL TARTRATE 25 MG TAB PO SCH (21:15)
[2017-02-23] VITALS (13 sets, daily range): BP systolic 96–115; BP diastolic 52–63; PULSE 63–82; RESP 18–20; TEMP 97.5–98.7; O2SAT 97–100
[2017-02-23] MEDS: PIPERACIL-TAZO 4.5 GM PREMIX 100 ML IV SCH ×2 (02:00→09:19)
[2017-02-23] MEDS: METOCLOPRAMIDE HCL SYRUP 10 MG/10 ML UDC PO SCH ×4 (04:00→20:36)
[2017-02-23] MEDS: METOPROLOL TARTRATE 25 MG TAB PO SCH ×3 (05:54→20:37)
[2017-02-23] MEDS: RESP: ALBUTEROL 2.5 MG/IPRATROPIUM 0.5 MG NEB (SCH) NEB ×4 (06:03→20:58)
[2017-02-23] MEDS: AMIODARONE 200 MG TAB PO SCH (09:19)
[2017-02-23] MEDS: FUROSEMIDE 40 MG/4 ML VIAL IV PUSH SCH ×2 (09:19→20:37)
[2017-02-23] MEDS: LACTULOSE SYRUP 20 GM/30 ML CUP PO SCH ×2 (09:20→20:46)
[2017-02-23] MEDS: DOCUSATE SODIUM 100 MG CAP PO SCH ×2 (09:21→20:47)
[2017-02-23] MEDS: BENEPROTEIN POWDER 1 PACK G-TUBE SCH ×3 (09:21→18:27)
[2017-02-23] MEDS: SODIUM CHLORIDE 0.9% FLUSH 10 ML FLUSH IV FLUSH SCH ×2 (09:21→20:47)
[2017-02-23] MEDS ORDERED: PNEUMOCOCCAL POLYVALENT INJ 25 MCG/0.5 ML SYR IM ONE (10:00)
[2017-02-23] MEDS ORDERED: INFLUENZA VIRUS VACCINE (QUADRIVALENT) 0.5 ML SYR IM ONE (10:00)
--- NOTE | 2017-02-23 13:56 | GIPROC ---
[facility] [address] [facility] [place]. [facility], [address] EGD PROCEDURE REPORT EXAM DATE: 02/23/2017 PATIENT NAME: Yvonne Salazar MR #: [id number] BIRTHDATE: 1965 ATTENDING: Florina Garcia MD ORDER #: [id number] SUPERVISOR COLD ROLLING: Kanika Arenas RN STATUS: inpatient INDICATIONS: The patient is a 51 yr old male here for an EGD due to reflux PROCEDURE PERFORMED: EGD w/ biopsy MEDICATIONS: None and Per Anesthesia. TOPICAL ANESTHETIC: none CONSENT: The patient understands the risks and benefits of the procedure and understands that these risks include, but are not limited to: sedation, allergic reaction, infection, perforation and/or bleeding. Alternative means of evaluation and treatment include, among others: physical exam, x-rays, and/or surgical intervention. The patient elects to proceed with this endoscopic procedure. medical equipment was checked for proper function. Hand hygiene and appropriate measures for infection prevention was taken. After the risks, benefits and alternatives of the procedure were thoroughly explained, Informed consent was verified, confirmed and timeout was successfully executed by the treatment team. The patient was anesthetized with topical anesthesia and the endoscope was introduced through the mouth and advanced to the second portion of the duodenum. Retroflexed views revealed a hiatal hernia The gastroscope was then slowly withdrawn and removed. Lovell's esophagus-biopsy. ADVERSE EVENTS: There were no complications. IMPRESSIONS: 1. Lovell's esophagus-biopsy 2. Retroflexed views revealed a hiatal hernia RECOMMENDATIONS: 1. Await biopsy results. Biopsy results will not be ready for 7-10 days. If you don't hear from us in two weeks, call our office for biopsy results. 2. Anti-reflux regimen PATIENT CONDITION: stable DISPOSITION: Inpatient REPEAT EXAM: EGD pending biopsy results Florina Garcia MD eSigned: Florina Garcia MD 02/23/2017 1:56 PM cc:
[2017-02-23] MEDS: metroNIDAZOLE 500 MG TAB PO SCH ×2 (14:46→20:37)
[2017-02-23] MEDS: CHLORHEXIDINE 0.12% (ORAL KIT) 15 ML CUP MT SCH ×2 (14:47→20:00)
[2017-02-23] MEDS: cefTRIAXone INJ 2,000 MG in SODIUM CHLORIDE 0.9% INJ 100 ML IV SCH (14:47)
[2017-02-23] MEDS: PANTOPRAZOLE SODIUM 40 MG VIAL IV PUSH SCH (14:48)
--- NOTE | 2017-02-23 16:25 | HHI.PR ---
Subjective Remarks Pt reports that he feels his breathing is stable. He has CT in place Rectal bag and Parikh catheter in place currently Pt just returned from EGD. Objective Vitals Vital Signs Date Time Temp Pulse Resp B/P Pulse Ox O2 Delivery O2 Flow Rate FiO2 02/23/17 15:29 99 Nasal Cannula 3.00 02/23/17 13:44 63 02/23/17 09:32 Nasal Cannula 3.00 02/23/17 08:38 97 Nasal Cannula 3.00 02/23/17 08:35 97.5 73 18 102/55 99 02/23/17 06:10 98.6 70 20 96/52 100 02/23/17 06:00 99 35 02/23/17 01:20 98 35 02/23/17 00:49 97.6 68 20 103/61 100 02/22/17 23:06 98 35 02/22/17 22:54 98 Nasal Cannula 3.00 02/22/17 21:20 77 02/22/17 20:58 98.8 81 19 105/65 98 02/22/17 02/22/17 02/23/17 15:00 23:00 07:00 Intake Total 354 ml Output Total 1530 ml 1600 ml Balance -1176 ml -1600 ml Intake Oral 200 ml IV Total 154 ml Output Urine Total 1500 ml 1600 ml Chest Tube Drainage Total 30 ml # Bowel Movements 0 Result Diagram: 02/22/17 1353 02/22/17 9296 Other Results Laboratory Tests Test 02/22/17 02/22/17 13:53 22:54 White Blood Count 15.5 TH/MM3 Red Blood Count 2.62 MIL/MM3 Hemoglobin 8.1 GM/DL Hematocrit 24.0 % Mean Corpuscular Volume 91.6 FL Mean Corpuscular Hemoglobin 30.9 PG Mean Corpuscular Hemoglobin 33.7 % Concent Red Cell Distribution Width 13.2 % Platelet Count 715 TH/MM3 Mean Platelet Volume 7.9 FL Neutrophils (%) (Auto) 68.7 % Lymphocytes (%) (Auto) 19.4 % Monocytes (%) (Auto) 10.7 % Eosinophils (%) (Auto) 0.5 % Basophils (%) (Auto) 0.7 % Neutrophils # (Auto) 10.7 TH/MM3 Lymphocytes # (Auto) 3.0 TH/MM3 Monocytes # (Auto) 1.7 TH/MM3 Eosinophils # (Auto) 0.1 TH/MM3 Basophils # (Auto) 0.1 TH/MM3 CBC Comment AUTO DIFF Differential Total Cells 100 Counted Neutrophils % (Manual) 68 % Band Neutrophils % 1 % Lymphocytes % 20 % Monocytes % 10 % Basophils % 1 % Neutrophils # (Manual) 10.7 TH/MM3 Differential Comment FINAL DIFF MANUAL Platelet Estimate HIGH Platelet Morphology Comment NORMAL Sodium Level 140 MEQ/L Potassium Level 2.8 MEQ/L 3.0 MEQ/L Chloride Level 101 MEQ/L Carbon Dioxide Level 31.9 MEQ/L Anion Gap 7 MEQ/L Blood Urea Nitrogen 19 MG/DL Creatinine 0.64 MG/DL Estimat Glomerular Filtration 131 ML/MIN Rate Random Glucose 139 MG/DL Calcium Level 8.1 MG/DL Magnesium Level 2.5 MG/DL Total Bilirubin 1.2 MG/DL Aspartate Amino Transf 95 U/L (AST/SGOT) Alanine Aminotransferase 112 U/L (ALT/SGPT) Alkaline Phosphatase 274 U/L Total Protein 5.8 GM/DL Albumin 1.6 GM/DL Imaging Last Impressions Chest X-Ray 02/22/17 0500 Signed Impressions: Service Date/Time: February 05:12 - CONCLUSION: Some improvement in the bilateral infiltrates. No pneumothorax. Khanh Dover Jr., MD Liver Ultrasound 02/20/17 0000 Signed Impressions: Service Date/Time: Monday, February 20, 2017 17:49 - CONCLUSION: Normal examination. Keagan Martins MD Chest CT 02/16/17 0000 Signed Impressions: Service Date/Time: Thursday, February 16, 2017 11:15 - CONCLUSION: 1. Chest tube at the right lung base has drained the empyematous appearing fluid within the right lung base. There is however an area of loculated effusion seen in the right upper chest. 2. Interval development of a small area of atelectasis and a small effusion at the left base with patchy areas of infiltrate now seen on the left. 3. ET tube, central line and gastric tube all appear in satisfactory position. Jacky Hawthorne MD Last Impressions Chest X-Ray 02/11/17 0817 Signed Impressions: Service Date/Time: Saturday, February 11, 2017 09:04 - CONCLUSION: Extensive opacification of the right hemithorax likely representing a combination of parenchymal opacity and pleural effusion. Possible cavitation at the right lung base. Possible loculation of pleural effusion. Cipriano Moore MD Chest CT 02/11/17 0000 Signed Impressions: Service Date/Time: Saturday, February 11, 2017 11:40 - CONCLUSION: 1. Prominent multiloculated pleural effusion on the right containing multiple foci of gas. Difficult diagnosis includes bronchopleural fistula, infection with gas producing organisms, and iatrogenic if recent procedure has been performed. 2. Patchy right lung consolidation. 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 - He was moved to the [facility] for worsening SOB, general decline on 02/12 for respiratory failure and was intubated - He had a right chest tube placed on 02/12 which drained 1100mL of foul smelling , putrid, yellow material - Fluid culture (02/12) --> Strep Viridans, anaerobes and Fusobacterium - Pts empyema thought to likely be secondary to chronic aspiration as the pt has hc of alcohol abuse. - On 02/17 pt had a second chest tube placed in loculation upper thorax right side with purulent material drained but CXR reveals a thick residual empyema rim. - CTS was consulted and pt underwent decortication on 02/[address] Anderson. - Pt was able to be extubated on 02/21 and was weaned to NC. - Pt was transferred out of [facility] on 02/22. - ID is following. - WBC count slowly improving. - GI following and pt underwent evaluation with EGD on 02/23/17 --> Lovell's esophagus and a hiatal hernia. Protonix 40mg IV Q12H - Speech therapy on 02/22 recommending mechanical soft diet with thin liquids. - CXR (02/22) --> Some improvement in the bilateral infiltrates, no pneumothorax. - DVT prophylaxis with SCDs (2) Pneumonia Status: Acute Plan: - See above. (3) Sepsis Status: Acute Plan: - See above. (4) Atrial fibrillation with rapid ventricular response Status: Acute Plan: - Pt was started on IV Cardizem gtt at admission. - Currently pt HR is stable on Amiodarone 200mg po daily and Lopressor 25mg Q8H - Telemetry (5) Transaminitis Status: Acute Plan: - Pt did develop some acute transaminitis, thought to possibly be medication induced (Vanco IV or Zosyn IV or Amiodarone) - Zosyn was stopped on 02/23 and antibiotics were changed to Flagyl 500mg Q8H and Rocephin - Liver Ultrasound (02/20/17)----> Normal examination. - Hepatitis panel negative, TACO negative, AMA pending, ASMA negative. AFP 2.8, Alpha 1 Antitrypsin 422, ceruloplasmin pending. Iron saturation 29.7, Ferritin 1612. LFTs improving at this point - GI following - Monitor labs (6) ventilator dependent respiratory failure Status: Acute Assessment and Plan Patient examined. Assessment and plan formulated with Juliette Willett PA-C. I agree with the above. Problem Qualifiers (1) Pneumonia: Qualified Code: J18.9 - Pneumonia of right lung due to infectious organism, unspecified part of lung Juliette Willett February 23, 2017 16:25 Juan Carlos Valentin DO February 24, 2017 09:38
[2017-02-23] MEDS ORDERED: PROPOFOL 200 MG/20 ML AMP IV ONE (16:50)
--- NOTE | 2017-02-23 19:02 | HHI.PR ---
Subjective Remarks Feels better and on O2 4 L. CXR is better. Still weak and needs PT. Objective Vital Signs Date Time Temp Pulse Resp B/P Pulse Ox O2 Delivery O2 Flow Rate FiO2 02/23/17 16:00 98.7 71 18 115/58 98 02/23/17 15:29 99 Nasal Cannula 3.00 02/23/17 14:05 75 16 115/55 100 02/23/17 13:55 76 16 111/53 100 02/23/17 13:44 63 02/23/17 13:43 98.9 86 16 113/58 98 02/23/17 09:32 Nasal Cannula 3.00 02/23/17 08:38 97 Nasal Cannula 3.00 02/23/17 08:35 97.5 73 18 102/55 99 02/23/17 06:10 98.6 70 20 96/52 100 02/23/17 06:00 99 35 02/23/17 01:20 98 35 02/23/17 00:49 97.6 68 20 103/61 100 02/22/17 23:06 98 35 02/22/17 22:54 98 Nasal Cannula 3.00 02/22/17 21:20 77 02/22/17 20:58 98.8 81 19 105/65 98 I/O 02/22/17 02/22/17 02/22/17 02/23/17 02/23/17 02/23/17 07:00 15:00 23:00 07:00 15:00 23:00 Intake Total 362 ml 354 ml 200 ml Output Total 1050 ml 1530 ml 1600 ml 1600 ml Balance -688 ml -1176 ml -1600 ml -1400 ml Intake Oral 180 ml 200 ml IV Total 182 ml 154 ml Other 200 ml Output Urine Total 1000 ml 1500 ml 1600 ml 1600 ml Chest Tube Drainage Total 50 ml 30 ml # Bowel Movements 0 Result Diagram: 02/22/17 1353 02/22/17 7444 Objective Remarks GENERAL: awake HEENT: Head normocephalic. Pupils reactive. Nasal mucosae clear. NEC: Supple. No bruits or thyroid enlargement or lymphadenopathy. CHEST: Equal movements with occ basal crackles. Decreased breath sounds at bases. HEART: Heart sounds are regular, S1-S2. No murmur. No S3. ABDOMEN: Abdomen is soft, protuberant with tenderness in the upper abdomen. Bowel sounds are active. No organomegaly. EXTREMITIES: No lesions. No edema. NEURO: Alert and oriented. 1+ reflexes SKIN: No lesions. Assessment and Plan Assessment and Plan IMPRESSION 1. Right lung Pneumonia with empyema. 2. Respiratory failure 3. Probable underlying COPD. 4. S/P decortication right chest Plan : 1. Antibiotic coverage as ordered. 2. Nebs qid , duoneb. 3. Wean O2 to 2 L 4. IS at Bedside q2h 5. CXR in am 6. Rehab placement. 7. PO Diet as tolerated . Diana Sabillon MD February 23, 2017 19:02
--- NOTE | 2017-02-23 19:16 | HHI.PR ---
Addendum to Inpatient Note Addendum Reason: Additional Documentation Additional Information Chart review documentation DC Zosyn IV Start Ceftriaxone IV Start oral flagyl This will likely be his DC regimen. Caren Bess: patient will benefit from rehab Will follow pt next on Sunday. Please call in the interim if any change in clinical condition or new results on cultures. Neela Saxena MD February 23, 2017 19:16
[2017-02-23] MEDS: MORPHINE SULFATE 4 MG/ML INJ IV PUSH PRN (20:46)
[2017-02-24] VITALS (11 sets, daily range): BP systolic 100–122; BP diastolic 55–63; PULSE 72–115; RESP 18–23; TEMP 97.1–99.4; O2SAT 94–100
[2017-02-24 03:50] LABS: MITOCHONDRIAL ABS LESS THAN 20.0 U (())
[2017-02-24] MEDS: RESP: ALBUTEROL 2.5 MG/IPRATROPIUM 0.5 MG NEB (SCH) NEB ×4 (04:31→19:45)
[2017-02-24] MEDS: metroNIDAZOLE 500 MG TAB PO SCH ×3 (04:55→23:24)
[2017-02-24] MEDS: METOCLOPRAMIDE HCL SYRUP 10 MG/10 ML UDC PO SCH ×4 (04:55→23:23)
[2017-02-24] MEDS: METOPROLOL TARTRATE 25 MG TAB PO SCH ×3 (04:55→23:23)
[2017-02-24] MEDS: PANTOPRAZOLE SODIUM 40 MG VIAL IV PUSH SCH ×2 (04:55→13:34)
[2017-02-24] MEDS: CHLORHEXIDINE 0.12% (ORAL KIT) 15 ML CUP MT SCH ×2 (08:00→20:00)
[2017-02-24] MEDS: FUROSEMIDE 40 MG/4 ML VIAL IV PUSH SCH ×2 (08:27→23:25)
[2017-02-24] MEDS: SODIUM CHLORIDE 0.9% FLUSH 10 ML FLUSH IV FLUSH SCH ×2 (08:27→23:25)
[2017-02-24] MEDS: LACTULOSE SYRUP 20 GM/30 ML CUP PO SCH ×2 (08:27→21:00)
[2017-02-24] MEDS: DOCUSATE SODIUM 100 MG CAP PO SCH ×2 (08:27→23:23)
[2017-02-24] MEDS: BENEPROTEIN POWDER 1 PACK G-TUBE SCH ×3 (08:27→18:00)
[2017-02-24] MEDS: AMIODARONE 200 MG TAB PO SCH (08:30)
[2017-02-24 08:55] LABS: AUTOMATED NEUTROPHIL # 13.5 TH/MM3 (1.8-7.7); BASOPHIL # 0.1 TH/MM3 (0-0.2); BASOPHIL % 0.6 % (0.0-2.0); EOSINOPHIL # 0.1 TH/MM3 (0-0.4); EOSINOPHIL % 0.7 % (0.0-4.0); HEMATOCRIT 23.2 % (39.0-51.0); LYMPH % 14.5 % (9.0-44.0); LYMPHOCYTE # 2.7 TH/MM3 (1.0-4.8); MEAN CELL VOLUME 93.4 FL (80.0-100.0); MEAN CORPUSCULAR HEMOGLOBIN 31.3 PG (27.0-34.0); MEAN CORPUSCULAR HGB CONC 33.5 % (32.0-36.0); MONO % 10.5 % (0.0-8.0); NEUT % 73.7 % (16.0-70.0); PLATELET COUNT 692 TH/MM3 (150-450); RED BLOOD COUNT 2.49 MIL/MM3 (4.50-5.90); RED CELL DISTRIBUTION WIDTH 13.8 % (11.6-17.2); WHITE BLOOD COUNT 18.3 TH/MM3 (4.0-11.0)
[2017-02-24 09:00] LABS: HEMO FLAGS AUTO DIFF
[2017-02-24 09:21] LABS: ALKALINE PHOSPHATASE 221 U/L (45-117); ALT (GPT) 68 U/L (12-78); ANION GAP 9 MEQ/L (5-15); AST (GOT) 39 U/L (15-37); BICARBONATE 29.2 MEQ/L (21.0-32.0); BLOOD UREA NITROGEN 16 MG/DL (7-18); CHLORIDE 103 MEQ/L (98-107); GLOMERULAR FILTRATION RATE 141 ML/MIN (>89); MAGNESIUM 2.3 MG/DL (1.5-2.5); POTASSIUM 3.2 MEQ/L (3.5-5.1); SODIUM (NA) 141 MEQ/L (136-145); TOTAL BILIRUBIN ADULT 0.8 MG/DL (0.2-1.0)
[2017-02-24 10:22] LABS: PLATELET ESTIMATE SMEAR HIGH (NORMAL); PLATELET MORPHOLOGY NORMAL (NORMAL); SCAN/DIFF AUTO DIFF CONFIRMED
[2017-02-24] MEDS: cefTRIAXone INJ 2,000 MG in SODIUM CHLORIDE 0.9% INJ 100 ML IV SCH (13:27)
--- NOTE | 2017-02-24 15:37 | HHI.PR ---
Subjective Remarks No new complaints. Objective Vitals Vital Signs Date Time Temp Pulse Resp B/P Pulse Ox O2 Delivery O2 Flow Rate FiO2 02/24/17 12:00 98.4 87 20 107/62 97 02/24/17 10:56 95 Nasal Cannula 3.00 02/24/17 08:09 99.4 74 23 100/57 100 02/24/17 07:00 Nasal Cannula 3.00 02/24/17 04:53 97 02/24/17 04:31 95 BiPAP 45 02/24/17 04:17 95 45 02/24/17 04:00 97.1 115 20 117/58 94 02/24/17 00:00 99.0 72 20 103/55 98 02/23/17 21:14 97 35 02/23/17 20:50 Nasal Cannula 3.00 02/23/17 20:50 77 02/23/17 20:00 97.6 82 20 109/63 99 02/23/17 16:00 98.7 71 18 115/58 98 02/23/17 02/23/17 02/24/17 15:00 23:00 07:00 Intake Total 200 ml Output Total 1600 ml 750 ml 600 ml Balance -1400 ml -750 ml -600 ml Other 200 ml Output Urine Total 1600 ml 750 ml 600 ml Result Diagram: 02/24/17 0806 02/24/17 0806 Imaging Last Impressions Chest X-Ray 02/22/17 0500 Signed Impressions: Service Date/Time: February 05:12 - CONCLUSION: Some improvement in the bilateral infiltrates. No pneumothorax. Khanh Dover Jr., MD Liver Ultrasound 02/20/17 0000 Signed Impressions: Service Date/Time: Monday, February 20, 2017 17:49 - CONCLUSION: Normal examination. Keagan Martins MD Chest CT 02/16/17 0000 Signed Impressions: Service Date/Time: Thursday, February 16, 2017 11:15 - CONCLUSION: 1. Chest tube at the right lung base has drained the empyematous appearing fluid within the right lung base. There is however an area of loculated effusion seen in the right upper chest. 2. Interval development of a small area of atelectasis and a small effusion at the left base with patchy areas of infiltrate now seen on the left. 3. ET tube, central line and gastric tube all appear in satisfactory position. Jacky Hawthorne MD Last Impressions Chest X-Ray 02/11/17 0817 Signed Impressions: Service Date/Time: Saturday, February 11, 2017 09:04 - CONCLUSION: Extensive opacification of the right hemithorax likely representing a combination of parenchymal opacity and pleural effusion. Possible cavitation at the right lung base. Possible loculation of pleural effusion. Cipriano Moore MD Chest CT 02/11/17 0000 Signed Impressions: Service Date/Time: Saturday, February 11, 2017 11:40 - CONCLUSION: 1. Prominent multiloculated pleural effusion on the right containing multiple foci of gas. Difficult diagnosis includes bronchopleural fistula, infection with gas producing organisms, and iatrogenic if recent procedure has been performed. 2. Patchy right lung consolidation. 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 - He was moved to the [facility] for worsening SOB, general decline on 02/12 for respiratory failure and was intubated - He had a right chest tube placed on 02/12 which drained 1100mL of foul smelling , putrid, yellow material - Fluid culture (02/12) --> Strep Viridans, anaerobes and Fusobacterium - Pts empyema thought to likely be secondary to chronic aspiration as the pt has hc of alcohol abuse. - On 02/17 pt had a second chest tube placed in loculation upper thorax right side with purulent material drained but CXR reveals a thick residual empyema rim. - CTS was consulted and pt underwent decortication on 02/[address] Anderson. - Pt was able to be extubated on 02/21 and was weaned to NC. - Pt was transferred out of [facility] on 02/22. - ID is following. - WBC count slowly improving. - GI following and pt underwent evaluation with EGD on 02/23/17 --> Lovell's esophagus and a hiatal hernia. Protonix 40mg IV Q12H - Speech therapy on 02/22 recommending mechanical soft diet with thin liquids. - CXR (02/22) --> Some improvement in the bilateral infiltrates, no pneumothorax. - DVT prophylaxis with SCDs 02/24/17 - abx changed to flagyl & rocephin - obtain CXR - follow labs - will d/w Pulmonary (2) Pneumonia Status: Acute Plan: - See above. (3) Sepsis Status: Acute Plan: - See above. (4) Atrial fibrillation with rapid ventricular response Status: Acute Plan: - Pt was started on IV Cardizem gtt at admission. - Currently pt HR is stable on Amiodarone 200mg po daily and Lopressor 25mg Q8H - Telemetry (5) Transaminitis Status: Acute Plan: - Pt did develop some acute transaminitis, thought to possibly be medication induced (Vanco IV or Zosyn IV or Amiodarone) - Zosyn was stopped on 02/23 and antibiotics were changed to Flagyl 500mg Q8H and Rocephin - Liver Ultrasound (02/20/17)----> Normal examination. - Hepatitis panel negative, TACO negative, AMA pending, ASMA negative. AFP 2.8, Alpha 1 Antitrypsin 422, ceruloplasmin pending. Iron saturation 29.7, Ferritin 1612. LFTs improving at this point - GI following - Monitor labs (6) ventilator dependent respiratory failure Status: Acute Assessment and Plan Patient examined. Assessment and plan formulated with Juliette Willett PA-C. I agree with the above. Problem Qualifiers (1) Pneumonia: Qualified Code: J18.9 - Pneumonia of right lung due to infectious organism, unspecified part of lung Juan Carlos Valentin DO February 24, 2017 15:37 Juan Carlos Valentin DO February 24, 2017 15:37
--- NOTE | 2017-02-24 18:14 | HHI.GIFU ---
Subjective Remarks Resting in bed. No n/v. No abdominal pain. No difficulty swallowing. (Monie Orozco) Objective Vitals I&O Vital Signs Date Time Temp Pulse Resp B/P Pulse Ox O2 Delivery O2 Flow Rate FiO2 02/24/17 16:00 97.3 91 18 107/63 97 02/24/17 12:00 98.4 87 20 107/62 97 02/24/17 10:56 95 Nasal Cannula 3.00 02/24/17 08:09 99.4 74 23 100/57 100 02/24/17 07:00 Nasal Cannula 3.00 02/24/17 04:53 97 02/24/17 04:31 95 BiPAP 45 02/24/17 04:17 95 45 02/24/17 04:00 97.1 115 20 117/58 94 02/24/17 00:00 99.0 72 20 103/55 98 02/23/17 21:14 97 35 02/23/17 20:50 Nasal Cannula 3.00 02/23/17 20:50 77 02/23/17 20:00 97.6 82 20 109/63 99 I/O 02/23/17 02/23/17 02/23/17 02/24/17 02/24/17 02/24/17 06:59 14:59 22:59 06:59 14:59 22:59 Intake Total 200 ml Output Total 1600 ml 1600 ml 750 ml 600 ml Balance -1600 ml -1400 ml -750 ml -600 ml Other 200 ml Output Urine Total 1600 ml 1600 ml 750 ml 600 ml # Voids 2 Laboratory Laboratory Tests Test 02/24/17 08:06 White Blood Count 18.3 Red Blood Count 2.49 Hemoglobin 7.8 Hematocrit 23.2 Mean Corpuscular Volume 93.4 Mean Corpuscular Hemoglobin 31.3 Mean Corpuscular Hemoglobin 33.5 Concent Red Cell Distribution Width 13.8 Platelet Count 692 Mean Platelet Volume 7.8 Neutrophils (%) (Auto) 73.7 Lymphocytes (%) (Auto) 14.5 Monocytes (%) (Auto) 10.5 Eosinophils (%) (Auto) 0.7 Basophils (%) (Auto) 0.6 Neutrophils # (Auto) 13.5 Lymphocytes # (Auto) 2.7 Monocytes # (Auto) 1.9 Eosinophils # (Auto) 0.1 Basophils # (Auto) 0.1 CBC Comment AUTO DIFF Differential Comment AUTO DIFF CONFIRMED Platelet Estimate HIGH Platelet Morphology Comment NORMAL Sodium Level 141 Potassium Level 3.2 Chloride Level 103 Carbon Dioxide Level 29.2 Anion Gap 9 Blood Urea Nitrogen 16 Creatinine 0.60 Estimat Glomerular Filtration 141 Rate Random Glucose 88 Calcium Level 7.7 Magnesium Level 2.3 Total Bilirubin 0.8 Aspartate Amino Transf 39 (AST/SGOT) Alanine Aminotransferase 68 (ALT/SGPT) Alkaline Phosphatase 221 Total Protein 5.5 Albumin 1.6 Imaging Last Impressions Chest X-Ray 02/22/17 0500 Signed Impressions: Service Date/Time: February 05:12 - CONCLUSION: Some improvement in the bilateral infiltrates. No pneumothorax. Khanh Dover Jr., MD Liver Ultrasound 02/20/17 0000 Signed Impressions: Service Date/Time: Monday, February 20, 2017 17:49 - CONCLUSION: Normal examination. Keagan Martins MD Chest CT 02/16/17 0000 Signed Impressions: Service Date/Time: Thursday, February 16, 2017 11:15 - CONCLUSION: 1. Chest tube at the right lung base has drained the empyematous appearing fluid within the right lung base. There is however an area of loculated effusion seen in the right upper chest. 2. Interval development of a small area of atelectasis and a small effusion at the left base with patchy areas of infiltrate now seen on the left. 3. ET tube, central line and gastric tube all appear in satisfactory position. Jacky Hawthorne MD Physical Exam HEENT: Normocephalic; atraumatic CHEST: Resp. even/unlabored. Course breath sounds. CT right, right sided chest drsg d/i CARDIAC: RRR ABDOMEN: Soft, nondistended, no hepatosplenomegaly; bowel sounds are present in all four quadrants. EXTREMITIES: Generalized edema. 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 Significant other reports that patient has been having significant GERD symptoms, taking TUMS frequently and there is some question if there is any aspiration/GI component and therefore GI was consulted for further evaluation with EGD. Pt went for right posterolateral muscle sparing thoracotomy, decortication, intercostal nerve block (02/19/17). Of note, the patient denies any heartburn, reflux, odynophagia, nausea, vomiting, abdominal pain. Speech therapy in, no signs of aspiration , recommends mechanical soft diet with thin liquids. Abx per primary. S/P EGD (02/23/17)---> 1. Lovell's esophagus-biopsy 2. Retroflexed views revealed a hiatal hernia. Pathology pending. PPI. - Elevated LFTs. Liver Ultrasound (02/20/17)----> Normal examination. Hepatitis panel negative, TACO negative, AMA pending, ASMA negative. AFP 2.8, Alpha 1 Antitrypsin 422, ceruloplasmin 35. Iron saturation 29.7, Ferritin 1612. Pt denies any etoh use. Possibly related to infections/medications. LFTs improving at this point Cont. to improve - Acute respiratory failure, Severe bronchospasm, S/P extubation. No on r/a. Improved, resp even/unlabored. - Leukocytosis, sepsis. WBC 18.3. Zosyn. - Anemia. 7.8/23.2. PLAN - STEFANI - Await pathology - Cont. PPI - Supportive care - Further recommendations to follow based on results of above - Pt seen and examined by Dr. Garcia and myself and this note is written on her behalf (Monie Orozco) Monie Orozco February 24, 2017 18:13 Florina Garcia MD March 03, 2017 08:58
--- NOTE | 2017-02-24 19:03 | HHI.PR ---
Subjective Remarks Awake and and on O2 4 L. Chest tube draining. No fever Objective Vital Signs Date Time Temp Pulse Resp B/P Pulse Ox O2 Delivery O2 Flow Rate FiO2 02/24/17 16:00 97.3 91 18 107/63 97 02/24/17 12:00 98.4 87 20 107/62 97 02/24/17 10:56 95 Nasal Cannula 3.00 02/24/17 08:09 99.4 74 23 100/57 100 02/24/17 07:00 Nasal Cannula 3.00 02/24/17 04:53 97 02/24/17 04:31 95 BiPAP 45 02/24/17 04:17 95 45 02/24/17 04:00 97.1 115 20 117/58 94 02/24/17 00:00 99.0 72 20 103/55 98 02/23/17 21:14 97 35 02/23/17 20:50 Nasal Cannula 3.00 02/23/17 20:50 77 02/23/17 20:00 97.6 82 20 109/63 99 I/O 02/23/17 02/23/17 02/23/17 02/24/17 02/24/17 02/24/17 07:00 15:00 23:00 07:00 15:00 23:00 Intake Total 200 ml Output Total 1600 ml 1600 ml 750 ml 600 ml Balance -1600 ml -1400 ml -750 ml -600 ml Other 200 ml Output Urine Total 1600 ml 1600 ml 750 ml 600 ml # Voids 2 Result Diagram: 02/24/1780502/24/17 0806 Objective Remarks GENERAL:awake HEENT: Head normocephalic. Pupils reactive. Nasal mucosae clear. NEC: Supple. No bruits or thyroid enlargement or lymphadenopathy. CHEST: Equal movements with basal crackles. Decreased breath sounds at bases. HEART: Heart sounds are regular, S1-S2. No murmur. No S3. ABDOMEN: Abdomen is soft, protuberant with tenderness in the upper abdomen. Bowel sounds are active. No organomegaly. EXTREMITIES: No lesions. 1 + edema. NEURO: Alert and oriented. 1+ reflexes SKIN: No lesions. Assessment and Plan Assessment and Plan IMPRESSION 1. Right lung Pneumonia with empyema. 2. Respiratory failure 3. Probable underlying COPD. 4. S/P decortication right chest Plan : 1. Antibiotic coverage as ordered. 2. Nebs qid , duoneb. 3. Wean O2 to 2 L 4. IS at Bedside q2h 5. Labs Sunday 6. Chest Tube to Drain 7. PO Diet as tolerated . Diana Sabillon MD February 24, 2017 19:03
[2017-02-24] MEDS: ACETAMINOPHEN/HYDROcodone 325 MG/5 MG TAB PO PRN (23:24)
[2017-02-25] VITALS (16 sets, daily range): BP systolic 94–209; BP diastolic 51–81; PULSE 80–104; RESP 20–38; TEMP 97.6–99.4; O2SAT 70–100
[2017-02-25] MEDS: METOCLOPRAMIDE HCL SYRUP 10 MG/10 ML UDC PO SCH ×4 (03:36→20:29)
[2017-02-25] MEDS: PANTOPRAZOLE SODIUM 40 MG VIAL IV PUSH SCH ×2 (03:36→13:51)
[2017-02-25] MEDS: RESP: ALBUTEROL 2.5 MG/IPRATROPIUM 0.5 MG NEB (SCH) NEB ×4 (03:52→20:51)
[2017-02-25] MEDS: metroNIDAZOLE 500 MG TAB PO SCH ×3 (05:01→20:29)
[2017-02-25] MEDS: METOPROLOL TARTRATE 25 MG TAB PO SCH ×3 (05:01→20:24)
[2017-02-25] MEDS: ALPRAZolam 1 MG TAB PO PRN (05:01)
--- NOTE | 2017-02-25 05:49 | RADRPT ---
EXAM DATE/TIME: 02/25/2017 05:23 [place] COMPARISON: CHEST SINGLE AP, February 22, 2017, 5:12. INDICATIONS : Shortness of breath, possible pulmonary disease. MEDICAL HISTORY : A-Fib SURGICAL HISTORY : Thoracotomy ENCOUNTER: Subsequent ACUITY: 1 week PAIN SCORE: 0/10 LOCATION: Bilateral chest FINDINGS: Right chest tube remains in place. No pneumothorax. There continue to be bilateral pulmonary infiltra ad, right greater than left. There is some increased consolidation in the right lower lung compared to the prior study. The left lung remain stable. Heart size is stable. CONCLUSION: 1. No pneumothorax. 2. There's been increase in parenchymal consolidation in the right lower lung compared to the prior s tudy. 3. Otherwise, no significant change. Marvin Copeland MD on February 25, 2017 at 5:46 Board Certified Radiologist. This report was verified electronically.
[2017-02-25 06:15] LABS: BLOOD GAS BASE EXCESS 0.8 mmol/L (-2-2); BLOOD GAS CARBOXYHEMOGLOBIN 1.9 % (0-4); BLOOD GAS HCO3 25 mmol/L (22-26); BLOOD GAS METHEMOGLOBIN 0.9 % (0-2); BLOOD GAS O2 HGB SATURATION 93 % (90-100); BLOOD GAS OXYGEN CONTENT 15.3 Vol % (12.0-20.0); BLOOD GAS PCO2 40 mmHg (38-42); BLOOD GAS PO2 76 mmHg (61-120); BLOOD GAS TOTAL HGB 11.7 G/DL (12.0-16.0); CRITICAL VALUE NO; TEMP CORR TO 98.6
[2017-02-25 06:16] LABS: DRAW SITE RT RADIAL; FIO2 50 %; NUMBER OF ARTERIAL PUNCTURES 1; OXYGEN DEVICE CPAP; STAT YES; ULNAR PULSE PRESENT; VENT SETTINGS PEEP8
[2017-02-25] MEDS: CHLORHEXIDINE 0.12% (ORAL KIT) 15 ML CUP MT SCH ×2 (08:00→20:24)
[2017-02-25] MEDS: LACTULOSE SYRUP 20 GM/30 ML CUP PO SCH (09:00)
[2017-02-25] MEDS: DOCUSATE SODIUM 100 MG CAP PO SCH (09:00)
[2017-02-25] MEDS: BENEPROTEIN POWDER 1 PACK G-TUBE SCH ×3 (09:00→18:00)
[2017-02-25] MEDS: AMIODARONE 200 MG TAB PO SCH (09:49)
[2017-02-25] MEDS: FUROSEMIDE 40 MG/4 ML VIAL IV PUSH SCH (09:49)
[2017-02-25] MEDS: SODIUM CHLORIDE 0.9% FLUSH 10 ML FLUSH IV FLUSH SCH ×2 (09:51→20:29)
[2017-02-25] MEDS: cefTRIAXone INJ 2,000 MG in SODIUM CHLORIDE 0.9% INJ 100 ML IV SCH (13:27)
--- NOTE | 2017-02-25 13:37 | HHI.PR ---
Subjective Remarks Transferred to ICU and and on O2 4 L. was anxious last PM Chest tube draining. No fever. Used Bipap . Objective Vital Signs Date Time Temp Pulse Resp B/P Pulse Ox O2 Delivery O2 Flow Rate FiO2 02/25/17 08:36 96 40 02/25/17 08:00 99.1 89 26 102/55 99 02/25/17 07:00 89 02/25/17 07:00 99 Bi-Pap 50 02/25/17 06:00 89 02/25/17 06:00 98 50 02/25/17 05:06 97 36 125/64 95 02/25/17 04:48 102 38 151/81 91 02/25/17 04:41 70 Nasal Cannula 3.00 02/25/17 04:40 99.4 101 20 209/81 100 02/25/17 03:53 97 30 02/25/17 03:53 97 BiPAP 30 02/25/17 02:19 96 30 02/25/17 01:10 Nasal Cannula 3.00 02/25/17 00:00 98.3 104 20 115/62 100 02/24/17 20:00 97.7 93 20 122/61 98 02/24/17 19:47 95 Nasal Cannula 3.00 02/24/17 16:00 97.3 91 18 107/63 97 I/O 02/24/17 02/24/17 02/24/17 02/25/17 02/25/17 02/25/17 06:59 14:59 22:59 06:59 14:59 22:59 Intake Total 360 ml 120 ml Output Total 600 ml 200 ml 1500 ml Balance -600 ml 160 ml -1380 ml Intake Oral 360 ml 120 ml Output Urine Total 600 ml 200 ml 1500 ml Stool Total 0 ml Chest Tube Drainage Total 0 ml # Voids 2 # Bowel Movements 1 0 Result Diagram: 02/24/1780502/24/17805 Objective Remarks GENERAL:Alert and anxious HEENT: Head normocephalic. Pupils reactive. Nasal mucosae clear. NEC: Supple. No bruits or thyroid enlargement or lymphadenopathy. CHEST: Equal movements with few basal crackles. Decreased breath sounds at bases. HEART: Heart sounds are regular, S1-S2. No murmur. No S3. ABDOMEN: Abdomen is soft, protuberant with tenderness in the upper abdomen. Bowel sounds are active. No organomegaly. EXTREMITIES: No lesions. 1 + edema. NEURO: Alert and oriented. 1+ reflexes SKIN: No lesions. Assessment and Plan Assessment and Plan IMPRESSION 1. Right lung Pneumonia with empyema. 2. Respiratory failure 3. Probable underlying COPD. 4. S/P decortication right chest Plan : 1. Antibiotic coverage as ordered. 2. Nebs qid , duoneb. 3. Bipap at HS. N/C daytime 4 L 4. IS at Bedside q2h 5. Chest tube to drainage 6. Chest X ray ,CBC in am . Diana Sabillon MD February 25, 2017 13:36
--- NOTE | 2017-02-25 15:54 | HHI.PR ---
Subjective Remarks Pt became hypoxic at night. Currently appears stable and tolerating 3L NC Objective Vitals Vital Signs Date Time Temp Pulse Resp B/P Pulse Ox O2 Delivery O2 Flow Rate FiO2 02/25/17 12:00 98.7 82 24 96/51 96 02/25/17 08:36 96 40 02/25/17 08:00 99.1 89 26 102/55 99 02/25/17 07:00 89 02/25/17 07:00 99 Bi-Pap 50 02/25/17 06:00 89 02/25/17 06:00 98 50 02/25/17 05:06 97 36 125/64 95 02/25/17 04:48 102 38 151/81 91 02/25/17 04:41 70 Nasal Cannula 3.00 02/25/17 04:40 99.4 101 20 209/81 100 02/25/17 03:53 97 30 02/25/17 03:53 97 BiPAP 30 02/25/17 02:19 96 30 02/25/17 01:10 Nasal Cannula 3.00 02/25/17 00:00 98.3 104 20 115/62 100 02/24/17 20:00 97.7 93 20 122/61 98 02/24/17 19:47 95 Nasal Cannula 3.00 02/24/17 16:00 97.3 91 18 107/63 97 02/24/17 02/24/17 02/25/17 15:00 23:00 07:00 Intake Total 360 ml 120 ml Output Total 200 ml 1500 ml Balance 160 ml -1380 ml Intake Oral 360 ml 120 ml Output Urine Total 200 ml 1500 ml Stool Total 0 ml Chest Tube Drainage Total 0 ml # Voids 2 # Bowel Movements 1 0 Result Diagram: 02/24/17 0806 02/24/17 0806 Imaging Last Impressions Chest X-Ray 02/22/17 0500 Signed Impressions: Service Date/Time: February 05:12 - CONCLUSION: Some improvement in the bilateral infiltrates. No pneumothorax. Khanh Dover Jr., MD Liver Ultrasound 02/20/17 0000 Signed Impressions: Service Date/Time: Monday, February 20, 2017 17:49 - CONCLUSION: Normal examination. Keagan Martins MD Chest CT 02/16/17 0000 Signed Impressions: Service Date/Time: Thursday, February 16, 2017 11:15 - CONCLUSION: 1. Chest tube at the right lung base has drained the empyematous appearing fluid within the right lung base. There is however an area of loculated effusion seen in the right upper chest. 2. Interval development of a small area of atelectasis and a small effusion at the left base with patchy areas of infiltrate now seen on the left. 3. ET tube, central line and gastric tube all appear in satisfactory position. Jacky Hawthorne MD Last Impressions Chest X-Ray 02/11/17 0817 Signed Impressions: Service Date/Time: Saturday, February 11, 2017 09:04 - CONCLUSION: Extensive opacification of the right hemithorax likely representing a combination of parenchymal opacity and pleural effusion. Possible cavitation at the right lung base. Possible loculation of pleural effusion. Cipriano Moore MD Chest CT 02/11/17 0000 Signed Impressions: Service Date/Time: Saturday, February 11, 2017 11:40 - CONCLUSION: 1. Prominent multiloculated pleural effusion on the right containing multiple foci of gas. Difficult diagnosis includes bronchopleural fistula, infection with gas producing organisms, and iatrogenic if recent procedure has been performed. 2. Patchy right lung consolidation. 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 - He was moved to the [facility] for worsening SOB, general decline on 02/12 for respiratory failure and was intubated - He had a right chest tube placed on 02/12 which drained 1100mL of foul smelling , putrid, yellow material - Fluid culture (02/12) --> Strep Viridans, anaerobes and Fusobacterium - Pts empyema thought to likely be secondary to chronic aspiration as the pt has hc of alcohol abuse. - On 02/17 pt had a second chest tube placed in loculation upper thorax right side with purulent material drained but CXR reveals a thick residual empyema rim. - CTS was consulted and pt underwent decortication on 02/[address] Anderson. - Pt was able to be extubated on 02/21 and was weaned to NC. - Pt was transferred out of [facility] on 02/22. - ID is following. - WBC count slowly improving. - GI following and pt underwent evaluation with EGD on 02/23/17 --> Lovell's esophagus and a hiatal hernia. Protonix 40mg IV Q12H - Speech therapy on 02/22 recommending mechanical soft diet with thin liquids. - CXR (02/22) --> Some improvement in the bilateral infiltrates, no pneumothorax. - DVT prophylaxis with SCDs 02/25/17 - abx changed to flagyl & rocephin - CXR (02/25/17) --> increased RLL consolidation - Case d/w Dr. Sabillon, continued current treatment plan - will d/w CV surgery, re: removing chest tube (2) Pneumonia Status: Acute Plan: - See above. (3) Sepsis Status: Acute Plan: - See above. (4) Atrial fibrillation with rapid ventricular response Status: Acute Plan: - Pt was started on IV Cardizem gtt at admission. - Currently pt HR is stable on Amiodarone 200mg po daily and Lopressor 25mg Q8H - Telemetry (5) Transaminitis Status: Acute Plan: - Pt did develop some acute transaminitis, thought to possibly be medication induced (Vanco IV or Zosyn IV or Amiodarone) - Zosyn was stopped on 02/23 and antibiotics were changed to Flagyl 500mg Q8H and Rocephin - Liver Ultrasound (02/20/17)----> Normal examination. - Hepatitis panel negative, TACO negative, AMA pending, ASMA negative. AFP 2.8, Alpha 1 Antitrypsin 422, ceruloplasmin pending. Iron saturation 29.7, Ferritin 1612. LFTs improving at this point - GI following - Monitor labs (6) ventilator dependent respiratory failure Status: Acute Assessment and Plan Patient examined. Assessment and plan formulated with Juliette Willett PA-C. Debra agree with the above. Problem Qualifiers (1) Pneumonia: Qualified Code: J18.9 - Pneumonia of right lung due to infectious organism, unspecified part of lung Jaun Carlos Valentin DO February 25, 2017 15:54
--- NOTE | 2017-02-25 17:33 | HHI.CCPN ---
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 He was moved by Dr. Valentin to the [facility] for worsening SOB, general decline. I reviewed Dr. Sabillon's consultation from earlier today and clearly this man has deteriorated since that time. His work of breathing has increased considerably and is not sustainable at this point. Further, he appears quite septic with flushed, clammy skin and sustained tachycardia. His pleuritic pain is so severe that he is incapable of breathing deeply and I sense he is getting confused. I spoke with the patient and his was informed. I felt intubation and ventilation was indicated by about midnight tonight, and drainage of the effusion was indicated to cement our diagnosis and guide therapy. A right chest tube placed above the diaphragm drained 1,100 mls of foul smelling, putrid, yellow material; sent for culture. Pleural fluid studies were also sent. As Dr. Sabillon predicted this is clearly an empyema. 02/13: Oxygenation improved. Cultures pending. Ventilator dependent. Suspect he' ll benefit from diagnostic bronch and decortication. Tentatively planned for tomorrow. 02/14: Organism identified, coverage should be adequate. Agree with formal decortication. 02/15: Decortication cancelled after severe bronchospasm in OR. Requiring 80% FiO2 this morning. 02/16: Large amount of recurrent right effusion with lung volume loss. Will need second chest tube or decortication. In view of recent problems I may try to place a second tube. 02/17: Second chest tube placed in loculation upper thorax right side. Purulent material drained but CXR reveals a thick residual empyema rim. He will definitely need a formal decortication. We can pretreat him with steroids and bronchodilators, hopefully preventing bronchospasm for procedure. 02/18: Plan for decort in a.m. CXR today demonstrates large rind which will benefit from decortication. Will pretreat with solumedrol. 02/19: s/p decortication today by Dr. Anderson. Heavily sedated from residual anesthesia. New two R chest tubes in place 02/20: Tolerating vent weaning well. Awake alert and follows commands. WBC 17.6. CXR stable on my review. R chest tube 190 ml in 24 hours 02/21: Extubated yesterday and tolerating well. Was on BiPAP overnight-wean to Ventimask. Chest x-ray shows bilateral interstitial infiltrates. Will increase Lasix to 40 every 12, 40 mg additional dose. 02/25: Patient was transferred to the ICU for episode of hypoxia on the floor and critical care consult was requested by Dr. Valentin for acute respiratory failure. Following arrival to the ICU he was placed on C Pap +8, 50% FiO2 with which he was maintaining his O2 sats in the mid 90s and appeared comfortable. I evaluated the patient shortly following his arrival to the ICU. He was subsequently weaned off BiPAP to nasal cannula which he was tolerating well and was awake and alert. Objective Vital Signs Date Time Temp Pulse Resp B/P Pulse Ox O2 Delivery O2 Flow Rate FiO2 02/25/17 12:00 98.7 82 24 96/51 96 02/25/17 08:36 40 02/25/17 07:00 Bi-Pap 02/25/17 04:41 3.00 Intake and Output 02/24/17 02/24/17 02/25/17 08:00 16:00 00:00 Intake Total 360 ml Output Total 600 ml 200 ml Balance -600 ml 160 ml Result Diagram: 02/24/17 0806 02/24/17 0806 Other Results Laboratory Tests Test 02/25/17 05:40 Blood Gas Puncture Site RT RADIAL Blood Gas Patient Temperature 98.6 Blood Gas HCO3 25 mmol/L (22-26) Blood Gas Base Excess 0.8 mmol/L (-2-2) Blood Gas Oxygen Saturation 93 % (90-100) Arterial Blood pH 7.42 (7.380-7.420) Arterial Blood Partial 40 mmHg (38-42) Pressure CO2 Arterial Blood Partial 76 mmHg Pressure O2 (61-120) Arterial Blood Oxygen Content 15.3 Vol % (12.0-20.0) Arterial Blood 1.9 % (0-4) Carboxyhemoglobin Arterial Blood Methemoglobin 0.9 % (0-2) Blood Gas Hemoglobin 11.7 G/DL (12.0-16.0) Oxygen Delivery Device CPAP Blood Gas Ventilator Setting PEEP8 Blood Gas Inspired Oxygen 50 % Imaging Last 48 hours Impressions Chest X-Ray 02/25/17 0000 Signed Impressions: Service Date/Time: Saturday, February 25, 2017 05:23 - CONCLUSION: 1. No pneumothorax. 2. There's been increase in parenchymal consolidation in the right lower lung compared to the prior study. 3. Otherwise, no significant change. Marvin Copeland MD Objective Remarks Gen: Alert awake oriented currently on NC Head: Normal. Neck: Supple, orally intubated. Lungs: Diminished breath sounds right side, present left. Scattered rhonchi persist. R chest tube in place, no air leak. Heart: NL S1S2. No JVD, reg rhythm. Abdomen: Soft, no guarding. BS present. Extremities: Warm, well perfused. Trace edema. Neuro: Awake alert, following commands. No focal deficits A/P Assessment and Plan Assessment: 1. Right pneumonia and parapneumonic effusion. 2. Right empyema, bacterial, mixed organisms s/p decortication 02/19 3. Hypoxemic respiratory failure-extubate 4. Severe sepsis. 5. Bronchospasm. Plan: -Extubated 02/20/17 tolerating well -DuoNeb every 4 hours. EzPAP, Acapella every 4 hours. Weaned off C Pap to nasal cannula following arrival to ICU. -IS q 1 hour while awake -Pulmonary Dr. Sabillon. -s/p Decortication 02/[address] Anderson -ID following Dr. Saulo Saxena -Continue Rocephin -Pl fluid culture strep milligrams, mixed anaerobes, GNR, Fusobacterium -GI consulted for chronic aspiration work up, severe GERD per history. EGD once stable resp pabon -Protonix. -Chemical DVT Px. Continue steroids and bronchodilators, and ABX. Hospitalist to continue medical care. Critical care will sign off at this time as patient's respiratory status seems to have resolved shortly following his arrival to the ICU and he is on nasal cannula and tolerating by mouth diet. Lucio Saxena MD February 25, 2017 17:33
[2017-02-26] VITALS (10 sets, daily range): BP systolic 99–113; BP diastolic 55–71; PULSE 80–104; RESP 20–30; TEMP 98–98.6; O2SAT 92–100
[2017-02-26] MEDS: PANTOPRAZOLE SODIUM 40 MG VIAL IV PUSH SCH ×2 (03:17→14:19)
[2017-02-26] MEDS: RESP: ALBUTEROL 2.5 MG/IPRATROPIUM 0.5 MG NEB (SCH) NEB ×2 (03:17→11:53)
[2017-02-26] MEDS: METOCLOPRAMIDE HCL SYRUP 10 MG/10 ML UDC PO SCH ×4 (03:18→20:43)
[2017-02-26 04:07] LABS: AUTOMATED NEUTROPHIL # 11.8 TH/MM3 (1.8-7.7); BASOPHIL # 0.2 TH/MM3 (0-0.2); BASOPHIL % 0.9 % (0.0-2.0); EOSINOPHIL # 0.3 TH/MM3 (0-0.4); HEMATOCRIT 22.5 % (39.0-51.0); HEMO FLAGS DIFF FINAL; LYMPH % 18.8 % (9.0-44.0); LYMPHOCYTE # 3.3 TH/MM3 (1.0-4.8); MEAN CELL VOLUME 92.6 FL (80.0-100.0); MEAN CORPUSCULAR HEMOGLOBIN 30.8 PG (27.0-34.0); MEAN CORPUSCULAR HGB CONC 33.3 % (32.0-36.0); MONO % 10.7 % (0.0-8.0); NEUT % 67.6 % (16.0-70.0); PLATELET COUNT 632 TH/MM3 (150-450); RED BLOOD COUNT 2.43 MIL/MM3 (4.50-5.90); RED CELL DISTRIBUTION WIDTH 14.2 % (11.6-17.2); WHITE BLOOD COUNT 17.5 TH/MM3 (4.0-11.0)
[2017-02-26 04:31] LABS: ANION GAP 8 MEQ/L (5-15); AST (GOT) 27 U/L (15-37); BLOOD UREA NITROGEN 13 MG/DL (7-18); CHLORIDE 103 MEQ/L (98-107); GLOMERULAR FILTRATION RATE 179 ML/MIN (>89); SODIUM (NA) 138 MEQ/L (136-145)
[2017-02-26 04:34] LABS: ALKALINE PHOSPHATASE 167 U/L (45-117); ALT (GPT) 42 U/L (12-78); TOTAL BILIRUBIN ADULT 0.6 MG/DL (0.2-1.0)
[2017-02-26] MEDS: metroNIDAZOLE 500 MG TAB PO SCH ×3 (05:21→20:44)
[2017-02-26] MEDS: POTASSIUM CHLOR 20 MEQ PREMIX 100 ML IV PRN ×2 (05:57→13:24)
[2017-02-26] MEDS: CHLORHEXIDINE 0.12% (ORAL KIT) 15 ML CUP MT SCH ×2 (08:00→20:00)
[2017-02-26] MEDS: SODIUM CHLORIDE 0.9% FLUSH 10 ML FLUSH IV FLUSH SCH ×2 (09:06→20:44)
[2017-02-26] MEDS: METOPROLOL TARTRATE 25 MG TAB PO SCH ×2 (09:06→21:00)
[2017-02-26] MEDS: AMIODARONE 200 MG TAB PO SCH (09:06)
--- NOTE | 2017-02-26 10:38 | HHI.PR ---
Subjective Remarks in chair no distress eating breakfast. Objective Vitals heart reg lung diminished right right lung chest tube abd s/nt ext no edema Vital Signs Date Time Temp Pulse Resp B/P Pulse Ox O2 Delivery O2 Flow Rate FiO2 02/26/17 07:00 Nasal Cannula 3.00 02/26/17 04:00 98.3 84 24 110/57 96 02/26/17 00:00 98.0 86 22 104/58 95 02/25/17 20:53 97 Nasal Cannula 3.00 02/25/17 20:00 98.1 84 26 102/57 97 02/25/17 19:00 89 02/25/17 19:00 97 Nasal Cannula 3.00 02/25/17 16:00 97.6 80 22 94/54 95 02/25/17 12:00 98.7 82 24 96/51 96 02/25/17 02/25/17 02/26/17 15:00 23:00 07:00 Intake Total 333 ml 320 ml 240 ml Output Total 985 ml 330 ml 360 ml Balance -652 ml -10 ml -120 ml Intake Oral 250 ml 320 ml 240 ml IV Total 83 ml Output Urine Total 975 ml 320 ml 350 ml Chest Tube Drainage Total 10 ml 10 ml 10 ml # Bowel Movements 0 0 Result Diagram: 02/26/17 0307 02/26/17 0307 Imaging Last Impressions Chest X-Ray 02/22/17 0500 Signed Impressions: Service Date/Time: February 05:12 - CONCLUSION: Some improvement in the bilateral infiltrates. No pneumothorax. Khanh Dover Jr., MD Liver Ultrasound 02/20/17 0000 Signed Impressions: Service Date/Time: Monday, February 20, 2017 17:49 - CONCLUSION: Normal examination. Keagan Martins MD Chest CT 02/16/17 0000 Signed Impressions: Service Date/Time: Thursday, February 16, 2017 11:15 - CONCLUSION: 1. Chest tube at the right lung base has drained the empyematous appearing fluid within the right lung base. There is however an area of loculated effusion seen in the right upper chest. 2. Interval development of a small area of atelectasis and a small effusion at the left base with patchy areas of infiltrate now seen on the left. 3. ET tube, central line and gastric tube all appear in satisfactory position. Jacky Hawthorne MD Last Impressions Chest X-Ray 02/11/17 0817 Signed Impressions: Service Date/Time: Saturday, February 11, 2017 09:04 - CONCLUSION: Extensive opacification of the right hemithorax likely representing a combination of parenchymal opacity and pleural effusion. Possible cavitation at the right lung base. Possible loculation of pleural effusion. Cipriano Moore MD Chest CT 02/11/17 0000 Signed Impressions: Service Date/Time: Saturday, February 11, 2017 11:40 - CONCLUSION: 1. Prominent multiloculated pleural effusion on the right containing multiple foci of gas. Difficult diagnosis includes bronchopleural fistula, infection with gas producing organisms, and iatrogenic if recent procedure has been performed. 2. Patchy right lung consolidation. 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 - He was moved to the [facility] for worsening SOB, general decline on 02/12 for respiratory failure and was intubated - He had a right chest tube placed on 02/12 which drained 1100mL of foul smelling , putrid, yellow material - Fluid culture (02/12) --> Strep Viridans, anaerobes and Fusobacterium - Pts empyema thought to likely be secondary to chronic aspiration as the pt has hc of alcohol abuse. - On 02/17 pt had a second chest tube placed in loculation upper thorax right side with purulent material drained but CXR reveals a thick residual empyema rim. - CTS was consulted and pt underwent decortication on 02/[address] Anderson. - Pt was able to be extubated on 02/21 and was weaned to NC. - Pt was transferred out of [facility] on 02/22 the back for hypoxia/anxiety. - GI following and pt underwent evaluation with EGD on 02/23/17 --> Lovell's esophagus and a hiatal hernia. Protonix 40mg IV Q12H - Speech therapy on 02/22 recommending mechanical soft diet with thin liquids. - CXR (02/22) --> Some improvement in the bilateral infiltrates, no pneumothorax. abx per ID. currently on rocephin and flagyl monitor chest tube output and d/c when ok with pulmonary or cts transfer back to med/surg tele wean o2 increase PT. replace kcl dvt prophylaxis - (2) Pneumonia Status: Acute Plan: - See above. (3) Sepsis Status: Acute Plan: - See above. (4) Atrial fibrillation with rapid ventricular response Status: Acute Plan: - Pt was started on IV Cardizem gtt at admission. - Currently pt HR is stable on Amiodarone 200mg po daily and Lopressor 25mg Q8H - Telemetry (5) Transaminitis Status: Acute Plan: - Pt did develop some acute transaminitis, thought to possibly be medication induced (Vanco IV or Zosyn IV or Amiodarone) - Zosyn was stopped on 02/23 and antibiotics were changed to Flagyl 500mg Q8H and Rocephin - Liver Ultrasound (02/20/17)----> Normal examination. - Hepatitis panel negative, TACO negative, AMA pending, ASMA negative. AFP 2.8, Alpha 1 Antitrypsin 422, ceruloplasmin pending. Iron saturation 29.7, Ferritin 1612. LFTs improving at this point - GI following - Monitor labs (6) ventilator dependent respiratory failure Status: Acute Problem Qualifiers (1) Pneumonia: Qualified Code: J18.9 - Pneumonia of right lung due to infectious organism, unspecified part of lung Amandeep Hinton MD February 26, 2017 10:38
[2017-02-26] MEDS: cefTRIAXone INJ 2,000 MG in SODIUM CHLORIDE 0.9% INJ 100 ML IV SCH (12:49)
--- NOTE | 2017-02-26 14:58 | HHI.IDPN ---
Subjective Subjective Remarks is a 51 y/o CM with PMHx of Alcoholism. 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 He presented with acute onset of SOB, intermittent fevers, leukocytosis, and large right sided effusion with air concerning for aspiration or anaerobic infection. He was moved by Dr. Valentin to the [facility] for worsening SOB and general decline from earlier in the day. Patient was intubated as he appeared encephalopathic and had increased work of breathing due to severe pleuritic chest pain. A right side chest tube was placed with drainage of 1100 ml of foul smelling, putrid yellow fluid. Dr.Dsouza morales is following patient and CTS eval is pending at time of my evaluation. ID following for evaluation and Mment of empyema. Overnight events reviewed. No fevers No rash No diarrhea Sitting in chair. UO ok. S/P Right Posterolateral Muscle Sparing Thoracotomy, Decortication, Intercostal Nerve Block Antibiotics Zosyn IV Vanco IV Lines Line sites with no e.o infection. Past Medical History reviewed. Allergies: Coded Allergies: Latex (Verified Allergy, Mild, Rash, 02/19/17) Objective . Vital Signs Date Time Temp Pulse Resp B/P Pulse Ox O2 Delivery O2 Flow Rate FiO2 02/26/17 11:53 100 Nasal Cannula 2.00 02/26/17 08:00 98.0 84 22 107/58 96 02/26/17 07:00 83 02/26/17 07:00 Nasal Cannula 3.00 02/26/17 04:00 98.3 84 24 110/57 96 02/26/17 00:00 98.0 86 22 104/58 95 02/25/17 20:53 97 Nasal Cannula 3.00 02/25/17 20:00 98.1 84 26 102/57 97 02/25/17 19:00 89 02/25/17 19:00 97 Nasal Cannula 3.00 02/25/17 16:00 97.6 80 22 94/54 95 02/25/17 02/25/17 02/26/17 15:00 23:00 07:00 Intake Total 333 ml 320 ml 240 ml Output Total 985 ml 330 ml 360 ml Balance -652 ml -10 ml -120 ml Intake Oral 250 ml 320 ml 240 ml IV Total 83 ml Output Urine Total 975 ml 320 ml 350 ml Chest Tube Drainage Total 10 ml 10 ml 10 ml # Bowel Movements 0 0 . Laboratory Tests Test 02/26/17 03:07 White Blood Count 17.5 TH/MM3 Red Blood Count 2.43 MIL/MM3 Hemoglobin 7.5 GM/DL Hematocrit 22.5 % Mean Corpuscular Volume 92.6 FL Mean Corpuscular Hemoglobin 30.8 PG Mean Corpuscular Hemoglobin 33.3 % Concent Red Cell Distribution Width 14.2 % Platelet Count 632 TH/MM3 Mean Platelet Volume 7.9 FL Neutrophils (%) (Auto) 67.6 % Lymphocytes (%) (Auto) 18.8 % Monocytes (%) (Auto) 10.7 % Eosinophils (%) (Auto) 2.0 % Basophils (%) (Auto) 0.9 % Neutrophils # (Auto) 11.8 TH/MM3 Lymphocytes # (Auto) 3.3 TH/MM3 Monocytes # (Auto) 1.9 TH/MM3 Eosinophils # (Auto) 0.3 TH/MM3 Basophils # (Auto) 0.2 TH/MM3 CBC Comment DIFF FINAL Differential Comment Laboratory Tests Test 02/26/17 03:07 Sodium Level 138 MEQ/L Potassium Level 3.0 MEQ/L Chloride Level 103 MEQ/L Carbon Dioxide Level 27.0 MEQ/L Anion Gap 8 MEQ/L Blood Urea Nitrogen 13 MG/DL Creatinine 0.49 MG/DL Estimat Glomerular Filtration 179 ML/MIN Rate Random Glucose 103 MG/DL Calcium Level 8.1 MG/DL Total Bilirubin 0.6 MG/DL Aspartate Amino Transf 27 U/L (AST/SGOT) Alanine Aminotransferase 42 U/L (ALT/SGPT) Alkaline Phosphatase 167 U/L Total Protein 5.2 GM/DL Albumin 1.6 GM/DL Imaging Last Impressions Chest X-Ray 02/13/17 0000 Signed Impressions: Service Date/Time: Monday, February 13, 2017 07:41 - CONCLUSION: 1. Stable appearance of the chest with predominantly peripheral consolidation in the right hemithorax which appears most characteristic of an empyema on the prior CT. 2. Stable position of life support tubes including a right-sided thoracostomy tube as detailed above. 3. Left lung remains clear. Jorge Boyer MD Chest CT 02/11/17 0000 Signed Impressions: Service Date/Time: Saturday, February 11, 2017 11:40 - CONCLUSION: 1. Prominent multiloculated pleural effusion on the right containing multiple foci of gas. Difficult diagnosis includes bronchopleural fistula, infection with gas producing organisms, and iatrogenic if recent procedure has been performed. 2. Patchy right lung consolidation. Cipriano Moore MD Physical Exam GENERAL: This is a well-nourished, well-developed patient, in no apparent distress. SKIN: No rashes, ecchymoses or lesions. Cool and dry. HEAD: Atraumatic. Normocephalic. No temporal or scalp tenderness. EYES: Pupils equal round and reactive. Extraocular motions intact. No scleral icterus. No injection or drainage. ENT: grossly normal. NECK: Trachea midline. Supple, nontender, no meningeal signs. CARDIOVASCULAR: RRR. No murmur appreciated. RESPIRATORY: AE decreased right side. GASTROINTESTINAL: Abdomen soft, non-tender, nondistended. MUSCULOSKELETAL: Extremities without clubbing, cyanosis, or edema. NEUROLOGICAL: AAOx3 non focal. Psych: could not be assessed. IV line sites with no e/o infection. 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 Empyema: likely secondary to aspiration pneumonia secondary to alcoholism. ? GI pathology as cause for aspiration PNA. Acute resp failure: empyema, sepsis. Acute metabolic encephalopathy: sepsis related, metabolic. Hypoalbuminemia: nutritional, alcoholism, r/o chronic infections like HIV, hepatitis. Acute transaminitis: ? medication induced (Vanco IV or Zosyn IV or Amiodarone) Recs: Continue Ceftriaxone IV Continue Flagyl oral Yeast in Bronchoscopy expected but does not need treatment but if patient grows yeast in empyema intraop cultures will treat. Persistent fevers and WBC are likely because source control could not be achieved earlier. Hopefully will down trend post op. Negative 2D ECHO. d.w pt and RN. d/w : once DC place finalized please call me for discharge recommendations. Neela Saxena MD February 26, 2017 14:58
--- NOTE | 2017-02-26 15:42 | PD.CAR.PN ---
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 He was moved by Dr. Valentin to the [facility] for worsening SOB, general decline. Pt deteriorated , and became tachycardic confused , , he was then intubated and placed on mechanical ventilation, a # 28 citizen of [place] chest tube was on the right chest and 1100cc/ foul smelling yellow fluid was drained pleural fluid cultures are pending, BC neg to date, on gram positive and gram neg coverage , tentatively scheduled for Right VATS, possible thoracotomy , decortication in am, await consent from the 02/18 Clinically stable Remains intubated and mechanically ventilated Will reattempt right thoracotomy with decortication tomorrow Continue antibiotics 02/19 PROCEDURES 1. Right Posterolateral Muscle Sparing Thoracotomy 2. Decortication 3. Intercostal Nerve Block 02/21 Doing well Extubated Maintain CT to drainage for now 02/22 D/C Posterior CT. Maintain anterior to drainage Outputs declining 02/26 transferred back to ICU over the weekend for hypoxia / SOB placed on Bipap, now weaned off , up in chair on nasal cannula chest tube removed without difficulty iodoform dressing changed to prior chest tube site will need to leave current chest dressing in place x 48 hrs, then ok to remove and pt ok to shower Objective: GENERAL: SKIN: Warm and dry. 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 EYES: No scleral icterus. No injection or drainage. NECK: Supple, trachea midline. No JVD or lymphadenopathy. CARDIOVASCULAR: Regular rate and rhythm without murmurs, gallops, or rubs. RESPIRATORY: diminished right lower lobe Breath sounds equal bilaterally. No accessory muscle use. GASTROINTESTINAL: Abdomen soft, non-tender, nondistended. MUSCULOSKELETAL: No cyanosis, or edema. BACK: Nontender without obvious deformity. No CVA tenderness. Vital Signs Date Time Temp Pulse Resp B/P Pulse Ox O2 Delivery O2 Flow Rate FiO2 02/26/17 11:53 100 Nasal Cannula 2.00 02/26/17 08:00 98.0 84 22 107/58 96 02/26/17 07:00 83 02/26/17 07:00 Nasal Cannula 3.00 02/26/17 04:00 98.3 84 24 110/57 96 02/26/17 00:00 98.0 86 22 104/58 95 02/25/17 20:53 97 Nasal Cannula 3.00 02/25/17 20:00 98.1 84 26 102/57 97 02/25/17 19:00 89 02/25/17 19:00 97 Nasal Cannula 3.00 02/25/17 16:00 97.6 80 22 94/54 95 Result Diagram: 02/26/17 0307 02/26/17 0307 (1) Pleural effusion associated with pulmonary infection Plan: Right Posterolateral Muscle Sparing Thoracotomy 02/19 2. Decortication 3. Intercostal Nerve Block possible thoracotomy , decortication in am chest tube removed iodoform packing changed to prior chest tube site f/u cxr in am , if stable will follow prn (2) Pneumonia (3) Atrial fibrillation with rapid ventricular response (4) ventilator dependent respiratory failure (5) Sepsis Problem Qualifiers (1) Pneumonia: Qualified Code: J18.9 - Pneumonia of right lung due to infectious organism, unspecified part of lung Evelin Reed February 26, 2017 15:42
[2017-02-26] MEDS: BENEPROTEIN POWDER 1 PACK G-TUBE SCH (18:00)
[2017-02-26] MEDS ORDERED: POTASSIUM CHLORIDE 20 MEQ CONTROLLED RELEASE TAB PO ONE (18:00)
--- NOTE | 2017-02-26 19:38 | HHI.PR ---
Subjective Remarks Chest tube is out.and on O2 3 L. was anxious last PM No fever. off Bipap . Objective Vital Signs Date Time Temp Pulse Resp B/P Pulse Ox O2 Delivery O2 Flow Rate FiO2 02/26/17 16:00 98.1 88 24 113/71 96 02/26/17 12:00 98.1 80 20 99/57 98 02/26/17 11:53 100 Nasal Cannula 2.00 02/26/17 08:00 98.0 84 22 107/58 96 02/26/17 07:00 83 02/26/17 07:00 Nasal Cannula 3.00 02/26/17 04:00 98.3 84 24 110/57 96 02/26/17 00:00 98.0 86 22 104/58 95 02/25/17 20:53 97 Nasal Cannula 3.00 02/25/17 20:00 98.1 84 26 102/57 97 I/O 02/25/17 02/25/17 02/25/17 02/26/17 02/26/17 02/26/17 07:00 15:00 23:00 07:00 15:00 23:00 Intake Total 120 ml 333 ml 320 ml 240 ml 854 ml Output Total 1500 ml 985 ml 330 ml 360 ml 235 ml Balance -1380 ml -652 ml -10 ml -120 ml 619 ml Intake Oral 120 ml 250 ml 320 ml 240 ml 400 ml IV Total 83 ml 454 ml Output Urine Total 1500 ml 975 ml 320 ml 350 ml 225 ml Chest Tube Drainage Total 10 ml 10 ml 10 ml 10 ml # Bowel Movements 0 0 0 1 Result Diagram: 02/26/17 0307 02/26/17 030 Objective Remarks GENERAL:Extubated and awake HEENT: Head normocephalic. Pupils reactive. Nasal mucosae clear. NEC: Supple. No bruits or thyroid enlargement or lymphadenopathy. CHEST: Equal movements with fine basal crackles. Decreased breath sounds at bases. HEART: Heart sounds are regular, S1-S2. No murmur. No S3. ABDOMEN: Abdomen is soft, protuberant with tenderness in the upper abdomen. Bowel sounds are active. No organomegaly. EXTREMITIES: No lesions. 1 + edema. NEURO: Alert and oriented. 1+ reflexes SKIN: No lesions. Assessment and Plan Assessment and Plan IMPRESSION 1. Right lung Pneumonia with empyema. 2. Respiratory failure 3. Probable underlying COPD. 4. S/P decortication right chest Plan : 1. Antibiotic coverage as ordered. 2. Nebs qid , duoneb. 3. . N/C at 2 L 4. IS at Bedside q2h 5. Chest X ray in am 6. Transfer to [facility] . Diana Sabillon MD February 26, 2017 19:38
[2017-02-26] MEDS: POTASSIUM CHLORIDE 20 MEQ CONTROLLED RELEASE TAB PO SCH (20:44)
[2017-02-27] VITALS (8 sets, daily range): BP systolic 101–128; BP diastolic 58–70; PULSE 82–94; RESP 16–24; TEMP 97.4–98.6; O2SAT 92–100
[2017-02-27] MEDS: PANTOPRAZOLE SODIUM 40 MG VIAL IV PUSH SCH ×2 (01:24→13:21)
[2017-02-27] MEDS: ALPRAZolam 1 MG TAB PO PRN (03:27)
[2017-02-27] MEDS: TEMAZEPAM 15 MG CAP PO PRN ×2 (03:27→22:14)
[2017-02-27 05:19] LABS: BICARBONATE 23.1 MEQ/L (21.0-32.0); POTASSIUM 3.9 MEQ/L (3.5-5.1)
[2017-02-27] MEDS: METOCLOPRAMIDE HCL SYRUP 10 MG/10 ML UDC PO SCH ×4 (05:49→22:12)
[2017-02-27] MEDS: metroNIDAZOLE 500 MG TAB PO SCH ×3 (05:50→22:12)
--- NOTE | 2017-02-27 06:31 | RADRPT ---
EXAM DATE/TIME: 02/27/2017 04:58 [facility] COMPARISON: CHEST SINGLE AP, February 25, 2017, 5:23. INDICATIONS : Status post chest tube removal, evaluate for pneumothorax MEDICAL HISTORY : A-fib SURGICAL HISTORY : thoracotomy ENCOUNTER: Subsequent ACUITY: 1 week PAIN SCORE: Non-responsive. LOCATION: Bilateral chest FINDINGS: A single AP portable erect view of the chest was obtained and demonstrates interval removal of the ri ght-sided chest tube with no pneumothorax. Volume loss is again noted in the right hemithorax with ci rcumferential pleural thickening versus effusion with blunting of the costophrenic angle. This is sta ble. There is mild hazy opacity at the left lung base with obscuration of portions of both hemidiaphr agms. The heart size remains prominent. CONCLUSION: 1. Status post removal of right-sided chest tube with no pneumothorax. 2. Abnormal opacity remains in the right lung with volume loss. 3. Bilateral effusions. Lennox Kenney MD on February 27, 2017 at 6:28 Board Certified Radiologist. This report was verified electronically.
[2017-02-27] MEDS: CHLORHEXIDINE 0.12% (ORAL KIT) 15 ML CUP MT SCH ×2 (07:40→20:00)
[2017-02-27] MEDS: BENEPROTEIN POWDER 1 PACK G-TUBE SCH (07:42)
[2017-02-27] MEDS: POTASSIUM CHLORIDE 20 MEQ CONTROLLED RELEASE TAB PO SCH ×2 (07:44→20:21)
[2017-02-27] MEDS: SODIUM CHLORIDE 0.9% FLUSH 10 ML FLUSH IV FLUSH SCH ×2 (07:45→20:21)
[2017-02-27] MEDS: METOPROLOL TARTRATE 25 MG TAB PO SCH ×2 (07:45→20:21)
[2017-02-27] MEDS: AMIODARONE 200 MG TAB PO SCH (07:45)
--- NOTE | 2017-02-27 11:53 | HHI.PR ---
Subjective Remarks Pt overall feeling better today CT was removed on 02/26. He ambulated well with PT Pt would like to go home upon discharge. Objective Vitals Vital Signs Date Time Temp Pulse Resp B/P Pulse Ox O2 Delivery O2 Flow Rate FiO2 02/27/17 09:45 94 21 02/27/17 08:00 98.5 94 17 127/70 97 02/27/17 04:00 97.4 92 22 128/66 92 02/27/17 00:13 96 40 02/27/17 00:00 98.6 94 24 118/58 93 02/26/17 22:45 Nasal Cannula 2.00 02/26/17 20:30 Nasal Cannula 2.00 02/26/17 20:07 92 02/26/17 20:00 98.6 104 30 108/55 92 02/26/17 19:00 86 02/26/17 19:00 92 Room Air 02/26/17 16:00 98.1 88 24 113/71 96 02/26/17 12:00 98.1 80 20 99/57 98 02/26/17 11:53 100 Nasal Cannula 2.00 02/26/17 02/26/17 02/27/17 15:00 23:00 07:00 Intake Total 854 ml 559 ml 240 ml Output Total 235 ml 500 ml Balance 619 ml 559 ml -260 ml Intake Oral 400 ml 240 ml 240 ml IV Total 454 ml 319 ml Output Urine Total 225 ml 500 ml Chest Tube Drainage Total 10 ml # Voids 3 # Bowel Movements 1 1 0 Result Diagram: 02/26/17 0307 02/27/17 0402 Other Results Laboratory Tests Test 02/26/17 02/27/17 03:07 04:02 White Blood Count 17.5 TH/MM3 Red Blood Count 2.43 MIL/MM3 Hemoglobin 7.5 GM/DL Hematocrit 22.5 % Mean Corpuscular Volume 92.6 FL Mean Corpuscular Hemoglobin 30.8 PG Mean Corpuscular Hemoglobin 33.3 % Concent Red Cell Distribution Width 14.2 % Platelet Count 632 TH/MM3 Mean Platelet Volume 7.9 FL Neutrophils (%) (Auto) 67.6 % Lymphocytes (%) (Auto) 18.8 % Monocytes (%) (Auto) 10.7 % Eosinophils (%) (Auto) 2.0 % Basophils (%) (Auto) 0.9 % Neutrophils # (Auto) 11.8 TH/MM3 Lymphocytes # (Auto) 3.3 TH/MM3 Monocytes # (Auto) 1.9 TH/MM3 Eosinophils # (Auto) 0.3 TH/MM3 Basophils # (Auto) 0.2 TH/MM3 CBC Comment DIFF FINAL Differential Comment Sodium Level 138 MEQ/L 137 MEQ/L Potassium Level 3.0 MEQ/L 3.9 MEQ/L Chloride Level 103 MEQ/L 107 MEQ/L Carbon Dioxide Level 27.0 MEQ/L 23.1 MEQ/L Anion Gap 8 MEQ/L 7 MEQ/L Blood Urea Nitrogen 13 MG/DL 10 MG/DL Creatinine 0.49 MG/DL 0.52 MG/DL Estimat Glomerular Filtration 179 ML/MIN 167 ML/MIN Rate Random Glucose 103 MG/DL 100 MG/DL Calcium Level 8.1 MG/DL 7.9 MG/DL Total Bilirubin 0.6 MG/DL Aspartate Amino Transf 27 U/L (AST/SGOT) Alanine Aminotransferase 42 U/L (ALT/SGPT) Alkaline Phosphatase 167 U/L Total Protein 5.2 GM/DL Albumin 1.6 GM/DL Magnesium Level 2.0 MG/DL Imaging Last Impressions Chest X-Ray 02/22/17 0500 Signed Impressions: Service Date/Time: February 05:12 - CONCLUSION: Some improvement in the bilateral infiltrates. No pneumothorax. Khanh Dover Jr., MD Liver Ultrasound 02/20/17 0000 Signed Impressions: Service Date/Time: Monday, February 20, 2017 17:49 - CONCLUSION: Normal examination. Keagan Martins MD Chest CT 02/16/17 0000 Signed Impressions: Service Date/Time: Thursday, February 16, 2017 11:15 - CONCLUSION: 1. Chest tube at the right lung base has drained the empyematous appearing fluid within the right lung base. There is however an area of loculated effusion seen in the right upper chest. 2. Interval development of a small area of atelectasis and a small effusion at the left base with patchy areas of infiltrate now seen on the left. 3. ET tube, central line and gastric tube all appear in satisfactory position. Jacky Hawthorne MD Last Impressions Chest X-Ray 02/11/17 0817 Signed Impressions: Service Date/Time: Saturday, February 11, 2017 09:04 - CONCLUSION: Extensive opacification of the right hemithorax likely representing a combination of parenchymal opacity and pleural effusion. Possible cavitation at the right lung base. Possible loculation of pleural effusion. Cipriano Moore MD Chest CT 02/11/17 0000 Signed Impressions: Service Date/Time: Saturday, February 11, 2017 11:40 - CONCLUSION: 1. Prominent multiloculated pleural effusion on the right containing multiple foci of gas. Difficult diagnosis includes bronchopleural fistula, infection with gas producing organisms, and iatrogenic if recent procedure has been performed. 2. Patchy right lung consolidation. 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 - He was moved to the [facility] for worsening SOB, general decline on 02/12 for respiratory failure and was intubated - He had a right chest tube placed on 02/12 which drained 1100mL of foul smelling , putrid, yellow material - Fluid culture (02/12) --> Strep Viridans, anaerobes and Fusobacterium - Pts empyema thought to likely be secondary to chronic aspiration as the pt has hc of alcohol abuse. - On 02/17 pt had a second chest tube placed in loculation upper thorax right side with purulent material drained but CXR reveals a thick residual empyema rim. - CTS was consulted and pt underwent decortication on 02/[address] Anderson. - Pt was able to be extubated on 02/21 and was weaned to NC. - Pt was transferred out of [facility] on 02/22 the back for hypoxia/anxiety. - GI following and pt underwent evaluation with EGD on 02/23/17 --> Lovell's esophagus and a hiatal hernia. Protonix 40mg IV Q12H - Speech therapy on 02/22 recommending mechanical soft diet with thin liquids. - CXR (02/22) --> Some improvement in the bilateral infiltrates, no pneumothorax. - ID managing the pts Abx regimen. He is currently on Flagyl and Rocephin. - CT was removed on 02/26. - Pt has been weaned off supplemental O2 - increase PT. - DVT prophylaxis (2) Pneumonia Status: Acute Plan: - See above. (3) Sepsis Status: Acute Plan: - See above. (4) Atrial fibrillation with rapid ventricular response Status: Acute Plan: - Pt was started on IV Cardizem gtt at admission. - Currently pt HR is stable on Amiodarone 200mg po daily and Lopressor 25mg BID - Telemetry (5) Transaminitis Status: Acute Plan: - Pt did develop some acute transaminitis, thought to possibly be medication induced (Vanco IV or Zosyn IV or Amiodarone) - Zosyn was stopped on 02/23 and antibiotics were changed to Flagyl 500mg Q8H and Rocephin - Liver Ultrasound (02/20/17)----> Normal examination. - Hepatitis panel negative, TACO negative, AMA pending, ASMA negative. AFP 2.8, Alpha 1 Antitrypsin 422, ceruloplasmin pending. Iron saturation 29.7, Ferritin 1612. LFTs improving at this point - GI following - Labs have been slowly improving. - Monitor labs (6) ventilator dependent respiratory failure Status: Acute Assessment and Plan Patient examined. Assessment and plan formulated with Juliette Willett PA-C. I agree with the above. get midline tomorrow. d/c abx plan from ID. plan home with hhc/pt and iv abx by or Sunday. ID f/u and repeat CT planned. Problem Qualifiers (1) Pneumonia: Qualified Code: J18.9 - Pneumonia of right lung due to infectious organism, unspecified part of lung Juliette Willett February 27, 2017 11:53 Amandeep Hinton MD February 27, 2017 13:43
[2017-02-27] MEDS: cefTRIAXone INJ 2,000 MG in SODIUM CHLORIDE 0.9% INJ 100 ML IV SCH (13:21)
--- NOTE | 2017-02-27 20:21 | HHI.PR ---
Subjective Remarks Chest tube is out.and on O2 2 L. was walking in [place] . . off Bipap . Objective Vital Signs Date Time Temp Pulse Resp B/P Pulse Ox O2 Delivery O2 Flow Rate FiO2 02/27/17 16:00 98.4 89 16 113/68 100 02/27/17 12:00 98.4 82 16 101/65 96 02/27/17 09:45 94 21 02/27/17 08:00 98.5 94 17 127/70 97 02/27/17 04:00 97.4 92 22 128/66 92 02/27/17 00:13 96 40 02/27/17 00:00 98.6 94 24 118/58 93 02/26/17 22:45 Nasal Cannula 2.00 02/26/17 20:30 Nasal Cannula 2.00 I/O 02/26/17 02/26/17 02/26/17 02/27/17 02/27/17 02/27/17 07:00 15:00 23:00 07:00 15:00 23:00 Intake Total 240 ml 854 ml 559 ml 240 ml 240 ml Output Total 360 ml 235 ml 500 ml Balance -120 ml 619 ml 559 ml -260 ml 240 ml Intake Oral 240 ml 400 ml 240 ml 240 ml 240 ml IV Total 454 ml 319 ml Output Urine Total 350 ml 225 ml 500 ml Chest Tube Drainage Total 10 ml 10 ml # Voids 3 3 # Bowel Movements 0 1 1 0 1 Result Diagram: 02/26/17 0307 02/27/17 0402 Objective Remarks GENERAL:alert no distress HEENT: Head normocephalic. Pupils reactive. Nasal mucosae clear. NEC: Supple. No bruits or thyroid enlargement or lymphadenopathy. CHEST: Equal movements with occ basal crackles. Decreased breath sounds at bases. HEART: Heart sounds are regular, S1-S2. No murmur. No S3. ABDOMEN: Abdomen is soft, protuberant with mild tenderness in the upper abdomen. Bowel sounds are active. No organomegaly. EXTREMITIES: No lesions. 1 + edema. NEURO: Alert and oriented. 1+ reflexes SKIN: No lesions. Assessment and Plan Assessment and Plan IMPRESSION 1. Right lung Pneumonia with empyema. 2. Respiratory failure 3. Probable underlying COPD. 4. S/P decortication right chest Plan : 1. Antibiotic coverage as ordered. 2. Nebs qid , duoneb. 3. . N/C at 2 L and wean to Room air 4. IS at Bedside q2h 5. Chest X ray in am 6. D/C Bipap 7. To rehab soon . Diana Sabillon MD February 27, 2017 20:21
[2017-02-28] VITALS (9 sets, daily range): BP systolic 99–122; BP diastolic 6–61; PULSE 82–91; RESP 16–20; TEMP 96.5–99; O2SAT 92–97
[2017-02-28] MEDS: metroNIDAZOLE 500 MG TAB PO SCH ×3 (04:13→19:55)
[2017-02-28] MEDS: PANTOPRAZOLE SODIUM 40 MG VIAL IV PUSH SCH ×2 (04:13→14:44)
[2017-02-28] MEDS: METOCLOPRAMIDE HCL SYRUP 10 MG/10 ML UDC PO SCH ×4 (04:13→19:55)
--- NOTE | 2017-02-28 07:34 | RADRPT ---
EXAM DATE/TIME: 02/28/2017 06:16 [facility] COMPARISON: CHEST SINGLE AP, February 27, 2017, 4:58. INDICATIONS : Effusion. MEDICAL HISTORY : Atrial fibrilation. SURGICAL HISTORY : Thoracotomy. ENCOUNTER: Subsequent ACUITY: 1 week PAIN SCORE: 1/10 LOCATION: Right chest FINDINGS: A single view of the chest demonstrates pleural-parenchymal densities throughout the right lung uncha nged likely combination of consolidation and pleural effusion. Left basilar density. Heart enlarged. Osseous structures are intact. CONCLUSION: Stable chest. Erick Bruner MD on February 28, 2017 at 7:32 Board Certified Radiologist. This report was verified electronically.
[2017-02-28] MEDS: CHLORHEXIDINE 0.12% (ORAL KIT) 15 ML CUP MT SCH ×2 (08:00→19:56)
[2017-02-28] MEDS: METOPROLOL TARTRATE 25 MG TAB PO SCH ×2 (09:00→19:55)
[2017-02-28] MEDS: POTASSIUM CHLORIDE 20 MEQ CONTROLLED RELEASE TAB PO SCH ×2 (09:55→19:55)
[2017-02-28] MEDS: AMIODARONE 200 MG TAB PO SCH (09:55)
[2017-02-28] MEDS: SODIUM CHLORIDE 0.9% FLUSH 10 ML FLUSH IV FLUSH SCH ×2 (09:55→19:55)
[2017-02-28] MEDS: ACETAMINOPHEN/HYDROcodone 325 MG/5 MG TAB PO PRN (10:07)
--- NOTE | 2017-02-28 11:02 | HHI.PR ---
Subjective Remarks Pt reports that he feels somewhat depressed over having been hospitalized for so long and how sick he had been but he is happy about his impending discharge in the next 1-2 days. He has not been requiring supplemental O2 Ambulating well without O2 Objective Vitals Vital Signs Date Time Temp Pulse Resp B/P Pulse Ox O2 Delivery O2 Flow Rate FiO2 02/28/17 08:00 96.5 85 18 109/56 96 02/28/17 04:00 96.9 89 20 122/6 92 02/28/17 00:57 89 02/28/17 00:00 98.3 86 18 116/61 93 02/27/17 20:25 Room Air 2.00 Nasal Cannula 02/27/17 20:00 97.4 91 18 121/63 93 02/27/17 16:00 98.4 89 16 113/68 100 02/27/17 12:00 98.4 82 16 101/65 96 02/27/17 02/27/17 02/28/17 15:00 23:00 07:00 Intake Total 240 ml 240 ml 240 ml Balance 240 ml 240 ml 240 ml Intake Oral 240 ml 240 ml 240 ml # Voids 3 3 3 # Bowel Movements 1 0 3 Result Diagram: 02/26/17 0307 02/27/17 0402 Other Results Laboratory Tests Test 02/27/17 04:02 Sodium Level 137 MEQ/L Potassium Level 3.9 MEQ/L Chloride Level 107 MEQ/L Carbon Dioxide Level 23.1 MEQ/L Anion Gap 7 MEQ/L Blood Urea Nitrogen 10 MG/DL Creatinine 0.52 MG/DL Estimat Glomerular Filtration 167 ML/MIN Rate Random Glucose 100 MG/DL Calcium Level 7.9 MG/DL Magnesium Level 2.0 MG/DL Imaging Last Impressions Chest X-Ray 02/22/17 0500 Signed Impressions: Service Date/Time: February 05:12 - CONCLUSION: Some improvement in the bilateral infiltrates. No pneumothorax. Khanh Dover Jr., MD Liver Ultrasound 02/20/17 0000 Signed Impressions: Service Date/Time: Monday, February 20, 2017 17:49 - CONCLUSION: Normal examination. Keagan Martins MD Chest CT 02/16/17 0000 Signed Impressions: Service Date/Time: Thursday, February 16, 2017 11:15 - CONCLUSION: 1. Chest tube at the right lung base has drained the empyematous appearing fluid within the right lung base. There is however an area of loculated effusion seen in the right upper chest. 2. Interval development of a small area of atelectasis and a small effusion at the left base with patchy areas of infiltrate now seen on the left. 3. ET tube, central line and gastric tube all appear in satisfactory position. Jacky Hawthorne MD Last Impressions Chest X-Ray 02/11/17 0817 Signed Impressions: Service Date/Time: Saturday, February 11, 2017 09:04 - CONCLUSION: Extensive opacification of the right hemithorax likely representing a combination of parenchymal opacity and pleural effusion. Possible cavitation at the right lung base. Possible loculation of pleural effusion. Cipriano Moore MD Chest CT 02/11/17 0000 Signed Impressions: Service Date/Time: Saturday, February 11, 2017 11:40 - CONCLUSION: 1. Prominent multiloculated pleural effusion on the right containing multiple foci of gas. Difficult diagnosis includes bronchopleural fistula, infection with gas producing organisms, and iatrogenic if recent procedure has been performed. 2. Patchy right lung consolidation. 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 - He was moved to the [facility] for worsening SOB, general decline on 02/12 for respiratory failure and was intubated - He had a right chest tube placed on 02/12 which drained 1100mL of foul smelling , putrid, yellow material - Fluid culture (02/12) --> Strep Viridans, anaerobes and Fusobacterium - Pts empyema thought to likely be secondary to chronic aspiration as the pt has hc of alcohol abuse. - On 02/17 pt had a second chest tube placed in loculation upper thorax right side with purulent material drained but CXR reveals a thick residual empyema rim. - CTS was consulted and pt underwent decortication on 02/[address] Anderson. - Pt was able to be extubated on 02/21 and was weaned to NC. - Pt was transferred out of [facility] on 02/22 the back for hypoxia/anxiety. - GI following and pt underwent evaluation with EGD on 02/23/17 --> Lovell's esophagus and a hiatal hernia. Protonix 40mg IV Q12H - Speech therapy on 02/22 recommending mechanical soft diet with thin liquids. - CXR (02/22) --> Some improvement in the bilateral infiltrates, no pneumothorax. - ID managing the pts Abx regimen. He is currently on Flagyl and Rocephin. - CT was removed on 02/26. - Pt has been weaned off supplemental O2 - Mid line placement today - Abx recs per ID - He will need close followup outpt with ID and repeat imaging in 2 week. - increase PT. - Anticipate discharge to home with HHC/PT in the next 1-2 days. - DVT prophylaxis (2) Pneumonia Status: Acute Plan: - See above. (3) Sepsis Status: Acute Plan: - See above. (4) Atrial fibrillation with rapid ventricular response Status: Acute Plan: - Pt was started on IV Cardizem gtt at admission. - Currently pt HR is stable on Amiodarone 200mg po daily and Lopressor 25mg BID - Telemetry (5) Transaminitis Status: Acute Plan: - Pt did develop some acute transaminitis, thought to possibly be medication induced (Vanco IV or Zosyn IV or Amiodarone) - Zosyn was stopped on 02/23 and antibiotics were changed to Flagyl 500mg Q8H and Rocephin - Liver Ultrasound (02/20/17)----> Normal examination. - Hepatitis panel negative, TACO negative, AMA pending, ASMA negative. AFP 2.8, Alpha 1 Antitrypsin 422, ceruloplasmin pending. Iron saturation 29.7, Ferritin 1612. LFTs improving at this point - GI following - Labs have been slowly improving. - Monitor labs (6) ventilator dependent respiratory failure Status: Acute Assessment and Plan Patient examined. Assessment and plan formulated with Juliette Willett PA-C. I agree with the above. plan for d/c home with [facility] on 03/01 or 03/02 Problem Qualifiers (1) Pneumonia: Qualified Code: J18.9 - Pneumonia of right lung due to infectious organism, unspecified part of lung Juliette Willett February 28, 2017 11:02 Amandeep Hinton MD February 28, 2017 15:05
--- NOTE | 2017-02-28 11:03 | HHI.FF ---
Face to Face Verification Diagnosis: (1) Empyema (2) Sepsis (3) Atrial fibrillation with rapid ventricular response (4) Pneumonia (5) Transaminitis (6) s/p right VATS Physical Therapy Order: Evaluate and Treat, Improve ambulation, Strength and gait training Home Health Nursing Order: Signs/symptoms of disease process Nursing assessment with vital signs IV medication administration I have seen patient Yvonne Salazar on 02/28/17. My clinical findings support the need for the requested home health care services because: Deconditioned w/ increased weakness Infection w/ risk of complications Injectable med education/admin I certify that my clinical findings support that this patient is homebound because: Unsteady gait/balance Juliette Willett February 28, 2017 11:03
[2017-02-28] MEDS: cefTRIAXone INJ 2,000 MG in SODIUM CHLORIDE 0.9% INJ 100 ML IV SCH (14:44)
[2017-02-28] MEDS ORDERED: EPIN1INJ21 IV PUSH (16:55)
[2017-02-28] MEDS ORDERED: EPIN1INJ21 SQ (16:55)
[2017-02-28] MEDS ORDERED: SOLU250I IV PUSH (16:55)
[2017-02-28] MEDS ORDERED: CEFT1INJ5 IV (16:55)
[2017-02-28] MEDS ORDERED: METR-1 PO (16:58)
--- NOTE | 2017-02-28 17:06 | HHI.FF ---
cc: Chayo Quiñonez MD Infusion Therapy Location of Infusion Therapy: Home Health Care IV Infusion Order Patient Information Appointment Date: February 28, 2017 Patient Weight 66.8 kg Diagnosis: Diagnosis Strep viridans, fusobacterium Empyema Aspiration pneumonia Coded Allergies: Latex (Verified Allergy, Mild, Rash, 02/19/17) Administer Medication Ceftriaxone 2 grams IV q 24 hours Start Treatment: February 28, 2017 Stop Treatment: Mar 30, 2017 Additional Information Additional Medications Flagyl 500 mg by mouth every 8 hours for 2 weeks. Venous access: Other (Midline) Additional Instructions [x] Peripheral flush and dressing changes per protocol [x] Implanted port and central ladle liner: * Implanted port: 10 ml Normal Saline followed by 5 ml Heparin 100 units/ml Heparin flush after each use and monthly to maintain. [] May leave port accessed during therapy. [] May leave peripheral site accessed for duration of therapy. [x] If patient has SOB or respiratory distress, check oxygen saturation. If less than 90% or clinical signs of respiratory distress, administer oxygen at 2 L/min. via nasal cannula and notify physician. [x] Anaphylaxis/Reaction orders: * Stop infusion. * Keep IV line open with saline flush. * Notify physician. * Monitor vital signs every 15 minutes until symptoms resolve. * Check Oxygen saturation; Oxygen at 2 L/min. via nasal cannula if less than 90% or clinical signs of respiratory distress. * Administer diphenhydramine (Benadryl) 25 mg IV STAT, (unless patient has received as pre-med). May repeat once, if necessary. * Solu-Cortef 250 mg IVP over 30-60 seconds, use 100 mg vials for each dissolution. * Epinephrine (1mg/1 ml) 0.3 mg subcutaneously or IVP now with any signs of respiratory distress. * Check with physician for new additional pre-med orders if patient is re- challenged or re-treated. [x] May remove PICC line when treatment complete, after confirming with Physician. [x] If the patient is admitted to the hospital, the ED, or transferred via [facility] , complete transfer form including medication reconciliation order sheet. Laboratory Tests Weekly Labs: CBC w/diff, Creatinine, CRP, LFT's (Hepatic function test) Additional Information Please draw weekly labs, fax to numbers below and call with abnormal labs, change in clinical condition or problems to: Dr.Reba Quiñonez or or ID Physician Follow up appt: Patient to schedule follow up appt with Dr.Reba Quiñonez within 2 weeks post discharge. Follow up with PCP Follow up with other MDs as planned. Counseling: Counseled about medication side effects Counseled about PICC line care and hand hygiene. Neela Saxena MD February 28, 2017 17:06
--- NOTE | 2017-02-28 17:09 | HHI.PR ---
Addendum to Inpatient Note Addendum Reason: Additional Documentation Additional Information dw Will discharge home with home health. Midline placement. Follow up with Dr.Reba Quiñonez for ID as outpatient. Recommend outpt CT chest or CXR to determine if can be converted to oral regimen at end of 2 weeks. Post hospital infusion orders in chart. Will sign off please call back if any change in clinical condition or questions. Neela Saxena MD February 28, 2017 17:09
--- NOTE | 2017-02-28 19:08 | HHI.PR ---
Subjective Remarks Off o2 sat 95. Walked in halls. feels weak, and has no fever. . off Bipap .Wheezing Objective Vital Signs Date Time Temp Pulse Resp B/P Pulse Ox O2 Delivery O2 Flow Rate FiO2 02/28/17 16:00 98.3 89 18 99/56 93 02/28/17 12:00 97.3 82 16 113/53 94 02/28/17 10:00 96 Room Air 02/28/17 08:00 96.5 85 18 109/56 96 02/28/17 04:00 96.9 89 20 122/6 92 02/28/17 00:57 89 02/28/17 00:00 98.3 86 18 116/61 93 02/27/17 20:25 Room Air 2.00 Nasal Cannula 02/27/17 20:00 97.4 91 18 121/63 93 I/O 02/27/17 02/27/17 02/27/17 02/28/17 02/28/17 02/28/17 07:00 15:00 23:00 07:00 15:00 23:00 Intake Total 240 ml 240 ml 240 ml 240 ml 800 ml Output Total 500 ml 600 ml Balance -260 ml 240 ml 240 ml 240 ml 200 ml Intake Oral 240 ml 240 ml 240 ml 240 ml 800 ml Output Urine Total 500 ml 600 ml # Voids 3 3 3 # Bowel Movements 0 1 0 3 1 Result Diagram: 02/26/17 0307 02/27/17 0402 Objective Remarks GENERAL:alert no distress HEENT: Head normocephalic. Pupils reactive. Throat clear. NEC: Supple. No bruits or thyroid enlargement or lymphadenopathy. CHEST: Equal movements with Decreased breath sounds at bases. HEART: Heart sounds are regular, S1-S2. No murmur. No S3. ABDOMEN: Abdomen is soft, protuberant with mild tenderness in the upper abdomen. Bowel sounds are active. No organomegaly. EXTREMITIES: No lesions. No edema. NEURO: Alert and oriented. 1+ reflexes SKIN: No lesions. Assessment and Plan Assessment and Plan IMPRESSION 1. Right lung Pneumonia with empyema. 2. Respiratory failure 3. Probable underlying COPD. 4. S/P decortication right chest Plan : 1. Antibiotic coverage as ordered. 2. Nebs qid , duoneb. 3. . N/C at 2 L and wean to Room air 4. IS at Bedside q2h 5. To rehab on antibiotics . Diana Sabillon MD February 28, 2017 19:08 Diana Sabillon MD February 28, 2017 19:08
[2017-02-28] MEDS: TEMAZEPAM 15 MG CAP PO PRN (20:40)
[2017-03-01] MEDS: METOCLOPRAMIDE HCL SYRUP 10 MG/10 ML UDC PO SCH ×4 (02:13→22:00)
[2017-03-01] MEDS: PANTOPRAZOLE SODIUM 40 MG VIAL IV PUSH SCH ×2 (02:13→15:39)
[2017-03-01 04:30] VITALS: BP 105/54; PULSE 84; RESP 18; TEMP 98.9; O2SAT 93
[2017-03-01] MEDS: metroNIDAZOLE 500 MG TAB PO SCH ×3 (05:04→22:45)
[2017-03-01 06:50] LABS: BASOPHIL # 0.2 TH/MM3 (0-0.2); BASOPHIL % 1.3 % (0.0-2.0); EOSINOPHIL # 0.3 TH/MM3 (0-0.4); EOSINOPHIL % 1.7 % (0.0-4.0); HEMATOCRIT 22.6 % (39.0-51.0); HEMO FLAGS DIFF FINAL; LYMPH % 16.6 % (9.0-44.0); LYMPHOCYTE # 2.6 TH/MM3 (1.0-4.8); MEAN CELL VOLUME 92.3 FL (80.0-100.0); MEAN CORPUSCULAR HEMOGLOBIN 30.6 PG (27.0-34.0); MEAN CORPUSCULAR HGB CONC 33.1 % (32.0-36.0); MONO % 11.3 % (0.0-8.0); NEUT % 69.1 % (16.0-70.0); PLATELET COUNT 626 TH/MM3 (150-450); RED BLOOD COUNT 2.44 MIL/MM3 (4.50-5.90); RED CELL DISTRIBUTION WIDTH 14.1 % (11.6-17.2); WHITE BLOOD COUNT 15.9 TH/MM3 (4.0-11.0)
[2017-03-01 07:16] LABS: BICARBONATE 21.2 MEQ/L (21.0-32.0); MAGNESIUM 2.1 MG/DL (1.5-2.5); POTASSIUM 3.9 MEQ/L (3.5-5.1)
[2017-03-01 08:00] VITALS: BP 98/53; PULSE 82; RESP 16; TEMP 97.4; O2SAT 94
[2017-03-01] MEDS: CHLORHEXIDINE 0.12% (ORAL KIT) 15 ML CUP MT SCH ×2 (08:00→19:47)
[2017-03-01] MEDS: METOPROLOL TARTRATE 25 MG TAB PO SCH ×2 (09:00→19:47)
[2017-03-01] MEDS ORDERED: METO25TA3 PO (09:47)
[2017-03-01] MEDS: POTASSIUM CHLORIDE 20 MEQ CONTROLLED RELEASE TAB PO SCH ×2 (09:47→19:47)
[2017-03-01] MEDS: AMIODARONE 200 MG TAB PO SCH (09:47)
[2017-03-01] MEDS: SODIUM CHLORIDE 0.9% FLUSH 10 ML FLUSH IV FLUSH SCH ×2 (09:47→19:48)
[2017-03-01] MEDS ORDERED: AMIO200T PO (09:47)
--- NOTE | 2017-03-01 09:51 | HHI.PR ---
Subjective Remarks Pt is very anxious for discharge. 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 Afebrile. Objective Vitals Vital Signs Date Time Temp Pulse Resp B/P Pulse Ox O2 Delivery O2 Flow Rate FiO2 03/01/17 08:00 97.4 82 16 98/53 94 03/01/17 04:30 98.9 84 18 105/54 93 02/28/17 23:50 96.8 86 17 110/56 93 02/28/17 20:00 99.0 91 18 107/57 97 02/28/17 19:55 92 Nasal Cannula 2.00 02/28/17 16:00 98.3 89 18 99/56 93 02/28/17 12:00 97.3 82 16 113/53 94 02/28/17 10:00 96 Room Air 02/28/17 02/28/17 03/01/17 15:00 23:00 07:00 Intake Total 800 ml 380 ml 280 ml Output Total 600 ml 480 ml Balance 200 ml -100 ml 280 ml Intake Oral 800 ml 380 ml 280 ml Output Urine Total 600 ml 480 ml # Voids 2 # Bowel Movements 1 Result Diagram: 03/01/17 0548 03/01/17 0548 Other Results Laboratory Tests Test 03/01/17 05:48 White Blood Count 15.9 TH/MM3 Red Blood Count 2.44 MIL/MM3 Hemoglobin 7.5 GM/DL Hematocrit 22.6 % Mean Corpuscular Volume 92.3 FL Mean Corpuscular Hemoglobin 30.6 PG Mean Corpuscular Hemoglobin 33.1 % Concent Red Cell Distribution Width 14.1 % Platelet Count 626 TH/MM3 Mean Platelet Volume 7.3 FL Neutrophils (%) (Auto) 69.1 % Lymphocytes (%) (Auto) 16.6 % Monocytes (%) (Auto) 11.3 % Eosinophils (%) (Auto) 1.7 % Basophils (%) (Auto) 1.3 % Neutrophils # (Auto) 11.0 TH/MM3 Lymphocytes # (Auto) 2.6 TH/MM3 Monocytes # (Auto) 1.8 TH/MM3 Eosinophils # (Auto) 0.3 TH/MM3 Basophils # (Auto) 0.2 TH/MM3 CBC Comment DIFF FINAL Differential Comment Sodium Level 136 MEQ/L Potassium Level 3.9 MEQ/L Chloride Level 102 MEQ/L Carbon Dioxide Level 21.2 MEQ/L Anion Gap 13 MEQ/L Blood Urea Nitrogen 7 MG/DL Creatinine 0.46 MG/DL Estimat Glomerular Filtration 192 ML/MIN Rate Random Glucose 87 MG/DL Calcium Level 8.3 MG/DL Magnesium Level 2.1 MG/DL Imaging Last Impressions Chest X-Ray 02/22/17 0500 Signed Impressions: Service Date/Time: February 05:12 - CONCLUSION: Some improvement in the bilateral infiltrates. No pneumothorax. Khanh Dover Jr., MD Liver Ultrasound 02/20/17 0000 Signed Impressions: Service Date/Time: Monday, February 20, 2017 17:49 - CONCLUSION: Normal examination. Keagan Martins MD Chest CT 02/16/17 0000 Signed Impressions: Service Date/Time: Thursday, February 16, 2017 11:15 - CONCLUSION: 1. Chest tube at the right lung base has drained the empyematous appearing fluid within the right lung base. There is however an area of loculated effusion seen in the right upper chest. 2. Interval development of a small area of atelectasis and a small effusion at the left base with patchy areas of infiltrate now seen on the left. 3. ET tube, central line and gastric tube all appear in satisfactory position. Jacky Hawthorne MD Last Impressions Chest X-Ray 02/11/17 0817 Signed Impressions: Service Date/Time: Saturday, February 11, 2017 09:04 - CONCLUSION: Extensive opacification of the right hemithorax likely representing a combination of parenchymal opacity and pleural effusion. Possible cavitation at the right lung base. Possible loculation of pleural effusion. Cipriano Moore MD Chest CT 02/11/17 0000 Signed Impressions: Service Date/Time: Saturday, February 11, 2017 11:40 - CONCLUSION: 1. Prominent multiloculated pleural effusion on the right containing multiple foci of gas. Difficult diagnosis includes bronchopleural fistula, infection with gas producing organisms, and iatrogenic if recent procedure has been performed. 2. Patchy right lung consolidation. 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 - He was moved to the [facility] for worsening SOB, general decline on 02/12 for respiratory failure and was intubated - He had a right chest tube placed on 02/12 which drained 1100mL of foul smelling , putrid, yellow material - Fluid culture (02/12) --> Strep Viridans, anaerobes and Fusobacterium - Pts empyema thought to likely be secondary to chronic aspiration as the pt has hc of alcohol abuse. - On 02/17 pt had a second chest tube placed in loculation upper thorax right side with purulent material drained but CXR reveals a thick residual empyema rim. - CTS was consulted and pt underwent decortication on 02/[address] Anderson. - Pt was able to be extubated on 02/21 and was weaned to NC. - Pt was transferred out of [facility] on 02/22 the back for hypoxia/anxiety. - GI following and pt underwent evaluation with EGD on 02/23/17 --> Lovell's esophagus and a hiatal hernia. Protonix 40mg IV Q12H - Speech therapy on 02/22 recommending mechanical soft diet with thin liquids. - CXR (02/22) --> Some improvement in the bilateral infiltrates, no pneumothorax. - ID managing the pts Abx regimen. He is currently on Flagyl and Rocephin. - CT was removed on 02/26. - Pt has been weaned off supplemental O2 - Mid line placement today - Abx recs per ID - He will need close followup outpt with ID and repeat imaging in 2 week. - increase PT. - Anticipate discharge to home with HHC/PT vs. SNF tomorrow, once placement is decided and once IV antibiotics have been arranged. - DVT prophylaxis (2) Pneumonia Status: Acute Plan: - See above. (3) Sepsis Status: Acute Plan: - See above. (4) Atrial fibrillation with rapid ventricular response Status: Acute Plan: - Pt was started on IV Cardizem gtt at admission. - Currently pt HR is stable on Amiodarone 200mg po daily and Lopressor 25mg BID - Telemetry (5) Transaminitis Status: Acute Plan: - Pt did develop some acute transaminitis, thought to possibly be medication induced (Vanco IV or Zosyn IV or Amiodarone) - Zosyn was stopped on 02/23 and antibiotics were changed to Flagyl 500mg Q8H and Rocephin - Liver Ultrasound (02/20/17)----> Normal examination. - Hepatitis panel negative, TACO negative, AMA pending, ASMA negative. AFP 2.8, Alpha 1 Antitrypsin 422, ceruloplasmin pending. Iron saturation 29.7, Ferritin 1612. LFTs improving at this point - GI following - Labs have been slowly improving. - Monitor labs (6) ventilator dependent respiratory failure Status: Acute Assessment and Plan Patient examined. Assessment and plan formulated with Juliette Willett PA-C. I agree with the above. right parapneumonic empyema. cont abx. midline tomorrow and d/c home with [facility]. ID to leave abx reccs. will need ID f/u and repeat ct chest in 2 weeks to clarify total length of treatment. Problem Qualifiers (1) Pneumonia: Qualified Code: J18.9 - Pneumonia of right lung due to infectious organism, unspecified part of lung Juliette Willett March 01, 2017 09:51 Amandeep Hinton MD March 01, 2017 20:13
[2017-03-01 12:00] VITALS: BP 120/59; PULSE 87; RESP 18; TEMP 98.7; O2SAT 94
[2017-03-01] MEDS: cefTRIAXone INJ 2,000 MG in SODIUM CHLORIDE 0.9% INJ 100 ML IV SCH (12:39)
[2017-03-01] MEDS: ACETAMINOPHEN/HYDROcodone 325 MG/5 MG TAB PO PRN (12:39)
[2017-03-01 16:00] VITALS: BP 116/58; PULSE 84; RESP 16; TEMP 97.9; O2SAT 95
--- NOTE | 2017-03-01 16:55 | HHI.DCPOC ---
Discharge Care Plan Diagnosis: (1) Empyema (2) s/p right VATS (3) Atrial fibrillation with rapid ventricular response (4) Sepsis (5) ventilator dependent respiratory failure (6) Transaminitis Goals to Promote Your Health - Pt is planned for discharge home with [facility] - He is to followup with Dr.Reba Quiñonez for ID as outpatient in 1-2 weeks, call for an appt. - Recommend outpt CT chest or CXR to determine if IV can be converted to oral regimen at end of 2 weeks. - Pt will need to followup with his PCP, Dr. Jamison, in 1 week, call for an appt. - He will need to followup with Dr. Anderson in 2 weeks, call for an appt. Directions to Meet Your Goals Take your medications as prescribed Follow your dietary instruction Follow activity as directed Keep your appointments as scheduled Take your immunizations and boosters as scheduled If your symptoms worsen call your PCP, if no PCP go to Urgent Care Center or Emergency Room Smoking is Dangerous to Your Health. Avoid second hand smoke Call the 24-hour hour crisis hotline for domestic abuse at Juliette Willett March 01, 2017 16:55
[2017-03-01 20:00] VITALS: BP 104/56; PULSE 80; RESP 17; TEMP 98.7; O2SAT 94
[2017-03-01 23:48] VITALS: BP 106/54; PULSE 92; RESP 17; TEMP 98.3; O2SAT 96
[2017-03-02] MEDS: METOCLOPRAMIDE HCL SYRUP 10 MG/10 ML UDC PO SCH ×3 (04:00→16:00)
[2017-03-02 04:20] VITALS: BP 117/56; PULSE 87; RESP 18; TEMP 99.5; O2SAT 97
[2017-03-02] MEDS: metroNIDAZOLE 500 MG TAB PO SCH ×2 (04:33→13:41)
[2017-03-02] MEDS: PANTOPRAZOLE SODIUM 40 MG VIAL IV PUSH SCH ×2 (04:33→13:41)
[2017-03-02 08:00] VITALS: BP 94/51; PULSE 84; RESP 15; TEMP 97; O2SAT 97
[2017-03-02] MEDS: CHLORHEXIDINE 0.12% (ORAL KIT) 15 ML CUP MT SCH (08:00)
[2017-03-02] MEDS: METOPROLOL TARTRATE 25 MG TAB PO SCH (09:00)
[2017-03-02 09:06] VITALS: O2SAT 95
[2017-03-02] MEDS: SODIUM CHLORIDE 0.9% FLUSH 10 ML FLUSH IV FLUSH SCH (09:33)
[2017-03-02] MEDS: POTASSIUM CHLORIDE 20 MEQ CONTROLLED RELEASE TAB PO SCH (09:33)
[2017-03-02] MEDS: AMIODARONE 200 MG TAB PO SCH (09:33)
--- NOTE | 2017-03-02 11:17 | HHI.DS ---
Discharge Summary Admission Date Feb 11, 2017 at 11:33 Discharge Date: March 02, 2017 Admitting Diagnosis pneumonia,pleural effusion (1) Empyema Diagnosis: Principal (2) Pneumonia Diagnosis: Secondary (3) Sepsis Diagnosis: Secondary (4) Atrial fibrillation with rapid ventricular response Diagnosis: Secondary (5) Transaminitis Diagnosis: Secondary (6) ventilator dependent respiratory failure Diagnosis: Secondary Consultants Dr. Keagan Becerril - Pulmonary Medicine Dr. Neela Saxena- MADYSON Lofton - GI Brief History Pt is a 51 y/o M with negative PMH who presented to the ER with c/o fever, chills, cough, and SOB. Pt states that these symptoms have worsened over the course of the last week. Pt c/o generalized muscle aches. Pt had to sit upright in a chair to sleep and could not lye down d/t SOB. 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 Pt states that some of his coworkers have c/o similar symptoms. 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 He was moved to the [facility] for worsening SOB, general decline on 02/12 for respiratory failure and was intubated. He had a right chest tube placed on 02/12 which drained 1100mL of foul smelling, putrid, yellow material. Fluid culture (02/12) -- > Strep Viridans, anaerobes and Fusobacterium. On 02/17 pt had a second chest tube placed in loculation upper thorax right side with purulent material drained but CXR reveals a thick residual empyema rim. CTS was consulted and pt underwent decortication on 02/[address] Anderson. Pt was able to be extubated on and was weaned to [place]. Pt was transferred out of [facility] on 02/22 the back for hypoxia/anxiety. GI following and pt underwent evaluation with EGD on 02/23/17 -- > Lovell's esophagus and a hiatal hernia. CXR (02/22) --> Some improvement in the bilateral infiltrates, no pneumothorax. Pts diet was able to be advanced to regular consistency with thin liquids. ID managing the pts Abx regimen. He is currently on Flagyl and Rocephin. CT was removed on 02/26. Pt was weaned off supplemental O2. Mid line placed for continued outpt antibiotics. Pt will continue on Rocephin 2grams IV Q24H until 03/30/17 and Flagyl 500mg po Q8H x 2 weeks. He will need close followup outpt with ID and repeat imaging in 2 weeks to determine length of continued IV antibiotic treatment. Pt was noted to be an A. fib RVR and was started on IV Cardizem gtt at admission. This was able to be converted to Amiodarone 200mg po daily and Lopressor 25mg BID and HR had been controlled. Pt did develop some acute transaminitis, thought to possibly be medication induced (Vanco IV or Zosyn IV or Amiodarone). Zosyn was stopped on 02/23 and antibiotics were changed to Flagyl 500mg Q8H and Rocephin. Liver Ultrasound (02/20)----> Normal examination. Hepatitis panel negative, TACO negative, AMA negative, ASMA negative. AFP 2.8, Alpha 1 Antitrypsin 422, ceruloplasmin 35, Iron saturation 29.7, Ferritin 1612. LFTs improved and almost completely normalized prior to discharge. Pt is planned for discharge home with [facility] He is to followup with Dr.Reba Quiñonez for ID as outpatient in 1-[address] chest or CXR to determine if IV can be converted to oral regimen at end of 2 weeks. Post hospital infusion orders in chart. Pt will need to followup with his PCP, Dr. Jamison, in 1 week. He will need to followup with Dr. Anderson in 2 weeks, call for an appt. Pt Condition on Discharge: Stable Discharge Disposition: Disch w/ Home Health Serv Discharge Instructions DIET: Follow Instructions for: Diabetic Diet Speech Therapy-Diet Recommends: Regular Activities you can perform: Regular-No Restrictions Follow up Referrals: Infectious Disease - 03/15/17 with Chayo Quiñonez MD PCP Follow-up - [address] Triston Jamison SNF/[facility]/ with [facility] Surgical - 2 Weeks with Hafsa Anderson MD New Medications: Ceftriaxone Inj (Ceftriaxone Inj) 1 Gm Inj 2 GM IV DAILY Infection Days 30 Ref 0 BAG Epinephrine Inj (Epinephrine Inj) 1 Mg/Ml Inj 0.3 MG IV PUSH ONCE PRN ALLERGIC REACTION #1 VIAL Epinephrine Inj (Epinephrine Inj) 1 Mg/Ml Inj 0.3 MG SQ ONCE Give with any signs of respiratory distress. PRN ALLERGIC REACTION #1 VIAL Hydrocortisone Inj (Solu-Cortef Inj) 250 Mg Inj 250 MG IV PUSH ONCE Give over 30-60 seconds. PRN ALLERGIC REACTION #1 Ref 0 VIAL Amiodarone (Amiodarone) 200 Mg Tab 200 MG PO DAILY A. fib #30 TAB Metoprolol Tartrate (Metoprolol Tartrate) 25 Mg Tab 25 MG PO BID A. fib #62 TAB Metronidazole (Flagyl) 500 Mg Tab 500 MG PO Q8HR fusobacterium empyema Days 14 Ref 0 TAB Juilette Willett March 02, 2017 11:17 Amandeep Hinton MD March 02, 2017 21:24
[2017-03-02 12:00] VITALS: BP 98/55; PULSE 87; RESP 18; TEMP 96.9; O2SAT 98
[2017-03-02] MEDS: cefTRIAXone INJ 2,000 MG in SODIUM CHLORIDE 0.9% INJ 100 ML IV SCH (13:41)
--- NOTE | 2017-03-02 15:05 | HHI.GIFU ---
Subjective Remarks Resting in bed. Going home today. States he has not had heartburn since he has been in the hospital. D/W his EGD/Pathology report- Lovell's with low grade dysplasia and the importance of fu with EGD/BARRX in 6-8 weeks, importance of anti-reflux measures, good control of GERD and the fact that if left untreated, this can progress to esophageal cancer. Verbalizes understanding. Questions answered. Objective Vitals I&O Vital Signs Date Time Temp Pulse Resp B/P Pulse Ox O2 Delivery O2 Flow Rate FiO2 03/02/17 12:00 96.9 87 18 98/55 98 03/02/17 09:06 95 21 03/02/17 08:00 97.0 84 15 94/51 97 03/02/17 04:20 99.5 87 18 117/56 97 03/01/17 23:48 98.3 92 17 106/54 96 03/01/17 20:00 98.7 80 17 104/56 94 03/01/17 19:44 Room Air 2.00 Nasal Cannula 03/01/17 16:00 97.9 84 16 116/58 95 I/O 03/01/17 03/01/17 03/01/17 03/02/17 03/02/17 03/02/17 07:00 15:00 23:00 07:00 15:00 23:00 Intake Total 280 ml 1200 ml 360 ml 360 ml Output Total 800 ml Balance 280 ml 400 ml 360 ml 360 ml Intake Oral 280 ml 1200 ml 360 ml 360 ml IV Total 0 ml Output Urine Total 800 ml # Voids 2 2 2 # Bowel Movements 0 Imaging Last Impressions Chest X-Ray 02/28/17 0600 Signed Impressions: Service Date/Time: Tuesday, February 28, 2017 06:16 - CONCLUSION: Stable chest. Erick Bruner MD Liver Ultrasound 02/20/17 0000 Signed Impressions: Service Date/Time: Monday, February 20, 2017 17:49 - CONCLUSION: Normal examination. Keagan Martins MD Chest CT 02/16/17 0000 Signed Impressions: Service Date/Time: Thursday, February 16, 2017 11:15 - CONCLUSION: 1. Chest tube at the right lung base has drained the empyematous appearing fluid within the right lung base. There is however an area of loculated effusion seen in the right upper chest. 2. Interval development of a small area of atelectasis and a small effusion at the left base with patchy areas of infiltrate now seen on the left. 3. ET tube, central line and gastric tube all appear in satisfactory position. Jacky Hawthorne MD Physical Exam HEENT: Normocephalic; atraumatic CHEST: Resp. even/unlabored. CARDIAC: RRR ABDOMEN: Soft, nondistended, no hepatosplenomegaly; bowel sounds are present in all four quadrants. EXTREMITIES: Generalized edema. LABEL PRINTER: alert, oriented x 3 Assessment and Plan Plan ASSESSMENT - Lovell's Esophagus with low grade dysplasia. S/P EGD (02/23/17)---> 1. Lovell's esophagus-biopsy 2. Retroflexed views revealed a hiatal hernia. Pathology with gastric mucosa tissue with extensive intestinal metaplasia exhibiting focal low grade dysplasia, clinically distal esophagus. PPI. States he has not had heartburn since he has been in the hospital. D/W his EGD/Pathology report- Lovell's with low grade dysplasia and the importance of fu with EGD/BARRX in 6-8 weeks, importance of anti-reflux measures, good control of GERD and the fact that if left untreated, this can progress to esophageal cancer. Verbalizes understanding. Questions answered. - PNA with parapneumonic effusion and right empyema. Significant other reports that patient has been having significant GERD symptoms, taking TUMS frequently and there is some question if there is any aspiration/GI component and therefore GI was consulted for further evaluation with EGD. Pt went for right posterolateral muscle sparing thoracotomy, decortication, intercostal nerve block (02/19/17). Of note, the patient denies any heartburn, reflux, odynophagia, nausea, vomiting, abdominal pain. Speech therapy in, no signs of aspiration , recommends mechanical soft diet with thin liquids. Abx per primary. S/P EGD (02/23/17)---> 1. Lovell's esophagus-biopsy 2. Retroflexed views revealed a hiatal hernia. Pathology pending. PPI. - Elevated LFTs. Liver Ultrasound (02/20/17)----> Normal examination. Hepatitis panel negative, TACO negative, AMA pending, ASMA negative. AFP 2.8, Alpha 1 Antitrypsin 422, ceruloplasmin 35. Iron saturation 29.7, Ferritin 1612. Pt denies any etoh use. Possibly related to infections/medications. LFTs improving at this point Cont. to improve - Acute respiratory failure, Severe bronchospasm, S/P extubation. No on r/a. Improved, resp even/unlabored. - Leukocytosis, sepsis. Resolved - Anemia. Stable PLAN - STEFANI - Cont. PPI - FU CHICHI 2 weeks - EGD with Barrx in 6-8 weeks, d/w patient's EGD/Pathology report- Lovell's with low grade dysplasia and the importance of fu with EGD/BARRX in 6-8 weeks, importance of anti-reflux measures, good control of GERD and the fact that if left untreated, this can progress to esophageal cancer. Verbalizes understanding. - Pt seen and examined by Dr. Alvarado and myself and this note is written on his behalf Monie Orozco March 02, 2017 15:05
[2017-03-02 16:00] VITALS: BP 109/57; PULSE 82; RESP 21; TEMP 96.6; O2SAT 95
== END 2017-03-02 17:05 | disposition home health service (06) | DRG 163 ==
LOC: NEPC 07:54 → NEDA 11:33 → N07B 13:29 → N03B 21:49 → N05B 02-22 14:57 → N03A 02-25 05:50 → N07A 02-26 22:25
PROVIDERS: ADMIT Hospitalist; ATTEND Hospitalist
PROC: 5A1955Z Respiratory Ventilation, Greater than 96 Consecutive Hours (ICD-10-PCS; 2017-02-12)
PROC: 0BH17EZ Insertion of Endotracheal Airway into Trachea, Via Natural or Artificial Opening (ICD-10-PCS; 2017-02-12)
PROC: 0W9930Z Drainage of Right Pleural Cavity with Drainage Device, Percutaneous Approach (ICD-10-PCS; 2017-02-12)
PROC: 0B938ZX Drainage of Right Main Bronchus, Via Natural or Artificial Opening Endoscopic, Diagnostic (ICD-10-PCS; 2017-02-14)
PROC: 02H633Z Insertion of Infusion Device into Right Atrium, Percutaneous Approach (ICD-10-PCS; 2017-02-16)
PROC: 0W9930Z Drainage of Right Pleural Cavity with Drainage Device, Percutaneous Approach (ICD-10-PCS; 2017-02-16)
PROC: 3E0T3CZ (ICD-10-PCS; 2017-02-19)
PROC: 0BDN0ZZ Extraction of Right Pleura, Open Approach (ICD-10-PCS; principal; 2017-02-19 07:39)
PROC: 0DB58ZX Excision of Esophagus, Via Natural or Artificial Opening Endoscopic, Diagnostic (ICD-10-PCS; 2017-02-23)
DX: J86.9 Pyothorax without fistula (principal); J96.01 Acute respiratory failure with hypoxia; R65.21 Severe sepsis with septic shock; J44.9 Chronic obstructive pulmonary disease, unspecified; J69.0 Pneumonitis due to inhalation of food and vomit; J90 Pleural effusion, not elsewhere classified; J44.0 Chronic obstructive pulmonary disease with (acute) lower respiratory infection; G93.41 Metabolic encephalopathy; A40.8 Other streptococcal sepsis; J98.11 Atelectasis; K22.710 Barrett's esophagus with low grade dysplasia; E88.09 Other disorders of plasma-protein metabolism, not elsewhere classified; J98.01 Acute bronchospasm; F10.20 Alcohol dependence, uncomplicated; I48.91 Unspecified atrial fibrillation; D64.9 Anemia, unspecified; K21.9 Gastro-esophageal reflux disease without esophagitis; K44.9 Diaphragmatic hernia without obstruction or gangrene; R74.0 Nonspecific elevation of levels of transaminase and lactic acid dehydrogenase [LDH]; F41.9 Anxiety disorder, unspecified; F17.210 Nicotine dependence, cigarettes, uncomplicated; Z53.29 Procedure and treatment not carried out because of patient's decision for other reasons
CPT/HCPCS: 31500; 36430; 36556; 36569; 36600; 71010; 71020; 71260; 76705; 76937; 80048; 80053; 80074; 80076; 80202; 82042; 82103; 82105; 82390; 82565; 82728; 82805; 82945; 83520; 83540; 83550; 83605; 83615; 83690; 83735; 83986; 84100; 84132; 84157; 84315; 85007; 85025; 85027; 85610; 86038; 86256; 86703; 86850; 86900; 86901; 86920; 87015; 87040; 87070; 87102; 87116; 87176; 87185; 87186; 87205; 87206; 87449; 87641; 87804; 88305; 89051; 93005; 93306; 94002; 94003; 94150; 94640; 94664; 94667; 94668; 94770; 96361; 96374; C9113; C9290; J0131; J0282; J0360; J0690; J0696; J1100; J1200; J1885; J1940; J1956; J2250; J2270; J2274; J2405; J2543; J2930; J3010; J3370; J3475; J3480; J7030; J7050; J7060; J7120; J7613; P9016; Q9967